=== PATIENT | female | born 1985 | race Caucasian/White ===

== ENCOUNTER 2023-05-29 13:07 | Inpatient (IN) | payer OTHER, SELFPAY ==
[2023-05-29] VITALS (7 sets, daily range): BP systolic 99–113; BP diastolic 60–75; PULSE 84–102; RESP 16–18; TEMP 36.5–36.8; O2SAT 94–100; BMI 22.1; BMI 20.9
--- NOTE | 2023-05-29 12:55 | ECG_ITS ---
APPROVED REPORT Exam: Resting ECG HR:119 bpm ECG Measurements Heart Rate 119 AXES OH 113 P 85 QRSd 79 QRS 62 QT 339 T 89 QTc 410 Conclusion SINUS TACHYCARDIA WITH SHORT OH INTERVAL POSSIBLE LEFT ATRIAL ENLARGEMENT [-0.1mV P-WAVE IN V1/V2] NONSPECIFIC ST & T-WAVE ABNORMALITY ABNORMAL RHYTHM ECG UNCONFIRMED REPORT Electronically signed by : Catarino Scott MD 05/30/2023 19:03:49
--- NOTE | 2023-05-29 13:08 | XR_ITS ---
FINAL REPORT CLINICAL HISTORY: Chest pain/ cough COMPARISON: None FINDINGS: PA and lateral views of the chest are obtained. There is no prior exam for comparison. The cardiac and mediastinal silhouettes are within normal limits. There is left upper lobe airspace disease with some central lucency. Cavitary pneumonia a consideration. The right lung is clear. There is no pleural effusion, pneumothorax, or acute osseous abnormality. IMPRESSION: Left upper lobe airspace disease. Cavitary pneumonia a consideration. Recommend follow-up to resolution. Reviewed, Interpreted and Dictated by Vera Sanabria MD Transcribed by Marcela Montaño Authenticated and [facility]
[2023-05-29 13:30] LABS: Coronavirus 19, PCR Not Detected (NotDetected); Influenza A, PCR Not Detected (NotDetected); Influenza B, PCR Not Detected (NotDetected)
[2023-05-29 13:31] LABS: Basophils % 0.1 % (0.1-2.0); Eosinophils # 0.1 K/mm3 (0.0-0.4); Eosinophils % 0.5 % (0.1-12.0); Hemoglobin 11.4 g/dL (12.2-16.2); Lymphocytes # 1.5 K/mm3 (0.7-4.5); Lymphocytes % 6.2 % (10-50); Mean Corpuscular HGB Conc 31.7 g/dL (31.8-35.4); Mean Corpuscular Hemoglobin 32.5 pg (27.0-31.2); Mean Corpuscular Volume 102.5 fl (81-99); Mean Platelet Volume 8.2 fl (7.4-10.4); Monocytes # 0.6 K/mm3 (0.1-1.0); Monocytes % 2.6 % (1.7-9.3); Neutrophils % 90.6 % (37.0-80.0); Platelet Count 731 K/mm3 (142-424); Red Blood Count 3.51 M/mm3 (4.20-5.40); Red Cell Distribution Width 13.1 % (11.5-17.5); White Blood Count 24.3 K/mm3 (4.8-10.8)
[2023-05-29 13:34] LABS: MANUAL DIFFERENTIAL MANUAL DIFFERENTIAL (MANUAL DIFF)
[2023-05-29 13:40] LABS: Lymphocytes % 6 % (10-50); Macrocytosis 1+; Monocytes % 1 % (2-9); Neutrophils % 93 % (42-76); Ovalocytes 1+; Platelet Estimate Moderate Increase; Total Cells Counted 100
--- NOTE | 2023-05-29 14:05 | PC.NURSE ---
Pt ambulatory to bathroom with no assistance. Call light within reach.
--- NOTE | 2023-05-29 14:42 | ED_ITS ---
I was consulted by the ARELIS, and we discussed the complexity of the problems being addressed. I approved the treatment and management plan for this patient's care in the emergency department, thus performing a substantive portion of the medical decision making. Alton Carr MD, SHEILA, FACEP Discharge Plan Disposition Chief Complaint: PAIN Discharge ED Provider: Oneil Cortez Adult HPI General Chief complaint: PAIN Stated complaint: pain Time Seen by Provider: 05/29/23 14:42 Mode of Arrival: Ambulatory Source of Information: Patient and Parent(s) Limitations: No Limitations Description of Symptoms (Recalled from ER Triage Doc. by RN): c/o fever, productive cough and right shoulder and left arm that started 2 days ago. History of Present Illness HPI narrative: Patient is a 47-year-old female presents with a 2-day history of worsening left- sided upper chest pain. Patient also reports cough and productive cough green sputum. Patient denies close contacts. Patient does admit to being a methamphetamine user but denies IV drug use. Related Data Allergies Allergy/AdvReac Type Severity Reaction Status Date / Time No Known Allergies Allergy Verified 05/29/23 13:08 [facility] Disclaimer: The information contained in this section may have been updated after the patient was seen, as this information can be updated by other users. Social History Smoking Status: Current every day smoker alcohol intake: current current occupational status: unemployed Travel in the last 8 weeks: None ROS Obtained: Yes Systems reviewed as appropriate & no additional complaints except as documented Physical Exam General General appearance: alert and in no apparent distress Head Head exam: atraumatic and normal inspection Eye Eye exam: Present normal appearance, PERRL and EOMI ENT ENT exam: Present normal exam, normal oropharynx and mucous membranes moist Neck Neck exam: Present normal inspection, full ROM and trachea midline; Absent lymphadenopathy Chest Chest inspection: Present normal inspection and symmetric chest wall rise Respiratory Respiratory exam: Present other (Patient has diminished breath sounds in the left upper lobe and rhonchi in the left lung leach.); Absent accessory muscle use Cardiovascular Cardiovascular exam: Present normal rhythm, tachycardia, normal heart sounds, +S1 and +S2 Abdominal Exam Abdominal exam: Present soft and normal bowel sounds; Absent tenderness, guarding or rebound Extremities Exam Extremities exam: Present normal inspection and full ROM Neurological Exam Neurological exam: Present alert and oriented X3 Psychiatric Psychiatric exam: Present normal affect and normal mood Skin Skin exam: Present warm, dry and normal color Medical Decision Making Medical Records Medical records reviewed: Yes I reviewed the patient's medical records. David Inquiry Pt receiving controlled substance: No Vital Signs: 05/29/23 13:07 05/29/23 13:37 05/29/23 16:04 Temperature 98.2 F Temperature Source Oral Pulse Rate 96 H 102 H Pulse Rate [Left Radial] 101 H Respiratory Rate 18 Blood Pressure 101/72 L Blood Pressure [Right Arm] 102/72 L Blood Pressure Mean [Right Arm] 82 Blood Pressure Source [Right Arm] Automatic Cuff Blood Pressure Position [Right Arm] Sitting 02 Sat by Pulse Oximetry 100 99 100 Oxygen Delivery Method Room Air 05/29/23 16:15 05/29/23 18:24 Temperature 98.2 F Temperature Source Pulse Rate 90 100 H Pulse Rate [Left Radial] Respiratory Rate 16 Blood Pressure 101/72 L Blood Pressure [Right Arm] Blood Pressure Mean [Right Arm] Blood Pressure Source [Right Arm] Blood Pressure Position [Right Arm] 02 Sat by Pulse Oximetry 100 Oxygen Delivery Method Lab Data Lab results reviewed: Yes I reviewed the patient's lab results. Lab Results 05/29/23 13:00: WBC 24.3 H*, RBC 3.51 L, Hgb 11.4 L, Hct 36.0 L, MCV 102.5 H, MCH 32.5 H, MCHC 31.7 L, RDW 13.1, Plt Count 731 H, MPV 8.2, Neut % (Auto) 90.6 H, Lymph % (Auto) 6.2 L, [place] % (Auto) 2.6, Eos % (Auto) 0.5, Baso % (Auto) 0.1, Neut # (Auto) 22.0 H, Lymph # (Auto) 1.5, [place] # (Auto) 0.6, Eos # (Auto) 0.1, Baso # (Auto) 0.0, Total Counted 100, Neutrophils % (Manual) 93 H, Lymphocytes % (Manual) 6 L, Monocytes % (Manual) 1 L, Platelet Estimate Moderate increase, Macrocytosis 1+, Ovalocytes 1+, Sodium 133 L, Potassium 4.0, Chloride 100, Carbon Dioxide 26, Anion Gap 11.0, BUN 11, Creatinine 0.80, Estimated Creat Clear 88, Estimated GFR 82, Est GFR ( Amer) 99, Glucose 85, Calcium 8.9, Total Bilirubin 0.3, AST 40 H, ALT 36, Alkaline Phosphatase 165 H, Lactate Dehydrogenase 194 L, Troponin I < 0.01, Total Protein 6.6, Albumin 3.2 L, Globulin 3.4 H, Albumin/Globulin Ratio 0.9 L, Procalcitonin 0.270, Serum HCG, Qual Negative, SARS-CoV-2 (PCR) Not detected, Influenza A Untype (PCR) Not detected, Influenza Type B (PCR) Not detected 05/29/23 15:49: Lactate 2.2 H 05/29/23 16:36: Troponin I < 0.01 05/29/23 17:23: Urine Color Yellow, Urine Appearance Clear, Urine pH 7.0, Ur Specific [place] <= 1.005, Urine Protein Negative, Urine Glucose (UA) Negative, Urine Ketones Negative, Urine Blood 3+, Urine Nitrate Negative, Urine Bilirubin Negative, Urine Urobilinogen 2.0, Ur Leukocyte Esterase Negative, Urine RBC 5- 10, Urine WBC Occasional, Ur Squamous Epith Cells 10-20, Urine Bacteria Trace, Urine Opiates Screen Negative, Urine Methadone Screen Negative, Ur Barbituates Screen Negative, Ur Phencyclidine Scrn Negative, Ur Amphetamines Screen Positive H, U Benzodiazepines Scrn Negative, Urine Cocaine Screen Negative, U Marijuana (THC) Screen Negative 05/29/23 13:00 05/29/23 13:00 Orders (Tests/Meds): ED MEDICATIONS Generic Name Dose Route Start Last Admin Trade Name Freq PRN Reason Stop Dose Admin Acetaminophen 650 mg 05/29/23 17:21 Acetaminophen 325mg Tab PO 06/28/23 17:20 Q4HP PRN Fever or Mild Pain (1-3) Clonazepam 1 mg 05/29/23 18:20 05/29/23 18:23 Clonazepam 0.5mg Tablet PO 05/29/23 18:21 1 mg ONCE ONE Administration Piperacillin Sod/Tazobactam 50 mls @ 100 mls/hr 05/29/23 15:15 05/29/23 17:30 Sod 3.375 gm/ Sodium Chloride IV 06/08/23 15:14 100 mls/hr Q6H PALLAVI Administration Vancomycin HCl 1,000 mg/ 250 mls @ 125 mls/hr 05/29/23 15:30 Sodium Chloride IV 06/08/23 15:29 1100,2300 PALLAVI Sodium Chloride 10 ml 05/29/23 16:44 05/29/23 16:49 Sodium Chloride 0.9% 10ml Syr (Rad Only) IV 06/28/23 16:43 10 ml NEEDED PRN Administration Maintain IV Site Discontinued Medications Generic Name Dose Route Start Last Admin Trade Name Juanq PRN Reason Stop Dose Admin Acetaminophen 1,000 mg 05/29/23 15:03 05/29/23 15:56 Acetaminophen 1,000mg/100ml Vial IV 05/29/23 15:04 1,000 mg ONCE ONE Administration Lactated Ringer's 1,000 mls @ 999 mls/hr 05/29/23 15:01 05/29/23 15:56 Lactated Ringer's 1000 Ml Bag IV 05/29/23 16:01 999 mls/hr .Q1H1M ONE Administration Iopamidol 70 ml 05/29/23 16:44 05/29/23 16:48 Iopamidol-370 (76%);100ml Bottle IV 05/29/23 16:45 70 ml ONCE ONE Administration Ketorolac Tromethamine 15 mg 05/29/23 15:03 05/29/23 15:56 Ketorolac 30mg/Ml Vial IV 05/29/23 15:04 15 mg ONCE ONE Administration Miscellaneous 1 each 05/29/23 15:15 05/29/23 17:16 Vancomycin Consult Request NOTAPPLIC 06/28/23 15:14 1 each CONSULT PHARMACY PALLAVI Administration Sodium Chloride 40 ml 05/29/23 16:44 05/29/23 16:48 0.9 % Sodium Chloride 50 Ml Vial IV 05/29/23 16:45 40 ml ONCE ONE Administration ORDERS Category Date Time Status CTA Chest [CT angio chest PE protocol] Stat Cat Scan 05/29/23 15:03 Completed Pulmonology Consult [Consult to Pulmonology] [CONS] Cons 05/29/23 17:21 Active Routine XR chest 2V Stat Exams 05/29/23 13:08 Completed Complete Blood Count Auto Diff AMLAB Lab 05/30/23 06:00 Ordered Complete Blood Count Auto Diff Stat Lab 05/29/23 13:00 Completed Comprehensive Metabolic Panel AMLAB Lab 05/30/23 06:00 Ordered Comprehensive Metabolic Panel Stat Lab 05/29/23 13:00 Completed Drug Screen,Urine Stat Lab 05/29/23 17:23 Completed HIV Panel [id number] Routine Lab 05/29/23 17:24 Ordered Histoplasma Gal'valeria Ag S Routine Lab 05/29/23 17:23 Ordered LDH [Lactate Dehydrogenase] Stat Lab 05/29/23 13:00 Completed Lactic Acid Stat Lab 05/29/23 15:49 Completed Magnesium AMLAB Lab 05/30/23 06:00 Ordered Procalcitonin Stat Lab 05/29/23 13:00 Completed QuantiFERON Client Incubated Stat Lab 05/29/23 16:36 Received Rapid PCR Covid and Flu A/B Stat Lab 05/29/23 13:00 Completed Serum [HCG Qualitative, Serum] Stat Lab 05/29/23 13:00 Completed Troponin I Q3H Lab 05/29/23 16:36 Completed Troponin I Q3H Lab 05/29/23 19:15 Ordered Troponin I Stat Lab 05/29/23 13:00 Completed Urinalysis and Microscopic Stat Lab 05/29/23 17:23 Completed Blood Culture Stat Micro 05/29/23 16:36 Received HEART Score History (anamnesis): Moderately suspicious ECG: Normal Age: <45 years Risk factors: 1-2 risk factors Troponin: </= normal limit HEART Score: 2 Medical Decision Narrative: In summary patient is a 7-year-old female who presents to the emergency dep artment for evaluation of left-sided chest pain cough and fever. Patient is tachycardic on arrival with a blood pressure of 102 systolic and afebrile with a respiratory rate of 18. Physical exam shows a thin cachectic appearing much older than stated age appearing 37-year-old female who otherwise no acute distress. Auscultation of breath sounds reveals diminished breath sounds in the left upper leach with rhonchi. The remainder of the lung leach are clear to auscultation. Patient was initially tachycardic without murmurs gallops rubs or thrills on auscultation and the monitor shows sinus tachycardia. Differential diagnosis sepsis includes ACS versus pneumonia versus PE [place]. Initial workup will be conducted with hematologic labs radiographic imaging flu and COVID swabs urinalysis and urine drug screen. Initial interventions include sepsis crystalloid bolus, Tylenol and Toradol, vancomycin and Zosyn empirically. Initial workup reviewed by me shows sepsis without septic shock. My informal interpretation of the patient's plain film imaging shows left upper lobe cavitary pneumonia and CTA PE protocol shows no thrombus but does show extensive dense consolidation with cavitary sections in the left upper lobe. Via shared decision making with the patient explaining the findings thus far and the concern for a more significant and not community-acquired pneumonia and needed further workup. Patient agreed to admission. I spoke to pulmonology and hospital medicine regarding patient management. Patient will be admitted to the hospital medicine. Critical Care Critical Care Time Critical Care Time: Yes Attestation: On 05/29/23, the high probability of a clinically significant, sudden or life threatening deterioration of the following system(s) required my full and direct attention, intervention and personal management. The time I documented below is in addition to time spent performing reported procedures but includes the following listed in this critical care notation. Total Time Total Critical Care Time: 30
[2023-05-29 14:47] LABS: Chloride 100 mmol/L (98-107); Sodium 133 mmol/L (136-145)
[2023-05-29 14:50] LABS: Alanine Aminotransferase 36 U/L (12-78); Albumin Level 3.2 g/dl (3.5-5.0); Albumin/Globulin Ratio 0.9 (1.1-1.8); Alkaline Phosphatase 165 U/L (38-126); Aspartate Amino Transferase 40 U/L (14-36); Bilirubin,Total 0.3 mg/dl (0.2-1.3); Blood Urea Nitrogen 11 mg/dl (7-17); Carbon Dioxide 26 mmol/L (22.0-30.0); Creatinine Clearance Estimated 88 mL/min (50-200); Estimated Glomerular Filt Rate 82 ml/min (>60); GFR (African American) 99 ML/MIN (>60); Globulin 3.4 g/dL (1.3-3.2); Total Protein,Serum 6.6 g/dl (6.3-8.2)
[2023-05-29 14:51] LABS: Calcium 8.9 mg/dl (8.4-10.2); Glucose 85 mg/dl (74-100)
[2023-05-29 15:03] LABS: Troponin I < 0.01 ng/ml (0.00-0.034)
--- NOTE | 2023-05-29 15:03 | CT_ITS ---
PROCEDURE INFORMATION: Exam: CTA Chest With Contrast Exam date and time: 05/29/2023 4:36 PM Age: 37 years old Clinical indication: Shortness of breath; Additional info: Sepsis, multifocal pneumonia TECHNIQUE: Imaging protocol: Computed tomographic angiography of the chest with contrast. Exam focused on the arteries. 3D rendering (Not supervised by radiologist): MIP and/or 3D reconstructed images were created by the technologist. Radiation optimization: All CT scans at this facility use at least one of these dose optimization techniques: automated exposure control; mA and/or kV adjustment per patient size (includes targeted exams where dose is matched to clinical indication); or iterative reconstruction. Contrast material: ISOVUE 370; Contrast volume: 70 ml; Contrast route: INTRAVENOUS (IV); COMPARISON: CR XR CHEST 2V 05/29/2023 1:17 PM FINDINGS: Pulmonary arteries: The main pulmonary trunk is prominent, which can be seen in the context of pulmonary hypertension. No evidence of filling defects to suggest pulmonary emboli. Aorta: Aorta is nonaneurysmal. Lungs: Large patchy and coalescent airspace opacity in left upper lobe with large areas of necrosis and cavitation. There are additional localized ground-glass opacities right upper and lower lobes. Right lower lobe pulmonary granuloma noted. Pleural spaces: No pneumothorax. No pleural effusion. Heart: No cardiomegaly or pericardial effusion. Heart RV/LV ratio: The RV/LV ratio is less than 1. Coronary arteries: No significant coronary artery calcifications. Lymph nodes: Unremarkable. No enlarged lymph nodes. Bones/joints: Unremarkable. No acute fracture. Soft tissues: Unremarkable. IMPRESSION: 1. No evidence of filling defects to suggest pulmonary emboli. 2. Left upper lobe necrotizing pneumonia with cavitation. Additional localized ground-glass opacities in both lungs also suspicious for developing pneumonia.
--- NOTE | 2023-05-29 15:14 | EXP.PHA.CONS ---
Pharmacy Consult Date: 05/29/23 Time: 15:14 Referring provider: BEVERLY SHAW Reason for Consult:: VANCOMYCIN DOSING Allergies Allergy/AdvReac Type Severity Reaction Status Date / Time No Known Allergies Allergy Verified 05/29/23 13:08 New Prescriptions to Start Prescriptions: Height: 1.6 m Weight: 56.699 kg Laboratory Results:: Laboratory Results - last 24 hr 05/29/23 13:00: WBC 24.3 H*, RBC 3.51 L, Hgb 11.4 L, Hct 36.0 L, MCV 102.5 H, MCH 32.5 H, MCHC 31.7 L, RDW 13.1, Plt Count 731 H, MPV 8.2, Neut % (Auto) 90.6 H, Lymph % (Auto) 6.2 L, [place] % (Auto) 2.6, Eos % (Auto) 0.5, Baso % (Auto) 0.1, Neut # (Auto) 22.0 H, Lymph # (Auto) 1.5, [place] # (Auto) 0.6, Eos # (Auto) 0.1, Baso # (Auto) 0.0, Total Counted 100, Neutrophils % (Manual) 93 H, Lymphocytes % (Manual) 6 L, Monocytes % (Manual) 1 L, Platelet Estimate Moderate increase, Macrocytosis 1+, Ovalocytes 1+, Sodium 133 L, Potassium 4.0, Chloride 100, Carbon Dioxide 26, Anion Gap 11.0, BUN 11, Creatinine 0.80, Estimated Creat Clear 88, Estimated GFR 82, Est GFR ( Amer) 99, Glucose 85, Calcium 8.9, Total Bilirubin 0.3, AST 40 H, ALT 36, Alkaline Phosphatase 165 H, Troponin I < 0.01, Total Protein 6.6, Albumin 3.2 L, Globulin 3.4 H, Albumin/Globulin Ratio 0.9 L, SARS-CoV-2 (PCR) Not detected, Influenza A Untype (PCR) Not detected, Influenza Type B (PCR) Not detected Assessment and Plan Assessment and plan all Dx Assessment and Plan for all problems:: Pharmacokinetic dosing service Objective: Patient: Floor: Age: 37 yo Serum creatinine: 0.8 mg/dL Height: 63.0 Inches Weight (kg): 56.7 Assessment: IBW (kg): 52.40 Dosing wt(kg): 56.7 Estimated Creatinine clearance (ml/min): 81.2 CRCL method: Cockcroft and Gault using ibw(default). Drug selected: Vancomycin Loading dose (mg): 0 Vd (liters): 48.2 (factor used: 0.85 L/kg) Sarabjit (hr-1): 0.072 Half life (hrs): 9.63 Recommended dose: 1000 mg Interval: 12 hrs Infusion time (hrs): 2.0 Predicted peak (mcg/mL): 33.4 Predicted trough (mcg/mL): 16.26 Total body weight is being used for vancomycin dosing. Recommendations: Give Vancomycin 1000 mg q 12 hrs with an expected Cpeak of 33.4 mcg/ml and an expected Ctrough of 16.26 mcg/ml ----Vanco only - ignore for aminoglycosides----- CLvanco= 3.47 L/hr AUC 0-24 /FREDA Data: FREDA 0.5 mcg/mL: AUC/FREDA: 1152.7 FREDA 1.0 mcg/mL: AUC/FREDA: 576.4 --------- FREDA 1.5 mcg/mL: AUC/FREDA: 384.2 FREDA 2.0 mcg/mL: AUC/FREDA: 288.2
[2023-05-29 15:52] LABS: HCG Qualitative, Serum Negative (Negative)
[2023-05-29] MEDS: LACTATED RINGERS 1000ML 1,000 ML 999 ML IV (15:56)
[2023-05-29] MEDS: ACETAMINOPHEN 1,000MG/100ML VIAL 1000 MG IV (15:56)
[2023-05-29] MEDS: KETOROLAC 30MG/ML VIAL 15 MG IV (15:56)
[2023-05-29 16:14] LABS: Lactic Acid 2.2 mmol/L (0.7-2.1)
[2023-05-29] MEDS: 0.9 % SODIUM CHLORIDE 50 ML VIAL 40 ML IV (16:48)
[2023-05-29] MEDS: IOPAMIDOL-370 (76%);100ML BOTTLE 70 ML IV (16:48)
[2023-05-29] MEDS: SODIUM CHLORIDE 0.9% 10ML SYR (RAD ONLY) 10 ML IV (16:49)
[2023-05-29 17:12] LABS: Troponin I < 0.01 ng/ml (0.00-0.034)
[2023-05-29] MEDS: VANCOMYCIN CONSULT REQUEST 1 EACH NOTAPPLIC (17:16)
--- NOTE | 2023-05-29 17:24 | PC.NURSE ---
called house for admission GUS Uribe RN
[2023-05-29] MEDS: PIPERACILLIN/TAZO 3.375 GM in 0.9 % SODIUM CHLORIDE 50 ML IV ×2 (17:30→20:57)
[2023-05-29 17:33] LABS: Microscopic, Urine URINE MICROSCOPIC (MICROSCOPIC)
[2023-05-29 17:37] LABS: Appearance,Urine CLEAR (Clear); Bilirubin,Urine Negative (Negative); Blood, Urine 3+ (Negative); Color,Urine YELLOW (Yellow); Glucose,Urine (UA) Negative (Negative); Ketones,Urine Negative (Negative); Leukocyte Esterase,Urine Negative (Negative); Nitrate,Urine Negative (Negative); Protein,Urine Negative (Negative); Specific Gravity, Urine <= 1.005 (1.005-1.030)
[2023-05-29 17:38] LABS: Lactate Dehydrogenase 194 U/L (313-618)
[2023-05-29 17:49] LABS: Barbiturates Screen,Urine Negative ng/ml (<200)
[2023-05-29 17:50] LABS: Bacteria,Urine Trace /lpf; Benzodiazepines Screen,Urine Negative ng/ml (<200); WBC,Urine Occasional #/hpf (0-3)
[2023-05-29 17:51] LABS: Amphetamine/Metha Screen,Urine Positive ng/ml (<1000); Cannabinoid Screen,Urine Negative ng/ml (<50)
--- NOTE | 2023-05-29 17:51 | PC.NURSE ---
SB called report to Celeste SCHMIDT at approximately [phone]
[2023-05-29 17:52] LABS: Cocaine Screen,Urine Negative ng/ml (<300)
[2023-05-29 17:53] LABS: Opiate Screen,Urine Negative ng/ml (<300)
[2023-05-29 17:54] LABS: Phencyclidine Screen,Urine Negative ng/ml (<25)
[2023-05-29 17:56] LABS: Methadone Screen,Urine Negative ng/ml (<300)
[2023-05-29] MEDS: clonazePAM 0.5MG TABLET 1 MG PO (18:23)
--- NOTE | 2023-05-29 18:29 | PC.NURSE ---
arrived to floor by w/c from ED
[2023-05-29] MEDS: VANCOMYCIN HCL 1,000 MG in 0.9 % SODIUM CHLORIDE 250 ML 125 MG IV (18:41)
--- NOTE | 2023-05-29 19:34 | EXP.HP ---
History of Present Illness *Admission Date: 05/29/23 *Reason for visit:: left shuolder pain *History of present illness: Rosalee xiomara a 37-year-old female with apparent no medical history other than amphetamine user, no IV; presented to ED with a 2-day history of worsening left-sided upper chest pain that migrate to her shoulder. Patient also reports cough and productive cough green sputum. Patient denies close sick contacts. No fever. no SOB. Patient admitted to vape and snore the drug but has never used IV. Admitted for further treatment and management. [facility] Disclaimer: The information contained in this section may have been updated after the patient was seen, as this information can be updated by other users. Medical History (Updated 05/31/23 @ 14:06 by Belen Barrientos APRN) Bipolar II disorder Social History (Updated 05/29/23 @ 18:28 by BEVERLY Avalos) Smoking Status: Current every day smoker alcohol intake: current current occupational status: unemployed Travel in the last 8 weeks: None Review of Systems Review of Systems Review of systems:: pertinent systems reviewed and negative unless documented below Meds Home Medications and Allergies Home Medications Medication Instructions Recorded Confirmed Type oxcarbazepine 300 mg tablet 300 mg PO BID 05/29/23 05/29/23 History paroxetine HCl 10 mg tablet 10 mg PO DAILY 05/29/23 05/29/23 History New Prescriptions to Start Prescriptions: Allergies Allergy/AdvReac Type Severity Reaction Status Date / Time amoxicillin [From Augmentin] Allergy Rash Verified 05/30/23 07:21 clavulanic acid Allergy Rash Verified 05/30/23 07:21 [From Augmentin] Exam Data for Last 24 hours Vital signs and Labs for Last 24 Hours: Temp Pulse Resp BP Pulse Ox O2 Del Method 98.2 F 100 H 16 101/72 L 100 Room Air 05/29/23 18:24 05/29/23 18:24 05/29/23 18:24 05/29/23 18:24 05/29/23 18:00 05/29/23 19:00 Laboratory Results - last 24 hr 05/29/23 13:00: WBC 24.3 H*, RBC 3.51 L, Hgb 11.4 L, Hct 36.0 L, MCV 102.5 H, MCH 32.5 H, MCHC 31.7 L, RDW 13.1, Plt Count 731 H, MPV 8.2, Neut % (Auto) 90.6 H, Lymph % (Auto) 6.2 L, [place] % (Auto) 2.6, Eos % (Auto) 0.5, Baso % (Auto) 0.1, Neut # (Auto) 22.0 H, Lymph # (Auto) 1.5, [place] # (Auto) 0.6, Eos # (Auto) 0.1, Baso # (Auto) 0.0, Total Counted 100, Neutrophils % (Manual) 93 H, Lymphocytes % (Manual) 6 L, Monocytes % (Manual) 1 L, Platelet Estimate Moderate increase, Macrocytosis 1+, Ovalocytes 1+, Sodium 133 L, Potassium 4.0, Chloride 100, Carbon Dioxide 26, Anion Gap 11.0, BUN 11, Creatinine 0.80, Estimated Creat Clear 88, Estimated GFR 82, Est GFR ( Amer) 99, Glucose 85, Calcium 8.9, Total Bilirubin 0.3, AST 40 H, ALT 36, Alkaline Phosphatase 165 H, Lactate Dehydrogenase 194 L, Troponin I < 0.01, Total Protein 6.6, Albumin 3.2 L, Globulin 3.4 H, Albumin/Globulin Ratio 0.9 L, Procalcitonin 0.270, Serum HCG, Qual Negative, SARS-CoV-2 (PCR) Not detected, Influenza A Untype (PCR) Not detected, Influenza Type B (PCR) Not detected 05/29/23 15:49: Lactate 2.2 H 05/29/23 16:36: Troponin I < 0.01 05/29/23 17:23: Urine Color Yellow, Urine Appearance Clear, Urine pH 7.0, Ur Specific [place] <= 1.005, Urine Protein Negative, Urine Glucose (UA) Negative, Urine Ketones Negative, Urine Blood 3+, Urine Nitrate Negative, Urine Bilirubin Negative, Urine Urobilinogen 2.0, Ur Leukocyte Esterase Negative, Urine RBC 5-10, Urine WBC Occasional, Ur Squamous Epith Cells 10-20, Urine Bacteria Trace, Urine Opiates Screen Negative, Urine Methadone Screen Negative, Ur Barbituates Screen Negative, Ur Phencyclidine Scrn Negative, Ur Amphetamines Screen Positive H, U Benzodiazepines Scrn Negative, Urine Cocaine Screen Negative, U Marijuana (THC) Screen Negative I & O for Last 24 hours: Intake & Output 05/26/23 05/27/23 05/28/23 05/29/23 23:59 23:59 23:59 23:59 Weight 53.524 kg Constitutional Constitutional: mild distress, cachectic and cooperative *Routine HEENT Exam Head: Present normocephalic and atraumatic Eye: Present EOMI, PERRL and normal accommodation ENT: Present mucous membranes moist *Routine Neck Exam Neck: Present supple, full ROM and trachea midline *Routine Respiratory Exam Respiratory: Present CTA bilaterally, crackles and normal respiratory effort; Absent respiratory distress *Routine Cardiovascular Exam Cardiovascular: Present RRR, Normal S1 and Normal S2 *Routine Abdominal Exam Abdominal: Present soft and normoactive bowel sounds; Absent tenderness or distended *Routine Rectal Exam Rectal:: deferred *Routine Genitalia Exam Genitalia:: deferred *Routine Extremities Exam Extremities: Present full ROM and pulses intact; Absent cyanosis, clubbing or edema *Routine Skin Exam Skin: Present intact and dry; Absent cyanosis, erythema or rash *Routine Neurological Exam Neurological: Present alert, oriented X3, normal reflexes, moving all extremities and normal speech Routine Psychiatric Exam Psychiatric: Present cooperative and good judgment H&P: Result Imaging and Cardiology Chest x-ray: Status: image reviewed by me, Preliminary report and final report CT scan - chest: Status: image reviewed by me, Preliminary report and final report EKG: Status: image reviewed by me and Preliminary report Assessment and Plan *Assessment and plan (1) Sepsis without acute organ dysfunction: Status: Acute Qualifiers: Sepsis type: sepsis due to unspecified organism Qualified Code(s): A41.9 - Sepsis, unspecified organism Category: Medical Code(s): A41.9 - Sepsis, unspecified organism (2) Cavitary pneumonia: Status: Acute Category: Medical Code(s): J18.9 - Pneumonia, unspecified organism; J98.4 - Other disorders of lung (3) Amphetamine abuse: Status: Acute Category: Medical Code(s): F15.10 - Other stimulant abuse, uncomplicated Plan 37-year-old female with apparent no medical history other than amphetamine user, no IV; presented to ED with a 2-day history of worsening left-sided upper chest pain that migrate to her shoulder. Patient also reports cough and productive cough green sputum. Initial interventions include sepsis work up. Tylenol and Toradol, vancomycin and Zosyn given empirically. Concern for sepsis without septic shock. The patient's plain film imaging shows left upper lobe cavitary pneumonia and CTA PE protocol shows no thrombus but does show extensive dense consolidation with cavitary sections in the left upper lobe. Imaging reviewed. DIscussed with ER for admission. plan as follow: -Sepsis without acute organ dysfunction secondary to cavitary pneumonia: Admit patient for medical service. Please rule out TB, fungal lesion Pulmonary consult Zosyn vancomycin. Pharmacy to dose and monitor QuantiFERON pending Histoplasmosis antigen pending Monitor for O2 sats. Currently on room air Monitor for hypoxia organ dysfunction including Repeat labs in the morning. Monitor for electrolyte imbalance and hemoglobin -Amphetamine abuse: Monitor for withdrawal symptoms. Education provided about detox. Lovenox for DVT prophylaxis. On Protonix Full code. Rounded on patient before nurse practitioner. Personally examined and interviewed patient. Agree with exam findings and care plan as documented.
[2023-05-29 19:52] LABS: Reflex Lactic Add Lactic Reflex
[2023-05-29 19:54] LABS: Troponin I < 0.01 ng/ml (0.00-0.034)
[2023-05-29 20:44] LABS: Lactic Acid Follow Up (RFLX 1) 3.3 mmol/L (0.7-2.1)
[2023-05-29 22:14] LABS: Reflex Lactic (2 hrs) Add Lactic Reflex
[2023-05-29 22:47] LABS: Lactic Acid Follow up (RFLX 2) 3.3 mmol/L (0.7-2.1)
[2023-05-30] VITALS (7 sets, daily range): BP systolic 95–132; BP diastolic 56–66; PULSE 81–104; RESP 16–24; TEMP 36.6–36.9; O2SAT 94–100; BMI 21.3
--- NOTE | 2023-05-30 02:29 | PC.NURSE ---
contacted pharmacy @[phone], 1st dose of vanc was given late. contacted to verify dose. Pharmacy rescheduled vanc for 0600 05/30/23, spoke with Jaylin from [facility]
[2023-05-30] MEDS: PIPERACILLIN/TAZO 3.375 GM in 0.9 % SODIUM CHLORIDE 50 ML IV ×4 (03:15→21:07)
[2023-05-30] MEDS: VANCOMYCIN HCL 1,000 MG in 0.9 % SODIUM CHLORIDE 250 ML 125 MG IV ×2 (06:55→18:11)
[2023-05-30 07:48] LABS: Basophils % 0.1 % (0.1-2.0); Eosinophils # 0.1 K/mm3 (0.0-0.4); Eosinophils % 0.7 % (0.1-12.0); Hematocrit 32.1 % (37.0-47.0); Hemoglobin 10.4 g/dL (12.2-16.2); Lymphocytes # 1.3 K/mm3 (0.7-4.5); Lymphocytes % 7.3 % (10-50); Mean Corpuscular HGB Conc 32.4 g/dL (31.8-35.4); Mean Corpuscular Hemoglobin 32.7 pg (27.0-31.2); Mean Corpuscular Volume 101.2 fl (81-99); Mean Platelet Volume 8.7 fl (7.4-10.4); Monocytes # 0.9 K/mm3 (0.1-1.0); Monocytes % 4.9 % (1.7-9.3); Neutrophils # 15.3 K/mm3 (1.8-7.8); Platelet Count 692 K/mm3 (142-424); Red Blood Count 3.17 M/mm3 (4.20-5.40); Red Cell Distribution Width 13.2 % (11.5-17.5); White Blood Count 17.6 K/mm3 (4.8-10.8)
[2023-05-30 07:51] LABS: MANUAL DIFFERENTIAL MANUAL DIFFERENTIAL (MANUAL DIFF)
[2023-05-30 07:57] LABS: Chloride 106 mmol/L (98-107); Potassium 3.8 mmoL/L (3.5-5.1); Sodium 137 mmol/L (136-145)
[2023-05-30 08:00] LABS: Alanine Aminotransferase 29 U/L (12-78); Albumin/Globulin Ratio 0.8 (1.1-1.8); Alkaline Phosphatase 171 U/L (38-126); Anion Gap 7.8 mEq/L (5-15); Aspartate Amino Transferase 38 U/L (14-36); Bilirubin,Total 0.2 mg/dl (0.2-1.3); Blood Urea Nitrogen 11 mg/dl (7-17); Calcium 8.4 mg/dl (8.4-10.2); Carbon Dioxide 27 mmol/L (22.0-30.0); Creatinine Clearance Estimated 75 mL/min (50-200); Estimated Glomerular Filt Rate 71 ml/min (>60); GFR (African American) 86 ML/MIN (>60); Globulin 3.6 g/dL (1.3-3.2); Glucose 89 mg/dl (74-100); Magnesium 2.1 mg/dl (1.6-2.3); Total Protein,Serum 6.6 g/dl (6.3-8.2)
[2023-05-30 08:28] LABS: Lymphocytes % 6 % (10-50); Monocytes % 3 % (2-9); Neutrophils % 91 % (42-76); Platelet Estimate Moderate Increase; Total Cells Counted 100
[2023-05-30 08:29] LABS: Hypochromasia 1+; Macrocytosis 1+
--- NOTE | 2023-05-30 08:40 | HMH.PHAINT1 ---
Pharmacy Intervention Comments: HOME MEDICATION LIST COMPLETED USING LIST FROM OUTPATIENT PHARMACY
[2023-05-30] MEDS: ACETAMINOPHEN 325MG TAB 650 MG PO (09:32)
--- NOTE | 2023-05-30 10:56 | EXP.PULM.CON ---
History of Present Illness History of present illness: Ms. Andersen is a 37-year-old female smoker drug abuser presented to the ER with chest pain worsening respiratory distress cough and productive phlegm and upon admission needed patient found to be having left upper lobe cavitary pneumonia and pulmonary vascular further evaluation and management. [facility] Disclaimer: The information contained in this section may have been updated after the patient was seen, as this information can be updated by other users. Social History (Updated 05/29/23 @ 18:28 by BEVERLY Avalos) Smoking Status: Current every day smoker alcohol intake: current current occupational status: unemployed Travel in the last 8 weeks: None Review of Systems Constitutional Constitutional: Reports anorexia, Reports body ache(s), Reports malaise and Reports night sweats Eyes Eyes: Denies eye discharge, Denies dry eyes, Denies irritation and Denies itchy eyes ENT Ears, Nose, Mouth, and Throat: Denies epistaxis, Denies facial pain, Denies lip swelling and Denies throat swelling *Cardiovascular Cardiovascular: Reports dyspnea and Reports dyspnea on exertion *Respiratory Respiratory: Reports chest congestion, Reports cough, Reports dyspnea, Reports dyspnea on exertion, Reports excessive phlegm production, Denies hemoptysis, Reports pain on inspiration, Reports pain with cough and Denies wheezing *Gastrointestinal Gastrointestinal: Denies abdominal pain, Denies belching and Denies cramping *Musculoskeletal Musculoskeletal: Reports back pain, Reports myalgias and Reports other (No small joint swelling or Pain) Psychiatric Psychiatric: Denies homicidal ideation and Denies suicidal ideation Endocrine Endocrine: Denies heat intolerance Hematologic/Lymphatic Hematologic/Lymphatic: Denies easy bleeding and Denies lymphadenopathy Allergic/Immunologic Allergic/Immunologic: Denies itchy eyes, Denies lip swelling, Denies throat swelling and Denies wheezing Pulmonology Exam Inpatient Vital signs and Labs for Last 24 Hours: Temp Pulse Resp BP Pulse Ox O2 Del Method 97.8 F 90 22 95/56 L 100 Room Air 05/30/23 07:56 05/30/23 07:56 05/30/23 07:56 05/30/23 07:56 05/30/23 07:56 05/30/23 09:00 Laboratory Results - last 24 hr 05/29/23 13:00: WBC 24.3 H*, RBC 3.51 L, Hgb 11.4 L, Hct 36.0 L, MCV 102.5 H, MCH 32.5 H, MCHC 31.7 L, RDW 13.1, Plt Count 731 H, MPV 8.2, Neut % (Auto) 90.6 H, Lymph % (Auto) 6.2 L, [place] % (Auto) 2.6, Eos % (Auto) 0.5, Baso % (Auto) 0.1, Neut # (Auto) 22.0 H, Lymph # (Auto) 1.5, [place] # (Auto) 0.6, Eos # (Auto) 0.1, Baso # (Auto) 0.0, Total Counted 100, Neutrophils % (Manual) 93 H, Lymphocytes % (Manual) 6 L, Monocytes % (Manual) 1 L, Platelet Estimate Moderate increase, Macrocytosis 1+, Ovalocytes 1+, Sodium 133 L, Potassium 4.0, Chloride 100, Carbon Dioxide 26, Anion Gap 11.0, BUN 11, Creatinine 0.80, Estimated Creat Clear 88, Estimated GFR 82, Est GFR ( Amer) 99, Glucose 85, Calcium 8.9, Total Bilirubin 0.3, AST 40 H, ALT 36, Alkaline Phosphatase 165 H, Lactate Dehydrogenase 194 L, Troponin I < 0.01, Total Protein 6.6, Albumin 3.2 L, Globulin 3.4 H, Albumin/Globulin Ratio 0.9 L, Procalcitonin 0.270, Serum HCG, Qual Negative, SARS-CoV-2 (PCR) Not detected, Influenza A Untype (PCR) Not detected, Influenza Type B (PCR) Not detected 05/29/23 15:49: Lactate 2.2 H 05/29/23 16:36: Troponin I < 0.01 05/29/23 17:23: Urine Color Yellow, Urine Appearance Clear, Urine pH 7.0, Ur Specific [place] <= 1.005, Urine Protein Negative, Urine Glucose (UA) Negative, Urine Ketones Negative, Urine Blood 3+, Urine Nitrate Negative, Urine Bilirubin Negative, Urine Urobilinogen 2.0, Ur Leukocyte Esterase Negative, Urine RBC 5-10, Urine WBC Occasional, Ur Squamous Epith Cells 10-20, Urine Bacteria Trace, Urine Opiates Screen Negative, Urine Methadone Screen Negative, Ur Barbituates Screen Negative, Ur Phencyclidine Scrn Negative, Ur Amphetamines Screen Positive H, U Benzodiazepines Scrn Negative, Urine Cocaine Screen Negative, U Marijuana (THC) Screen Negative 05/29/23 19:07: Troponin I < 0.01 05/29/23 20:20: Lactate 3.3 H 05/29/23 22:25: Lactate 3.3 H 05/30/23 07:11: WBC 17.6 H D, RBC 3.17 L, Hgb 10.4 L, Hct 32.1 L, MCV 101.2 H, MCH 32.7 H, MCHC 32.4, RDW 13.2, Plt Count 692 H, MPV 8.7, Neut % (Auto) 87.0 H, Lymph % (Auto) 7.3 L, [place] % (Auto) 4.9, Eos % (Auto) 0.7, Baso % (Auto) 0.1, Neut # (Auto) 15.3 H, Lymph # (Auto) 1.3, [place] # (Auto) 0.9, Eos # (Auto) 0.1, Baso # (Auto) 0.0, Total Counted 100, Neutrophils % (Manual) 91 H, Lymphocytes % (Manual) 6 L, Monocytes % (Manual) 3, Platelet Estimate Moderate increase, Hypochromasia 1+, Macrocytosis 1+, Sodium 137, Potassium 3.8, Chloride 106, Carbon Dioxide 27, Anion Gap 7.8, BUN 11, Creatinine 0.90, Estimated Creat Clear 75, Estimated GFR 71, Est GFR ( Amer) 86, Glucose 89, Calcium 8.4, Magnesium 2.1, Total Bilirubin 0.2, AST 38 H, ALT 29, Alkaline Phosphatase 171 H, Total Protein 6.6, Albumin 3.0 L, Globulin 3.6 H, Albumin/Globulin Ratio 0.8 L I & O for Labs for Last 24 Hours: Intake & Output 05/27/23 05/28/23 05/29/23 05/30/23 23:59 23:59 23:59 23:59 Intake Total 660 / 660 Output Total 0 / 0 0 / 0 Balance 0 660 / 660 Weight 118 lb 120 lb 6.4 oz Constitutional: Present moderate distress Head: Present normocephalic and atraumatic ENT: Present normal exam, normal oropharynx and mucous membranes moist Neck: Present normal inspection and full ROM Respiratory: Present rhonchi and able to speak in complete sentences; Absent respiratory distress, wheezes or crackles Cardiac: Present S1/S2, Tachycardia and radial pulses present GI: Present soft and distention; Absent tenderness or guarding Rectal (female): Present deferred (female): Present deferred Skin: Present intact; Absent cyanosis or jaundice Neuro: Present alert, awake and oriented x 3 Extremities: Present normal inspection; Absent clubbing or cyanosis Psychiatric: Present normal affect and cooperative Meds Home Medications and Allergies Home Medications Medication Instructions Recorded Confirmed Type oxcarbazepine 300 mg tablet 300 mg PO BID 05/29/23 05/29/23 History paroxetine HCl 10 mg tablet 10 mg PO DAILY 05/29/23 05/29/23 History New Prescriptions to Start Prescriptions: Allergies Allergy/AdvReac Type Severity Reaction Status Date / Time amoxicillin [From Augmentin] Allergy Rash Verified 05/30/23 07:21 clavulanic acid Allergy Rash Verified 05/30/23 07:21 [From Augmentin] Results Laboratory Findings 05/30/23 07:11 05/30/23 07:11 Abnormal lab findings: Abnormal Labs 05/29/23 05/29/23 05/29/23 13:00 15:49 17:23 WBC 24.3 H* RBC 3.51 L Hgb 11.4 L Hct 36.0 L MCV 102.5 H MCH 32.5 H MCHC 31.7 L Plt Count 731 H Neut % (Auto) 90.6 H Lymph % (Auto) 6.2 L Neut # (Auto) 22.0 H Neutrophils % (Manual) 93 H Lymphocytes % (Manual) 6 L Monocytes % (Manual) 1 L Sodium 133 L Lactate 2.2 H AST 40 H Alkaline Phosphatase 165 H Lactate Dehydrogenase 194 L Albumin 3.2 L Globulin 3.4 H Albumin/Globulin Ratio 0.9 L Ur Amphetamines Screen Positive H 05/29/23 05/29/23 05/30/23 20:20 22:25 07:11 WBC 17.6 H D RBC 3.17 L Hgb 10.4 L Hct 32.1 L MCV 101.2 H MCH 32.7 H MCHC Plt Count 692 H Neut % (Auto) 87.0 H Lymph % (Auto) 7.3 L Neut # (Auto) 15.3 H Neutrophils % (Manual) 91 H Lymphocytes % (Manual) 6 L Monocytes % (Manual) Sodium Lactate 3.3 H 3.3 H AST 38 H Alkaline Phosphatase 171 H Lactate Dehydrogenase Albumin 3.0 L Globulin 3.6 H Albumin/Globulin Ratio 0.8 L Ur Amphetamines Screen Assessment and Plan *Assessment and plan (1) Cavitary pneumonia: Status: Acute Category: Medical Code(s): J18.9 - Pneumonia, unspecified organism; J98.4 - Other disorders of lung (2) Sepsis without acute organ dysfunction: Status: Acute Qualifiers: Sepsis type: sepsis due to unspecified organism Qualified Code(s): A41.9 - Sepsis, unspecified organism Category: Medical Code(s): A41.9 - Sepsis, unspecified organism Plan Ms. Andersen is a 37-year-old female smoker drug abuser presented to the ER with chest pain worsening respiratory distress cough and productive phlegm and upon admission needed patient found to be having left upper lobe cavitary pneumonia and pulmonary vascular further evaluation and management. Denies any known sick contacts. No recent travel. Denies any known exposure to TB. Neutrophilic predominant leukocytosis upon admission. Improving. Respiratory status stable on room air. On admission was initiated on vancomycin and Zosyn. Sputum and blood cultures pending. Currently on airborne isolation pending ruling out TB. Plan: -Continue airborne isolation -Follow up sputum culture Gram stain and sensitivity -Follow-up with AFB x 3. First AFB sputum collected this morning. -Continue current antibiotics including vancomycin and Zosyn pending blood and sputum culture results -DuoNebs every 6 hours as needed # Thank you for involving pulmonary in this patient care. Will continue to follow.
[2023-05-30] MEDS: OXcarbazepine 300MG TABLET 300 MG PO ×2 (11:01→21:05)
[2023-05-30] MEDS: PARoxetine 10MG TABLET 10 MG PO (15:44)
[2023-05-30] MEDS: LORazepam 2MG/ML VIAL 0.5 MG IV (15:44)
[2023-05-30] MEDS: SODIUM CHLORIDE 0.9% 10ML VIAL 10 ML IV (15:45)
--- NOTE | 2023-05-30 16:21 | PC.NURSE ---
A&OX4. PT HAS TOLERATED RA WELL THROUGHOUT SHIFT. RESPIRATIONS REGULAR AND UNLABORED. LUNG SOUNDS DIMINISHED THROUGHOUT. NO EDEMA NOTED. HEART RATE REGULAR. VOIDS PER BATHROOM INDEPENDENTLY. SPUTUM SAMPLE SENT TO LAB. ALSO COLLECTING SPUTUM SAMPLE FOR AFB SAMPLES 1 OUT OF 3 SENT TO LAB SO FAR. ACTIVE BOWEL SOUNDS HEARD IN ALL 4 QUADRANTS. SOFT AND NONTENDER ABDOMEN. NO BM REPORTED THUS FAR. PT RECEIVED SHOWER TODAY. MOM DID VISIT PT THIS AFTERNOON. PT REPORTED BEING ANXIOUS THIS AFTERNOON. STATES SHE TAKES METH AND FEELS VERY JITTERY LIKE SHE IS WITHDRAWING. DR LOUIE NOTIFIED AND MEDS WERE ORDERED AND GIVEN PER JUN. ON REASSESSMENT, PT STATED SHE FELT MUCH BETTER. DENIES ANY SOB, CP, OR ANY OTHER PAIN THUS FAR. HAND PATIENT DAY COORDINATOR EQUAL. +2 PULSES NOTED THROUGHOUT. NO QUESTIONS OR CONCERNS VOICED THUS FAR. BED IN LOWEST POSITION. CALL LIGHT WITHIN REACH. VSS. PT RECEIVED ZOSYN TWICE THIS SHIFT AND TOLERATED WELL.
--- NOTE | 2023-05-30 18:50 | PC.NURSE ---
PT IS VERY FRUSTRATED AND HAS MENTIONED SHE IS GOING TO SIGN OUT LATER TONIGHT OR TOMORROW. THIS NURSE EDUCATED THE PT ON RISKS AND BENEFITS OF LEAVING VS STAYING AND HOW BENEFICIAL IT IS FOR HER TO STAY HERE TO TRY TO FIGURE OUT WHAT IS GOING ON WITH HER AND GET THE TREATMENT SHE NEEDS. ASKED IF THERE WAS ANYTHING I COULD DO TO HELP FIX ANY PROBLEMS SHE MAY HAVE AND SHE STATED NO. VERBALIZED UNDERSTANDING OF CONVERSATION. MD AWARE ALONG WITH OPERATING SYSTEM PROGRAMMER AND CHARGE NURSE. THIS NURSE PROVIDED PT WITH A RESOURCE GUIDE DUE TO STATING SHE HAS LIMITED FAMILY SUPPORT.
[2023-05-30] MEDS: LORazepam 2MG/ML VIAL 1 MG IV (22:40)
[2023-05-31] VITALS (7 sets, daily range): BP systolic 98–126; BP diastolic 59–92; PULSE 88–138; RESP 16–20; TEMP 36.6–36.9; O2SAT 94–99; BMI 21.3
[2023-05-31] MEDS: PIPERACILLIN/TAZO 3.375 GM in 0.9 % SODIUM CHLORIDE 50 ML IV ×4 (04:10→22:29)
[2023-05-31] MEDS: LORazepam 2MG/ML VIAL 1 MG IV ×3 (05:04→17:50)
[2023-05-31 05:26] LABS: MANUAL DIFFERENTIAL MANUAL DIFFERENTIAL (MANUAL DIFF)
[2023-05-31 05:29] LABS: Basophils % 0.2 % (0.1-2.0); Eosinophils # 0.1 K/mm3 (0.0-0.4); Eosinophils % 0.7 % (0.1-12.0); Hemoglobin 9.4 g/dL (12.2-16.2); Lymphocytes # 2.1 K/mm3 (0.7-4.5); Lymphocytes % 14.5 % (10-50); Mean Corpuscular HGB Conc 31.2 g/dL (31.8-35.4); Mean Corpuscular Hemoglobin 31.7 pg (27.0-31.2); Mean Corpuscular Volume 101.6 fl (81-99); Mean Platelet Volume 7.5 fl (7.4-10.4); Monocytes # 0.7 K/mm3 (0.1-1.0); Monocytes % 4.7 % (1.7-9.3); Neutrophils # 11.8 K/mm3 (1.8-7.8); Neutrophils % 79.9 % (37.0-80.0); Platelet Count 678 K/mm3 (142-424); Red Blood Count 2.95 M/mm3 (4.20-5.40); Red Cell Distribution Width 13.5 % (11.5-17.5); White Blood Count 14.8 K/mm3 (4.8-10.8)
[2023-05-31 05:32] LABS: Chloride 107 mmol/L (98-107); Potassium 3.7 mmoL/L (3.5-5.1); Sodium 137 mmol/L (136-145)
[2023-05-31 05:35] LABS: Anion Gap 9.7 mEq/L (5-15); Blood Urea Nitrogen 5 mg/dl (7-17); Carbon Dioxide 24 mmol/L (22.0-30.0); Creatinine Clearance Estimated 85 mL/min (50-200); Estimated Glomerular Filt Rate 82 ml/min (>60); GFR (African American) 99 ML/MIN (>60)
[2023-05-31 05:36] LABS: Calcium 8.5 mg/dl (8.4-10.2); Glucose 97 mg/dl (74-100)
[2023-05-31 05:45] LABS: Vancomycin,Trough 10.3 ug/mL (5.0-10.0)
[2023-05-31] MEDS: VANCOMYCIN HCL 1,000 MG in 0.9 % SODIUM CHLORIDE 250 ML 125 MG IV (05:49)
[2023-05-31 05:57] LABS: Hypochromasia 1+; Lymphocytes % 16 % (10-50); Macrocytosis 1+; Monocytes % 7 % (2-9); Neutrophils % 77 % (42-76); Platelet Estimate Moderate Increase; Total Cells Counted 100
--- NOTE | 2023-05-31 06:05 | PC.NURSE ---
CALLED LAB PERTAINING THE TWO SPUTUMS THAT HAD BEEN SENT OVER NIGHT. THEY STATED THEY HAD THEM AND NO MORE ACTION WAS REQUIRED FROM RESPIRATORY AT THIS TIME.
--- NOTE | 2023-05-31 07:49 | EXP.PN ---
Subjective *Date: 05/30/23 *Time: 07:49 Interval history: patient was seen and evaluated at the bedside. No reported acute events overnight, denies chest pain, shortness of breath, nausea, vomiting, abdominal pain. Exam Data for Last 24 hours Vital signs and Labs for Last 24 Hours: Temp Pulse Resp BP Pulse Ox O2 Del Method 98.2 F 97 H 18 114/89 99 Room Air 05/31/23 04:00 05/31/23 04:00 05/31/23 04:00 05/31/23 04:00 05/31/23 04:00 05/31/23 06:32 Laboratory Results - last 24 hr 05/30/23 07:11: WBC 17.6 H D, RBC 3.17 L, Hgb 10.4 L, Hct 32.1 L, MCV 101.2 H, MCH 32.7 H, MCHC 32.4, RDW 13.2, Plt Count 692 H, MPV 8.7, Neut % (Auto) 87.0 H, Lymph % (Auto) 7.3 L, [place] % (Auto) 4.9, Eos % (Auto) 0.7, Baso % (Auto) 0.1, Neut # (Auto) 15.3 H, Lymph # (Auto) 1.3, [place] # (Auto) 0.9, Eos # (Auto) 0.1, Baso # (Auto) 0.0, Total Counted 100, Neutrophils % (Manual) 91 H, Lymphocytes % (Manual) 6 L, Monocytes % (Manual) 3, Platelet Estimate Moderate increase, Hypochromasia 1+, Macrocytosis 1+, Sodium 137, Potassium 3.8, Chloride 106, Carbon Dioxide 27, Anion Gap 7.8, BUN 11, Creatinine 0.90, Estimated Creat Clear 75, Estimated GFR 71, Est GFR ( Amer) 86, Glucose 89, Calcium 8.4, Magnesium 2.1, Total Bilirubin 0.2, AST 38 H, ALT 29, Alkaline Phosphatase 171 H, Total Protein 6.6, Albumin 3.0 L, Globulin 3.6 H, Albumin/Globulin Ratio 0.8 L 05/31/23 05:17: WBC 14.8 H, RBC 2.95 L, Hgb 9.4 L, Hct 30.0 L, MCV 101.6 H, MCH 31.7 H, MCHC 31.2 L, RDW 13.5, Plt Count 678 H, MPV 7.5, Neut % (Auto) 79.9, Lymph % (Auto) 14.5, [place] % (Auto) 4.7, Eos % (Auto) 0.7, Baso % (Auto) 0.2, Neut # (Auto) 11.8 H, Lymph # (Auto) 2.1, [place] # (Auto) 0.7, Eos # (Auto) 0.1, Baso # (Auto) 0.0, Total Counted 100, Neutrophils % (Manual) 77 H, Lymphocytes % (Manual) 16, Monocytes % (Manual) 7, Platelet Estimate Moderate increase, Hypochromasia 1+, Macrocytosis 1+, Sodium 137, Potassium 3.7, Chloride 107, Carbon Dioxide 24, Anion Gap 9.7, BUN 5 L D, Creatinine 0.80, Estimated Creat Clear 85, Estimated GFR 82, Est GFR ( Amer) 99, Glucose 97, Calcium 8.5, Vancomycin Trough 10.3 H I & O for Last 24 hours: Intake & Output 05/28/23 05/29/23 05/30/23 05/31/23 23:59 23:59 23:59 23:59 Intake Total 1700 / 2230 530 / 530 Output Total 0 / 0 3 / 3 0 / 0 Balance 0 / 660 1697 / 2227 530 / 530 Weight 53.524 kg 54.613 kg 54.613 kg Constitutional Constitutional: no acute distress *Routine HEENT Exam Head: Present normocephalic Eye: Present EOMI and PERRL ENT: Present mucous membranes moist *Routine Neck Exam Neck: Present supple; Absent lymphadenopathy *Routine Respiratory Exam Respiratory: Present CTA bilaterally *Routine Cardiovascular Exam Cardiovascular: Present RRR *Routine Abdominal Exam Abdominal: Present soft and normoactive bowel sounds; Absent tenderness *Routine Extremities Exam Extremities: Absent cyanosis, clubbing or edema *Routine Skin Exam Skin: Present warm; Absent rash *Routine Neurological Exam Neurological: Present alert and oriented X3 Assessment and Plan *Assessment and plan (1) Sepsis without acute organ dysfunction: Status: Acute Qualifiers: Sepsis type: sepsis due to unspecified organism Qualified Code(s): A41.9 - Sepsis, unspecified organism Category: Medical Code(s): A41.9 - Sepsis, unspecified organism (2) Cavitary pneumonia: Status: Acute Category: Medical Code(s): J18.9 - Pneumonia, unspecified organism; J98.4 - Other disorders of lung (3) Amphetamine abuse: Status: Acute Category: Medical Code(s): F15.10 - Other stimulant abuse, uncomplicated Plan 37-year-old female with apparent no medical history other than amphetamine user, no IV; presented to ED with a 2-day history of worsening left-sided upper chest pain that migrate to her shoulder. Patient also reports cough and productive cough green sputum. Initial interventions include sepsis work up. Tylenol and Toradol, vancomycin and Zosyn given empirically. Concern for sepsis without septic shock. The patient's plain film imaging shows left upper lobe cavitary pneumonia and CTA PE protocol shows no thrombus but does show extensive dense consolidation with cavitary sections in the left upper lobe. Imaging reviewed. DIscussed with ER for admission. plan as follow: -Sepsis without acute organ dysfunction secondary to cavitary pneumonia: rule out TB, fungal lesion Pulmonary consult - sputum AFP ordered Zosyn vancomycin. Pharmacy to dose and monitor QuantiFERON pending Histoplasmosis antigen pending Monitor for O2 sats. Currently on room air Monitor for hypoxia organ dysfunction including Repeat labs in the morning. Monitor for electrolyte imbalance and hemoglobin -Amphetamine abuse: Monitor for withdrawal symptoms. Education provided about detox. Lovenox for DVT prophylaxis. On Protonix Full code. monitor inpatient
[2023-05-31 08:24] LABS: HIV Screen 4th Generation wRfx Non Reactive (Non Reactive)
[2023-05-31 09:07] LABS: Lactate Venous 1.8 mmol/L (0.4-2.0)
[2023-05-31 09:08] LABS: Lactic Acid 1.5 mmol/L (0.7-2.1)
[2023-05-31] MEDS: OXcarbazepine 300MG TABLET 300 MG PO ×2 (09:11→20:51)
[2023-05-31] MEDS: PARoxetine 10MG TABLET 10 MG PO (09:11)
--- NOTE | 2023-05-31 09:56 | EXP.PULM.PN ---
Subjective *Date: 05/31/23 *Time: 11:07 Interval history: No acute respiratory events overnight. Continued to remain on room air. Patient denies any new respiratory complaints. Pulmonology Exam Inpatient Vital signs and Labs for Last 24 Hours: Temp Pulse Resp BP Pulse Ox O2 Del Method 98.4 F 115 H 16 98/59 L 99 Room Air 05/31/23 08:00 05/31/23 08:00 05/31/23 08:00 05/31/23 08:00 05/31/23 08:00 05/31/23 09:05 Laboratory Results - last 24 hr 05/29/23 19:07: HIV 1&2 Ag/Ab, 4th Gen Non reactive 05/31/23 05:17: WBC 14.8 H, RBC 2.95 L, Hgb 9.4 L, Hct 30.0 L, MCV 101.6 H, MCH 31.7 H, MCHC 31.2 L, RDW 13.5, Plt Count 678 H, MPV 7.5, Neut % (Auto) 79.9, Lymph % (Auto) 14.5, [place] % (Auto) 4.7, Eos % (Auto) 0.7, Baso % (Auto) 0.2, Neut # (Auto) 11.8 H, Lymph # (Auto) 2.1, [place] # (Auto) 0.7, Eos # (Auto) 0.1, Baso # (Auto) 0.0, Total Counted 100, Neutrophils % (Manual) 77 H, Lymphocytes % (Manual) 16, Monocytes % (Manual) 7, Platelet Estimate Moderate increase, Hypochromasia 1+, Macrocytosis 1+, Sodium 137, Potassium 3.7, Chloride 107, Carbon Dioxide 24, Anion Gap 9.7, BUN 5 L D, Creatinine 0.80, Estimated Creat Clear 85, Estimated GFR 82, Est GFR ( Amer) 99, Glucose 97, Calcium 8.5, Vancomycin Trough 10.3 H 05/31/23 08:23: VBG Lactic Acid 1.8 05/31/23 08:41: Lactate 1.5 I & O for Labs for Last 24 Hours: Intake & Output 05/28/23 05/29/23 05/30/23 05/31/23 23:59 23:59 23:59 23:59 Intake Total 1700 / 2230 1500 / 1500 Output Total 0 / 0 3 / 3 0 / 0 Balance 0 / 660 1697 / 2227 1500 / 1500 Weight 118 lb 120 lb 6.4 oz 120 lb 6.417 oz Microbiology Reports for the Last 24 Hours: Microbiology 05/29/23 23:08 Sputum - Expectorated Sputum - Final Not Reportable 05/29/23 23:08 Sputum - Expectorated Sputum - Final Not Reportable 05/29/23 23:08 Sputum - Expectorated Sputum - Final Not Reportable 05/29/23 23:08 Sputum - Expectorated Sputum - Final Not Reportable 05/29/23 23:08 Sputum - Expectorated Sputum - Final Not Reportable 05/29/23 23:08 Sputum - Expectorated Sputum - Final Not Reportable 05/29/23 23:08 Sputum - Expectorated Sputum - Final Not Reportable 05/29/23 23:08 Sputum - Expectorated Sputum - Final Not Reportable Constitutional: Present moderate distress Head: Present normocephalic and atraumatic ENT: Present normal exam, normal oropharynx and mucous membranes moist Neck: Present normal inspection and full ROM Respiratory: Present rhonchi and able to speak in complete sentences; Absent respiratory distress, wheezes or crackles Cardiac: Present S1/S2, Tachycardia and radial pulses present GI: Present soft and distention; Absent tenderness or guarding Rectal (female): Present deferred (female): Present deferred Skin: Present intact; Absent cyanosis or jaundice Neuro: Present alert, awake and oriented x 3 Extremities: Present normal inspection; Absent clubbing or cyanosis Psychiatric: Present normal affect and cooperative Assessment and Plan *Assessment and plan (1) Cavitary pneumonia: Status: Acute Category: Medical Code(s): J18.9 - Pneumonia, unspecified organism; J98.4 - Other disorders of lung (2) Sepsis without acute organ dysfunction: Status: Acute Qualifiers: Sepsis type: sepsis due to unspecified organism Qualified Code(s): A41.9 - Sepsis, unspecified organism Category: Medical Code(s): A41.9 - Sepsis, unspecified organism Plan Ms. Andersen is a 37-year-old female smoker drug abuser presented to the ER with chest pain worsening respiratory distress cough and productive phlegm and upon admission needed patient found to be having left upper lobe cavitary pneumonia and pulmonary vascular further evaluation and management. Denies any known sick contacts. No recent travel. Denies any known exposure to TB. Neutrophilic predominant leukocytosis upon admission. Improving. Respiratory status stable on room air. On admission was initiated on vancomycin and Zosyn. Sputum and blood cultures pending. Currently on airborne isolation pending ruling out TB. Interval update: No Acute respiratory vents overnight. Continue to receive vancomycin and Zosyn. Improving leukocytosis. Pending AFB and sputum culture results. Plan: -Continue airborne isolation -Follow up sputum culture Gram stain and sensitivity -Follow-up with AFB x 3. -Continue current antibiotics including vancomycin and Zosyn pending blood and sputum culture results -DuoNebs every 6 hours as needed # Thank you for involving pulmonary in this patient care. Will continue to follow.
[2023-05-31 11:02] LABS: Vancomycin,Peak 21.9 ug/ml (11-39)
--- NOTE | 2023-05-31 11:33 | P.CONPHA_ITS ---
Pharmacy Consult Date: 05/31/23 Time: 11:33 Referring provider: DR. LOUIE Reason for Consult:: VANCOMYCIN TROUGH/PEAK LEVELS AND DOSE CHANGE Allergies Allergy/AdvReac Type Severity Reaction Status Date / Time amoxicillin [From Augmentin] Allergy Rash Verified 05/30/23 07:21 clavulanic acid Allergy Rash Verified 05/30/23 07:21 [From Augmentin] Home Medications Medication Instructions Recorded Confirmed Type oxcarbazepine 300 mg tablet 300 mg PO BID 05/29/23 05/29/23 History paroxetine HCl 10 mg tablet 10 mg PO DAILY 05/29/23 05/29/23 History New Prescriptions to Start Prescriptions: Height: 1.6 m Weight: 54.613 kg Laboratory Results:: Laboratory Results - last 24 hr 05/29/23 19:07: HIV 1&2 Ag/Ab, 4th Gen Non reactive 05/31/23 05:17: WBC 14.8 H, RBC 2.95 L, Hgb 9.4 L, Hct 30.0 L, MCV 101.6 H, MCH 31.7 H, MCHC 31.2 L, RDW 13.5, Plt Count 678 H, MPV 7.5, Neut % (Auto) 79.9, Lymph % (Auto) 14.5, [place] % (Auto) 4.7, Eos % (Auto) 0.7, Baso % (Auto) 0.2, Neut # (Auto) 11.8 H, Lymph # (Auto) 2.1, [place] # (Auto) 0.7, Eos # (Auto) 0.1, Baso # (Auto) 0.0, Total Counted 100, Neutrophils % (Manual) 77 H, Lymphocytes % (Manual) 16, Monocytes % (Manual) 7, Platelet Estimate Moderate increase, Hypochromasia 1+, Macrocytosis 1+, Sodium 137, Potassium 3.7, Chloride 107, Carbon Dioxide 24, Anion Gap 9.7, BUN 5 L D, Creatinine 0.80, Estimated Creat C lear 85, Estimated GFR 82, Est GFR ( Amer) 99, Glucose 97, Calcium 8.5, Vancomycin Trough 10.3 H 05/31/23 08:23: VBG Lactic Acid 1.8 05/31/23 08:41: Lactate 1.5 05/31/23 10:04: Vancomycin Peak 21.9 Assessment and Plan Assessment and plan all Dx Assessment and Plan for all problems:: BASED ON PATIENT FACTORS AND VANCOMYCIN PEAK LEVEL OF 21.9 AND TROUGH LEVEL OF 10.3, RECOMMEND SLIGHTLY INCREASING VANCOMYCIN DOSE TO 1,250MG IV EVERY 12 HOURS. PHARMACY WILL CONTINUE TO MONITOR AND WILL ADJUST DOSE APPROPRIATE. -ERIN BRYANT, JOAND
--- NOTE | 2023-05-31 13:55 | EXP.BH.CONS ---
History of Present Illness *Admission Date: 05/29/23 *Reason for visit:: depression/anxiety/drug use *History of present illness: I interviewed patient at her bedside. She is alone in the room. A&OX4. She is sitting up in the bed eating when I interviewed her. She states that she came to the hospital cause she had some chest congestion that turned out to be pneumonia; that they are also testing her for TB though. -so she can't leave yet -but she wants to go home -she states that her mom brought her here -she currently lives with her mom -has for about 2 months -since she was released from senior living -she was in senior living for about 9 months -was released on March 22, 2023 -she states that she was on her medicines in senior living; but then she ran out when released; cause she doesn't have a PCP. She reports her previous medicines as: -Paxil 10mg daily -Trileptal 300mg BID -Seroquel 50mg at bedtime -states that she has been out of them for about a month -but they did restart them today -states that when she was on these 3 medicines; she was happy; and everything was going good in her life She has had anxiety and depression since she was little. -no specific trigger -just that she had a decent childhood -worse as an adult -her boyfriend February [id number] -from overdose -they were together for 6 years -she didn't get to go to the or visitation cause she was in senior living -then living at home with her mom again -doesn't like crowds -finances -just every day life stuff -wants a job -but hasn't started working on this yet -she also reports she has mood swings out of the blue -just randomly -but has a history of bipolar disorder -and has not been restarted on her seroquel -she reports that she does use meth every now and then -denies that it is a daily occurrence -just when she needs it -she states that the last time was 4-5 days ago -she snorted it -she used to shoot up; hasn't done this in over 10 years -states that she has been tested for HIV/HEP C and everything was negative She states that the ativan they are giving her here; it has really helped her. -that she feels she can breath again -it is a good medicine -educated her on this; and the fact that it is addicting and not for long-term use She has 2 daughter; ages 7 and 16. -the 7 year old was adopted out -in an open adoption; she reports that she does see her -and her 16 year old lives with maternal grandmother [facility] Disclaimer: The information contained in this section may have been updated after the patient was seen, as this information can be updated by other users. Medical History (Updated 05/31/23 @ 14:06 by Belen Barrientos APRN) Bipolar II disorder Social History (Updated 05/29/23 @ 18:28 by BEVERLY Avalos) Smoking Status: Current every day smoker alcohol intake: current current occupational status: unemployed Travel in the last 8 weeks: None Review of Systems Review of Systems Review of systems:: other Meds Home Medications and Allergies Home Medications Medication Instructions Recorded Confirmed Type oxcarbazepine 300 mg tablet 300 mg PO BID 05/29/23 05/29/23 History paroxetine HCl 10 mg tablet 10 mg PO DAILY 05/29/23 05/29/23 History New Prescriptions to Start Prescriptions: Allergies Allergy/AdvReac Type Severity Reaction Status Date / Time amoxicillin [From Augmentin] Allergy Rash Verified 05/30/23 07:21 clavulanic acid Allergy Rash Verified 05/30/23 07:21 [From Augmentin] Assessment and Plan *Assessment and plan (1) Amphetamine abuse: Status: Acute Category: Medical Code(s): F15.10 - Other stimulant abuse, uncomplicated (2) Bipolar II disorder: Status: Acute Category: Medical Code(s): F31.81 - Bipolar II disorder Plan Recommendations: 1. Restart Seroquel 50mg at bedtime. -she was on this before 2. Continue Paxil and Trileptal 3. She will follow-up in our outpatient clinic with [facility]. -respiratory therapy assistant will call and give the appointment to staff.
[2023-05-31] MEDS: ACETAMINOPHEN 325MG TAB 650 MG PO (15:02)
--- NOTE | 2023-05-31 16:47 | P.PN_ITS ---
Subjective *Date: 05/31/23 *Time: 16:47 Interval history: patient was seen and evaluated at the bedside. No reported acute events overnight, denies chest pain, shortness of breath, nausea, vomiting, abdominal pain. Exam Data for Last 24 hours Vital signs and Labs for Last 24 Hours: Temp Pulse Resp BP Pulse Ox O2 Del Method 97.8 F 92 H 18 115/81 94 L Room Air 05/31/23 15:51 05/31/23 16:02 05/31/23 15:51 05/31/23 15:51 05/31/23 15:51 05/31/23 15:51 Laboratory Results - last 24 hr 05/29/23 19:07: HIV 1&2 Ag/Ab, 4th Gen Non reactive 05/31/23 05:17: WBC 14.8 H, RBC 2.95 L, Hgb 9.4 L, Hct 30.0 L, MCV 101.6 H, MCH 31.7 H, MCHC 31.2 L, RDW 13.5, Plt Count 678 H, MPV 7.5, Neut % (Auto) 79.9, Lymph % (Auto) 14.5, [place] % (Auto) 4.7, Eos % (Auto) 0.7, Baso % (Auto) 0.2, Neut # (Auto) 11.8 H, Lymph # (Auto) 2.1, [place] # (Auto) 0.7, Eos # (Auto) 0.1, Baso # (Auto) 0.0, Total Counted 100, Neutrophils % (Manual) 77 H, Lymphocytes % (Manual) 16, Monocytes % (Manual) 7, Platelet Estimate Moderate increase, Hypochromasia 1+, Macrocytosis 1+, Sodium 137, Potassium 3.7, Chloride 107, Carbon Dioxide 24, Anion Gap 9.7, BUN 5 L D, Creatinine 0.80, Estimated Creat Clear 85, Estimated GFR 82, Est GFR ( Amer) 99, Glucose 97, Calcium 8.5, Vancomycin Trough 10.3 H 05/31/23 08:23: VBG Lactic Acid 1.8 05/31/23 08:41: Lactate 1.5 05/31/23 10:04: Vancomycin Peak 21.9 I & O for Last 24 hours: Intake & Output 05/28/23 05/29/23 05/30/23 05/31/23 23:59 23:59 23:59 23:59 Intake Total 1700 / 2230 2460 / 2460 Output Total 0 / 0 3 / 3 0 / 0 Balance 0 / 660 1697 / 2227 2460 / 2460 Weight 53.524 kg 54.613 kg 54.613 kg Microbiology Reports for the Last 24 Hours: Microbiology 05/30/23 11:00 Sputum - Expectorated Sputum - Final 05/30/23 11:00 Sputum - Expectorated Sputum Acid Fast Bacilli Smear - Final 05/29/23 23:08 Sputum - Expectorated Sputum - Final Not Reportable 05/29/23 23:08 Sputum - Expectorated Sputum - Final Not Reportable 05/29/23 23:08 Sputum - Expectorated Sputum - Final Not Reportable 05/29/23 23:08 Sputum - Expectorated Sputum - Final Not Reportable 05/29/23 23:08 Sputum - Expectorated Sputum - Final Not Reportable 05/29/23 23:08 Sputum - Expectorated Sputum - Final Not Reportable 05/29/23 23:08 Sputum - Expectorated Sputum - Final Not Reportable 05/29/23 23:08 Sputum - Expectorated Sputum - Final Not Reportable Constitutional Constitutional: no acute distress *Routine HEENT Exam Head: Present normocephalic Eye: Present EOMI and PERRL ENT: Present mucous membranes moist *Routine Neck Exam Neck: Present supple; Absent lymphadenopathy *Routine Respiratory Exam Respiratory: Present CTA bilaterally *Routine Cardiovascular Exam Cardiovascular: Present RRR *Routine Abdominal Exam Abdominal: Present soft and normoactive bowel sounds; Absent tenderness *Routine Extremities Exam Extremities: Absent cyanosis, clubbing or edema *Routine Skin Exam Skin: Present warm; Absent rash *Routine Neurological Exam Neurological: Present alert and oriented X3 Assessment and Plan *Assessment and plan (1) Sepsis without acute organ dysfunction: Status: Acute Qualifiers: Sepsis type: sepsis due to unspecified organism Qualified Code(s): A41.9 - Sepsis, unspecified organism Category: Medical Code(s): A41.9 - Sepsis, unspecified organism (2) Cavitary pneumonia: Status: Acute Category: Medical Code(s): J18.9 - Pneumonia, unspecified organism; J98.4 - Other disorders of lung (3) Amphetamine abuse: Status: Acute Category: Medical Code(s): F15.10 - Other stimulant abuse, uncomplicated Plan 37-year-old female with apparent no medical history other than amphetamine user, no IV; presented to ED with a 2-day history of worsening left-sided upper chest pain that migrate to her shoulder. Patient also reports cough and productive cough green sputum. Initial interventions include sepsis work up. Tylenol and Toradol, vancomycin and Zosyn given empirically. Concern for sepsis without septic shock. The patient's plain film imaging shows left upper lobe cavitary pneumonia and CTA PE protocol shows no thrombus but does show extensive dense consolidation with cavitary sections in the left upper lobe. Imaging reviewed. DIscussed with ER for admission. plan as follow: -Sepsis without acute organ dysfunction secondary to cavitary pneumonia: rule out TB, fungal lesion m- Sputunm AFP sent out Pulmonary consult - sputum AFP ordered Zosyn vancomycin. Histoplasmosis antigen pending -Amphetamine abuse: Monitor for withdrawal symptoms. PRN Ativan for withdrawal, Education provided about detox. Lovenox for DVT prophylaxis. On Protonix Full code. monitor inpatient,await sputum AFP
[2023-05-31 17:10] LABS: QuantiFERON-TB Gold Plus Negative (Negative)
--- NOTE | 2023-05-31 17:22 | PC.NURSE ---
Patient alert and oriented but restless. Up ad sebastien in room with patient found to be fidgeting and pacing frequently. On room air. Tylenol for generalized body aches. Ativan for agitation. Antibiotics administered per orders. Awaiting microbiology results before possible discharge home
[2023-05-31] MEDS: VANCOMYCIN/WATER FOR INJ (PEG) 1.25 GM/250 ML PIGGYBACK IV (18:11)
[2023-06-01] VITALS: BP 133/88; PULSE 122; RESP 18; TEMP 36.6; O2SAT 100
[2023-06-01] MEDS: LORazepam 2MG/ML VIAL 1 MG IV ×2 (00:07→08:24)
[2023-06-01] MEDS: PIPERACILLIN/TAZO 3.375 GM in 0.9 % SODIUM CHLORIDE 50 ML IV ×2 (02:49→08:25)
--- NOTE | 2023-06-01 03:51 | PC.NURSE ---
1/2 bottle of tylenol PM found in pt room by willis, medication locked in med sueding machine operator room at this time charge nurse aware.
--- NOTE | 2023-06-01 03:54 | PC.NURSE ---
Pt is alert and oriented x4, pt presents as generally agitated and irritated and shows eccentric behavior at times. Pt has tolerated antibiotic fluids well, pt IV was replaced after 3 attempts due to veins rolling easily, 22 in the right paced. Pt remains in airborne precautions. Pt denies pain but c/o anxiety and has been treated per MAR.
[2023-06-01 04:00] VITALS: BP 106/68; PULSE 81; RESP 16; TEMP 36.8; O2SAT 95; BMI 21.3
[2023-06-01] MEDS: VANCOMYCIN/WATER FOR INJ (PEG) 1.25 GM/250 ML PIGGYBACK IV (05:02)
[2023-06-01 06:34] LABS: Acetaminophen < 10 ug/ml (10-30)
[2023-06-01 06:39] LABS: Chloride 109 mmol/L (98-107); Potassium 3.4 mmoL/L (3.5-5.1); Sodium 137 mmol/L (136-145)
[2023-06-01 06:41] LABS: Blood Urea Nitrogen 6 mg/dl (7-17); Creatinine Clearance Estimated 75 mL/min (50-200); Estimated Glomerular Filt Rate 71 ml/min (>60); GFR (African American) 86 ML/MIN (>60)
[2023-06-01 06:42] LABS: Alanine Aminotransferase 31 U/L (12-78); Albumin Level 2.7 g/dl (3.5-5.0); Albumin/Globulin Ratio 0.8 (1.1-1.8); Alkaline Phosphatase 100 U/L (38-126); Anion Gap 9.4 mEq/L (5-15); Aspartate Amino Transferase 31 U/L (14-36); Carbon Dioxide 22 mmol/L (22.0-30.0); Globulin 3.5 g/dL (1.3-3.2); Total Protein,Serum 6.2 g/dl (6.3-8.2)
[2023-06-01 06:43] LABS: Calcium 8.2 mg/dl (8.4-10.2); Glucose 131 mg/dl (74-100)
[2023-06-01 06:44] LABS: Bilirubin,Total < 0.1 mg/dl (0.2-1.3)
[2023-06-01 07:04] LABS: Basophils % 0.2 % (0.1-2.0); Eosinophils # 0.1 K/mm3 (0.0-0.4); Eosinophils % 1.3 % (0.1-12.0); Hematocrit 29.3 % (37.0-47.0); Hemoglobin 9.3 g/dL (12.2-16.2); Lymphocytes # 2.3 K/mm3 (0.7-4.5); Lymphocytes % 20.6 % (10-50); Mean Corpuscular HGB Conc 31.8 g/dL (31.8-35.4); Mean Corpuscular Hemoglobin 33.2 pg (27.0-31.2); Mean Corpuscular Volume 104.3 fl (81-99); Mean Platelet Volume 7.3 fl (7.4-10.4); Monocytes # 0.6 K/mm3 (0.1-1.0); Monocytes % 5.6 % (1.7-9.3); Neutrophils # 8.1 K/mm3 (1.8-7.8); Neutrophils % 72.3 % (37.0-80.0); Platelet Count 637 K/mm3 (142-424); Red Blood Count 2.81 M/mm3 (4.20-5.40); Red Cell Distribution Width 13.4 % (11.5-17.5); White Blood Count 11.2 K/mm3 (4.8-10.8)
[2023-06-01 08:00] VITALS: BP 138/92; PULSE 94; RESP 18; TEMP 36.7; O2SAT 97
[2023-06-01] MEDS: OXcarbazepine 300MG TABLET 300 MG PO (08:25)
[2023-06-01] MEDS: PARoxetine 10MG TABLET 10 MG PO (08:25)
--- NOTE | 2023-06-01 09:45 | EXP.PULM.PN ---
Subjective *Date: 06/01/23 *Time: 11:28 Interval history: No acute respiratory events overnight. Patient denies any new respiratory complaints. Pulmonology Exam Inpatient Vital signs and Labs for Last 24 Hours: Temp Pulse Resp BP Pulse Ox O2 Del Method 98.0 F 94 H 18 138/92 H 97 Room Air 06/01/23 08:00 06/01/23 08:00 06/01/23 08:00 06/01/23 08:00 06/01/23 08:00 06/01/23 09:00 Laboratory Results - last 24 hr 05/29/23 16:36: TB Test (QFT) Nil 0.06, TB Test (QFT) Mitogen 3.05, TB Test (QFT) Ag 1 0.03, TB Test (QFT) Ag 2 0.02, TB Positive Criteria Comment, TB Test (QFT) Interp Negative 05/31/23 10:04: Vancomycin Peak 21.9 06/01/23 05:13: Acetaminophen < 10 L 06/01/23 05:53: WBC 11.2 H, RBC 2.81 L, Hgb 9.3 L, Hct 29.3 L, MCV 104.3 H, MCH 33.2 H, MCHC 31.8, RDW 13.4, Plt Count 637 H, MPV 7.3 L, Neut % (Auto) 72.3, Lymph % (Auto) 20.6, [place] % (Auto) 5.6, Eos % (Auto) 1.3, Baso % (Auto) 0.2, Neut # (Auto) 8.1 H, Lymph # (Auto) 2.3, [place] # (Auto) 0.6, Eos # (Auto) 0.1, Baso # (Auto) 0.0, Sodium 137, Potassium 3.4 L, Chloride 109 H, Carbon Dioxide 22, Anion Gap 9.4, BUN 6 L, Creatinine 0.90, Estimated Creat Clear 75, Estimated GFR 71, Est GFR ( Amer) 86, Glucose 131 H, Calcium 8.2 L, Total Bilirubin < 0.1 L, AST 31, ALT 31, Alkaline Phosphatase 100, Total Protein 6.2 L, Albumin 2.7 L, Globulin 3.5 H, Albumin/Globulin Ratio 0.8 L I & O for Labs for Last 24 Hours: Intake & Output 05/29/23 05/30/23 05/31/23 06/01/23 23:59 23:59 23:59 23:59 Intake Total 1700 / 2230 2460 / 2870 710 / 710 Output Total 0 / 0 3 / 3 0 / 0 0 / 0 Balance 0 / 660 1697 / 2227 2460 / 2870 710 / 710 Weight 118 lb 120 lb 6.4 oz 120 lb 6.417 oz 120 lb 6.805 oz Microbiology Reports for the Last 24 Hours: Microbiology 05/30/23 12:10 Nose - Nasal MRSA Culture - Final 05/30/23 11:00 Sputum - Expectorated Sputum - Final 05/30/23 11:00 Sputum - Expectorated Sputum Acid Fast Bacilli Smear - Final 05/29/23 23:08 Sputum - Expectorated Sputum - Final Not Reportable 05/29/23 23:08 Sputum - Expectorated Sputum - Final Not Reportable 05/29/23 23:08 Sputum - Expectorated Sputum - Final Not Reportable 05/29/23 23:08 Sputum - Expectorated Sputum - Final Not Reportable 05/29/23 23:08 Sputum - Expectorated Sputum - Final Not Reportable 05/29/23 23:08 Sputum - Expectorated Sputum - Final Not Reportable 05/29/23 23:08 Sputum - Expectorated Sputum - Final Not Reportable 05/29/23 23:08 Sputum - Expectorated Sputum - Final Not Reportable Constitutional: Present moderate distress Head: Present normocephalic and atraumatic ENT: Present normal exam, normal oropharynx and mucous membranes moist Neck: Present normal inspection and full ROM Respiratory: Present rhonchi and able to speak in complete sentences; Absent respiratory distress, wheezes or crackles Cardiac: Present S1/S2, Tachycardia and radial pulses present GI: Present soft and distention; Absent tenderness or guarding Rectal (female): Present deferred (female): Present deferred Skin: Present intact; Absent cyanosis or jaundice Neuro: Present alert, awake and oriented x 3 Extremities: Present normal inspection; Absent clubbing or cyanosis Psychiatric: Present normal affect and cooperative Assessment and Plan *Assessment and plan (1) Cavitary pneumonia: Status: Acute Category: Medical Code(s): J18.9 - Pneumonia, unspecified organism; J98.4 - Other disorders of lung (2) Sepsis without acute organ dysfunction: Status: Acute Qualifiers: Sepsis type: sepsis due to unspecified organism Qualified Code(s): A41.9 - Sepsis, unspecified organism Category: Medical Code(s): A41.9 - Sepsis, unspecified organism Plan Ms. Andersen is a 37-year-old female smoker drug abuser presented to the ER with chest pain worsening respiratory distress cough and productive phlegm and upon admission needed patient found to be having left upper lobe cavitary pneumonia and pulmonary vascular further evaluation and management. Denies any known sick contacts. No recent travel. Denies any known exposure to TB. Neutrophilic predominant leukocytosis upon admission. Improving. Respiratory status stable on room air. On admission was initiated on vancomycin and Zosyn. Sputum and blood cultures pending. Currently on airborne isolation pending ruling out TB. Interval update: No Acute respiratory vents overnight. Continue to receive vancomycin and Zosyn. Improving leukocytosis. Pending AFB and sputum culture results. Nasal MRSA PCR negative. Sputum showing gram-negative rods. AFB x 2 negative. Lab has some issues processing the AFB sample that was sent on day 1. Will follow. Given patient stable clinical diagnosis. The patient levofloxacin 750 mg daily with a plan to follow-up in the clinic 5 to 7 days post discharge to further determine the antibiotic regimen based on final sputum culture results. AFBx1 negative Plan: -Change antibiotics to levofloxacin 750 mg daily x 14 days pending final sputum culture results -Albuterol every 6 hours on as-needed basis # Thank you for involving pulmonary in this patient care. Will follow in pulmonary clinic in 5 to 7 days with a chest x-ray PA lateral prior to clinic visit.
[2023-06-01 11:38] VITALS: BP 110/64; PULSE 101; RESP 17; TEMP 36.4; O2SAT 97
[2023-06-01] MEDS: levoFLOXacin 750 MG TABLET PO (11:59)
--- NOTE | 2023-06-01 12:43 | P.DS_ITS ---
General Admission date:: 05/29/23 Discharge date: 06/01/23 HPI HPI HPI: 37-year-old female with apparent no medical history other than amphetamine user, no IV; presented to ED with a 2-day history of worsening left-sided upper chest pain that migrate to her shoulder. Patient also reports cough and productive cough green sputum. Initial interventions include sepsis work up. Tylenol and Toradol, vancomycin and Zosyn given empirically. Concern for sepsis without septic shock. The patient's plain film imaging shows left upper lobe cavitary pneumonia and CTA PE protocol shows no thrombus but does show extensive dense consolidation with cavitary sections in the left upper lobe. Imaging reviewed. Hospital Course Hospital Course Hospital Course: 37-year-old female with apparent no medical history other than amphetamine user, no IV; presented to ED with a 2-day history of worsening left-sided upper chest pain that migrate to her shoulder. Patient also reports cough and productive cough green sputum. Initial interventions include sepsis work up. Tylenol and Toradol, vancomycin and Zosyn given empirically. Concern for sepsis without septic shock. The patient's plain film imaging shows left upper lobe cavitary pneumonia and CTA PE protocol shows no thrombus but does show extensive dense consolidation with cavitary sections in the left upper lobe. Imaging reviewed. DIscussed with ER for admission. plan as follow: -Sepsis without acute organ dysfunction secondary to cavitary pneumonia: resolved PNA is improving as well Patient was found using benadryl PM in house , she was found pretty somnolent yesterday evening rule out TB, fungal lesion- Sputunm AFP sent out - pulmonary to follow up on cultures, patient to be discharged on Oral Loevfloxacin, patient given follow up appointment referral, prescriptions sent, Behavioural therapy appointment was also made for the patient, patient counselled on drugs cessation. Exam Data for Last 24 hours Vital signs and Labs for Last 24 Hours: Temp Pulse Resp BP Pulse Ox O2 Del Method 97.6 F 101 H 17 110/64 97 Room Air 06/01/23 11:38 06/01/23 11:38 06/01/23 11:38 06/01/23 11:38 06/01/23 11:38 06/01/23 11:38 Laboratory Results - last 24 hr 05/29/23 16:36: TB Test (QFT) Nil 0.06, TB Test (QFT) Mitogen 3.05, TB Test (QFT) Ag 1 0.03, TB Test (QFT) Ag 2 0.02, TB Positive Criteria Comment, TB Test (QFT) Interp Negative 06/01/23 05:13: Acetaminophen < 10 L 06/01/23 05:53: WBC 11.2 H, RBC 2.81 L, Hgb 9.3 L, Hct 29.3 L, MCV 104.3 H, MCH 33.2 H, MCHC 31.8, RDW 13.4, Plt Count 637 H, MPV 7.3 L, Neut % (Auto) 72.3, Lymph % (Auto) 20.6, [place] % (Auto) 5.6, Eos % (Auto) 1.3, Baso % (Auto) 0.2, Neut # (Auto) 8.1 H, Lymph # (Auto) 2.3, [place] # (Auto) 0.6, Eos # (Auto) 0.1, Baso # (Auto) 0.0, Sodium 137, Potassium 3.4 L, Chloride 109 H, Carbon Dioxide 22, Anion Gap 9.4, BUN 6 L, Creatinine 0.90, Estimated Creat Clear 75, Estimated GFR 71, Est GFR ( Amer) 86, Glucose 131 H, Calcium 8.2 L, Total Bilirubin < 0.1 L, AST 31, ALT 31, Alkaline Phosphatase 100, Total Protein 6.2 L, Albumin 2.7 L, Globulin 3.5 H, Albumin/Globulin Ratio 0.8 L I & O for Last 24 hours: Intake & Output 05/29/23 05/30/23 05/31/23 06/01/23 23:59 23:59 23:59 23:59 Intake Total 1700 / 2230 2460 / 2870 710 / 710 Output Total 0 / 0 3 / 3 0 / 0 0 / 0 Balance 0 / 660 1697 / 2227 2460 / 2870 710 / 710 Weight 53.524 kg 54.613 kg 54.613 kg 54.624 kg Microbiology Reports for the Last 24 Hours: Microbiology 05/29/23 23:08 Sputum - Expectorated Sputum - Final 05/29/23 23:08 Sputum - Expectorated Sputum Acid Fast Bacilli Smear - Final 05/30/23 Unknown Sputum - Expectorated Sputum - Final 05/30/23 Unknown Sputum - Expectorated Sputum Acid Fast Bacilli Smear - Final 05/30/23 10:15 Sputum - Expectorated Sputum Gram Stain - Final 05/30/23 12:10 Nose - Nasal MRSA Culture - Final 05/30/23 11:00 Sputum - Expectorated Sputum - Final 05/30/23 11:00 Sputum - Expectorated Sputum Acid Fast Bacilli Smear - Final Constitutional Constitutional: no acute distress *Routine HEENT Exam Head: Present normocephalic Eye: Present EOMI and PERRL ENT: Present mucous membranes moist *Routine Neck Exam Neck: Present supple; Absent lymphadenopathy *Routine Respiratory Exam Respiratory: Present CTA bilaterally *Routine Cardiovascular Exam Cardiovascular: Present RRR *Routine Abdominal Exam Abdominal: Present soft and normoactive bowel sounds; Absent tenderness *Routine Extremities Exam Extremities: Absent cyanosis, clubbing or edema *Routine Skin Exam Skin: Present warm; Absent rash *Routine Neurological Exam Neurological: Present alert and oriented X3 Results Data Completed and Pending Labs on day of discharge: Labs from last 24 hours 06/01/23 06/01/23 05/29/23 05:53 05:13 16:36 WBC 11.2 H RBC 2.81 L Hgb 9.3 L Hct 29.3 L MCV 104.3 H MCH 33.2 H MCHC 31.8 RDW 13.4 Plt Count 637 H MPV 7.3 L Neut % (Auto) 72.3 Lymph % (Auto) 20.6 [place] % (Auto) 5.6 Eos % (Auto) 1.3 Baso % (Auto) 0.2 Neut # (Auto) 8.1 H Lymph # (Auto) 2.3 [place] # (Auto) 0.6 Eos # (Auto) 0.1 Baso # (Auto) 0.0 Sodium 137 Potassium 3.4 L Chloride 109 H Carbon Dioxide 22 Anion Gap 9.4 BUN 6 L Creatinine 0.90 Estimated Creat Clear 75 Estimated GFR 71 Est GFR ( Amer) 86 Glucose 131 H Calcium 8.2 L Total Bilirubin < 0.1 L AST 31 ALT 31 Alkaline Phosphatase 100 Total Protein 6.2 L Albumin 2.7 L Globulin 3.5 H Albumin/Globulin Ratio 0.8 L Acetaminophen < 10 L TB Test (QFT) Nil 0.06 TB Test (QFT) Mitogen 3.05 TB Test (QFT) Ag 1 0.03 TB Test (QFT) Ag 2 0.02 TB Positive Criteria Comment TB Test (QFT) Interp Negative DS: Diagnosis Discharge Diagnosis (1) Cavitary pneumonia: Status: Acute Code(s): J18.9 - Pneumonia, unspecified organism; J98.4 - Other disorders of lung (2) Sepsis without acute organ dysfunction: Status: Acute Code(s): A41.9 - Sepsis, unspecified organism Qualifiers: Sepsis type: sepsis due to unspecified organism Qualified Code(s): A41.9 - Sepsis, unspecified organism Meds Home Medications and Allergies Home Medications Medication Instructions Recorded Confirmed Type oxcarbazepine 300 mg tablet 300 mg PO BID 05/29/23 05/29/23 History paroxetine HCl 10 mg tablet 10 mg PO DAILY 05/29/23 05/29/23 History albuterol sulfate 90 mcg/actuation 1 inh inhalation QID PRN shortness 06/01/23 Rx breath activated powder inhaler of breath or wheezing 30 days #1 ea levofloxacin 750 mg tablet 750 mg PO 1100 14 days #14 tabs 06/01/23 Rx New Prescriptions to Start Prescriptions: albuterol sulfate Natanael Rivero levofloxacin Natanael Rivero Allergies Allergy/AdvReac Type Severity Reaction Status Date / Time amoxicillin [From Augmentin] Allergy Rash Verified 05/30/23 07:21 clavulanic acid Allergy Rash Verified 05/30/23 07:21 [From Augmentin] Discharge Plan Disposition Patient Disposition: Home, Self-Care Condition: Good Discharge Order Discharge Orders: Discharge Order (Routine); Ordered 06/01/23 Ordered By: Natanael Rivero Follow up Plan Follow up with: Belen Barrientos APRN [Nurse Practitioner] - 06/23/23 11:45 am Salo Coronel MD [Physician] - 1 week (follow up for suspicious for TB and culture results) Anni Sandoval APRN [Nurse Practitioner] - 06/06/23 11:00 am Prescriptions/Medication Reconciliation: New levofloxacin 750 mg Tablet 750 mg PO 1100 14 Days Qty: 14 0RF albuterol sulfate 90 mcg/actuation aerosol powdr breath activated 1 inh inhalation QID PRN (Reason: shortness of breath or wheezing) 30 Days Qty: 1 0RF Continued paroxetine HCl 10 mg tablet 10 mg PO DAILY oxcarbazepine 300 mg tablet 300 mg PO BID Problem Reconciliation Problems Reviewed?: Yes Patient Discharge Instructions ACTIVITY: Continue current activity DIET: continue same diet Patient Instructions: Pneumonia-Adult, DI for Sepsis -- Adult Providers Primary Care Provider: Provider,Referral Admit Provider: Caio Fu Attending Provider: Caio Fu
--- NOTE | 2023-06-05 13:41 | CARE MANAGER ---
Attempted to contact patient x2 related to hospital discharge. No VM option. ROXANA Juan
== END 2023-06-01 14:35 | disposition home or self-care (01) | DRG 871 ==
LOC: ER 14:17 → 2ND 17:31
PROVIDERS: Internal Medicine; Internal Medicine Pulmonary Disease; Nurse Practitioner Family; Physician Assistant; Admitting Provider Internal Medicine Adolescent Medicine; Emergency Provider Emergency Medicine; Visit Provider Internal Medicine Adolescent Medicine
DX: A41.9 Sepsis, unspecified organism (principal); J18.9 Pneumonia, unspecified organism; F31.81 Bipolar II disorder; F17.210 Nicotine dependence, cigarettes, uncomplicated; F15.10 Other stimulant abuse, uncomplicated; F41.9 Anxiety disorder, unspecified
CPT/HCPCS: 36415; 71046; 71275; 80048; 80053; 80202; 80307; 80329; 81001; 83605; 83615; 83735; 84145; 84484; 84703; 85007; 85014; 85018; 85025; 85048; 85049; 86480; 86703; 87040; 87070; 87081; 87116; 87186; 87205; 87206; 87385; 87636; 93005; 99291; G0432; J0131; J2543; J3370; Q9967

== ENCOUNTER 2024-09-04 12:10 | Outpatient (CLI) | payer MEDICAID, SELFPAY ==
--- NOTE | 2024-09-04 12:14 | XR_ITS ---
FINAL REPORT CLINICAL HISTORY: sob, hx PNA COMPARISON: 05/29/2023 FINDINGS: PA and lateral views of the chest were obtained. The cardiac and mediastinal silhouettes are within normal limits. The left upper lobe infiltrate seen on the prior chest x-ray of 05/29/2023 has resolved. There is no pleural effusion or pneumothorax. No acute osseous abnormality is identified. IMPRESSION: No radiographic evidence of acute cardiac or pulmonary disease. Reviewed, Interpreted and Dictated by Vera Sanabria MD Transcribed by Brie Mukherjee Authenticated and [facility]
== END 2024-09-04 23:59 | disposition home or self-care (01) ==
LOC: RAD 12:12
PROVIDERS: Visit Provider Internal Medicine Pulmonary Disease
DX: R06.02 Shortness of breath (principal)
CPT/HCPCS: 71046

== ENCOUNTER 2024-12-20 10:00 | Outpatient (CLI) | payer OTHER, SELFPAY ==
[2024-12-20 15:06] LABS: Hematocrit 46.2 % (37.0-47.0); Hemoglobin 14.9 g/dL (12.2-16.2); Immature Granulocytes % 0.3 %; Mean Corpuscular HGB Conc 32.3 g/dL (31.8-35.4); Mean Corpuscular Hemoglobin 30.8 pg (27.0-31.2); Mean Corpuscular Volume 95.5 fl (81-99); Nucleated Red Blood Cells % 0 %; Platelet Count 247 K/mm3 (142-424); Red Blood Count 4.84 M/mm3 (4.20-5.40); Red Cell Distribution Width-SD 46.9 fL; White Blood Count 8.8 K/mm3 (4.8-10.8)
[2024-12-20 15:31] LABS: Albumin Level 4.8 g/dl (3.5-5.0); Chloride 101 mmol/L (98-107); Potassium 4.1 mmoL/L (3.5-5.1); Sodium 139 mmol/L (136-145)
[2024-12-20 15:34] LABS: Alanine Aminotransferase 25 U/L (12-78); Albumin/Globulin Ratio 1.5 (1.1-1.8); Alkaline Phosphatase 73 U/L (38-126); Anion Gap 17.1 mEq/L (5-15); Aspartate Amino Transferase 29 U/L (14-36); Bilirubin,Total 0.8 mg/dl (0.2-1.3); Blood Urea Nitrogen 7 mg/dl (7-17); Carbon Dioxide 25 mmol/L (22.0-30.0); Cholesterol 183 mg/dl (140-200); Creatinine,Serum 1.00 mg/dl (0.52-1.04); Estimated Glomerular Filt Rate 62 ml/min (>60); GFR (African American) 75 ML/MIN (>60); Globulin 3.1 g/dL (1.3-3.2); Total Protein,Serum 7.9 g/dl (6.3-8.2); Triglycerides 112 mg/dl (30-150)
[2024-12-20 15:35] LABS: Calcium 10.1 mg/dl (8.4-10.2); Glucose 95 mg/dl (74-100); HDL Cholesterol 58 mg/dl (40-60)
[2024-12-20 16:03] LABS: Thyroid Stimulating Hormone 2.31 uIU/mL (0.465-4.68)
--- OUTSIDE RECORDS SUMMARY | 2024-12-23 09:54 | XMS_ITS | Clinical Summary ---
Author Organization [facility] Address [address] [place] [address] Phone Care Team Providers Care Yarn Examiner Skeins Name Role Phone Unavailable Unavailable Conditions or Problems No information available. Medications No information available. Medications Administered No information available. Allergies, Adverse Reactions, Alerts No information available. Results No information available. Plan of Care No information available. Procedures No information available. Vital Signs No information available. Immunizations No information available. Advance Directives No information available.
--- OUTSIDE RECORDS SUMMARY | 2024-12-23 09:54 | XMS_ITS | Encounter Summary ---
Author Organization [employer] ([place], [place], [place], [place]) Address [address] [place] [address] Care Team Providers Care Health And Wellness Director Name Role Phone Unavailable Primary Care Provider Unavailabl e Encounter Details Date Type Department Care Team (Late st Contact Info) Description 04/09/2018 Transcribed Document [facility] [place] [facility] [place] [id number] ProviderDiego MD [address] [place] [id number] Social History Tobacco Use Types Packs/Day Years Used Date Smoking Tobacco: Never Assessed Comments Unknown Sex and Gender Information Value Date Recorded Sex Assigned at Not on file Legal Sex Female 6:24 PM CDT Gender Identity Not on file Sexual Orientation Not on file documented as of this encounter Miscellaneous Notes * Cerner Conversion Note - Diego ProviderMD - 04/09/2018 10:50 AM ORDER MAKE UP CLERK Care Management Assessment/Plan Entered On: 04/09/2018 10:51 EST Performed On: 04/09/2018 10:50 EST by Jason Gonzalez, Medical Coding Technician Care Management Note Anticipated Discharge Date : 04/06/2018 15:00 EST Care Management Note Report : Blanca Crawford Rn-[employer] - 04/06/18 09:09:55 Patient with discharge orders. Appointment with [facility] made on 04/11/18 1:45; information in depart screen. Blanca Crawford Rn-[employer] - 04/06/18 09:16:24 Patient with discharge orders. Appointment with [facility] made on 04/11/18 1:45; information in depart screen. LM with Jason PCP Finder requesting he contact the patient with appointment for Dr. Titus Giron when it has been scheduled. MICHAELA OAKES RN - 04/05/18 09:01:15 on transfer to floor. wbc 24. doxycycline/diflucan po. zosyn iv. hydrocortisone iv. clonidine iv x 1. zofran iv x 1. PT/OT consults. referral has been made to MD edrick Gomez for primary care assignement. pt attends [facility] will need follow up appt at dc. home health vs not when ready for dc. spoke with zachary Sims RN. MICHAELA OAKES, ROXANA - 04/02/18 10:31:16 readmit risk: moderate 45. transfer [facility]. resp failure. sepsis. renal failure. pelvic ascites: ? PID vs abscess. 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 doxycycline/zyvox/zosyn iv. hydrocortisone iv. awake, talking. spoke with Ms. Andersen & her parents. explained role of case management. pt resides in [facility] with parents. she is adl independent. no dme or home health. no previous rehab stays. current with suboxone clinic in [place], [facility], . reported to be clean for a year. 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 Would like to see Dr Titus Giron in [place]. discussed dc planning based on progess. referral to MD Derick Gomez, alerted to preference of Dr Titus Giron. schedule appt with [facility] when ready for dc. spoke with zachary Espinosa RN. re-evaluate in am to see if she will need PT consult. Documentation Status Complete : Yes Jason Gonzalez, Medical Coding Technician - 04/09/2018 10:50 EST Discharge Planning Details Follow-up Appointments Made #1 : [address] [place] [id number] Galarza Appointment is scheduled for: Terrie Andersen 05/02/2018 at 05:00:PM Follow-up Appointment Date #1 : 05/02/2018 17:00 EST Discharge Planning Details Note : [address] [place] [id number] Galarza Appointment is scheduled for: Terrie Andersen 05/02/2018 at 05:00:PM Called mother, scheduled appointment for patient. Jason Gonzalez, Medical Coding Technician - 04/09/2018 10:50 EST documented in this encounter Plan of Treatment Not on file documented as of this encounter Visit Diagnoses Not on filedocumented in this encounter
--- OUTSIDE RECORDS SUMMARY | 2024-12-23 09:55 | XMS_ITS | Encounter Summary ---
Author Organization [employer] ([place], [place], [place], [place]) Address [address] [place] [address] Care Team Providers Care Meal Temperer Name Role Phone Unavailable Primary Care Provider Unavailabl e Encounter Details Date Type Department Care Team (Late st Contact Info) Description 04/03/2018 Transcribed Document [facility] [place] Family [facility] [place] [address] ProviderDiego MD [address] [place] [address] Social History Tobacco Use Types Packs/Day Years Used Date Smoking Tobacco: Never Assessed Comments Unknown Sex and Gender Information Value Date Recorded Sex Assigned at Not on file Legal Sex Female 6:24 PM CDT Gender Identity Not on file Sexual Orientation Not on file documented as of this encounter Miscellaneous Notes * Cerner Conversion Note - Diego Mckeon MD - 04/03/2018 10:22 AM SPACE BUYER Patient: TERRIE ANDERSEN Age: 32 years Sex: Female : 1985 Associated Diagnoses: None Author: HIRA PUGH MD Basic Information Pulmonary/Critical Care Consultation Date of consult: 03/30/18 Date of admission: 03/30/18 Requesting physician: Dr Ji Reason for consult: Critical care management Chief complaint: Shortness of breath, anxiety History of present illness: History obtained from [facility] discharge summary. Patient 32-year-old female with a history of illicit drug use previously on Suboxone. She had a history of intravenous drug use approximately 3 weeks ago. Patient was admitted on 03/28 for acute nonoliguric renal failure, nausea, and vomiting. She was apparently showing signs of sepsis with hypotension and tachycardia. Urine analysis showed acute cystitis. She was started on Zosyn and vancomycin. Yesterday evening patient started to have shortness of breath required increased oxygen demands she had an elevated d-dimer. She then went for a VQ scan today which demonstrated low probability for pulmonary embolus. She had a lower extremity Doppler was negative for DVTs. She had an echocardiogram that revealed normal ventricular systolic function with an EF 60%. She developed diffuse myalgias as well as abdominal pain. She had an ABG that showed pH 7.27, PCO2 25.8, PO2 of 76 and a bicarbonate of 12. She was given 3 A of bicarbonate and started on a bicarbonate infusion. Portable chest radiograph at [facility] report is extensive bilateral pneumonia greatest on the right with small effusions. In-house chest x-ray is pending. Patient was transferred to [facility] for further evaluation. Pulmonary/critical care was consulted for critical care management. At time of consult person is currently on BiPAP 16/8, FiO2 40% and saturation in the mid 90s. She is awake and alert and follows commands. She is occasionally drowsy. She is very anxious and complains of the BiPAP mask. States that her mouth is very dry and cannot talk. States that she does have some chest discomfort. Denies fevers or chills. She does have a nonproductive cough. She does smoke cigarettes. Patient's mother is present at bedside. Past medical history: History of drug use History of IV drug use Previously on Suboxone Surgical history: Tubal ligation Family history: Not documented in chart Social history: Patient lives at home. History of IV drug use. She does smoke cigarettes. Mar 31 Patient intubated and mechanically ventilated, she is in Que-Synephrine tachycardic 25 ??g per minute, she wakes to painful stimuli. He makes urine about 30 mL/h. Apr 01: Patient remains intubated and mechanically ventilated, her abdomen is distended and very tender to touch, patient grimaces in pain with abdominal exam. She is off que-synephrine since yesterday. No further fever. Bowel sounds very diminished. On fentanyl drip 75 mcg/hrs and propfol 35 mcg/kg/ min. April 02 Patient is awake and following commands, she is off sedation. Her abdominal exam is much better and more benign today. She does have mild distention but no tenderness anymore. Apr 1: Patient awake and alert when I saw her, no new symptoms but she has been having diarrhea ; 3 over night and one this am. She has no appetite and her Na is increasing She has no fever. K and Mg are low and being replaced. Review of Systems Unable to be obtained. Intubated and sedated Constitutional: Fatigue, No fever. Ear/Nose/Mouth/Throat: No decreased hearing, No sore throat. Respiratory: No shortness of breath, No cough, No sputum production, No hemoptysis. Gastrointestinal: Nausea, Diarrhea, No vomiting. Endocrine: No excessive thirst, No heat intolerance. Neurologic: Alert and oriented X4. Health Status Allergies: Allergic Reactions (Selected) Severity Not Documented Augmentin- No reactions were documented., Allergies (1) Active Reaction Augmentin None Documented Current medications: (Selected) Inpatient Medications Ordered Ativan: 0.5 mg, IV Push, Q4H, PRN: Agitation Diflucan: 200 mg, Oral, Daily DuoNeb 0.5 mg-2.5 mg/3 mL inhalation solution: 3 mL, Nebulized Inhalation, Q2H, PRN: Shortness of Breath Phenergan: 6.25 mg, IntraVENous, Q6H, PRN: Nausea Tylenol: 650 mg, Oral, Q4H, PRN: Other (See Comment) Zofran: 4 mg, IV Push, Q4H, PRN: Nausea Zosyn + Sodium Chloride 0.9% intravenous solution 50 mL: 2.25 Gram, 16.67 mL/Hr, IV Piggyback, Q6HInt bisacodyl: 10 mg, Rectal, BID, PRN: Constipation bisacodyl: 5 mg, Oral, BID, PRN: Constipation buprenorphine-naloxone 8 mg-2 mg sublingual tablet: 2 Tab, SubLINgual, Daily cloNIDine: 0.1 mg, Oral, Q4H, PRN: Hypertension docusate sodium: 240 mg, Nasogastric Tube, Daily doxycycline: 100 mg, Oral, BID fludrocortisone: 0.1 mg, Oral, Daily heparin: 5,000 Units, SubCutaneous, Q8H hydrALAZINE: 10 mg, IV Push, Q6H, PRN: Hypertension hydrocortisone: 50 mg, IV Push, Q8H morphine: 2 mg, IV Push, Q2H, PRN: Pain (Severe 7-10) oxyCODONE: 5 mg, Oral, Q4H, PRN: Pain (Moderate 4-6) potassium chloride 40 mEq + Dextrose 5% in Water intravenous solution 1,000 mL: 75 mL/Hr, IntraVENous Pending Complete influenza virus vaccine, inactivated: 0.5 mL, IntraMuscular, [id number] pneumococcal 23-polyvalent vaccine: 0.5 mL, IntraMuscular, [id number] Documented Medications Documented buprenorphine-naloxone 8 mg-2 mg sublingual tablet: 2 Tab, SubLINgual, Daily, 0 Refill(s), Medications (20) Active Scheduled: (8) buprenorphine-naloxone 8 mg-2 mg SL tab 2 Tab, SubLINgual, Daily docusate sod 100 mg/10 mL liq 240 mg 24 mL, Nasogastric Tube, Daily doxycycline hyclate 100 mg cap 100 mg 1 Cap, Oral, BID fluconazole 100 mg tab 200 mg 2 Tab, Oral, Daily fludrocortisone 0.1 mg tab 0.1 mg 1 Tab, Oral, Daily heparin 5,000 units/1 mL inj 5,000 Units 1 mL, SubCutaneous, Q8H hydrocortisone 100 mg/2 mL inj 50 mg 1 mL, IV Push, Q8H piperacillin-tazobactam + NaCl 0.9% 50 mL 2.25 Gram, IV Piggyback, Q6HInt Continuous: (1) potassium chloride 40 mEq + Dextrose 5% in Water 1,000 mL 1,000 mL, IntraVENous, 75 mL/Hr PRN: (11) acetaminophen 325 mg tab 650 mg 2 Tab, Oral, Q4H albuterol-ipratropium inh 3 mL 3 mL, Nebulized Inhalation, Q2H bisacodyl 10 mg supp 10 mg 1 Supp, Rectal, BID bisacodyl EC 5 mg tab 5 mg 1 Tab, Oral, BID cloNIDine 0.1 mg tab 0.1 mg 1 Tab, Oral, Q4H hydrALAZINE 20 mg/1 mL inj 10 mg 0.5 mL, IV Push, Q6H LORazepam 2 mg/mL inj 0.5 mg 0.25 mL, IV Push, Q4H morphine 2 mg/1 ml inj 2 mg 1 mL, IV Push, Q2H ondansetron 4 mg/2 mL inj 4 mg 2 mL, IV Push, Q4H oxyCODONE 5 mg tab 5 mg 1 Tab, Oral, Q4H promethazine 25 mg/1 mL inj 6.25 mg 0.25 mL, IntraVENous, Q6H Problem list: No qualifying data available Physical Examination VS/Measurements Vitals Signs (last 24 hrs) Last Charted Minimum Maximum Temp 98 (APR 03 08:36) 97.9 (APR 03 04:00) 98.5 (APR 02 16:00) Mon HR 43 (APR 03 08:36) 41 (APR 03 02:00) 100 (APR 02 13:30) Resp Rate H 22 (APR 03:36) 18 (APR 02 16:30) H 30 (APR 02 21:00) SBP H 143 (APR 03:36) 97 (APR 02 15:30) H 146 (APR 03:) DBP 67 (APR 03:36) L 49 (APR 02 15:30) H 107 (APR 02 16:00) MAP 92 (APR 03:36) 65 (APR 02 15:30) 118 (APR 02 16:00) SpO2 98 (APR 03 08:36) L 90 (APR 03:) 100 (APR 02 17:30) General: alertb and oriented . Eye: Pupils are equal, round and reactive to light, pale conjunctiva. HENT: Normocephalic. Neck: Supple, No jugular venous distention, No thyromegaly. Respiratory: mildly diminished breath sounds bilaterally. Cardiovascular: Regular rhythm, S1, S2, Good pulses equal in all extremities, No edema, No Tachycardia. Gastrointestinal: soft, improved bowel sounds , No further tenderness No rigidity or gaurding . Genitourinary: No further vaginal discharge. Musculoskeletal: No swelling, No deformity. Integumentary: Warm, Intact. Neurologic: Alert, Oriented. Psychiatric: patient alert and oriented she has no symptoms other than loose bowel movement. Review / Management Results review: Labs (Last four charted values) WBC H 15.8 (APR 03) H 13.6 (APR 02) H 17.0 (APR 01) H 10.4 (MAR 31) HB L 7.3 (APR 03) L 7.6 (APR 02) L 7.3 (APR 01) L 7.0 (MAR 31) HCT L 22.7 (APR 03) L 22.2 (APR 02) L 21.6 (APR 01) L 21.1 (MAR 31) Plt 182 (APR 03) 179 (APR 02) 175 (APR 01) 168 (MAR 31) Na H 148 (APR 03) 145 (APR 02) 145 (APR 01) 143 (APR 01) K L 2.9 (APR 03) L 3.1 (APR 02) 3.7 (APR 01) 3.6 (APR 01) Cl H 114 (APR 03) 111 (APR 02) 111 (APR 01) 110 (APR 01) CO2 25 (APR 03) 23 (APR 02) 23 (APR 01) 23 (APR 01) BUN H 47 (APR 03) H 63 (APR 02) H 62 (APR 01) H 63 (APR 01) Cr H 2.10 (APR 03) H 3.00 (APR 02) H 3.70 (APR 01) H 4.00 (APR 01) Glu R H 111 (APR 03) 96 (APR 02) H 110 (APR 01) H 110 (APR 01) Ca L 7.4 (APR 03) L 7.4 (APR 02) L 7.3 (APR 01) L 7.0 (APR 01) Lactic 0.8 (MAR 31) 0.8 (MAR 30) PT H 13.4 (MAR 31) H 14.5 (MAR 30) INR H 1.2 (MAR 31) H 1.4 (MAR 30) PTT H 33.0 (MAR 31) H 32.9 (MAR 30) AST H 58 (APR 03) H 81 (APR 01) H 46 (APR 01) 32 (MAR 31) ALT 34 (APR 03) 28 (APR 01) 21 (APR 01) 18 (MAR 31) ALK P H 150 (APR 03) H 208 (APR 01) H 238 (APR 01) H 271 (MAR 31) T Bili 0.7 (APR 03) 0.3 (APR 01) 0.5 (APR 01) 0.9 (MAR 31) PTN L 4.7 (APR 03) L 4.8 (APR 01) L 4.7 (APR 01) L 5.5 (MAR 31) ALB L 1.7 (APR 03) L 1.6 (APR 01) L 1.5 (APR 01) L 1.9 (MAR 31) Lipase L 49 (MAR 30) Troponin 0.019 (MAR 30) . Impression and Plan PCCM Attending Note: I have personally evaluated the patient; history and review of systems, physical examination, laboratory studies and radiology data. I have actively directed the medical care, formulated diagnosis and plan and discussed it with our team. I agree with the above except as noted below 1. Diarrhea 2. Acute respiratory distress syndrome 3. Severe sepsis; Improved 4. Septic shock; resolved. Lactic acidosis; 10 on addmision; resolved 5. Pelvic free fluid collection and bloody discahrge; infection ?PID vs blood colection 6. Acute UTI; E. Coli in urine 7. PID: Mild vaginal bleeding 8. Ileus ; resolved 9. Acute renal failure likely ATN ; improved 9. Suspect septic emboli of the lung 10. Blood loss anemia s/p 1 unit of PRBCs. 6 on admission 11. Hypocalcemia 12. Hypokalemia and hypomagnesemia 12. IVDU ; urine drug screen from outside facility was positive for methamphetamine during admission She presented with severe sepsis and septic shock due to geniturinary infection. Urine culture grew UTI. She required Que-Synephrine for less than 24 hours. Her admission serum lactic acid was 10. CT abdomen showed pelvic fluid collection of about 7 with applied by 4 cm, she also had vaginal bloody discharge. The fluid could be related to pelvic inflammatory disease (PID) vs. hematoma Hb [address] chest on admission shows bilateral ground glass opacification as well as patchy nodular infiltartes. Patient was extubated yesterday, she is doing well up to chair already. She reports diarrhea and her potassium and magnesium are low today. TTE noted and WNL PLAN Extubated 04/02. Get a follow up chest X ray. IS use Tolerating oral feeding but with poor appetitie Gynecology;04/01 aspirated 3-4 cc from the uterus sent for cultures but not from the pelvic fluid; pending Vaginal swap/ sample for culture were also intial sent for chlamydia DNA test and gonorrhea culture Follow up blood cx; neg so far IV zosyn, doxy ID following. Linezolid was DC Monitor kidney function and UOP; adequate Continue hydrocortisone and fludrocortisone for total 7 days ; D4 Replace Calcium, magnesium and potassium Patient was counseled agonist the illicit drug use Ambulate SCD; acute anemia FULL CODE Prognosis: good Discussed with her mother and father. Okay to transfer out of the ICU. documented in this encounter Plan of Treatment Not on file documented as of this encounter Visit Diagnoses Not on filedocumented in this encounter
--- OUTSIDE RECORDS SUMMARY | 2024-12-23 09:55 | XMS_ITS | Encounter Summary ---
Author Organization [employer] ([place], [place], [place], [place]) Address [address] [place] [address] Care Team Providers Care Neurosurgery Research Director Name Role Phone Unavailable Primary Care Provider Unavailabl e Encounter Details Date Type Department Care Team (Late st Contact Info) Description 04/05/[address] [facility] [place] Family Medicine [facility] [place], [place] [id number] ProviderDiego MD [address] [place] [id number] Social History Tobacco Use Types Packs/Day Years Used Date Smoking Tobacco: Never Assessed Comments Unknown Sex and Gender Information Value Date Recorded Sex Assigned at Not on file Legal Sex Female 6:24 PM CDT Gender Identity Not on file Sexual Orientation Not on file documented as of this encounter Miscellaneous Notes * Cerner Conversion Note - Historical ProviderMD - 04/05/2018 11:27 AM CURRICULUM AND INSTRUCTION SPECIALIST Patient: TERRIE ANDERSEN Age: 32 years Sex: Female : 1985 Associated Diagnoses: None Author: JESSE PEREZ APR [facility] PULM / CCM PROGRESS NOTE No change in pt from pulmonary standpoint at this time, no change in plan Pulmonary will sign off please call if questions/ needed thanks documented in this encounter Plan of Treatment Not on file documented as of this encounter Visit Diagnoses Not on filedocumented in this encounter
--- OUTSIDE RECORDS SUMMARY | 2024-12-23 09:55 | XMS_ITS | Encounter Summary ---
Author Organization [employer] ([place], [place], [place], [place]) Address [address] [place] [address] Care Team Providers Care Yard Clerk Name Role Phone Unavailable Primary Care Provider Unavailabl e Encounter Details Date Type Department Care Team (Late st Contact Info) Description 04/06/2018 Transcribed Document [facility] [place] Family [place] [address] ProviderDiego MD [address] [place] [address] Social History Tobacco Use Types Packs/Day Years Used Date Smoking Tobacco: Never Assessed Comments Unknown Sex and Gender Information Value Date Recorded Sex Assigned at Not on file Legal Sex Female 6:24 PM CDT Gender Identity Not on file Sexual Orientation Not on file documented as of this encounter Miscellaneous Notes * Cerner Conversion Note - Historical ProviderMD - 04/06/2018 11:50 AM TESTING AND REGULATING CHIEF Nursing Discharge Summary Entered On: 04/06/2018 11:51 EST Performed On: 04/06/2018 11:50 EST by Elke Snyder RN Discharge Documentation Discharge Date/Time : 04/06/2018 12:16 EST Elke Snyder RN - 04/06/2018 12:16 EST Number of Prescriptions Given : 3 Elke Snyder RN - 04/06/2018 11:53 EST Patient Disposition, General : Discharge Discharge To : Home with ambulatory/outpatient follow-up Mode Of Departure, General Discharge : Private vehicle Accompanied By, Discharge : Mother IV Discontinued : Yes Personal Belongings With Patient : Yes Prescriptions Given to Patient : Yes Discharge Instructions Reviewed With, Opportunity For Questions Given : Patient Patient Education Completed : Yes Teaching Method : Explanation Teaching Evaluation : Verbalizes understanding Elke Snyder RN - 04/06/2018 11:50 EST Electronically signed by Krystle, [facility] Conversion Associate Manager Cerner at 07/17/2022 7:16 PM CDT documented in this encounter Plan of Treatment Not on file documented as of this encounter Visit Diagnoses Not on filedocumented in this encounter
--- OUTSIDE RECORDS SUMMARY | 2024-12-23 09:55 | XMS_ITS | Encounter Summary ---
Author Organization [email or web address] ([place], [place], [place], [place]) Address [address] [place] [address] Care Team Providers Care Reservoir Engineering Advisor Name Role Phone Unavailable Primary Care Provider Unavailabl e Encounter Details Date Type Department Care Team (Late st Contact Info) Description 04/06/2018 Transcribed Document [facility] [place] [facility] [place], [place] [id number] ProviderDiego MD [address] [place] [id number] Social History Tobacco Use Types Packs/Day Years Used Date Smoking Tobacco: Never Assessed Comments Unknown Sex and Gender Information Value Date Recorded Sex Assigned at Not on file Legal Sex Female 6:24 PM CDT Gender Identity Not on file Sexual Orientation Not on file documented as of this encounter Miscellaneous Notes * Cerner Conversion Note - Diego Mckeon MD - 04/06/2018 8:40 AM SUPERVISOR PLATE PASTING Patient: TERRIE ANEDRSEN Age: 32 Years Sex: Female : 1985 Admission Information Date of Admission: 03/31/18 Date of Discharge: 04/06/18 PCP: none Admission Diagnosis: ASSESSMENT AND PLAN: 1. Acute respiratory failure. Patient with shortness of breath, seen by Pulmonary. Patient intubated on vent and further recommendation as per Pulmonary. 2. Rule out pulmonary embolism. Patient with shortness of breath, lower extremity edema. We will check venous Doppler, V/Q scan of lung. We will start heparin drip. 3. History of tobacco use. Recommend patient to quit smoking. 4. Pneumonia. Patient had culture done. Start empiric on intravenous Zosyn and doxycycline. 5. Acute renal failure. Nephrology consulted. We will avoid nephrotoxic medication. Patient may need dialysis. 6. Anemia. We will check iron studies. Start blood transfusion. We will start Protonix drip. Check Hemoccult studies. 7. Sepsis. The patient with leukocytosis, tachycardic, culture done, start empiric antibiotic coverage and we will consult Infectious Disease. 8. History of intravenous drug abuse. The patient is high risk of complication. Blood culture was ordered. Consider echocardiogram of the heart. Discharge Diagnosis: Septic shock, weaned off of pressors at this time, 2/2 pneumonia +/- PID - resolved - PCT peak of 32, trending down to normal limit Iron deficiency anemia, s/p 1u pRBC - Hgb 8.5 today Hyperchloremic hypernatremia, likely iatrogenic from IVF - resolved Hypokalemia, 3.4 - will replete before discharge today Bradycardia, slow HR at baseline. No conduction disorder on ECG Acute renal failure, off bicarb gtt - improving - Good UOP, Cr 1.2, peak of 6.8 - nephro following Abdominal distension with moderate amount of free fluid in pelvis, likely PID - pain significantly improved - no signs of SBO or perforation on CT - transvaginal ultrasound with moderate complex fluid in pelvis - pelvic exam done and cervical cultures sent - culdocentesis performed by PACK WORKER Valvular heart disease, mod pulmonic regurgitation Metabolic acidosis, 2/2 acute renal failure - resolved Hx of IVDA, weaned off of suboxone 5 days prior to admission to [facility] - Blood Cx neg Hospital Course: HISTORY OF PRESENT ILLNESS: This is a 32-year-old female, was admitted to [facility] because of shortness of breath, acute renal failure. Patient with history of IV drug abuse, on Suboxone, has been having shortness of breath, tachycardia, hypotension. Patient was evaluated there and found with acute renal failure. Patient was started on vancomycin and Zosyn. She started requiring more oxygen and not doing well. Kidney function worsened. Patient was started on BiPAP and transferred to [facility]. Patient had been seen and evaluated and Pulmonary at bedside. Patient intubated, sedated and on vent. No family at bedside. Course: Patient admitted to ICU and started on broad spectrum antibiotics. Lungs showed diffuse infiltrated, CTA neg for PE. Patient was weaned off vent and by time of DC was comfortable on RA. Abdomen noted to be distended, imaging demonstrated moderate amount of free fluid in pelvis. She was started on abx for presumed PID. Air Cargo Specialist was consulted, who agreed with treatment and patient underwent culdocentesis with fluid aspiration. The patients abdominal pain and distension resolved with several days of IV zosyn and doxy. She will complete a 14 day course of antibiotics. ARF improved slowly, initially with a bicarb drip and eventually with NS. She did require transfusion of 1u pRBC during her admission. She was evaluated by PT/OT and found to be safe for DC home. Procedures: Pelvic exam, culdocentesis Test Results: Discharge to: home Diet: regular Discharge Meds: see med rec. To complete 14 day course for PID and steroid taper. Discharge Instructions: No strenuous activity. No IV drug use. Follow up appointments: Dr Gonzales (gynecology) in 4 weeks. PCP in 3-5 days. Suboxone clinic as previously scheduled. Time spent: >35 minutes Hospital Course Procedures and Treatment Provided No qualifying data available. Physical Exam Vitals & Measurements T: 36.8 ??C HR: 81 HR: 77 (Monitored) RR: 18 BP: 126/84 MAP: 97 SpO2: 95% General: [Alert and oriented, well nourished, no acute distress]. Neurologic: [Awake, alert, and oriented X3, CN II-XII intact]. Eye: [PERRL, EOMI, normal conjuctiva]. HENT: [Normocephalic, clear tympanic membranes, normal hearing, moist oral mucosa, no scleral icterus, no sinus tenderness]. Neck: [Supple, non-tender, no carotid bruits, no JVD, no lymphadenopathy]. Lungs: [Clear to auscultation and percussion, non-labored respiration]. Heart: [Normal rate, regular rhythm, no murmur, gallop or edema]. Abdomen: [Soft, non-tender, non-distended, normal bowel sounds, no masses]. Musculoskeletal: [Normal range of motion and strength, no tenderness or swelling]. Skin: [Skin is warm, dry and pink, no rashes or lesions]. Psychiatric: [Cooperative, appropriate mood and affect]. Patient was seen and examined on day of discharge. Discharge Plan 1. Septic shock R65.21 2. Acute pelvic inflammatory disease (PID) N73.0 3. History of PID Z87.42 4. Pelvic ascites R18.8 5. PNA (pneumonia) J18.9 Unspecified kidney failure N19, Unspecified kidney failure N19 Orders: buprenorphine-naloxone, 1.75 Tab, SubLINgual, Tab, Daily, Routine, Start 04/05/18 16:00:00 EST buprenorphine-naloxone, 1.75 Tab, SubLINgual, Tab, Daily, 0 Refill(s) doxycycline, 1 Cap, Oral, Cap, BID, # 19 Cap, 0 Refill(s) metroNIDAZOLE, 1 Tab, Oral, Tab, Q12H, # 19 Tab, 0 Refill(s) potassium chloride 1,000 mL, 1,000 mL, Bag Volume (mL) = 1,000, Rate = 150 mL/Hr, IntraVENous, start date 04/05/18 23:22:00 EST, Routine Discharge Orders No qualifying data available. Patient Discharge Condition Stable, improved Discharge Disposition Home Discharge Medications Home Medications (3) Active buprenorphine-naloxone 8 mg-2 mg sublingual tablet 1.75 Tab, SubLINgual, Daily doxycycline hyclate 100 mg oral capsule 100 mg = 1 Cap, Oral, BID Flagyl 500 mg oral tablet 500 mg = 1 Tab, Oral, Q12H Blood Products No qualifying data available. documented in this encounter Plan of Treatment Not on file documented as of this encounter Visit Diagnoses Not on filedocumented in this encounter
--- OUTSIDE RECORDS SUMMARY | 2024-12-23 09:55 | XMS_ITS | Encounter Summary ---
Author Organization [employer] ([place], [place], [place], [place]) Address [address] [place] [address] Care Team Providers Care Party Plan Dealer Name Role Phone Unavailable Primary Care Provider Unavailabl e Encounter Details Date Type Department Care Team (Late st Contact Info) Description 04/05/2018 Transcribed Document [facility] [place] Family Medicine [facility] [place] [address] ProviderDiego MD [address] [place] [id number] Social History Tobacco Use Types Packs/Day Years Used Date Smoking Tobacco: Never Assessed Comments Unknown Sex and Gender Information Value Date Recorded Sex Assigned at Not on file Legal Sex Female 6:24 PM CDT Gender Identity Not on file Sexual Orientation Not on file documented as of this encounter Miscellaneous Notes * Cerner Conversion Note - Historical ProviderMD - 04/05/2018 4:00 PM BUSINESS PLANNING DIRECTOR Pain Assessment Entered On: 04/05/2018 17:17 EST Performed On: 04/05/2018 16:54 EST by RYAN CLAYTON RN Intervention Information: buprenorphine-naloxone Performed by RYAN CLAYTON RN on 04/05/2018 16:24:00 EST buprenorphine-naloxone,1.75Tab SubLINgual Pain Assessment Pain Assessment : Follow-up assessment Pain Scale Goal : 3 Pain Scale Used : 0-10 Scale RYAN CLAYTON RN - 04/05/2018 17:17 EST Pain Scale Intensity : 2 RYAN CLAYTON RN - 04/05/2018 17:17 EST Image 4 - Images currently included in the form version of this document have not been included in the text rendition version of the form. documented in this encounter Plan of Treatment Not on file documented as of this encounter Visit Diagnoses Not on filedocumented in this encounter
--- OUTSIDE RECORDS SUMMARY | 2024-12-23 09:55 | XMS_ITS | Encounter Summary ---
Author Organization [employer] ([place], [place], [place], [place]) Address [address] [place] [address] Care Team Providers Care Stitch Bonding Machine Tender Helper Name Role Phone Unavailable Primary Care Provider Unavailabl e Encounter Details Date Type Department Care Team (Late st Contact Info) Description 03/31/2018 Transcribed Document [facility] [place] Medicine [facility] [place] [address] ProviderDiego MD [address] [place] [id number] Social History Tobacco Use Types Packs/Day Years Used Date Smoking Tobacco: Never Assessed Comments Unknown Sex and Gender Information Value Date Recorded Sex Assigned at Not on file Legal Sex Female 6:24 PM CDT Gender Identity Not on file Sexual Orientation Not on file documented as of this encounter Miscellaneous Notes * Cerner Conversion Note - Diego Mckeon MD - 03/31/2018 12:16 AM MANAGER PROCESS DATE OF ADMISSION: 03/30/2018 PRIMARY CARE PHYSICIAN: Not listed. CHIEF COMPLAINT: Shortness of breath and anxiety. HISTORY OF PRESENT ILLNESS: This is a 32-year-old female, was admitted to [facility] because of shortness of breath, [...] was started on BiPAP and transferred to [facility]. Patient had been seen and evaluated and Pulmonary at bedside. Patient intubated, sedated and on vent. No family at bedside. SYSTEMIC REVIEW: Unobtainable. Patient is sedated on vent. As per record, GENERAL: No fever or chills. HEAD: No headache. EYES: No change of vision. EARS: No earache. RESPIRATORY: Positive for shortness of breath and cough. CARDIAC: Positive for chest pain. GI: Positive for abdominal distention with nausea. URINARY: No changes. MUSCULOSKELETAL: Generalized weakness. NEUROLOGICAL: Positive for lethargy. SKIN: No changes. PSYCHIATRIC: Positive for anxiety. PAST MEDICAL HISTORY: History of drug use. Patient on Suboxone. PAST SURGICAL HISTORY: Tubal ligation. SOCIAL HISTORY: The patient lives at home with history of IV drug abuse and tobacco abuse. FAMILY HISTORY: Unable to obtain because of patient's condition. ALLERGIES: AUGMENTIN. HOME MEDICATIONS: Will be obtained. PHYSICAL EXAMINATION: VITALS: Blood pressure 112/70, temperature 99, heart rate 117, respiratory rate 34. HEAD: Atraumatic, normocephalic. EYES: Pupils round. No conjunctival injection or discharge. EARS: No discharge. NOSE: No bleeding or discharge. MOUTH: Dry. NECK: Supple. CHEST: Patient on vent. Mild expiratory wheezes. No respiratory muscle retraction. HEART: S1 and S2 heard. Tachycardic. ABDOMEN: Distended, thin, generalized tenderness. EXTREMITIES: Positive for edema. No erythema or tenderness. NEUROLOGICAL: Patient is sedated, on vent. PSYCHIATRIC: Patient on vent. SKIN: Chronic changes. ENDOCRINE: No thyromegaly or tenderness. GI: Patient is lying in bed, on vent, sedated. No family at bedside. LABORATORIES AND STUDIES: ABG: pH 7.42, CO2 of 32.8, O2 of 104, bicarb 20.9, sodium 145, potassium 3.3, chloride 111, CO2 of 21, glucose 103, BUN 59, creatinine 5.6, calcium 6.6, protein 5.2, albumin 1.8, globulin 3.4, bilirubin 0.8, alkaline phosphatase 268, AST 32, ALT 17, lactic acid 0.8, CK 25, troponin 0.019, BNP 12794. White blood cells 17.2, hemoglobin 6.8, hematocrit 20.1, platelets 215. INR 1.4. ASSESSMENT AND PLAN: 1. Acute respiratory failure. [...] was ordered. Consider echocardiogram of the heart. 9. Gastrointestinal prophylaxis. Protonix drip. 10. Deep venous thrombosis prophylaxis. Patient on heparin drip. Patient is critically sick, high risk of complication. Patient intubated, on vent. Plan discussed with Pulmonary and chart was reviewed. CRITICAL TIME SPENT: 60 minutes. Juan J Ji M.D. Dict: 03/31/2018 00:16:21 Trans: 03/31/2018 02:53:05 CC1: Juan J Ji M.D. documented in this encounter Plan of Treatment Not on file documented as of this encounter Visit Diagnoses Not on filedocumented in this encounter
--- OUTSIDE RECORDS SUMMARY | 2024-12-23 09:55 | XMS_ITS | Encounter Summary ---
Author Organization [employer] ([place], [place], [place], [place]) Address [address] [place] [address] Care Team Providers Care Temperer Name Role Phone Unavailable Primary Care Provider Unavailabl e Encounter Details Date Type Department Care Team (Late st Contact Info) Description 04/06/2018 Transcribed Document [facility] [place] [facility] [place] [id number] ProviderDiego MD [address] [place] [phone] Social History Tobacco Use Types Packs/Day Years Used Date Smoking Tobacco: Never Assessed Comments Unknown Sex and Gender Information Value Date Recorded Sex Assigned at Not on file Legal Sex Female 6:24 PM CDT Gender Identity Not on file Sexual Orientation Not on file documented as of this encounter Miscellaneous Notes * Cerner Conversion Note - Diego ProviderMD - 04/06/2018 11:51 AM HAM PUMPER Discharge Instructions Entered On: 04/06/2018 11:52 EST Performed On: 04/06/2018 11:51 EST by Elke Snyder RN DC Instructions HWD Stroke/TIA Discharge Ins : Open Heart Failure Discharge Ins : N/A Warfarin Discharge Ins : N/A Diet After Discharge : Resume usual diet as tolerated Activity After Discharge : As tolerated Elke Snyder RN - 04/06/2018 11:51 EST Stroke/TIA Discharge Instructions Individualized Stroke Risk Factors *Q : Hypertension/High blood pressure Stroke Education Handouts Given *Q : Yes Elke Snyder RN - 04/06/2018 11:51 EST Stroke Education Materials Given-Grid Activation of EMS *Q : Verbalizes understanding Follow-up Care After Discharge *Q : Verbalizes understanding Medications prescribed at DC *Q : Verbalizes understanding Risk Factors for Stroke *Q : Verbalizes understanding Warning S&S of Stroke *Q : Verbalizes understanding Elke Snyder RN - 04/06/2018 11:51 EST Stroke/TIA Signs/Symptoms to Report Immediately : Sudden onset difficulty speaking, Sudden onset difficulty understanding speech, Sudden onset change in vision, Sudden onset weakness particulary on one side of the body, Sudden onset numbness/tingling, Sudden severe headache, Sudden dizziness or trouble with gait, Call : EMS activation is crucial My LDL Level: : LDL Level No qualifying data available. Elke Snyder RN - 04/06/2018 11:51 EST documented in this encounter Plan of Treatment Not on file documented as of this encounter Visit Diagnoses Not on filedocumented in this encounter
--- OUTSIDE RECORDS SUMMARY | 2024-12-23 09:55 | XMS_ITS | Encounter Summary ---
Author Organization [employer] ([place], [place], [place], [place]) Address [address] [place] [address] Care Team Providers Care Work Adjustment Instructor Name Role Phone Unavailable Primary Care Provider Unavailabl e Encounter Details Date Type Department Care Team (Late st Contact Info) Description 03/30/2018 Transcribed Document [facility] [place] [address] ProviderDiego MD [address] [place] [address] Social History Tobacco Use Types Packs/Day Years Used Date Smoking Tobacco: Never Assessed Comments Unknown Sex and Gender Information Value Date Recorded Sex Assigned at Not on file Legal Sex Female 6:24 PM CDT Gender Identity Not on file Sexual Orientation Not on file documented as of this encounter Miscellaneous Notes * Cerner Conversion Note - Diego Mckeon MD - 03/30/2018 11:42 PM WOOL SPOTTER Patient: TERRIE ANDERSEN Age: 32 years Sex: Female : 1985 Associated Diagnoses: None Author: Teddy Hoffman PA-C Procedure Central line insertion procedure Date/ Time: 03/30/2018 23:42:00. Confirmed: patient, procedure, side, site. Performed by: self. Indication: medication delivery, need for venous access. Preparation: sterile preparation of site (in usual fashion, with 2% chlorhexidine gluconate, with full drapes, gown, gloves and mask), vessel was identified ultrasound guided, position head turned to left. Anesthesia: 2% xylocaine. Sedation: propofol. Technique: non-tunneled, location (right, internal jugular vein), central approach used, location confirmed via flashback, catheter flushed with saline, total catheter length 16 cm, dressing applied (catheter secured, semi-permeable transparent dressing applied), monitoring during procedure (blood pressure, cardiac, continuous pulse oximetry). Procedure tolerated: well. Findings: location confirmed on chest x-ray, catheter tip located in the superior vena cava. Complications at the time of procedure: none. documented in this encounter Plan of Treatment Not on file documented as of this encounter Visit Diagnoses Not on filedocumented in this encounter
--- OUTSIDE RECORDS SUMMARY | 2024-12-23 09:55 | XMS_ITS | Encounter Summary ---
Author Organization [employer] ([place], [place], [place], [place]) Address [address] [place] [address] Care Team Providers Care Landscape Engineer Name Role Phone Unavailable Primary Care Provider Unavailabl e Encounter Details Date Type Department Care Team (Late st Contact Info) Description 03/30/2018 Transcribed Document [facility] [place] [address] ProviderDiego MD [address] [place] [address] Social History Tobacco Use Types Packs/Day Years Used Date Smoking Tobacco: Never Assessed Comments Unknown Sex and Gender Information Value Date Recorded Sex Assigned at Not on file Legal Sex Female 6:24 PM CDT Gender Identity Not on file Sexual Orientation Not on file documented as of this encounter Miscellaneous Notes * [employer]ner Conversion Note - Historical ProviderMD - 03/30/2018 8:40 PM LEAD CLINICAL RESEARCH COORDINATOR Pain Assessment Entered On: 04/04/2018 21:42 EST Performed On: 04/04/2018 22:38 EST by Héctor Jiang RN Intervention Information: oxyCODONE Performed by Héctor Jiang RN on 04/04/2018 21:38:00 EST oxyCODONE,5mg Oral,Pain (Moderate 4-6) Pain Assessment Pain Assessment : Follow-up assessment Pain Scale Goal : 3 Pain Scale Used : 0-10 Scale Location : Back, lower Onset : Acute Pain Intervention, Drug : Medicated Pain Improved by Intervention : Yes Héctor Jiang RN - 04/04/2018 21:42 EST Pain Scale Intensity : 5 Héctor Jiang RN - 04/04/2018 21:42 EST Image 4 - Images currently included in the form version of this document have not been included in the text rendition version of the form. documented in this encounter Plan of Treatment Not on file documented as of this encounter Visit Diagnoses Not on filedocumented in this encounter
--- OUTSIDE RECORDS SUMMARY | 2024-12-23 09:55 | XMS_ITS | Encounter Summary ---
Author Organization [employer] ([place], [place], [place], [place]) Address [address] [place] [address] Care Team Providers Care Bartenders Name Role Phone Unavailable Primary Care Provider Unavailabl e Encounter Details Date Type Department Care Team (Late st Contact Info) Description 04/03/2018 Transcribed Document [facility] [place] Family Medicine [address] [place], [place] [id number] ProviderDiego MD [address] [place] [phone] Social History Tobacco Use Types Packs/Day Years Used Date Smoking Tobacco: Never Assessed Comments Unknown Sex and Gender Information Value Date Recorded Sex Assigned at Not on file Legal Sex Female 6:24 PM CDT Gender Identity Not on file Sexual Orientation Not on file documented as of this encounter Miscellaneous Notes * [employer]ner Conversion Note - Historical ProviderMD - 04/03/2018 5:00 AM SCREW DRIVER OPERATOR Chart Check - Review Order Profile Entered On: 04/03/2018 4:28 EST Performed On: 04/03/2018 5:00 EST by TRISTA WIGGINS, RN Chart Check All Active Orders Reviewed : Yes TRISTA WIGGINS RN - 04/03/2018 4:28 EST documented in this encounter Plan of Treatment Not on file documented as of this encounter Visit Diagnoses Not on filedocumented in this encounter
--- OUTSIDE RECORDS SUMMARY | 2024-12-23 09:55 | XMS_ITS | Encounter Summary ---
Author Organization [employer] ([place], [place], [place], [place]) Address [address] [place] [address] Care Team Providers Care Assistant Professor Of Education Name Role Phone Unavailable Primary Care Provider Unavailabl e Encounter Details Date Type Department Care Team (Late st Contact Info) Description 04/01/2018 Transcribed Document [facility] [place] [id number] ProviderDiego MD [address] [place] [id number] Social History Tobacco Use Types Packs/Day Years Used Date Smoking Tobacco: Never Assessed Comments Unknown Sex and Gender Information Value Date Recorded Sex Assigned at Not on file Legal Sex Female 6:24 PM CDT Gender Identity Not on file Sexual Orientation Not on file documented as of this encounter Miscellaneous Notes * Cerner Conversion Note - Diego Mckeon MD - 04/01/2018 6:11 AM RETRIEVAL SPECIALIST Patient: TERRIE ANDERSEN Age: 32 years Sex: Female : 1985 Associated Diagnoses: None Author: ELBA PERKINS PA Basic Information Pulmonary/Critical Care Date of consult: 03/30/18 Date of admission: 03/30/18 Requesting physician: Dr Ji Reason for consult: Critical care management Chief complaint: Shortness of breath, anxiety History of present illness: History obtained from [facility] discharge summary. Patient 32-year-old female [...] a bicarbonate infusion. Portable chest radiograph at [facility] report is extensive bilateral pneumonia greatest on the right with small effusions. In-house chest x-ray is pending. Patient was transferred to [facility] for further evaluation. Pulmonary/critical care was consulted [...] IV drug use. She does smoke cigarettes. [facility] Patient intubated and mechanically ventilated, she is in Que-Synephrine tachycardic 25 ??g per minute, she wakes to painful stimuli. He makes urine about 30 mL/h. 04/01: Intubated with settings 400/16, PEEP 5, FiO2 40%, saturation 100%. Sedated with propofol/fentanyl, not arousing or following commands currently. Remains on LR at 75 mL an hour, bicarbonate infusion. Urine output 1100 mL overnight, serum creatinine improved to 4.00. For loose bowel movements overnight. Hemoglobin stable. Hemodynamically stable, off pressors-- 107/58, HR 60. Afebrile Review of Systems Unable to be obtained. Intubated and sedated Health Status Allergies: Allergic Reactions (Selected) Severity Not Documented Augmentin- No reactions were documented., Allergies (1) Active Reaction Augmentin None Documented Current medications: (Selected) Inpatient Medications Ordered Ativan: 0.5 mg, IV Push, Q4H, PRN: Agitation DuoNeb 0.5 mg-2.5 mg/3 mL inhalation solution: 3 mL, Nebulized Inhalation, Q2H, PRN: Shortness of Breath Lactated Ringers Injection intravenous solution 1,000 mL: 75 mL/Hr, IntraVENous Phenergan: 6.25 mg, IntraVENous, Q6H, PRN: Nausea Protonix: 40 mg, IV Push, BID Tylenol: 650 mg, Oral, Q4H, PRN: Other (See Comment) Zofran: 4 mg, IV Push, Q4H, PRN: Nausea Zosyn + Sodium Chloride 0.9% intravenous solution 50 mL: 2.25 Gram, 16.67 mL/Hr, IV Piggyback, Q8HInt Zyvox: 600 mg, 300 mL, 300 mL/Hr, IV Piggyback, [id number] bisacodyl: 10 mg, Rectal, BID, PRN: Constipation bisacodyl: 5 mg, Oral, BID, PRN: Constipation calcium gluconate: 2 Gram, 20 mL, 120 mL/Hr, IV Piggyback, 1-Time cloNIDine: 0.1 mg, Oral, Q4H, PRN: Hypertension docusate sodium: 240 mg, Nasogastric Tube, Daily doxycycline + Sodium Chloride 0.9% intravenous solution 100 mL: 100 mg, 50 mL/Hr, IV Piggyback, [id number] fentaNYL injection 1,000 mcg + Premix Diluent NaCl 0.9% for Drip 100 mL: Titrate, IntraVENous fludrocortisone: 0.1 mg, Oral, Daily heparin: 5,000 Units, SubCutaneous, Q8H hydrALAZINE: 10 mg, IV Push, Q6H, PRN: Hypertension hydrocortisone: 50 mg, IV Push, Q8H influenza virus vaccine, inactivated: 0.5 mL, IntraMuscular, [id number] morphine: 2 mg, IV Push, Q2H, PRN: Pain (Severe 7-10) ocular lubricant ophthalmic ointment: 1 Application, Eyes Both, BID, PRN: Dry Eyes oxyCODONE: 5 mg, Oral, Q4H, PRN: Pain (Moderate 4-6) phenylephrine injection 80 mg + NaCl 0.9% for drip 250 mL: Titrate, IntraVENous pneumococcal 23-polyvalent vaccine: 0.5 mL, IntraMuscular, [id number] propofol injection 1,000 mg + Premix Diluent for Drip 100 mL: TITRATE, IntraVENous sodium bicarbonate injection 140 mEq + sterile water diluent 1,000 mL: 50 mL/Hr, IntraVENous Physical Examination VS/Measurements Vitals Signs (last 24 hrs) Last Charted Minimum Maximum Temp 98.9 (APR 01 04:00) 98.9 (APR 01 04:00) 99 (MAR 31 20:00) Mon HR 63 (APR 01 04:45) 63 (APR 01 04:45) 91 (MAR 31 06:15) Resp Rate 18 (APR 01 04:45) 17 (MAR 31 06:15) H 41 (APR 01 01:15) SpO2 95 (APR 01 04:45) L 92 (APR 01 01:15) 100 (MAR 31 10:00) General: intubated and sedated. Eye: Pupils are equal, round and reactive to light, pale conjunctiva. HENT: Normocephalic. Neck: Supple, No jugular venous distention, No thyromegaly. Respiratory: diminished breath sounds bilaterally and bilateral rhonchi. Cardiovascular: Normal rate, Regular rhythm, S1, S2, Good pulses equal in all extremities, No edema. Gastrointestinal: Soft and distended,, no bowel sounds here by stethoscope. Musculoskeletal: No swelling, No deformity. Integumentary: Warm, Intact. Neurologic: Alert, Oriented. Psychiatric: unable to assess, patient is intubated and sedated. Review / Management Results review: Labs (Last four charted values) WBC H 17.0 (APR 01) H 10.4 (MAR 31) H 16.6 (MAR 31) H 17.7 (MAR 30) HB L 7.3 (APR 01) L 7.0 (MAR 31) L 7.1 (MAR 31) L 7.3 (MAR 31) HCT L 21.6 (APR 01) L 21.1 (MAR 31) L 21.0 (MAR 31) L 21.5 (MAR 31) Plt 175 (APR 01) 168 (MAR 31) 196 (MAR 31) 215 (MAR 30) Na 143 (APR 01) 145 (MAR 31) 145 (MAR 31) 145 (MAR 30) K 3.6 (APR 01) 4.3 (MAR 31) 4.1 (MAR 31) C 2.8 (MAR 31) Cl 110 (APR 01) 112 (MAR 31) 111 (MAR 31) 111 (MAR 30) CO2 23 (APR 01) L 20 (MAR 31) L 18 (MAR 31) 21 (MAR 30) BUN H 63 (APR 01) H 60 (MAR 31) H 55 (MAR 31) H 59 (MAR 30) Cr H 4.00 (APR 01) H 4.80 (MAR 31) H 5.50 (MAR 31) H 5.60 (MAR 30) Glu R H 110 (APR 01) H 130 (MAR 31) H 124 (MAR 31) 103 (MAR 30) Ca L 7.0 (APR 01) L 6.7 (MAR 31) L 6.4 (MAR 31) L 6.6 (MAR 30) Lactic 0.8 (MAR 31) 0.8 (MAR 30) PT H 13.4 (MAR 31) H 14.5 (MAR 30) INR H 1.2 (MAR 31) H 1.4 (MAR 30) PTT H 33.0 (MAR 31) H 32.9 (MAR 30) AST H 46 (APR 01) 32 (MAR 31) 32 (MAR 30) ALT 21 (APR 01) 18 (MAR 31) 17 (MAR 30) ALK P H 238 (APR 01) H 271 (MAR 31) H 268 (MAR 30) T Bili 0.5 (APR 01) 0.9 (MAR 31) 0.8 (MAR 30) PTN L 4.7 (APR 01) L 5.5 (MAR 31) L 5.2 (MAR 30) ALB L 1.5 (APR 01) L 1.9 (MAR 31) L 1.8 (MAR 30) Lipase L 49 (MAR 30) Troponin 0.019 (MAR 30) . Impression and Plan [facility] Att[facility] Note: I have personally evaluated the patient; history and review of systems, physical examination, laboratory studies and radiology data. I have actively directed the medical care, formulated diagnosis and plan and discussed it with our team. I agree with the above except as noted below 1. Acute hypoxemic respiratory failure 2. Acute respiratory distress syndrome 3. Severe sepsis and septic shock-improving 4. Pelvic free fluid collection; infection ?PID vs blood 5. Acute UTI; E. Coli in urine 6. Mild vaginal bleeding ? Infecion vs menstrual cycle 7. Lactic acidosis; 10 on addmision 8. Acute renal failure - improving 9. Suspect septic emboli of the lung 10. Blood loss anemia 11. Hypocalcemia 12. IVDU last use 3 weeks PLAN Mechanical ventilation;Vt per ARDS net: Vt 400, FiO2 40%, PEEP 5 Differential diagnosis would be severe geniturinary infection vs endocarditis, may complicated with toxic shock syndrome toxin Check DIC panel ; Fibrinogen. . D Dimer is elevated Sedation with propofol/fentanyl, goal RASS -2 IV Zosyn, linezolid and doxycycline Follow up blood cx IV bicarb 50 cc/hr- stop for now Cont LR at 75cc/hr Renal following Monitor kidney function and UOP NPO Replace calcium Pt had VQ scan at [facility] on 03/30, low probability for PE PPI for GI prophylaxis SCD; acute anemia FULL CODE Prognosis: guarded Critical Care time excluding procedures 34 minutes documented in this encounter Plan of Treatment Not on file documented as of this encounter Visit Diagnoses Not on filedocumented in this encounter
--- OUTSIDE RECORDS SUMMARY | 2024-12-23 09:55 | XMS_ITS | Encounter Summary ---
Author Organization [employer] ([place], [place], [place], [place]) Address [address] [place] [address] Care Team Providers Care Homemaker Companion Name Role Phone Unavailable Primary Care Provider Unavailabl e Encounter Details Date Type Department Care Team (Late st Contact Info) Description 04/07/2018 Transcribed Document [facility] Family Medicine [place] [address] ProviderDiego MD [address] [place] [id number] Social History Tobacco Use Types Packs/Day Years Used Date Smoking Tobacco: Never Assessed Comments Unknown Sex and Gender Information Value Date Recorded Sex Assigned at Not on file Legal Sex Female 6:24 PM CDT Gender Identity Not on file Sexual Orientation Not on file documented as of this encounter Miscellaneous Notes * Cerner Conversion Note - Diego ProviderMD - 04/07/2018 11:09 AM PRINCIPAL SCIENTIST Post Visit Phone Call Entered On: 04/07/2018 11:11 EST Performed On: 04/07/2018 11:09 EST by TRINH JERRY RN Post Visit Phone Call Post Visit Phone Call History : First call Contact Relationship to Patient : Self Emergency Room Visit Since DC : No Discharge Instructions Understood : Yes Follow-Up Actions : None TRINH JERRY RN - 04/07/2018 11:09 EST Electronically signed by Krystle [facility] Conversion Supervisor Dried Yeast Cerner at 07/17/2022 7:22 PM CDT documented in this encounter Plan of Treatment Not on file documented as of this encounter Visit Diagnoses Not on filedocumented in this encounter
--- OUTSIDE RECORDS SUMMARY | 2024-12-23 09:55 | XMS_ITS | Encounter Summary ---
Author Organization [employer] ([place], [place], [place], [place]) Address [address] [place] [address] Care Team Providers Care Manager Proposal Name Role Phone Unavailable Primary Care Provider Unavailabl e Encounter Details Date Type Department Care Team (Late st Contact Info) Description 04/02/2018 Transcribed Document [facility] Family Medicine [facility] [place], [place] [id number] ProviderDiego MD [address] [place] [id number] Social History Tobacco Use Types Packs/Day Years Used Date Smoking Tobacco: Never Assessed Comments Unknown Sex and Gender Information Value Date Recorded Sex Assigned at Not on file Legal Sex Female 6:24 PM CDT Gender Identity Not on file Sexual Orientation Not on file documented as of this encounter Miscellaneous Notes * Cerner Conversion Note - Diego ProviderMD - 04/02/2018 9:00 AM SEALER SANDER Consult Phone Call Documentation Entered On: 04/03/2018 8:49 EST Performed On: 04/02/2018 9:00 EST by Lucy Marcial Patient Manager Route Phone Call for Consults Consult Phone Call/Page Attempt : First call Consult Reason : [email or web address] Physician Requested for Consult : MAGGI MCCLELLAN MD-Lucy Szymanski Patient Manager Route - 04/03/2018 8:48 EST Electronically signed by Krystle [facility] Conversion Roof [employer] Tile Setter Cerner at 07/17/2022 7:03 PM CDT documented in this encounter Plan of Treatment Not on file documented as of this encounter Visit Diagnoses Not on filedocumented in this encounter
--- OUTSIDE RECORDS SUMMARY | 2024-12-23 09:55 | XMS_ITS | Encounter Summary ---
Author Organization [employer] ([place], [place], [place], [place]) Address [address] [place] [address] Care Team Providers Care Construction Specialist Name Role Phone Unavailable Primary Care Provider Unavailabl e Encounter Details Date Type Department Care Team (Late st Contact Info) Description 04/03/2018 Transcribed Document [facility] [place] [facility] [place], [place] [id number] ProviderDiego MD [address] [place] [address] Social History Tobacco Use Types Packs/Day Years Used Date Smoking Tobacco: Never Assessed Comments Unknown Sex and Gender Information Value Date Recorded Sex Assigned at Not on file Legal Sex Female 6:24 PM CDT Gender Identity Not on file Sexual Orientation Not on file documented as of this encounter Miscellaneous Notes * Cerner Conversion Note - Diego Mckeon MD - 04/03/2018 11:00 AM SHIPWRIGHT APPRENTICE Patient: TERRIE ANDERSEN Age: 32 years Sex: Female : 1985 Associated Diagnoses: None Author: JYOTI WATSON MD-NEP Basic Information Admit information: Shortness of breath, anxiety, acute renal failure, hypotension, possible sepsis, and anemia. , Today's Information: Patient extubated, stable UOP improving, creatinine better, BP better . Review of Systems Constitutional: Negative. Respiratory: No shortness of breath, No cough. Cardiovascular: No palpitations. Gastrointestinal: Diarrhea, No nausea, No vomiting, No constipation. Genitourinary: Negative. Integumentary: Rash, Pruritus. Neurologic: Alert and oriented X4. All other systems are negative Health Status Allergies.Current medications: Medications by Classification Antimicrobials piperacillin-tazobactam + Sodium Chloride 0.9% intravenous s - 2.25 Gram, IV Piggyback, Q6HInt, infuse over 3 Hour(s), Routine doxycycline - 100 mg, Oral, Cap, BID, Routine Immunology hydrocortisone - 50 mg, IV Push, Inj, Q8H, Routine Anticoagulant heparin - 5,000 Units, SubCutaneous, Inj, Q8H, Routine Cardiovascular cloNIDine - 0.1 mg, Oral, Tab, Q4H, PRN for Hypertension, Routine Respiratory albuterol-ipratropium (DuoNeb 0.5 mg-2.5 mg/3 mL inhalation - 3 mL, Nebulized Inhalation, Inh, Q2H, PRN for Shortness of Breath, Routine promethazine (Phenergan) - 6.25 mg, IntraVENous, Inj, Q6H, PRN for Nausea, Routine GI ondansetron (Zofran) - 4 mg, IV Push, Inj, Q4H, PRN for Nausea, Routine bisacodyl - 10 mg, Rectal, Supp, BID, PRN for Constipation, Routine bisacodyl - 5 mg, Oral, EC Tab, BID, PRN for Constipation, Routine docusate (docusate sodium) - 240 mg, Nasogastric Tube, Liquid, Daily, Routine Pain Meds morphine - 2 mg, IV Push, Inj, Q2H, PRN for Pain (Severe 7-10), Routine oxyCODONE - 5 mg, Oral, Tab, Q4H, PRN for Pain (Moderate 4-6), Routine buprenorphine-naloxone (buprenorphine-naloxone 8 mg-2 mg sub - 2 Tab, SubLINgual, Tab, Daily, Routine acetaminophen (Tylenol) - 650 mg, Oral, Tab, Q4H, PRN for Other (See Comment), Routine Sedatives LORazepam (Ativan) - 0.5 mg, IV Push, Inj, Q4H, PRN for Agitation, Routine Vitamins calcium gluconate - 2 Gram 20 mL, IV Piggyback, 1-Time, Administer over 60 Minute(s), STAT potassium chloride 40 mEq + Dextrose 5% in Water intravenous - 1,000 mL, Bag Volume (mL) = 1,000, Rate = 75 mL/Hr, IntraVENous Undefined Medications fludrocortisone - 0.1 mg, Oral, Tab, Daily, Routine hydrALAZINE - 10 mg, IV Push, Inj, Q6H, PRN for Hypertension, Routine Problem list: No qualifying data available Physical Examination Intake and Output Intake & Output Totals Last 24 Hours (7a-7a) Intake (37 Events) Continuous Infusions (252.06 mL) Medications (1033.04 mL) Oral Intake (120 mL) Output (2 Events) Gay Catheter (2450 mL) Input Total: 1405.1 mL Output Total: 2450 mL Balance: -1044.9 mL , Weight (Daily) 04/02/2018 06:06 Routine Weight, Kilograms: 74.1 VS/Measurements Vitals Signs (last 24 hrs) Last Charted Minimum Maximum Temp 98 (APR 03 08:36) 97.9 (APR 03 04:00) 98.6 (APR 02 12:00) Mon HR 43 (APR 03 08:36) 41 (APR 03:00) 100 (APR 02 13:30) Resp Rate H 22 (APR 03:36) 18 (APR 02 16:30) H 30 (APR 02 21:00) SBP H 143 (APR 03:36) 97 (APR 02 15:30) H 146 (APR 03:00) DBP 67 (APR 03 08:36) L 49 (APR 02 15:30) H 107 (APR 02 16:00) MAP 92 (APR 03:36) 65 (APR 02 15:30) 118 (APR 02 16:00) SpO2 98 (APR 03:) L 90 (APR 03:00) 100 (APR 02 17:30) General: Alert and oriented, No acute distress, sitting in chair. Eye: Extraocular movements are intact. Conjunctiva: Pale. HENT: Normocephalic, Normal hearing, Oral mucosa is moist. Neck: Supple, No carotid bruit, No jugular venous distention. Respiratory: Symmetrical chest wall expansion. Breath sounds: Bilateral, Rhonchi present, Wheezes present. Cardiovascular: Normal rate, No murmur, No gallop, No edema. Gastrointestinal: Soft, Non-tender, Non-distended. Genitourinary: No costovertebral angle tenderness. Lymphatics: No lymphadenopathy neck, axilla, groin. Musculoskeletal: Normal range of motion, No swelling, No deformity. Integumentary: Warm, Dry. Integumentary exam: Mottled. Neurologic: Alert, Oriented. Psychiatric: Cooperative, Appropriate mood & affect, Normal judgment. Review / Management Results review: Labs (Last [...] (MAR 30) Troponin 0.019 (MAR 30) . APR 03 03:41 H 148 H 114 H 47 / H 111 L 2.9 25 H 2.10 \ APR 03 03:41 \ L 7.3 / H 15.8 182 / L 22.7 \ Impression and Plan Dx and Plan 1. Acute kidney injury, nonoliguric. The patient is making urine at this time. Gay catheter is in place. Last creatinine 3.0. Patient is getting IV fluid. Blood pressure is somewhat better at this time. Blood smear neg for schistocytes, complement normal, Negatinve ZAHRA, SD-3, MPO, Anti GBM 2. Sepsis, under treatment. 3. Metabolic acidosis, better on bicarb 4. Bilateral pneumonia. 5. Anemia. stqable Her last platelets were 196 better 6. Iron deficiency.monitor no IV iron for now 7. Drug abuse with illicit drugs. 8. Echocardiogram showing mild regurgitation in mitral, tricuspid and pulmonic valves. 9. Respiratory failure on vent PLAN: 1. Keep the systolic blood pressure greater than 100. Replace potasssium 2. Labs have been ordered. 4. This is a critical patient with multiple medical problems. Patient state she will go back on drug within 3 month, she will need psych evaluation or detox program Discussed with RN and Dr. Black Electronically signed by Krystle [facility] Conversion Church Secretary Cerner at 07/17/2022 7:07 PM CDT documented in this encounter Plan of Treatment Not on file documented as of this encounter Visit Diagnoses Not on filedocumented in this encounter
--- OUTSIDE RECORDS SUMMARY | 2024-12-23 09:55 | XMS_ITS | Encounter Summary ---
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 Name Role Phone Unavailable Primary Care Provider Unavailabl e Encounter Details Date Type Department Care Team (Late st Contact Info) Description 04/02/2018 Transcribed Document [facility] Family Medicine [facility] [place], [place] [id number] ProviderDiego MD [address] [place] [id number] Social History Tobacco Use Types Packs/Day Years Used Date Smoking Tobacco: Never Assessed Comments Unknown Sex and Gender Information Value Date Recorded Sex Assigned at Not on file Legal Sex Female 6:24 PM CDT Gender Identity Not on file Sexual Orientation Not on file documented as of this encounter Miscellaneous Notes * Cerner Conversion Note - Diego Mckeon MD - 04/02/2018 9:35 AM ANALYTICAL TECH Patient: TERRIE ANDERSEN Age: 32 years Sex: [...] a bicarbonate infusion. Portable chest radiograph at [facility] report is extensive bilateral pneumonia greatest on the right with small effusions. In-house chest x-ray is pending. Patient was transferred to [facility] for further evaluation. Pulmonary/critical care was [...] have mild distention but no tenderness anymore. Review of Systems Unable to be obtained. [...] 2.25 Gram, 16.67 mL/Hr, IV Piggyback, Q6HInt Zyvox: 600 mg, 300 mL, 300 mL/Hr, IV Piggyback, [id number] bisacodyl: 10 mg, Rectal, BID, PRN: Constipation bisacodyl: 5 mg, Oral, BID, PRN: Constipation cloNIDine: 0.1 mg, Oral, Q4H, PRN: Hypertension docusate sodium: 240 mg, Nasogastric Tube, Daily doxycycline + Sodium Chloride 0.9% intravenous solution 100 mL: 100 mg, 50 mL/Hr, IV Piggyback, [id number] fludrocortisone: 0.1 mg, Oral, Daily heparin: 5,000 Units, SubCutaneous, Q8H hydrALAZINE: 10 mg, IV Push, Q6H, PRN: Hypertension hydrocortisone: 50 mg, IV Push, Q8H morphine: 2 mg, IV Push, Q2H, PRN: Pain (Severe 7-10) ocular lubricant ophthalmic ointment: 1 Application, Eyes Both, BID, PRN: Dry Eyes oxyCODONE: 5 mg, Oral, Q4H, PRN: Pain (Moderate 4-6) Pending Complete influenza virus vaccine, inactivated: 0.5 mL, IntraMuscular, [id number] pneumococcal 23-polyvalent vaccine: 0.5 mL, IntraMuscular, [id number], Medications (20) Active Scheduled: (8) docusate sod 100 mg/10 mL liq 240 mg 24 mL, Nasogastric Tube, Daily doxycycline hyclate + NaCl 0.9% 100 mL 100 mg, IV Piggyback, [id number] fludrocortisone 0.1 mg tab 0.1 mg 1 Tab, Oral, Daily heparin 5,000 units/1 mL inj 5,000 Units 1 mL, SubCutaneous, Q8H hydrocortisone 100 mg/2 mL inj 50 mg 1 mL, IV Push, Q8H linezolid *PREMIX* 600 mg 300 mL, IV Piggyback, [id number] pantoprazole 40 mg inj 40 mg, IV Push, BID piperacillin-tazobactam + NaCl 0.9% 50 mL 2.25 Gram, IV Piggyback, Q6HInt Continuous: (0) PRN: (12) acetaminophen 325 mg tab 650 mg 2 [...] 2 mg 1 mL, IV Push, Q2H ocular lubricant oint 3.5 g 1 Application, Eyes Both, BID ondansetron 4 mg/2 mL inj 4 mg 2 mL, IV Push, Q4H oxyCODONE 5 mg tab 5 mg 1 Tab, Oral, Q4H promethazine 25 mg/1 mL inj 6.25 mg 0.25 mL, IntraVENous, Q6H Problem list: No qualifying data available Physical Examination VS/Measurements Vitals Signs (last 24 hrs) Last Charted Minimum Maximum Temp 98.5 (APR 02 07:30) 97.9 (APR 01 20:00) 98.2 (APR 02 00:00) Mon HR 91 (APR 02 09:30) 39 (APR 01 23:15) 91 (APR 02 09:30) Resp Rate 20 (APR 02:30) L 12 (APR 02 08:30) H 26 (APR 01 21:00) SBP H 163 (APR 02 09:30) 112 (APR 02 01:30) H 163 (APR 02 09:30) DBP 89 (APR 02 09:30) L 56 (APR 02 05:00) H 94 (APR 02 00:45) MAP 114 (APR 02 09:30) 76 (APR 02 05:00) 117 (APR 02 09:30) SpO2 99 (APR 02 09:00) L 83 (APR 02 04:00) 100 (APR 01 21:00) General: intubated and sedated. Eye: Pupils are equal, round and reactive to light, pale conjunctiva. HENT: Normocephalic. Neck: Supple, No jugular venous distention, No thyromegaly. Respiratory: diminished breath sounds bilaterally and bilateral rhonchi. Cardiovascular: Regular rhythm, S1, S2, Good pulses equal in all extremities, No edema, No Tachycardia. Gastrointestinal: Soft and distended,, improved bowel sounds , No further tenderness No rigidity or gaurding . Genitourinary: minimal vaginal bloody discharge. Musculoskeletal: No swelling, No deformity. Integumentary: Warm, Intact. Neurologic: Alert, Oriented. Psychiatric: unable to assess, patient is intubated and sedated. Review / Management Results review: Labs (Last four charted values) WBC H 13.6 (APR 02) H 17.0 (APR 01) H 10.4 (MAR 31) H 16.6 (MAR 31) HB L 7.6 (APR 02) L 7.3 (APR 01) L 7.0 (MAR 31) L 7.1 (MAR 31) HCT L 22.2 (APR 02) L 21.6 (APR 01) L 21.1 (MAR 31) L 21.0 (MAR 31) Plt 179 (APR 02) 175 (APR 01) 168 (MAR 31) 196 (MAR 31) Na 145 (APR 02) 145 (APR 01) 143 (APR 01) 145 (MAR 31) K L 3.1 (APR 02) 3.7 (APR 01) 3.6 (APR 01) 4.3 (MAR 31) Cl 111 (APR 02) 111 (APR 01) 110 (APR 01) 112 (MAR 31) CO2 23 (APR 02) 23 (APR 01) 23 (APR 01) L 20 (MAR 31) BUN H 63 (APR 02) H 62 (APR 01) H 63 (APR 01) H 60 (MAR 31) Cr H 3.00 (APR 02) H 3.70 (APR 01) H 4.00 (APR 01) H 4.80 (MAR 31) Glu R 96 (APR 02) H 110 (APR 01) H 110 (APR 01) H 130 (MAR 31) Ca L 7.4 (APR 02) L 7.3 (APR 01) L 7.0 (APR 01) L 6.7 (MAR 31) Lactic 0.8 (MAR 31) 0.8 (MAR 30) PT H 13.4 (MAR 31) H 14.5 (MAR 30) INR H 1.2 (MAR 31) H 1.4 (MAR 30) PTT H 33.0 (MAR 31) H 32.9 (MAR 30) AST H 81 (APR 01) H 46 (APR 01) 32 (MAR 31) 32 (MAR 30) ALT 28 (APR 01) 21 (APR 01) 18 (MAR 31) 17 (MAR 30) ALK P H 208 (APR 01) H 238 (APR 01) H 271 (MAR 31) H 268 (MAR 30) T Bili 0.3 (APR 01) 0.5 (APR 01) 0.9 (MAR 31) 0.8 (MAR 30) PTN L 4.8 (APR 01) L 4.7 (APR 01) L 5.5 (MAR 31) L 5.2 (MAR 30) ALB L 1.6 (APR 01) L 1.5 (APR [...] as noted below 1. Acute hypoxemic respiratory failure; improved 2. Acute respiratory distress syndrome 3. Severe sepsis; Improved 4. Septic shock; resolved. Lactic acidosis; 10 on addmision; resolved 5. Pelvic free fluid collection and bloody discahrge; infection ?PID vs blood colection 6. Acute UTI; E. Coli in urine 7. Mild vaginal bleeding ? PID vs menstrual period less likely 8. Ileus 9. Acute renal failure likely ATN ; improved 9. Suspect septic emboli of the lung 10. Blood loss anemia s/p 1 unit of PRBCs 11. Hypocalcemia; improved 12. IVDU last use 3 weeks Patient remains ,intubated and mechanical ly ventilated. Gas exchange is good. Images are reveiwed. She presented with severe sepsis and septic shock due to geniturinary infection. Urine culture grew UTI. She required Que-Synephrine for less than 24 hours. Her admission serum lactic acid was 10. CT abdomen showed pelvic fluid collection of about 7 with applied by 4 cm, she also had vaginal bloody discharge. The fluid could be reaated to pelvic inflammatory disease (PID) vs. hematoma with secondary infection. CT chest on admission shows bilateral ground glass opacification as well as patchy nodular infiltartes. Chest X ray today showed mildly improved bilateral infiltrates PLAN Will extubate today, she has very good VC, NIF and RSBI Bedside nurse swallow eval Gynecology; saw her yesterday and aspirated 3-4 cc from the uterus sent for cultures but not from the pelvic fluid Vaginal swap/ sample for culture were also intial sent for chlamydia DNA test and gonorrhea culture Follow up blood cx; so far s/p PRBCs transfusion 1 unit IV zosyn, linezolid and doxycycline. ID following. I think Doxy can be DC DC LR 75 mL/h Monitor kidney function and UOP; adequate now Get TTE suspect septic lung emboli. Prior history of cocaine use IV and snorting but she denied recent use, last she was 1 year despite on admission reported 3 weeks ago Continue hydrocortisone and fludrocortisone for total 7 days Calcium replaced PPI for GI prophylaxis; DC PPI SCD; acute anemia FULL CODE Prognosis: fair to good Discussed with her mother and father. Critical Care time excluding procedures 31 minutes Electronically signed by Everton Dalton Conversion Cardiac Exercise Physiologist Cerner at 07/17/2022 7:18 PM CDT documented in this encounter Plan of Treatment Not on file documented as of this encounter Visit Diagnoses Not on filedocumented in this encounter
--- OUTSIDE RECORDS SUMMARY | 2024-12-23 09:55 | XMS_ITS | Referral Summary ---
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 Name Role Phone Unavailable Primary Care Provider Unavailabl e Allergies Active Allergy Reactions Criticality Noted Date Comments Amoxicillin-Pot Clavulanate 11/01/19 Medications No known medications Social History Tobacco Use Types Packs/Day Years Used Date Smoking Tobacco: Every Day Cigarettes Smokeless Tobacco: Never Tobacco Cessation:Ready to Q uit: Not Asked; Counseling Given: Not Answered Passive Exposure Comments:vapes Alcohol Use Standard Drinks/Week Comments Never 0 (1 standard drink = 0.6 oz pur e alcohol) Food Insecurity Answer Date Recorded Food run out past 12 months Not on file 10/03 Food did not last past 12 months Not on file 11/01/2023 Employment Answer Date Recorded Help finding and keeping a job Not on file 0 11/01/2023 Family and Community Support Answer Kevin e Recorded Help with Day to Day Activities Not on file 11/01/2023 Feeling Lonely or Isolated Not on file 10/31 Educational Attainment Answer Date Chirag rded Speak language other than Swedish at home Not on file 11/01/2023 Want help with school or training Not on file 11/01/2023 Substance Use Answer Date Recorded Used prescription meds for non-medical reasons N ot on file 11/01/2023 Used illegal drugs past 12 months Not on file 11/01/2023 Comments No Sex and Gender Information Value Date Recorded Sex Assigned at Not on file Legal Sex Female 6:24 PM CDT Gender Identity Not on file Sexual Orientation Not on file Last Filed Vital Signs Vital Sign Reading Time Taken Comments Blood Pressure 132/86 11/02/2023 6:30 AM EDT Pulse 62 11/02/2023 6:30 AM EDT Temperature 36.7 C (98 F) 11/01/2023 9:59 PM EDT Respiratory Rate 14 11/02/2023 6:30 AM EDT Oxygen Saturation 98% 11/01/2023 9:59 PM EDT Inhaled Oxygen Concentration - - Weight 56.7 kg (125 lb) 11/01/2023 9:59 PM EDT Height 160 cm (5' 3 ) 11/01/2023 9:59 PM EDT Body Mass Index 22.14 11/01/2023 9:59 PM EDT Plan of Treatment Not on file Insurance [facility]
--- OUTSIDE RECORDS SUMMARY | 2024-12-23 09:55 | XMS_ITS | Encounter Summary ---
Author Organization [employer] ([place], [place], [place], [place]) Address [address] [place] [address] Care Team Providers Care Stitcher Hand Name Role Phone Unavailable Primary Care Provider Unavailabl e Encounter Details Date Type Department Care Team (Late st Contact Info) Description 04/06/2018 Transcribed Document [facility] [place] Family Medicine [address] [place] [id number] ProviderDiego MD [address] [place] [address] [id number] Social History Tobacco Use Types Packs/Day Years Used Date Smoking Tobacco: Never Assessed Comments Unknown Sex and Gender Information Value Date Recorded Sex Assigned at Not on file Legal Sex Female 6:24 PM CDT Gender Identity Not on file Sexual Orientation Not on file documented as of this encounter Miscellaneous Notes * Cerner Conversion Note - Diego Mckeon MD - 04/06/2018 12:16 PM [employer] [address] [place] [address] Patient Copy Patient Information: Name: TERRIE ANDERSEN Current Date: 04/06/2018 12:16:37 : 1985 Patient Address: [address] [facility] [id number] Patient Attending Physician: LORENZA FANG MD Primary Care Provider: YOAN, NOT LISTED Primary Care Provider Phone: Discharge Diagnosis: 1:Septic shock; 2:Acute pelvic inflammatory disease (PID); 3:History of PID; 4:Pelvic ascites; 5:PNA (pneumonia) Weight on Admission: 154 lb, 4 oz Weight at Discharge: 153 lb, 0 oz Comment: Follow-up Instructions: With: Address: When: Prescribers [facility] [phone] 1:45 AM Comments: Appointment has been made Discharge Instructions: Diet after Discharge: Resume usual diet as tolerated Activity after Discharge: As tolerated Immunizations Documented During Stay: influenza virus vaccine, inactivated 04/05/2018 pneumococcal 23-polyvalent vaccine 04/05/2018 Heart Failure Discharge Instructions (if any): Stroke Related Discharge Instructions (if any): Individualized Stroke Risk Factors: Hypertension/High blood pressure Stroke/TIA Signs/Symptoms to Report Immediately: Sudden onset difficulty speaking, Sudden onset difficulty understanding speech, Sudden onset change in vision, Sudden onset weakness particulary on one side of the body, Sudden onset numbness/tingling, Sudden severe headache, Sudden dizziness or trouble with gait, Call : EMS activation is crucial My LDL Level: LDL Level No qualifying data available. Warfarin Related Discharge Instructions (if any): Final Medication List: Printed Prescriptions doxycycline (doxycycline hyclate 100 mg oral capsule) 1 Capsule(s) Oral Two Times A Day. Refills: 0. methylPREDNISolone (Medrol Dosepak 4 mg oral tablet) 1 Packet(s) Oral Every Day for 6 Day(s). Take as directed on package labeling. Refills: 0. metroNIDAZOLE (Flagyl 500 mg oral tablet) 1 Tablet(s) Oral every 12 hours. Refills: 0. Other Medications buprenorphine-naloxone (buprenorphine-naloxone 8 mg-2 mg sublingual tablet) 1.75 Tablet(s) SubLINgual Every Day. Patient Allergies: Augmentin Medication Instructions: Take your medications faithfully. Do NOT skip medication. Do NOT stop taking medications without the direction of a physician. Carry a list of your medications with you at all times, and take this medication list with you to your first follow up visit. Report any side effects. Avoid herbal remedies unless discussed with your physician. As part of your treatment plan, your physician may have prescribed a limited course of a controlled substance. This medication may be given to help people with moderate or severe pain or for other medical conditions, but there are risks involved with treatment. Common side effects may include nausea, constipation, drowsiness, sweating, itching, dry mouth, and rash. More serious side effects may include cognitive and motor impairment, like problems with thinking, concentrating, alertness, and movement (e.g. slowed reflexes), and driving and operating heavy machinery can be dangerous. It is important for you to talk to your physician if you have these side effects or questions. These controlled substances can produce physical dependence and be habit-forming if taken for an extended period of time, which means that the body has gotten used to them and may experience withdrawal symptoms if they are abruptly stopped. Withdrawal symptoms can include runny nose, sweating, goose bumps, diarrhea, abdominal cramping, rapid heartbeat, difficulty sleeping, and nervousness. Patient education materials: Community-Acquired Pneumonia, Adult Introduction Pneumonia is an infection of the lungs. One type of pneumonia can happen while a person is in a hospital. A different type can happen when a person is not in a hospital (community-acquired pneumonia). It is easy for this kind to spread from person to person. It can spread to you if you breathe near an infected person who coughs or sneezes. Some symptoms include: ??? A dry cough. ??? A wet (productive) cough. ??? Fever. ??? Sweating. ??? Chest pain. Follow these instructions at home: ??? Take mwgl-aus-hjjemka and prescription medicines only as told by your doctor.? Only take cough medicine if you are losing sleep. ? If you were prescribed an antibiotic medicine, take it as told by your doctor. Do not stop taking the antibiotic even if you start to feel better. ??? Sleep with your head and neck raised (elevated). You can do this by putting a few pillows under your head, or you can sleep in a recliner. ??? Do notuse tobacco products. These include cigarettes, chewing tobacco, and e-cigarettes. If you need help quitting, ask your doctor. ??? Drink enough water to keep your pee (urine) clear or pale yellow. A shot (vaccine) can help prevent pneumonia. Shots are often suggested for: ??? People older than 65 years of age. ??? People older than 19 years of age:? Who are having cancer treatment. ? Who have long-term (chronic) lung disease. ? Who have problems with their body's defense system (immune system). You may also prevent pneumonia if you take these actions: ??? Get the flu (influenza) shot every year. ??? Go to the dentist as often as told. ??? Wash your hands often. If soap and water are not available, use hand hot strip mill inspector. Contact a doctor if: ??? You have a fever. ??? You lose sleep because your cough medicine does not help. Get help right away if: ??? You are short of breath and it gets worse. ??? You have more chest pain. ??? Your sickness gets worse. This is very serious if:? You are an older adult. ? Your body's defense system is weak. ??? You cough up blood. This information is not intended to replace advice given to you by your health care provider. Make sure you discuss any questions you have with your health care provider. Document Released: 09/05/2008 Document Revised: 08/25/2016 Document Reviewed: 07/15/2015 ? 2017 [employer] Septic Shock Septic shock is the final, most serious stage of the body's inflammatory response to an infection (sepsis). Sepsis happens when the chemicals that are produced by your body to fight infection cause inflammation through your entire body (systemic). This can lead to problems with your blood pressure that prevent your organs from getting the oxygen they need. Septic shock results when your organs begin to fail from the drop in blood pressure. Infections that lead to sepsis often begin in the lungs, abdomen, urinary tract, reproductive system, or digestive system. What are the causes? Septic shock can result from any bacterial, fungal, or viral infection in the body. Septic shock from a viral infection is rare. What increases the risk? You may be more likely to develop septic shock from an infection if you: ??? Are very young or very old. ??? Have AIDS or another disease that weakens your body's defense system (immune system). ??? Have diabetes. ??? Have lymphoma or leukemia. ??? Have a disease of the lungs, intestines, reproductive system, or urinary tract. ??? Have been hospitalized for a long time, especially if you are using a catheter. ??? Had a recent surgery or medical procedure. ??? Have been taking antibiotic medicines or steroid medicines for a long time. What are the signs or symptoms? Signs and symptoms of septic shock may include: ??? Low blood pressure. ??? A rapid heart rate or heart palpitations. ??? Shortness of breath. ??? Rash or discolored skin. ??? A very high or very low body temperature with chills. ??? Reduced urine output. ??? Feeling lightheaded, weak, or confused. ??? Agitation or restlessness. How is this diagnosed? Your health care provider can diagnose septic shock based on your symptoms and your medical history. Your health care provider will also perform a physical exam. Tests that will be done to confirm the diagnosis may include: ??? Tests to check for infection by trying to grow (culture) bacteria from samples of: ? Blood. ? Urine. ? Brain and spinal fluid (cerebrospinal fluid or CSF). ? Mucus. ? Wound secretions. ??? Imaging tests, such as: ? X-rays. ? Ultrasound. ? CT scans. ? MRI. How is this treated? Septic shock is a medical emergency. Treatment takes place in a hospital, usually in the intensive care unit (ICU). You may be given antibiotics through an IV tube immediately. Other possible treatments include: ??? Medicine to increase blood pressure (vasopressor medicines). ??? Steroids to reduce inflammation. ??? IV fluids to help with symptoms of dehydration. ??? Respirators or breathing machines to support breathing. ??? Insulin to control blood sugar. ??? Surgery to clean wounds or remove infected or tissue. This is needed in some cases. ??? Dialysis. Get help right away if: Septic shock is a serious problem that is a medical emergency. Do not wait to see if the symptoms will go away. Get medical help right away. Call your local emergency services (911 in the [place] Do not drive yourself to the hospital. This information is not intended to replace advice given to you by your health care provider. Make sure you discuss any questions you have with your health care provider. Document Released: 11/21/2014 Document Revised: 08/25/2016 Document Reviewed: 10/21/2014 [employer] Interactive Patient Education ? 2017 [employer] Pelvic Inflammatory Disease Introduction Pelvic inflammatory disease (PID) is an infection in some or all of the female organs. PID can be in the uterus, ovaries, fallopian tubes, or the surrounding tissues that are inside the lower belly area (pelvis). PID can lead to lasting problems if it is not treated. To check for this disease, your doctor may: ??? Do a physical exam. ??? Do blood tests, urine tests, or a test. ??? Look at your vaginal discharge. ??? Do tests to look inside the pelvis. ??? Test you for other infections. Follow these instructions at home: ??? Take vfiy-jqp-sntpsfq and prescription medicines only as told by your doctor. ??? If you were prescribed an antibiotic medicine, take it as told by your doctor. Do not stop taking it even if you start to feel better. ??? Do nothave sex until treatment is done or as told by your doctor. ??? Tell your sex partner if you have PID. Your partner may need to be treated. ??? Keep all follow-up visits as told by your doctor. This is important. ??? Your doctor may test you for infection again 3 months after you are treated. Contact a doctor if: ??? You have more fluid (discharge) coming from your vagina or fluid that is not normal. ??? Your pain does not improve. ??? You throw up (vomit). ??? You have a fever. ??? You cannot take your medicines. ??? Your partner has a sexually transmitted disease (STD). ??? You have pain when you pee (urinate). Get help right away if: ??? You have more belly (abdominal) or lower belly pain. ??? You have chills. ??? You are not better after 72 hours. This information is not intended to replace advice given to you by your health care provider. Make sure you discuss any questions you have with your health care provider. Document Released: 06/16/2009 Document Revised: 08/25/2016 Document Reviewed: 04/27/2015 ? 2017 [employer] Medication Leaflets: doxycycline (DOX emanuel dean) Acticlate, Adoxa, Alodox, Avidoxy, Doryx, Mondoxyne NL, Monodox, Morgidox, Oracea, Oraxyl, Targadox, Vibramycin What is the most important information I should know about doxycycline? You should not take this medicine if you are allergic to any tetracycline antibiotic. Children younger than 8 years old should use doxycycline only in cases of severe or life-threatening conditions. This medicine can cause permanent yellowing or graying of the teeth in children Using doxycycline during could harm the unborn baby or cause permanent tooth discoloration later in the baby's life. What is doxycycline? Doxycycline is a tetracycline antibiotic that fights bacteria in the body. Doxycycline is used to treat many different bacterial infections, such as acne, urinary tract infections, intestinal infections, eye infections, gonorrhea, chlamydia, periodontitis (gum disease), and others. Doxycycline is also used to treat blemishes, bumps, and acne-like lesions caused by rosacea. Doxycycline will not treat facial redness caused by rosacea. Some forms of doxycycline are used to prevent malaria, to treat anthrax, or to treat infections caused by mites, ticks, or lice. Doxycycline may also be used for purposes not listed in this medication guide. What should I discuss with my healthcare provider before taking doxycycline? You should not take this medicine if you are allergic to doxycycline or other tetracycline antibiotics such as demeclocycline, minocycline, tetracycline, or tigecycline. Tell your doctor if you have ever had: ? liver disease; ?? kidney disease; ?? asthma or sulfite allergy; ?? increased pressure inside your skull; or ?? if you also take isotretinoin, seizure medicine, or a blood thinner such as warfarin (Coumadin). If you are using doxycycline to treat gonorrhea, your doctor may test you to make sure you do not also have syphilis, another sexually transmitted disease. Taking this medicine during may affect tooth and bone development in the unborn baby. Taking doxycycline during the last half of can cause permanent tooth discoloration later in the baby's life. Tell your doctor if you are or if you become . Doxycycline can make control pills less effective. Ask your doctor about using a non-hormonal control (condom, diaphragm with spermicide) to prevent . Doxycycline can pass into breast milk and may affect bone and tooth development in a nursing infant. Do not breast-feed while you are taking doxycycline. Doxycycline can cause permanent yellowing or graying of the teeth in children younger than 8 years old. Children should use doxycycline only in cases of severe or life-threatening conditions such as anthrax or Mentor spotted fever. The benefit of treating a serious condition may outweigh any risks to the child's tooth development. How should I take doxycycline? Follow all directions on your prescription label and read all medication guides or instruction sheets. Use the medicine exactly as directed. Take doxycycline with a full glass of water. Drink plenty of liquids while you are taking doxycycline. Read and carefully follow any Instructions for Use provided with your medicine. Ask your doctor or pharmacist if you do not understand these instructions. Most brands of doxycyline may be taken with food or milk if the medicine upsets your stomach. Different brands of doxycycline may have different instructions about taking them with or without food. Take Oracea on an empty stomach, at least 1 hour before or 2 hours after a meal. You may need to split a doxycycline tablet to get the correct dose. Follow your doctor's instructions. Swallow a delayed-release capsule or tablet whole. Do not crush, chew, break, or open it. Measure liquid medicine with the dosing syringe provided, or with a special dose-measuring spoon or medicine cup. If you do not have a dose-measuring device, ask your pharmacist for one. If you take doxycycline to prevent malaria: Start taking the medicine 1 or 2 days before entering an area where malaria is common. Continue taking the medicine every day during your stay and for at least 4 weeks after you leave the area. Use this medicine for the full prescribed length of time, even if your symptoms quickly improve. Skipping doses can increase your risk of infection that is resistant to medication. Doxycycline will not treat a viral infection such as the flu or a common cold. Store at room temperature away from moisture, heat, and light. Throw away any unused medicine after the expiration date on the label has passed. Using doxycycline can cause damage to your kidneys. What happens if I miss a dose? Take the medicine as soon as you can, but skip the missed dose if it is almost time for your next dose. Do not take two doses at one time. What happens if I overdose? Seek emergency medical attention or call the Poison Help line at . What should I avoid while taking doxycycline? Do not take iron supplements, multivitamins, calcium supplements, antacids, or laxatives within 2 hours before or after taking doxycycline. Avoid taking any other antibiotics with doxycycline unless your doctor has told you to. Doxycycline could make you sunburn more easily. Avoid sunlight or tanning beds. Wear protective clothing and use sunscreen (SPF 30 or higher) when you are outdoors. Antibiotic medicines can cause diarrhea, which may be a sign of a new infection. If you have diarrhea that is watery or bloody, call your doctor. Do not use anti-diarrhea medicine unless your doctor tells you to. What are the possible side effects of doxycycline? Get emergency medical help if you have signs of an allergic reaction (hives, difficult breathing, swelling in your face or throat) or a severe skin reaction (fever, sore throat, burning in your eyes, skin pain, red or purple skin rash that spreads and causes blistering and peeling). Seek medical treatment if you have a serious drug reaction that can affect many parts of your body. Symptoms may include: skin rash, fever, swollen glands, flu-like symptoms, muscle aches, severe weakness, unusual bruising, or yellowing of your skin or eyes. This reaction may occur several weeks after you began using doxycycline. Call your doctor at once if you have: ? severe stomach pain, diarrhea that is watery or bloody; ?? throat irritation, trouble swallowing; ?? chest pain, irregular heart rhythm, feeling short of breath; ?? little or no urination; ?? low white blood cell counts--fever, swollen glands, body aches, weakness, pale skin, easy bruising or bleeding; ?? increased pressure inside the skull--severe headaches, ringing in your ears, dizziness, nausea, vision problems, pain behind your eyes; or ?? signs of liver or pancreas problems--loss of appetite, upper stomach pain (that may spread to your back), tiredness, nausea or vomiting, fast heart rate, dark urine, jaundice (yellowing of the skin or eyes). Common side effects may include: ? nausea, vomiting, upset stomach, loss of appetite; ?? mild diarrhea; ?? skin rash or itching; or ?? vaginal itching or discharge. This is not a complete list of side effects and others may occur. Call your doctor for medical advice about side effects. You may report side effects to FDA at 0-352-ABJ-9811. What other drugs will affect doxycycline? Sometimes it is not safe to use certain medications at the same time. Some drugs can affect your blood levels of other drugs you take, which may increase side effects or make the medications less effective. Other drugs may affect doxycycline, including prescription and qcdh-frd-hfeoocj medicines, vitamins, and herbal products. Tell your doctor about all your current medicines and any medicine you start or stop using. Where can I get more information? Your pharmacist can provide more information about doxycycline. Remember, keep this and all other medicines out of the reach of children, never share your medicines with others, and use this medication only for the indication prescribed. Every effort has been made to ensure that the information provided by [employer]') is accurate, up-to-date, and complete, but no guarantee is made to that effect. Drug information contained herein may be time sensitive. [employer] information has been compiled for use by healthcare practitioners and consumers in the [place] and therefore [employer] does not warrant that uses outside of the [place] are appropriate, unless specifically indicated otherwise. [employer] drug information does not endorse drugs, diagnose patients or recommend therapy. [employer] drug information is an informational resource designed to assist licensed healthcare practitioners in caring for their patients and/or to serve consumers viewing this service as a supplement to, and not a substitute for, the expertise, skill, knowledge and judgment of healthcare practitioners. The absence of a warning for a given drug or drug combination in no way should be construed to indicate that the drug or drug combination is safe, effective or appropriate for any given patient. [employer] does not assume any responsibility for any aspect of healthcare administered with the aid of information [employer] provides. The information contained herein is not intended to cover all possible uses, directions, precautions, warnings, drug interactions, allergic reactions, or adverse effects. If you have questions about the drugs you are taking, check with your doctor, nurse or pharmacist. Copyright 8760-8965 [employer]. Version: 20.02. Revision Date: 07/12/2017. metronidazole ( troe NI da tobi) FIRST Metronidazole, Flagyl, Flagyl 375 What is the most important information I should know about metronidazole? You should not use metronidazole if you have taken disulfiram (Antabuse) within the past 2 weeks. Do not drink alcohol or consume foods or medicines that contain propylene glycol while you are taking metronidazole and for at least 3 days after you stop taking it. What is metronidazole? Metronidazole is an antibiotic that is used to treat bacterial infections of the vagina, stomach, liver, skin, joints, brain, and respiratory tract. Metronidazole will not treat a vaginal yeast infection. Metronidazole may also be used for purposes not listed in this medication guide. What should I discuss with my healthcare provider before taking metronidazole? You should not take metronidazole if you are allergic to it, or if you have taken disulfiram (Antabuse) within the past 2 weeks. Do not take metronidazole during the first trimester of . This medicine can harm an unborn baby. Tell your doctor if you are . Tell your doctor if you have ever had: ? liver or kidney disease; ?? Cockayne syndrome (a rare genetic disorder); ?? a stomach or intestinal disease such as Crohn's disease; ?? a blood cell disorder such as anemia (lack of red blood cells) or low white blood cell (WBC) counts; ?? a fungal infection anywhere in your body; or ?? a nerve disorder. In animal studies, metronidazole caused certain types of tumors, some of which were cancerous. However, very high doses are used in animal studies. It is not known whether these effects would occur in people using regular doses. Ask your doctor about your risk. Metronidazole can pass into breast milk and may harm a nursing baby. You should not breast-feed within 24 hours after using metronidazole. If you use a breast pump during this time, throw out any milk you collect. Do not feed it to your baby. Do not give this medicine to a child without medical advice. How should I take metronidazole? Follow all directions on your prescription label and read all medication guides or instruction sheets. Use the medicine exactly as directed. Shake the oral suspension (liquid) before you measure a dose. Use the dosing syringe provided, or use a medicine dose-measuring device (not a kitchen spoon). Do not crush, chew, or break an extended-release tablet. Swallow it whole. If you are treating a vaginal infection, your sexual partner may also need to take metronidazole (even if no symptoms are present) or you could become reinfected. Metronidazole is usually given for up to 10 days in a row. You may need to repeat this dosage several weeks later. Use this medicine for the full prescribed length of time, even if your symptoms quickly improve. Skipping doses can increase your risk of infection that is resistant to medication. Metronidazole will not treat a viral infection such as the flu or a common cold. This medicine can affect the results of certain medical tests. Tell any doctor who treats you that you are using metronidazole. Store at room temperature away from moisture and heat. What happens if I miss a dose? Take the medicine as soon as you can, but skip the missed dose if it is almost time for your next dose. Do not take two doses at one time. What happens if I overdose? Seek emergency medical attention or call the Poison Help line at . Overdose symptoms may include nausea, vomiting, and loss of balance or coordination. What should I avoid while taking metronidazole? Do not drink alcohol or consume food or medicines that contain propylene glycol while you are taking metronidazole. You may have unpleasant side effects such as headaches, stomach cramps, nausea, vomiting, and flushing (warmth, redness, or tingly feeling). Avoid alcohol or propylene glycol for at least 3 days after you stop taking metronidazole. Check the labels of any medicines or food products you use to make sure they do not contain alcohol or propylene glycol. What are the possible side effects of metronidazole? Get emergency medical help if you have signs of an allergic reaction: hives; difficult breathing; swelling of your face, lips, tongue, or throat. Call your doctor at once if you have: ? diarrhea; ?? painful or difficult urination; ?? trouble sleeping, depression, irritability; ?? headache, dizziness, weakness; ?? a light-headed feeling (like you might pass out); or ?? blisters or ulcers in your mouth, red or swollen gums, trouble swallowing. Stop taking the medicine and call your doctor right away if you have neurologic side effects (more likely to occur while taking metronidazole intermediate school teacher): ? numbness, tingling, or burning pain in your hands or feet; ?? vision problems, pain behind your eyes, seeing flashes of light; ?? muscle weakness, problems with coordination; ?? trouble speaking or understanding what is said to you; ?? a seizure; or ?? fever, neck stiffness, and increased sensitivity to light. Metronidazole can cause life-threatening liver problems in people with Cockayne syndrome. If you have this condition, stop taking metronidazole and contact your doctor if you have signs of liver failure--nausea, stomach pain (upper right side), dark urine, jackie-colored stools, or jaundice (yellowing of the skin or eyes). Side effects may be more likely in older adults. Common side effects may include: ? nausea, vomiting, loss of appetite, stomach pain; ?? diarrhea, constipation; ?? unpleasant metallic taste; ?? rash, itching; ?? vaginal itching or discharge; ?? mouth sores; or ?? swollen, red, or 'hairy' tongue. This is not a complete list of side effects and others may occur. Call your doctor for medical advice about side effects. You may report side effects to FDA at 1-814-WAT-8086. What other drugs will affect metronidazole? Sometimes it is not safe to use certain medications at the same time. Some drugs can affect your blood levels of other drugs you take, which may increase side effects or make the medications less effective. Tell your doctor about all your other medicines, especially: ? busulfan; ?? lithium; or ?? a blood thinner--warfarin, Coumadin, Jantoven. This list is not complete. Other drugs may affect metronidazole, including prescription and [id number]-[id number] medicines, vitamins, and herbal products. Not all possible drug interactions are listed here. Where can I get more information? Your pharmacist can provide more information about metronidazole. Remember, keep this and all other medicines out of the reach of children, never share your medicines with others, and use this medication only for the indication prescribed. Every effort has been made to ensure that the information provided by [employer]. ('[employer]') is accurate, up-to-date, and complete, but no guarantee is made to that effect. Drug information contained herein may be time sensitive. [employer] information has been compiled for use by healthcare practitioners and consumers in the [place] and therefore [employer] does not warrant that uses outside of the [place] are appropriate, unless specifically indicated otherwise. [employer] drug information does not endorse drugs, diagnose patients or recommend therapy. [employer] drug information is an informational resource designed to assist licensed healthcare practitioners in caring for their patients and/or to serve consumers viewing this service as a supplement to, and not a substitute for, the expertise, skill, knowledge and judgment of healthcare practitioners. The absence of a warning for a given drug or drug combination in no way should be construed to indicate that the drug or drug combination is safe, effective or appropriate for any given patient. [facility] does not assume any responsibility for any aspect of healthcare administered with the aid of information [facility] provides. The information contained herein is not intended to cover all possible uses, directions, precautions, warnings, drug interactions, allergic reactions, or adverse effects. If you have questions about the drugs you are taking, check with your doctor, nurse or pharmacist. Copyright 6401-7111 [facility] [employer]. Version: 12.02. Revision Date: 01/22/2018. methylprednisolone (oral) (METH il pred NIS oh lone) Medrol, Medrol Dosepak, MethylPREDNISolone Dose Pack What is the most important information I should know about methylprednisolone? You should not use this medicine if you have a fungal infection anywhere in your body. What is methylprednisolone? Methylprednisolone is a steroid that prevents the release of substances in the body that cause inflammation. Methylprednisolone is used to treat many different inflammatory conditions such as arthritis, lupus, psoriasis, ulcerative colitis, allergic disorders, gland (endocrine) disorders, and conditions that affect the skin, eyes, lungs, stomach, nervous system, or blood cells. Methylprednisolone may also be used for purposes not listed in this medication guide. What should I discuss with my healthcare provider before taking methylprednisolone? You should not use methylprednisolone if you are allergic to it, or if you have: ? a fungal infection anywhere in your body. Methylprednisolone can weaken your immune system, making it easier for you to get an infection. Steroids can also worsen an infection you already have, or reactivate an infection you recently had. Tell your doctor about any illness or infection you have had within the past several weeks. To make sure methylprednisolone is safe for you, tell your doctor if you have ever had: ? a thyroid disorder; ?? herpes infection of the eyes; ?? stomach ulcers, ulcerative colitis, or diverticulitis; ?? depression, mental illness, or psychosis; ?? liver disease (especially cirrhosis); ?? high blood pressure; ?? osteoporosis; ?? a muscle disorder such as myasthenia gravis; or ?? multiple sclerosis. Also tell your doctor if you have diabetes. Steroid medicines may increase the glucose (sugar) levels in your blood or urine. You may also need to adjust the dose of your diabetes medications. It is not known whether this medicine will harm an unborn baby. Tell your doctor if you are or plan to become . It is not known whether methylprednisolone passes into breast milk or if it could affect the nursing baby. Tell your doctor if you are breast-feeding. How should I take methylprednisolone? Follow all directions on your prescription label. Your doctor may occasionally change your dose. Do not use this medicine in larger or smaller amounts or for longer than recommended. Methylprednisolone is sometimes taken every other day. Follow your doctor's dosing instructions very carefully. Your dose needs may change if you have unusual stress such as a serious illness, fever or infection, or if you have surgery or a medical emergency. Tell your doctor about any such situation that affects you. This medicine can cause unusual results with certain medical tests. Tell any doctor who treats you that you are using methylprednisolone. You should not stop using methylprednisolone suddenly. Follow your doctor's instructions about tapering your dose. Wear a medical alert tag or carry an ID card stating that you take methylprednisolone. Any medical care provider who treats you should know that you take steroid medication. If you need surgery, tell the surgeon ahead of time that you are using methylprednisolone. You may need to stop using the medicine for a short time. Store at room temperature away from moisture and heat. What happens if I miss a dose? Call your doctor for instructions if you miss a dose of methylprednisolone. What happens if I overdose? Seek emergency medical attention or call the Poison Help line at . An overdose of methylprednisolone is not expected to produce life threatening symptoms. However, custodial use of high steroid doses can lead to symptoms such as thinning skin, easy bruising, changes in the shape or location of body fat (especially in your face, neck, back, and waist), increased acne or facial hair, menstrual problems, impotence, or loss of interest in sex. What should I avoid while taking methylprednisolone? Avoid being near people who are sick or have infections. Call your doctor for preventive treatment if you are exposed to chicken pox or measles. These conditions can be serious or even fatal in people who are using steroid medication. Do not receive a 'live' vaccine while using methylprednisolone. The vaccine may not work as well during this time, and may not fully protect you from disease. Live vaccines include measles, mumps, rubella (MMR), polio, rotavirus, typhoid, yellow fever, varicella (chickenpox), zoster (shingles), and nasal flu (influenza) vaccine. What are the possible side effects of methylprednisolone? Get emergency medical help if you have signs of an allergic reaction: hives; difficult breathing; swelling of your face, lips, tongue, or throat. Call your doctor at once if you have: ? shortness of breath (even with mild exertion), swelling, rapid weight gain; ?? bruising, thinning skin, or any wound that will not heal; ?? blurred vision, tunnel vision, eye pain, or seeing halos around lights; ?? severe depression, changes in personality, unusual thoughts or behavior; ?? new or unusual pain in an arm or leg or in your back; ?? bloody or tarry stools, coughing up blood or vomit that looks like coffee grounds; ?? seizure (convulsions); or ?? low potassium--leg cramps, constipation, irregular heartbeats, fluttering in your chest, increased thirst or urination, numbness or tingling. Steroids can affect growth in children. Tell your doctor if your child is not growing at a normal rate while using this medicine. Common side effects may include: ? fluid retention (swelling in your hands or ankles); ?? dizziness, spinning sensation; ?? changes in your menstrual periods; ?? headache; ?? mild muscle pain or weakness; or ?? stomach discomfort, bloating. This is not a complete list of side effects and others may occur. Call your doctor for medical advice about side effects. You may report side effects to FDA at 0-550-UJW-8568. What other drugs will affect methylprednisolone? Other drugs may interact with methylprednisolone, including prescription and kkxg-kir-krxjvik medicines, vitamins, and herbal products. Tell each of your health care providers about all medicines you use now and any medicine you start or stop using. Where can I get more information? Your pharmacist can provide more information about methylprednisolone. Remember, keep this and all other medicines out of the reach of children, never share your medicines with others, and use this medication only for the indication prescribed. Every effort has been made to ensure that the information provided by [employer] ('[employer]') is accurate, up-to-date, and complete, but no guarantee is made to that effect. Drug information contained herein may be time sensitive. [employer] information has been compiled for use by healthcare practitioners and consumers in the [place] and therefore [employer] does not warrant that uses outside of the [place] are appropriate, unless specifically indicated otherwise. [employer] drug information does not endorse drugs, diagnose patients or recommend therapy. [employer] drug information is an informational resource designed to assist licensed healthcare practitioners in caring for their patients and/or to serve consumers viewing this service as a supplement to, and not a substitute for, the expertise, skill, knowledge and judgment of healthcare practitioners. The absence of a warning for a given drug or drug combination in no way should be construed to indicate that the drug or drug combination is safe, effective or appropriate for any given patient. [employer] [facility] [facility] does not assume any responsibility for any aspect of healthcare administered with the aid of information [employer] provides. The information contained herein is not intended to cover all possible uses, directions, precautions, warnings, drug interactions, allergic reactions, or adverse effects. If you have questions about the drugs you are taking, check with your doctor, nurse or pharmacist. Copyright 8314-4788 [employer]. Version: 9.01. Revision Date: 11/30/2016. CIGARETTE SMOKING: The facts are clear, cigarette smoking will shorten your life. Smoking can cause many illnesses along the way. As a healthcare provider, we recommend that you stop smoking. Assistance with quitting is available by contacting 7-282-RRAB-NOW. This is a free resource providing counseling, support, and referral. Or you may contact your personal physician. STROKE is an EMERGENCY [employer] ACT F.A.S.T! FACE ?? Facial droop ?? Uneven smile ARM ?? Arm numbness ?? Arm weakness SPEECH ?? Slurred speech ?? Difficulty speaking or understanding TIME ?? Call 911 and get to the hospital immediately Have the ambulance go to the nearest stroke center. STROKE Risk Factors High blood pressure High cholesterol Heart Disease Diabetes Smoking Heavy alcohol use Physical inactivity and obesity Atrial Fibrillation (irregular heartbeat) Family history of stroke Reminder: Be sure to sign up for the [facility] patient portal, which gives you 24/ access to your medical information ??? including these discharge instructions ??? using your computer, smartphone, or tablet. Just go to [employer] to get started. Questions? Call . [facility] would like to thank you for allowing us to assist you with your healthcare needs. VEENA Marino KAYLA, (or mortician supplies sales representative) have received the above patient education materials/instructions and have verbalized understanding: Patient Signature _ Date/Time Patient Clinical Staff Pharmacist Signature (if needed) Date/Time Clinician/Hospital Clinical Staff Pharmacist Signature (if needed) Date/Time Electronically signed by Krystle, [facility] Conversion Projector Booth Operator Cerner at 07/17/2022 7:18 PM CDT documented in this encounter Plan of Treatment Not on file documented as of this encounter Visit Diagnoses Not on filedocumented in this encounter
--- OUTSIDE RECORDS SUMMARY | 2024-12-23 09:55 | XMS_ITS | Encounter Summary ---
Author Organization [employer] ([place], [place], [place], [place]) Address [address] [place] [address] Care Team Providers Care Dog Show Judge Name Role Phone Unavailable Primary Care Provider Unavailabl e Encounter Details Date Type Department Care Team (Late st Contact Info) Description 04/05/2018 Transcribed Document [facility] Family Medicine [address] [place] [address] ProviderDiego MD [address] [place] [phone] Social History Tobacco Use Types Packs/Day Years Used Date Smoking Tobacco: Never Assessed Comments Unknown Sex and Gender Information Value Date Recorded Sex Assigned at Not on file Legal Sex Female 6:24 PM CDT Gender Identity Not on file Sexual Orientation Not on file documented as of this encounter Miscellaneous Notes * [employer]ner Conversion Note - Historical ProviderMD - 04/05/2018 2:00 AM SPECIMEN COLLECTOR Area Director Details Entered On: 04/05/2018 1:59 EST Performed On: 04/05/2018 2:00 EST by Héctor Jiang RN Order Details Transport Mode Order Detail : Bed (including specialty) Isolation Precautions Order Detail : Contact precautions, Standard Precautions Order Detail : 1 IV Order Detail : 1 Oxygen Order Detail : 0 Nurse Collect Order Detail : 1 Lift/Transfer : Moderate assist Central Line Order Detail : Yes Room Service : Appropriate Arterial Line : No Héctor Jiang, RN - 04/05/2018 1:59 EST Electronically signed by Krystle [facility] Conversion Dental Specialist Cerner at 07/17/2022 7:13 PM CDT documented in this encounter Plan of Treatment Not on file documented as of this encounter Visit Diagnoses Not on filedocumented in this encounter
--- OUTSIDE RECORDS SUMMARY | 2024-12-23 09:55 | XMS_ITS | Encounter Summary ---
Author Organization [employer] ([place], [place], [place], [place]) Address [address] [place] [address] Care Team Providers Care Clinical Cytopathologist Name Role Phone Unavailable Primary Care Provider Unavailabl e Encounter Details Date Type Department Care Team (Late st Contact Info) Description 04/05/2018 Transcribed Document [facility] [place] Family Medicine [address] [place] [address] ProviderDiego MD [address] [place] [phone] Social History Tobacco Use Types Packs/Day Years Used Date Smoking Tobacco: Never Assessed Comments Unknown Sex and Gender Information Value Date Recorded Sex Assigned at Not on file Legal Sex Female 6:24 PM CDT Gender Identity Not on file Sexual Orientation Not on file documented as of this encounter Miscellaneous Notes * Cerner Conversion Note - Historical ProviderMD - 04/05/2018 2:27 [address] ANALYST [facility] OT Charges Entered On: 04/05/2018 14:27 EST Performed On: 04/05/2018 14:27 EST by TRELL CRAWFORD OTR/Monster [facility] OT Charges Screen For Technical Education Teacher : 1 TRELL CRAWFORD OTR/Monster - 04/05/2018 14:27 EST Electronically signed by Everton Dalton Conversion Home Sales Service Professional Cerner at 07/17/2022 7:11 PM CDT documented in this encounter Plan of Treatment Not on file documented as of this encounter Visit Diagnoses Not on filedocumented in this encounter
--- OUTSIDE RECORDS SUMMARY | 2024-12-23 09:55 | XMS_ITS | Encounter Summary ---
Author Organization [employer] ([place], [place], [place], [place]) Address [address] [place] [address] Care Team Providers Care Sports Medicine Physician Name Role Phone Unavailable Primary Care Provider Unavailabl e Encounter Details Date Type Department Care Team (Late st Contact Info) Description 04/06/2018 Transcribed Document [facility] [place] Family Medicine [address], [place] [id number] ProviderDiego MD [address] [place] [id number] Social History Tobacco Use Types Packs/Day Years Used Date Smoking Tobacco: Never Assessed Comments Unknown Sex and Gender Information Value Date Recorded Sex Assigned at Not on file Legal Sex Female 6:24 PM CDT Gender Identity Not on file Sexual Orientation Not on file documented as of this encounter Miscellaneous Notes * [employer]ner Conversion Note - Historical ProviderMD - 04/06/2018 7:55 AM ANIMAL PHYSIOLOGIST Event Note Entered On: 04/06/2018 7:55 EST Performed On: 04/06/2018 7:55 EST by Tonya Samson Rn-Resource Event Note Event Date/Time : 04/06/2018 7:55 EST Event Location : Assigned room Event Details : Other: orientee Description of Event : This nurse has reviewed assessment and charting of orientee and is in agreement. Tonya Samson Rn-Resource - 04/06/2018 7:55 EST Electronically signed by Krystle [facility] Conversion Feed Research Aide Cerner at 07/17/2022 7:16 PM CDT documented in this encounter Plan of Treatment Not on file documented as of this encounter Visit Diagnoses Not on filedocumented in this encounter
--- OUTSIDE RECORDS SUMMARY | 2024-12-23 09:55 | XMS_ITS | Encounter Summary ---
Author Organization [employer] ([place], [place], [place], [place]) Address [address] [place] [address] Care Team Providers Care Cnc Set Up Operator Name Role Phone Unavailable Primary Care Provider Unavailabl e Encounter Details Date Type Department Care Team (Late st Contact Info) Description 04/06/2018 Transcribed Document [facility] [place] [facility] [place] [id number] ProviderDiego MD [address] [place] [id number] Social History Tobacco Use Types Packs/Day Years Used Date Smoking Tobacco: Never Assessed Comments Unknown Sex and Gender Information Value Date Recorded Sex Assigned at Not on file Legal Sex Female 6:24 PM CDT Gender Identity Not on file Sexual Orientation Not on file documented as of this encounter Miscellaneous Notes * Cerner Conversion Note - Historical ProviderMD - 04/06/2018 9:08 AM BACK HOE MACHINE OPERATOR Care Management Assessment/Plan Entered On: 04/06/2018 9:09 EST Performed On: 04/06/2018 9:08 EST by Blanca Crawford Rn-Director Of Financial ReportingCommercial Reporter Note Anticipated Discharge Date : 04/06/2018 15:00 EST Blanca Crawford Rn-Director Of Financial Reporting - 04/06/2018 9:08 EST Care Management Note : Patient with discharge orders. Appointment with [facility] made on 04/11/18 1:45; information in depart screen. LM with Jason PCP Finder requesting he contact the patient with appointment for Dr. Titus Giron when it has been scheduled. Blanac Crawford Rn-Director Of Financial Reporting - 04/06/2018 9:15 EST Care Management Note Report : MICHAELA OAEKS RN - 04/05/18 09:01:15 on transfer to floor. wbc 24. doxycycline/diflucan po. zosyn iv. hydrocortisone iv. clonidine iv x 1. zofran iv x 1. PT/OT consults. referral has been made to MD derick Gomez for primary care assignement. pt attends [facility]-suboxone clinic will need follow up appt at dc. home health vs not when ready for dc. spoke with zachary Sims RN. MICHAELA OAKES RN - 04/02/18 10:31:16 readmit risk: moderate 47. transfer [facility]. resp failure. sepsis. renal failure. pelvic ascites: ? PID vs abscess. 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 doxycycline/zyvox/zosyn iv. hydrocortisone iv. awake, talking. spoke with Ms. Andersen & her parents. explained role of case management. pt resides in [facility] with parents. she is adl independent. no dme or home health. no previous rehab stays. current with suboxone clinic in [place], [facility], . reported to be clean for a year. 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 Would like to see Dr Titus Giron in [place]. discussed dc planning based on progess. referral to MD Derick Gomez, alerted to preference of Dr Titus Giron. schedule appt with [facility] when ready for dc. spoke with zachary Espinosa RN. re-evaluate in am to see if she will need PT consult. Documentation Status Complete : Yes Blanca Crawford Rn-Director Of Financial Reporting - 04/06/2018 9:08 EST Final Discharge Disposition Note-CM Final Discharge Disposition Note-CM : Patient discharging home with family; appointment made at [facility] for 04/11/18 1:45. Discharge To Care Management : Home/Residential/Longterm or Self Care - Blanca Crawford Rn-Director Of Financial Reporting - 04/06/2018 9:08 EST documented in this encounter Plan of Treatment Not on file documented as of this encounter Visit Diagnoses Not on filedocumented in this encounter
--- OUTSIDE RECORDS SUMMARY | 2024-12-23 09:55 | XMS_ITS | Encounter Summary ---
Author Organization [employer] ([place], [place], [place], [place]) Address [address] [place] [address] Care Team Providers Care Trommel Tender Name Role Phone Unavailable Primary Care Provider Unavailabl e Encounter Details Date Type Department Care Team (Late st Contact Info) Description 04/06/2018 Transcribed Document [facility] [place] [facility] [place], [place] [id number] ProviderDiego MD [address] [place] [id number] Social History Tobacco Use Types Packs/Day Years Used Date Smoking Tobacco: Never Assessed Comments Unknown Sex and Gender Information Value Date Recorded Sex Assigned at Not on file Legal Sex Female 6:24 PM CDT Gender Identity Not on file Sexual Orientation Not on file documented as of this encounter Miscellaneous Notes * Cerner Conversion Note - Diego Mckeon MD - 04/06/2018 11:54 AM AGRONOMY RESEARCH MANAGER Patient Education Materials Follows:Disease Community-Acquired Pneumonia, Adult Introduction Pneumonia is an [...] Follow these instructions at home: ??? Take akbv-aei-xkwepcd and prescription medicines only as told by [...] and water are not available, use hand special weapons unit officer. Contact a doctor if: ??? You have [...] Revised: 08/25/2016 Document Reviewed: 07/15/2015 ? 2017 Elsevier Septic Shock Septic shock is the final, [...] 11/21/2014 Document Revised: 08/25/2016 Document Reviewed: 10/21/2014 ipsy Interactive Patient Education ? 2017 [employer]. Obstetrics and Gynecology Pelvic Inflammatory Disease Introduction Pelvic inflammatory disease [...] Follow these instructions at home: ??? Take kxyx-owq-qrswvlz and prescription medicines only as told by [...] 08/25/2016 Document Reviewed: 04/27/2015 ? 2017 Elsevier documented in this encounter Plan of Treatment Not on file documented as of this encounter Visit Diagnoses Not on filedocumented in this encounter
--- OUTSIDE RECORDS SUMMARY | 2024-12-23 09:55 | XMS_ITS | Encounter Summary ---
Author Organization [employer] ([place], [place], [place], [place]) Address [address] [place] [address] Care Team Providers Care Timber Robber Name Role Phone Unavailable Primary Care Provider Unavailabl e Encounter Details Date Type Department Care Team (Late st Contact Info) Description 04/03/2018 Transcribed Document [facility] [place] [address] [place], [place] [id number] ProviderDiego MD [address] [place] [id number] Social History Tobacco Use Types Packs/Day Years Used Date Smoking Tobacco: Never Assessed Comments Unknown Sex and Gender Information Value Date Recorded Sex Assigned at Not on file Legal Sex Female 6:24 PM CDT Gender Identity Not on file Sexual Orientation Not on file documented as of this encounter Miscellaneous Notes * Cerner Conversion Note - Historical ProviderMD - 04/03/2018 5:00 PM MERCHANDISING ASSISTANT Chart Check - Review Order Profile Entered On: 04/04/2018 19:44 EST Performed On: 04/03/2018 17:00 EST by Bethany Lake RN Chart Check Chart Reviewed Date and Time : 04/04/2018 17:00 EST Power[employer] Initiated/Discontinued as Appropriate : Yes All Active Orders Reviewed : Yes Bethany Lake RN - 04/04/2018 19:44 EST documented in this encounter Plan of Treatment Not on file documented as of this encounter Visit Diagnoses Not on filedocumented in this encounter
--- OUTSIDE RECORDS SUMMARY | 2024-12-23 09:55 | XMS_ITS | Encounter Summary ---
Author Organization [employer] ([place], [place], [place], [place]) Address [address] [place] [address] Care Team Providers Care Skiver Machine Operator Name Role Phone Unavailable Primary Care Provider Unavailabl e Encounter Details Date Type Department Care Team (Late st Contact Info) Description 03/31/2018 Transcribed Document [facility] [place] [address] [place] [id number] ProviderDiego MD [address] [place] [phone] Social History Tobacco Use Types Packs/Day Years Used Date Smoking Tobacco: Never Assessed Comments Unknown Sex and Gender Information Value Date Recorded Sex Assigned at Not on file Legal Sex Female 6:24 PM CDT Gender Identity Not on file Sexual Orientation Not on file documented as of this encounter Miscellaneous Notes * Cerner Conversion Note - Diego Mckeon MD - 03/31/2018 9:34 AM ADOPTION SPECIALIST DATE OF CONSULTATION: 03/31/2018 INFECTIOUS DISEASE CONSULTATION/INITIAL HOSPITAL VISIT REFERRING PHYSICIAN: Dr. Juan J Ji. REASON FOR CONSULTATION: Sepsis. HISTORY OF PRESENT ILLNESS: This is an unfortunate 32-year-old white female with a history of IV drug use and opiate addiction along with tobacco abuse, who presented to [facility] Emergency Department with abdominal pain, vomiting, and weakness. The patient is currently intubated at [facility] and unable to obtain history, so all the history was obtained from either [facility] chart or [facility] chart. Apparently she has had no sick contacts. She had nausea with sharp cramping abdominal pain that was worse with eating. She did complain of some right flank pain. Supposedly, she has not done IV drug use for two months; however it was noted in the chart that she did IV drugs about three weeks ago. It also is noted in her chart that she is on Suboxone wean. She was noted to have a nonoliguric acute renal failure and it was thought that she had pyelonephritis. Her serum creatinine was over 6. A renal ultrasound showed normal kidneys. Her white blood cell count was 20,000 at the outside facility with 83% segmented neutrophils and 12% banded neutrophils. She was started on cefepime and vancomycin. On 03/29, she apparently developed increasing shortness of breath requiring oxygen. Her D-dimer increased over 3000. Her LDH was 314 and she had metabolic acidosis. A V/Q scan showed low probability of a pulmonary embolus. She had a transthoracic echocardiogram that was negative for vegetation. She was found to be hypoxemic and tachycardic with hypertension. She was transferred to [facility] ICU for medical management. Her shortness of breath worsened and she even on BiPAP and she was eventually intubated last night. She is currently on doxycycline, Zyvox, and meropenem. She has not been running any fevers since she has been here. Her white blood cell count is 17,000; hemoglobin 6.4; hematocrit 19; platelets 196,000. She does have elevated alkaline phosphatase, LDH, procalcitonin, and proBNP. Her potassium is 2.8. Her hepatitis A IgM screen was negative and HIV screen was negative. Her urine culture did show Gram-negative rods on 03/29 specimen with 10,000 to 100,000 CFU. Her urine culture on 03/30 has no growth so far. CT scan of the chest and abdomen and pelvis showed moderate pleural effusion with bibasilar consolidation and patchy upper lobe airspace infiltrates, ventral hernia, and small to moderate amount of complex fluid in the pelvis suggestive of either hemorrhage or pus. Infectious Disease was asked to evaluate and manage her antibiotic therapy. Allegies: Augmentin: Nausea and vomiting MEDS: MERREM, ZYVOX, and Doxycycline. MAR reviewed. PAST MEDICAL HISTORY: [place] as child; opiate addiction; IV drug use with opiates, last use three weeks ago, on Suboxone; history of MRSA. PAST SURGICAL HISTORY: Bilateral tubal ligation. FAMILY HISTORY: Unable to obtain as patient is sedated and intubated. She has had two pregnancies and two live births. SOCIAL HISTORY: The patient is single and lives in [place], [place]. She does smoke and has had a history of IV drug use with opiate addiction. I do not see any history of alcohol abuse. REVIEW OF SYSTEMS: Unable to obtain secondary to patient sedated and intubated. PHYSICAL EXAMINATION: VITAL SIGNS: Include temperature 98.5, with a T-max of 99. Blood pressure 94/51, heart rate 91, respiratory rate 17, O2 sats 95% on 0.40 FiO2. GENERAL: This is an unfortunate 32-year-old white female, who is in moderate distress, acutely ill appearing. Well developed, well nourished. SKIN: No rashes or lesions. No Janeway lesions, Osler's nodes or splinter hemorrhages. HEENT: Normocephalic, atraumatic, conjunctivae noninjected, sclerae anicteric. Oropharynx without lesions or thrush. NECK: Supple. LYMPH NODES: No lymphadenopathy palpated. No cervical, supraclavicular or axillary lymph nodes. RESPIRATORY: Coarse breath sounds anteriorly and bilaterally, no wheezing, on mechanical ventilation. CARDIOVASCULAR: Tachycardic. No murmurs, gallops or rubs. No lower extremity edema. GI: Bowel sounds are hypoactive, soft. No guarding, distended. No hepatosplenomegaly. : There is a Gay catheter in place. External genitalia is normal, no genital yeast dermatitis. MUSCULOSKELETAL: No joint redness or swelling. NEURO: Unable to assess secondary to patient's sedation and mechanical ventilation. PSYCH: Unable to assess secondary to sedation on mechanical ventilation. EXTREMITIES: Lines in place without purulent discharge or surrounding erythema. They are clean dry and intact. She does have one in her left ankle and a central line in the right IJ. LABORATORY DATA: Chemistry profile showed sodium level 145, potassium 2.8, chloride 110, CO2 of 18, BUN 55, creatinine 5.5, glucose 124. Total bilirubin 0.9, alkaline phosphatase 271, AST 32, ALT 18. Ammonia 20. LDH 402. Lactic acid 0.8. CPK 25. ProBNP 44,000. Procalcitonin 25.7. Hematological study showed white blood cell count of 16,600 with 68% neutrophils segmented, 17% banded neutrophils, 10% lymphocytes, 5% monocytes. Hepatitis A IgM was negative. HIV screen was negative. Her urinalysis showed negative leukocyte esterase and negative nitrite. Her urine drug screen was positive for opiates. Urine culture on 03/29 was positive for 10,000 to 100,000 CFU per mL of Gram-negative cesar and a urine culture on 03/30 has no growth so far. CT scan of chest abdomen and pelvis showed moderate pleural effusions with bibasilar consolidation and patchy upper lobe airspace infiltrates, ventral hernia, and small to moderate amount of complex fluid in the pelvis. It is secondary to the infection versus hemorrhage. IMPRESSION: 1. Septic shock/severe sepsis present on admission with acute renal failure, acute respiratory failure, hypotension on pressor, elevated procalcitonin and elevated white blood cell count. 2. Bilateral pulmonary infiltrates with pleural effusions consistent with pneumonia. She also has elevated proBNP with possible volume overload versus congestive heart failure. 3. Pelvic fluid with questionable hemorrhagic versus cystic rupture. 4. Questionable urinary tract infection with pyelonephritis. Patient did complain of right flank pain; however the CT scan does not indicate any pyelonephritis at this time. 5. Acute hypoxemic respiratory failure on mechanical ventilation. 6. Acute renal failure, nonoliguric with a creatinine clearance 15.6 at this time. 7. Elevated procalcitonin. 8. Leukocytosis with bandemia secondary to above. 9. Severe anemia probably secondary to above and acute blood loss. 10. Elevated D-dimer with no evidence of a pulmonary embolus. 11. Elevated lactate dehydrogenase. 12. Elevated proBNP with questionable volume overload versus acute congestive heart failure. 13. Hypokalemia. 14. History of methicillin-resistant Staphylococcus aureus. 15. Intravenous drug use with opiates, last use three weeks ago on Suboxone. 16. Ongoing tobacco abuse. 17. AUGMENTIN allergy, but more likely intolerance with nausea and vomiting were suggested reaction per [facility]. RECOMMENDATIONS: 1. Monitor blood and urine cultures. We will check a sputum culture, respiratory panel PCR, Streptococcus pneumoniae urinary antigen and Legionella urinary antigen. 2. We will discontinue meropenem. 3. Start Zosyn 2.25 g IV q.8 h. for the pneumonia, possible intra-abdominal process, and severe sepsis. 4. Continue Zyvox 600 mg IV q.12 h. for empiric MRSA coverage especially with the pneumonia. 5. Continue doxycycline 100 mg IV q.12 h. for atypical coverage. 6. Consider pelvic ultrasound to evaluate pelvic fluid. 7. Continue O2 support. Thank you for the consultation. I will be happy to follow the patient with you. Dr. Finesse Gannon saw and examined the patient, verified the history and physical examination, read any radiographical studies, formulated differential diagnosis plan for treatment, and all medical decision making. Dictated By: BEVERLY Valdez For Hilaria Kaba M.D. Dict: 03/31/2018 09:34:32 Trans: 03/31/2018 11:44:54 CC1: Finesse Gannon M.D. documented in this encounter Plan of Treatment Not on file documented as of this encounter Visit Diagnoses Not on filedocumented in this encounter
--- OUTSIDE RECORDS SUMMARY | 2024-12-23 09:55 | XMS_ITS | Encounter Summary ---
Author Organization [employer] ([place], [place], [place], [place]) Address [address] [place] [address] Care Team Providers Care Acrobatic Rigger Name Role Phone Unavailable Primary Care Provider Unavailabl e Encounter Details Date Type Department Care Team (Late st Contact Info) Description 03/30/[address] [facility] [place] [facility] [place] [address] ProviderDiego MD [address] [place] [address] Social History Tobacco Use Types Packs/Day Years Used Date Smoking Tobacco: Never Assessed Comments Unknown Sex and Gender Information Value Date Recorded Sex Assigned at Not on file Legal Sex Female 6:24 PM CDT Gender Identity Not on file Sexual Orientation Not on file documented as of this encounter Miscellaneous Notes * Cerner Conversion Note - Historical ProviderMD - 03/30/2018 11:44 PM GAS FITTER Patient: TERRIE ANDERSEN Age: 32 years Sex: Female : 1985 Associated Diagnoses: None Author: Teddy Hoffman PA-C Procedure Endotracheal intubation procedure Date/ Time: 03/30/2018 23:44:00. Confirmed: patient, procedure, safety procedures followed. Performed by: Teddy Hoffman PA-C. Informed consent: signed by family. Indication: acute respiratory failure, airway protection, hypoxemia, respiratory distress. Medications given: as recorded on the MAR, Rapid Sequence ( Fentanyl/ etomidate/ Rocurronium ). Preparation: airway classification (Mallampati), oxygenated with 100% oxygen prior to intubation, position, monitoring during procedure (Blood pressure, O2 Sat, and Rhythem Monitoring). Technique: direct laryngoscopy performed, tube site oral, # 7.5 Niuean tube cuffed placed, taped at 24 cm at the lip. Confirmation of position: with auscultation of bilateral breath sounds, with capnometry, with chest x-ray above mike, Direct visulaization.. Findings: bilateral breath sounds on auscultation, cords visualized without difficulty, normal airway, View Grade: 1, and easy intubation. Procedure tolerated: well. Complications at the time of the procedure: None. Procedure performed: location: ICU. documented in this encounter Plan of Treatment Not on file documented as of this encounter Visit Diagnoses Not on filedocumented in this encounter
--- OUTSIDE RECORDS SUMMARY | 2024-12-23 09:55 | XMS_ITS | Encounter Summary ---
Author Organization [employer] ([place], [place], [place], [place]) Address [address] [place] [address] Care Team Providers Care Universal Grinder Operator Name Role Phone Unavailable Primary Care Provider Unavailabl e Encounter Details Date Type Department Care Team (Late st Contact Info) Description 04/03/2018 Transcribed Document [facility] [place] Family Medicine [facility] [place] [address] ProviderDiego MD [address] [place] [address] Social History Tobacco Use Types Packs/Day Years Used Date Smoking Tobacco: Never Assessed Comments Unknown Sex and Gender Information Value Date Recorded Sex Assigned at Not on file Legal Sex Female 6:24 PM CDT Gender Identity Not on file Sexual Orientation Not on file documented as of this encounter Miscellaneous Notes * Cerner Conversion Note - Historical ProviderMD - 04/03/2018 6:45 PM HOLLOW TILE PARTITION ERECTOR Patient: TERRIE ANDERSEN Age: 32 Years Sex: Female : 1985 Chief Complaint: Septic shock, PID, PNA Subjective Patient seen and examined this AM. Sitting up in a chair at bedside. No family in room. Patient reports she feels much better, although is sometimes confused and having some memory issues. Having some loose stool overnight. No fever or chills. No more abdominal discomfort. Patient additionally reports she has been told that her HR is very low at her baseline. ECG without any conduction disease. Stable for transfer to telemetry. Physical Exam (1, 6, 12) General: [Alert and oriented, well nourished, no [...] lesions]. Psychiatric: [Cooperative, appropriate mood and affect]. Vitals & Measurements T: 36.8 ??C HR: 46 (Monitored) RR: 22 BP: 147/69 MAP: 99 SpO2: 96% Blood Glucose Checks Glucose POC2: 113 mg/dL High (04/03/18 05:39:00 EST) Intake & Output Intake & Output Totals Last 24 Hours (7a-7a) Intake (37 Events) Continuous Infusions (252.06 mL) Medications (1033.04 mL) Oral Intake (120 mL) Output (2 Events) Gay Catheter (2450 mL) Input Total: 1405.1 mL Output Total: 2450 mL Balance: -1044.9 mL Assessment/Plan (1, 3 (EC+EU or N), 4(2 EU or EC +N or NW)) 1. Pelvic ascites R18.8 Unspecified kidney failure N19, Unspecified kidney failure N19 Orders: buprenorphine-naloxone, 2 Tab, SubLINgual, Tab, Daily, Routine, Start 04/03/18 9:29:00 EST Transfer (In-house) Assessment: Acute hypoxemic respiratory failure 2/2 bilateral pneumonia requiring mechanical ventilation - resolved - VQ scan low probability for PE - extubated 04/02/18 Septic shock, weaned off of pressors at this time, 2/2 pneumonia +/- PID - ID consulted and following, on linezolid, zosyn, doxycycline - PCT peak of 32, trending down Iron deficiency anemia, s/p 1u pRBC - Hgb 7.6 this AM - Platelets wnl Hyperchloremic hypernatremia, likely iatrogenic from IVF Hypokalemia, K 2.9 today Bradycardia, slow HR at baseline. No conduction disorder on ECG Acute renal failure, off bicarb gtt - improving - Good UOP, Cr 3.0, peak of 6.8 - nephro following Abdominal distension with moderate amount of free fluid in pelvis, likely PID - pain significantly improved this AM - no signs of SBO or perforation on CT - transvaginal ultrasound with moderate complex fluid in pelvis - pelvic exam done and cervical cultures sent - culdocentesis performed by CARDROOM SUPERVISOR, cytology and culture pending Valvular heart disease, mod pulmonic regurgitation Metabolic acidosis, 2/2 acute renal failure - resolved Hx of IVDA, weaned off of suboxone 5 days prior to admission to [facility] - Blood Cx neg Bradycardia overnight, resolved at this time Plan: Continue ICU management - possible extubation today Appreciate Dr Gonzales's evaluation, follow up cytology and culture results. Likely PID responding to treatment Performed pelvic exam, old blood in vaginal vault, no purulent discharge appreciated. Cultures and G&C collected - results pending Discussed with ID, appreciate input, continue zosyn, zyvox, doxy Appreciate nephrology recommendations Vent management per pulmonology DC heparin gtt with low probability VQ scan, hypoxia driven by severe PNA DC PPI IV DVT ppx: SCDs, heparin subq GI ppx: PPI Code: Full Diet: NPO. ST eval if extubated Time spent: 30 minutes Dispo: transfer to telemetry. Continue IV abx. Resume suboxone. Medications Inpatient Ativan, 0.5 mg, 0.25 mL, IV Push, Q4H, PRN bisacodyl, 5 mg, 1 Tab, Oral, BID, PRN bisacodyl, 10 mg, 1 Supp, Rectal, BID, PRN buprenorphine-naloxone 8 mg-2 mg sublingual tablet, 2 Tab, SubLINgual, Daily cloNIDine, 0.1 mg, 1 Tab, Oral, Q4H, PRN Diflucan, 200 mg, 2 Tab, Oral, Daily docusate sodium, 240 mg, 24 mL, Nasogastric Tube, Daily doxycycline, 100 mg, 1 Cap, Oral, BID DuoNeb 0.5 mg-2.5 mg/3 mL inhalation solution, 3 mL, Nebulized Inhalation , Q2H, PRN fludrocortisone, 0.1 mg, 1 Tab, Oral, Daily heparin, 5000 Units, 1 mL, SubCutaneous, Q8H hydrALAZINE, 10 mg, 0.5 mL, IV Push, Q6H, PRN hydrocortisone, 50 mg, 1 mL, IV Push, Q8H morphine, 2 mg, 1 mL, IV Push, Q2H, PRN oxyCODONE, 5 mg, 1 Tab, Oral, Q4H, PRN Phenergan, 6.25 mg, 0.25 mL, IntraVENous, Q6H, PRN potassium chloride 40 mEq + Dextrose 5% in Water intravenous solution 1,000 mL Tylenol, 650 mg, 2 Tab, Oral, Q4H, PRN Zofran, 4 mg, 2 mL, IV Push, Q4H, PRN Zosyn + Sodium Chloride 0.9% intravenous solution 50 mL Home buprenorphine-naloxone 8 mg-2 mg sublingual tablet, 2 Tab, SubLINgual, Daily Allergies Augmentin Routine Labs - Last 24 Hours APR 02 03:38 145 111 H 63 / 96 L 3.1 23 H 3.00 \ APR 01 03:42 \ L 7.3 / H 17.0 175 / L 21.6 \ Albumin Level: 1.7 Gram/dL Low Alk Phos: 150 Units/Liter High ALT: 34 Units/Liter Anion Gap: 12 AST: 58 Units/Liter High Bilirubin Total: 0.7 mg/dL Calcium Level: 7.4 mg/dL Low Magnesium Level: 1.3 mg/dL Low Protein Total: 4.7 Gram/dL Low Electronically signed by Tank Dalton Conversion Clinical Research Management Associate Cerner at 07/17/2022 7:09 PM CDT documented in this encounter Plan of Treatment Not on file documented as of this encounter Visit Diagnoses Not on filedocumented in this encounter
--- OUTSIDE RECORDS SUMMARY | 2024-12-23 09:55 | XMS_ITS | Encounter Summary ---
Author Organization [employer] ([place], [place], [place], [place]) Address [address] [place] [address] Care Team Providers Care Automotive Service Director Name Role Phone Unavailable Primary Care Provider Unavailabl e Encounter Details Date Type Department Care Team (Late st Contact Info) Description 04/06/[address] [facility] [place] Family Medicine [address] [place] [address] ProviderDiego MD [address] [place] [phone] Social History Tobacco Use Types Packs/Day Years Used Date Smoking Tobacco: Never Assessed Comments Unknown Sex and Gender Information Value Date Recorded Sex Assigned at Not on file Legal Sex Female 6:24 PM CDT Gender Identity Not on file Sexual Orientation Not on file documented as of this encounter Miscellaneous Notes * Cerner Conversion Note - Diego Mckeon MD - 04/06/2018 11:52 AM MOLD SANDER [address] [place] [address] Patient Copy Patient Information: Name: TERRIE ANDERSEN Current Date: 04/06/2018 11:52:27 : 1985 Patient Address: [address] [facility] [address] Patient Attending Physician: LORENZA FANG MD Primary Care Provider: YOAN, NOT LISTED Primary Care Provider Phone: Discharge Diagnosis: 1:Septic shock; 2:Acute pelvic inflammatory disease (PID); 3:History of PID; 4:Pelvic ascites; 5:PNA (pneumonia) Weight on Admission: 154 lb, 4 oz Weight at Discharge: 153 lb, 0 oz Comment: Follow-up Instructions: With: Address: When: [facility] [phone] 1:45 AM Comments: Appointment has been made [...] Follow these instructions at home: ??? Take lvuo-izt-xirjrmi and prescription medicines only as told by [...] and water are not available, use hand fractionating still operator. Contact a doctor if: ??? You have [...] 11/21/2014 Document Revised: 08/25/2016 Document Reviewed: 10/21/2014 [employer] Interactive Patient Education ? 2017 [employer] Pelvic Inflammatory Disease Introduction Pelvic inflammatory [...] Follow these instructions at home: ??? Take hven-wgl-sfjtfql and prescription medicines only as told by [...] or life-threatening conditions such as anthrax or [place] spotted fever. The benefit of treating a [...] may report side effects to FDA at 9-694-MRA-8845. What other drugs will affect doxycycline? Sometimes it is not safe to use certain medications at the same time. Some drugs can affect your blood levels of other drugs you take, which may increase side effects or make the medications less effective. Other drugs may affect doxycycline, including prescription and ovxo-jta-kfatgxe medicines, vitamins, and herbal products. Tell your [...] to ensure that the information provided by [employer]. ('[employer]') is accurate, up-to-date, and complete, but no guarantee is made to that effect. Drug information contained herein may be time sensitive. [employer] information has been compiled for use by healthcare practitioners and consumers in the [place] and therefore [employer] does not warrant that uses outside of the [place] are appropriate, unless specifically indicated otherwise. [employer] drug information does not endorse drugs, diagnose patients or recommend therapy. [employer] drug information is an informational resource designed [...] effective or appropriate for any given patient. [employer] does not assume any responsibility for any aspect of healthcare administered with the aid of information [employer] provides. The information contained herein is not intended to cover all possible uses, directions, precautions, warnings, drug interactions, allergic reactions, or adverse effects. If you have questions about the drugs you are taking, check with your doctor, nurse or pharmacist. Copyright 8952-0816 [employer]. Version: 20.02. Revision Date: 07/12/2017. metronidazole ( [...] (more likely to occur while taking metronidazole keno terminal operator): ? numbness, tingling, or burning pain in [...] may report side effects to FDA at 9-834-QGV-0043. What other drugs will affect metronidazole? Sometimes [...] drugs may affect metronidazole, including prescription and zlkc-kxx-dwcbzow medicines, vitamins, and herbal products. Not all [...] to ensure that the information provided by [employer] ('[employer]') is accurate, up-to-date, and complete, but no guarantee is made to that effect. Drug information contained herein may be time sensitive. [employer] information has been compiled for use by healthcare practitioners and consumers in the [place] and therefore [employer] does not warrant that uses outside of the [place] are appropriate, unless specifically indicated otherwise. [employer] drug information does not endorse drugs, diagnose patients or recommend therapy. [employer] drug information is an informational resource designed [...] effective or appropriate for any given patient. [facility] does not assume any responsibility for any aspect of healthcare administered with the aid of information [facility] provides. The information contained herein is not intended to cover all possible uses, directions, precautions, warnings, drug interactions, allergic reactions, or adverse effects. If you have questions about the drugs you are taking, check with your doctor, nurse or pharmacist. Copyright 6099-0753 [facility]. Version: 12.02. Revision Date: 01/22/2018. methylprednisolone (oral) [...] expected to produce life threatening symptoms. However, detention use of high steroid doses can lead [...] may report side effects to FDA at 7-509-JHJ-1840. What other drugs will affect methylprednisolone? Other drugs may interact with methylprednisolone, including prescription and dtye-jxs-vhibyzf medicines, vitamins, and herbal products. Tell each [...] to ensure that the information provided by [employer] ('[employer]') is accurate, up-to-date, and complete, but no guarantee is made to that effect. Drug information contained herein may be time sensitive. Firm58 information has been compiled for use by healthcare practitioners and consumers in the [place] and therefore Firm[employer] does not warrant that uses outside of the [place] are appropriate, unless specifically indicated otherwise. [employer] drug information does not endorse drugs, diagnose patients or recommend therapy. [employer] drug information is an informational resource designed [...] effective or appropriate for any given patient. [employer] does not assume any responsibility for any aspect of healthcare administered with the aid of information [employer] provides. The information contained herein is not intended to cover all possible uses, directions, precautions, warnings, drug interactions, allergic reactions, or adverse effects. If you have questions about the drugs you are taking, check with your doctor, nurse or pharmacist. Copyright 2153-2435 [employer]. Version: 9.01. Revision Date: 11/30/2016. CIGARETTE SMOKING: The facts are clear, cigarette smoking will shorten your life. Smoking can cause many illnesses along the way. As a healthcare provider, we recommend that you stop smoking. Assistance with quitting is available by contacting 0-135-JSMK-NOW. This is a free resource providing counseling, [...] Be sure to sign up for the [employer] patient portal, which gives you 24/ access to your medical information ??? including these discharge instructions ??? using your computer, smartphone, or tablet. Just go to [employer] to get started. Questions? Call . [facility] would like to thank you for allowing us to assist you with your healthcare needs. VEENA Marino KAYLA, (or printing supplies sales representative) have received the above patient education materials/instructions and have verbalized understanding: Patient Signature _ Date/Time Patient Gathering Machine Setter Signature (if needed) Date/Time Clinician/Hospital Gathering Machine Setter Signature (if needed) Date/Time Electronically signed by Krystle, [facility] Conversion Restaurant Shift Supervisor Cerner at 07/17/2022 7:10 PM CDT documented in this encounter Plan of Treatment Not on file documented as of this encounter Visit Diagnoses Not on filedocumented in this encounter
--- OUTSIDE RECORDS SUMMARY | 2024-12-23 09:56 | XMS_ITS | Clinical Summary ---
Author Organization [employer] ([place], [place], [place], [place]) Address [address] [place] [address] Care Team Providers Care Vocational Adviser Name Role Phone Unavailable Primary Care Provider [...] Date Chirag rded Speak language other than Setswana at home Not on file 11/01/2023 Want [...] 11/01/2023 9:59 PM EDT Plan of Treatment Health Maintenance Due Date Last Done Comments Depression Screening (12+) 1999 HIV Screening 09/19/2002 Hepatitis C Screening 09/19/2005 Lipid Panel 2007 Pap Smear 09/19/2008 Pneumococcal Vaccine: 0-49 Years (2 of 2 - PCV) 201904/05/2018 DTAP/TDAP/TD VACCINES (2 - Td or Tdap) 12/11/2023 Tobacco Cessation Counseling and Screening (12+) 10/3111/01/2023 COVID-19 VACCINE (1 - 2023- season) 2024 Influenza Vaccine (#1) [address] [place] [address] [place] [address]
--- OUTSIDE RECORDS SUMMARY | 2024-12-23 09:56 | XMS_ITS | Encounter Summary ---
Author Organization [employer] ([place], [place], [place], [place]) Address [address] [place] [address] Care Team Providers Care Wood Floor Refinisher Name Role Phone Unavailable Primary Care Provider Unavailabl e Encounter Details Date Type Department Care Team (Late st Contact Info) Description 04/05/2018 Transcribed Document [facility] [place] Family Medicine [facility] [place], [place] [address] ProviderDiego MD [address] [place] [address] Social History Tobacco Use Types Packs/Day Years Used Date Smoking Tobacco: Never Assessed Comments Unknown Sex and Gender Information Value Date Recorded Sex Assigned at Not on file Legal Sex Female 6:24 PM CDT Gender Identity Not on file Sexual Orientation Not on file documented as of this encounter Miscellaneous Notes * Cerner Conversion Note - Diego ProviderMD - 04/05/2018 8:58 AM ERP BUSINESS ANALYST Care Management Assessment/Plan Entered On: 04/05/2018 9:01 EST Performed On: 04/05/2018 8:58 EST by MICHAELA OAKES, RN Care Management Note Anticipated Discharge Date : 04/06/2018 15:00 EST Care Management Note : on transfer to floor. wbc 24. doxycycline/diflucan po. zosyn iv. hydrocortisone iv. clonidine iv x 1. zofran iv x 1. PT/OT consults. referral has been made to MD raymundo Gomez for primary care assignement. pt attends [facility] will need follow up appt at [facility]. home health vs not when ready for [facility]. spoke with zachary Sims RN. Care Management Note Report : MICHAELA OAKES RN - 04/02/18 10:31:16 readmit risk: moderate 45. transfer [facility]. resp failure. sepsis. renal failure. pelvic ascites: ? PID vs abscess. 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 doxycycline/zyvox/zosyn iv. hydrocortisone iv. awake, talking. spoke with Ms. Andersen & her parents. explained role of case management. pt resides in [facility] with parents. she is adl independent. no dme or home health. no previous rehab stays. current with suboxone clinic in [place], [facility], . reported to be clean for a year. she has no payroll assistant. Would like to see Dr Titus Giron in [place]. discussed dc planning based on progess. referral to MD Jason Finder, alerted to preference of Dr Titus Giron. schedule appt with [facility] when ready for dc. spoke with zachary Espinosa RN. re-evaluate in am to see if she will need PT consult. Documentation Status Complete : Yes MICHAELA OAKES RN - 04/05/2018 8:58 EST Electronically signed by Krystle [facility] Conversion Tester Vibrator Equipment Cerner at 07/17/2022 7:06 PM CDT documented in this encounter Plan of Treatment Not on file documented as of this encounter Visit Diagnoses Not on filedocumented in this encounter
--- OUTSIDE RECORDS SUMMARY | 2024-12-23 09:56 | XMS_ITS | Encounter Summary ---
Author Organization [employer] ([place], [place], [place], [place]) Address [address] [place] [address] Care Team Providers Care Tobacco Packer Name Role Phone Unavailable Primary Care Provider Unavailabl e Encounter Details Date Type Department Care Team (Late st Contact Info) Description 04/03/2018 Transcribed Document [facility] [place] [address] [place], [place] [id number] ProviderDiego MD [address] [place] [address] Social History Tobacco Use Types Packs/Day Years Used Date Smoking Tobacco: Never Assessed Comments Unknown Sex and Gender Information Value Date Recorded Sex Assigned at Not on file Legal Sex Female 6:24 PM CDT Gender Identity Not on file Sexual Orientation Not on file documented as of this encounter Miscellaneous Notes * Cerner Conversion Note - Historical ProviderMD - 04/03/2018 9:29 AM SHAREPOINT APPLICATION ARCHITECT Pain Assessment Entered On: 04/03/2018 12:47 EST Performed On: 04/03/2018 13:08 EST by MITCHELL KENNEDY RN Intervention Information: buprenorphine-naloxone Performed by MITCHELL KENNEDY RN on 04/03/2018 12:38:00 EST buprenorphine-naloxone,2Tab SubLINgual Pain Assessment Pain Assessment : Follow-up assessment Pain Scale Goal : 3 MITCHELL KENNEDY RN - 04/03/2018 12:47 EST documented in this encounter Plan of Treatment Not on file documented as of this encounter Visit Diagnoses Not on filedocumented in this encounter
--- OUTSIDE RECORDS SUMMARY | 2024-12-23 09:56 | XMS_ITS | Encounter Summary ---
Author Organization [employer] ([place], [place], [place], [place]) Address [address] [place] [address] Care Team Providers Care Ironer Or Presser Name Role Phone Unavailable Primary Care Provider Unavailabl e Encounter Details Date Type Department Care Team (Late st Contact Info) Description 04/04/2018 Transcribed Document [facility] [place] Family Medicine [facility] [place] [address] ProviderDiego MD [address] [place] [phone] Social History Tobacco Use Types Packs/Day Years Used Date Smoking Tobacco: Never Assessed Comments Unknown Sex and Gender Information Value Date Recorded Sex Assigned at Not on file Legal Sex Female 6:24 PM CDT Gender Identity Not on file Sexual Orientation Not on file documented as of this encounter Miscellaneous Notes * Cerner Conversion Note - Historical ProviderMD - 04/04/2018 2:00 AM CERTIFIED SURGICAL ASSISTANT Truck Manager Details Entered On: 04/04/2018 0:19 EST Performed On: 04/04/2018 2:00 EST by TRISTA WIGGINS RN Order Details Transport Mode Order Detail : Bed (including specialty) Isolation Precautions Order Detail : Contact precautions, Standard Precautions Order Detail : 1 IV Order Detail : 1 Oxygen Order Detail : 0 Nurse Collect Order Detail : 1 Lift/Transfer : Moderate assist Central Line Order Detail : Yes Room Service : Appropriate Arterial Line : No TRISTA WIGGINS RN - 04/04/2018 0:19 EST Electronically signed by Krystle [facility] Conversion Casting Tester Cerner at 07/17/2022 7:12 PM CDT documented in this encounter Plan of Treatment Not on file documented as of this encounter Visit Diagnoses Not on filedocumented in this encounter
--- OUTSIDE RECORDS SUMMARY | 2024-12-23 09:56 | XMS_ITS | Encounter Summary ---
Author Organization [employer] ([place], [place], [place], [place]) Address [address] [place] [address] Care Team Providers Care Director Of Blood Name Role Phone Unavailable Primary Care Provider Unavailabl e Encounter Details Date Type Department Care Team (Late st Contact Info) Description 04/04/2018 Transcribed Document [facility] [place] [address] [place], [place] [id number] ProviderDiego MD [address] [place] [address] Social History Tobacco Use Types Packs/Day Years Used Date Smoking Tobacco: Never Assessed Comments Unknown Sex and Gender Information Value Date Recorded Sex Assigned at Not on file Legal Sex Female 6:24 PM CDT Gender Identity Not on file Sexual Orientation Not on file documented as of this encounter Miscellaneous Notes * Cerner Conversion Note - Historical ProviderMD - 04/04/2018 5:00 PM DBA DEVELOPER Chart Check - Review Order Profile Entered On: 04/04/2018 19:44 EST Performed On: 04/04/2018 17:00 EST by Bethany Lake RN Chart [...]
--- OUTSIDE RECORDS SUMMARY | 2024-12-23 09:56 | XMS_ITS | Encounter Summary ---
Author Organization [employer] ([place], [place], [place], [place]) Address [address] [place] [address] Care Team Providers Care Sleeve Setter Safety Stitch Name Role Phone Unavailable Primary Care Provider Unavailabl e Encounter Details Date Type Department Care Team (Late st Contact Info) Description 04/04/2018 Transcribed Document [facility] [place] Family Medicine On [facility] of [facility] [place], [place] [id number] ProviderDiego MD [address] [place] [id number] Social History Tobacco Use Types Packs/Day Years Used Date Smoking Tobacco: Never Assessed Comments Unknown Sex and Gender Information Value Date Recorded Sex Assigned at Not on file Legal Sex Female 6:24 PM CDT Gender Identity Not on file Sexual Orientation Not on file documented as of this encounter Miscellaneous Notes * [employer]ner Conversion Note - Historical Provider, - 04/04/2018 8:12 AM QUANTITATIVE RESEARCH ANALYST Evaluation, Physical Therapy Entered On: 04/05/2018 12:38 EST Performed On: 04/05/2018 12:30 EST by SHORTY ANGUIANO PT General Information, PT Visit Type, PT : Initial evaluation Patient Orders : Order Date Order Ordering 04/04/2018 08:12 PT Evaluation and Treatment Ordered By: ARNOLD RANGEL DO Active Diagnoses : 04/04/2018 05:55 Unspecified kidney failure 04/04/2018 13:56 Acute parametritis and pelvic cellulitis 04/04/2018 13:56 Personal history of other diseases of the female genital tract 04/04/2018 13:56 Pneumonia, unspecified organism 04/04/2018 13:56 Severe sepsis with septic shock 04/04/2018 13:56 Other ascites Therapy Diagnosis, PT : Pt is at functional independence Onset of Problem, PT : 03/30/2018 EST Admission Date : 03/30/2018 19:55 Assisted by, PT : astro technician/aide Personal Devices : Personal Devices No Devices Recorded Assistive Devices : Assistive Devices No Devices Recorded General Information Comment, PT : Hx: SOA, septic shock, acute renal failkure, intubated on 03/31 and extubated 1 PMHx: IV drug abuse SHORTY ANGUIANO, PT - 04/05/2018 12:30 EST General Status Patient Received Status : Up in chair Treatment Start Time : 04/05/2018 9:41 EST Patient Left Status : Up in chair, Communication board completed, All needs met and within reach RN/PCT Informed Comment : RN MARY'd PTx Treatment End Time : 04/05/2018 9:57 EST Treatment Time : 16 Minute(s) SHORTY ANGUIANO, PT - 04/05/2018 12:30 EST History and Environment Living Situation, Therapy : Home Patient Lives With : Parent(s) Professional Skilled Services : None Persons Providing Information : Patient Home Equipment Therapy, PT : None Stairs : Yes Stair Location(s) : Inside Inside Stairs, Number of Steps : 12 SHORTY ANGUIANO, PT - 04/05/2018 12:30 EST Prior Level of Function PT GRID Prior LOF Ambulation, Household : Independent Prior LOF Ambulation, Community : Independent Prior LOF Bed Mobility : Independent Prior LOF Toileting : Independent Prior LOF Transfer : Independent SHORTY ANGUIANO PT - 04/05/2018 12:30 EST Upper Extremity Right UE Active ROM : WFL Left UE Active ROM : WFL SHORTY ANGUIANO PT - 04/05/2018 12:30 EST Lower Extremity RLE Active ROM : [facility] LLE Active ROM : [facility] SHORTY ANGUIANO, PT - 04/05/2018 12:30 EST Functional Mobility Mobility Grid Supine to Sit : Rehab Complete independence Sit to Stand : Rehab Complete independence Stand to Sit : Rehab Complete independence Sit to Supine : Rehab Complete independence SHORTY ANGUIANO, PT - 04/05/2018 12:30 EST Sit to Stand Device : Belt, gait, Other: IV pole SHORTY ANGUIANO, PT - 04/05/2018 12:30 EST AM PAC Basic Mobility Turning Over in Bed : None Sit Down On/Stand Up From Chair w/ Arms : None Move Back Lying to Sitting Side of Bed : None Moving To/From a Bed to Chair : None Need to Walk in Hospital Room : None Climbing 3-5 Steps with a Railing : None [facility] Basic Mobility Raw Score : 24 AM-[facility] Basic Mobility Standardized Score : 61.14 AM-[facility] Basic Mobility CMS 0-100% Score : 0.00 % SHORTY ANGUIANO, PT - 04/05/2018 12:30 EST Image 1 - Images currently included in the form version of this document have not been included in the text rendition version of the form. Functional Limitation Reporting, PT Functional Limitation Visit Type, PT : Initial evaluation Severity Determination Method, PT : Clinical Judgment, AM PAC Basic Mobility Mobility G8978 - Current Mod, PT : 0 percent impaired, limited or restricted (CH) Mobility G8979 - Proj Goal Mod, PT : 0 percent impaired, limited or restricted (CH) Mobility G8980 - Discharge Mod, PT : 0 percent impaired, limited or restricted (CH) SHORTY ANGUIANO, PT - 04/05/2018 12:30 EST Gait Training/Assessment, PT Gait Assistance Level : Independent, complete Walking Distance : 300' Ambulatory Devices : Other: IV pole Gait Deviations : No SHORTY ANGUIANO, PT - 04/05/2018 12:30 EST Cognition Assessment, PT Orientation : Oriented x 4 Attention Assessment : Present SHORTY ANGUIANO, PT - 04/05/2018 12:30 EST Edu Topics Physical Therapy Education Grid Gait Training : Verbalizes understanding Transfer Training : Verbalizes understanding Use of Assistive Device : Verbalizes understanding SHORTY ANGUIANO, PT - 04/05/2018 12:30 EST Indication Assesessment, PT Physical Therapy Indicated : No SHORTY ANGUIANO, PT - 04/05/2018 12:30 EST Plan of Care, PT PT Tx Plan/Goals Established w Patient : Yes SHORTY ANGUIANO PT - 04/05/2018 12:30 EST Treatment Note Subjective Comment : Pt agreed to PTx Patient's Response to Treatment : Pt tolerated tx well Assessment : Pt is at functional baseline and would not benefit from skilled PTx at this time. Plan for Treatment : Discharge Pt from PT services SHORTY ANGUIANO, PT - 04/05/2018 12:30 EST Pain Assessment Pain Improved by Intervention : No SHORTY ANGUIANO PT - 04/05/2018 12:30 EST Image 1 - Images currently included in the form version of this document have not been included in the text rendition version of the form. Anticipated Discharge Needs, OT/PT Anticipated Discharge to : Home, independently Recommend Continued Therapy at Discharge : No HSORTY ANGUIANO, PT - 04/05/2018 12:[address] [facility] PT Charges PT Eval Low Complexity : 1 SHORTY ANGUIANO PT - 04/05/2018 12:30 EST Electronically signed by Krystle [facility] Conversion E Commerce Marketing Analyst Cerner at 07/17/2022 7:17 PM CDT documented in this encounter Plan of Treatment Not on file documented as of this encounter Visit Diagnoses Not on filedocumented in this encounter
--- OUTSIDE RECORDS SUMMARY | 2024-12-23 09:56 | XMS_ITS | Encounter Summary ---
Author Organization [employer] ([place], [place], [place], [place]) Address [address] [place] [address] Care Team Providers Care Family Partner Name Role Phone Unavailable Primary Care Provider Unavailabl e Encounter Details Date Type Department Care Team (Late st Contact Info) Description 04/04/2018 Transcribed Document [facility] Family Medicine [place] [address] ProviderDiego MD [address] [place] [address] Social History Tobacco Use Types Packs/Day Years Used Date Smoking Tobacco: Never Assessed Comments Unknown Sex and Gender Information Value Date Recorded Sex Assigned at Not on file Legal Sex Female 6:24 PM CDT Gender Identity Not on file Sexual Orientation Not on file documented as of this encounter Miscellaneous Notes * Cerner Conversion Note - Diego ProviderMD - 04/04/2018 9:30 AM [employer] Interventions Entered On: 04/04/2018 9:31 EST Performed On: 04/04/2018 9:30 EST by Yuri Marino Pharmacist-Resident Clinical Interventions Chart Review : Yes Yuri Marino Pharmacist-Resident - 04/04/2018 9:30 EST Chart Review Chart Review, Order : Changed zosyn from 2.25gm IV q6 to 3.375gm Iv q6hr per dose optimization policy and Est. CrC ~56ml/min. Changed fludricortisone 0.1mg daily to 0.05mg daily and added 7 day duration. Added 7 day duration to hydrocortisone 50mg IV q6--> per pulmonary. WS Chart Review, Value : 0 Dollar Chart Review, Time : 20 Minute(s) Marino, Yuri, Pharmacist-Resident - 04/04/2018 9:30 EST Electronically signed by Krystle, [facility] Conversion Retail Department Reset Cerner at 07/17/2022 7:16 PM CDT documented in this encounter Plan of Treatment Not on file documented as of this encounter Visit Diagnoses Not on filedocumented in this encounter
--- OUTSIDE RECORDS SUMMARY | 2024-12-23 09:56 | XMS_ITS | Encounter Summary ---
Author Organization [employer] ([place], [place], [place], [place]) Address [address] [place] [address] Care Team Providers Care Oil Burner Journeyman Name Role Phone Unavailable Primary Care Provider Unavailabl e Encounter Details Date Type Department Care Team (Late st Contact Info) Description 04/04/2018 Transcribed Document [facility] [place] Family Medicine [facility] [place], [place] [id number] ProviderDiego MD [address] [place] [phone] Social History Tobacco Use Types Packs/Day Years Used Date Smoking Tobacco: Never Assessed Comments Unknown Sex and Gender Information Value Date Recorded Sex Assigned at Not on file Legal Sex Female 6:24 PM CDT Gender Identity Not on file Sexual Orientation Not on file documented as of this encounter Miscellaneous Notes * Cerner Conversion Note - Diego Mckeon MD - 04/04/2018 9:23 AM DISINTEGRATOR OPERATOR Patient: TERRIE ANDERSEN Age: 32 years Sex: Female : 1985 Associated Diagnoses: None Author: JYOTI WATSON MD-NEP Basic Information Admit information: Shortness of breath, anxiety, acute renal failure, hypotension, possible sepsis, and anemia. , Today's Information: Patient extubated, stable UOP improving, creatinine better, BP better . Review of Systems Respiratory: No shortness of breath, No cough. Cardiovascular: No palpitations. Gastrointestinal: No nausea, No vomiting, No diarrhea, No constipation. Genitourinary: Negative. Neurologic: Alert and oriented X4. All other systems are negative Health Status Allergies.Current medications: Medications by Classification Antimicrobials piperacillin-tazobactam + Sodium Chloride 0.9% intravenous s - 2.25 Gram, IV Piggyback, Q6HInt, infuse over 3 Hour(s), Routine doxycycline - 100 mg, Oral, Cap, BID, Routine fluconazole (Diflucan) - 200 mg, Oral, Tab, Daily, Routine Immunology hydrocortisone - 50 mg, IV [...] Inj, Q4H, PRN for Agitation, Routine Vitamins potassium chloride 40 mEq + Dextrose 5% in Water intravenous - 1,000 mL, Bag Volume (mL) = 1,000, Rate = 75 mL/Hr, IntraVENous Other nicotine (nicotine 21 mg/24 hr transdermal film, extended re - 1 Patch, TransDermal, Patch, Daily, Routine Undefined Medications hydrALAZINE - 10 mg, IV Push, Inj, Q6H, PRN for Hypertension, Routine Problem list: No qualifying data available Physical Examination Intake and Output Intake & Output Totals Last 24 Hours (7a-7a) Intake (56 Events) Continuous Infusions (1562.5 mL) Medications (537.52 mL) Oral Intake (480 mL) Output (5 Events) Urine Voided (Volume) (925 mL) Input Total: 2580.02 mL Output Total: 925 mL Balance: 1655.02 mL , Weight (Daily) 04/02/2018 06:06 Routine Weight, Kilograms: 74.1 VS/Measurements Vitals Signs (last 24 hrs) Last Charted Minimum Maximum Temp 98.3 (APR 04 08:30) 97.9 (APR 04 00:00) 98.2 (APR 03 12:00) Apical HR L 53 (APR 04:23) L 53 (APR 04:23) L 53 (APR 04:23) Mon HR 75 (APR 04 09:00) 40 (APR 04 01:00) 79 (APR 04 00:00) Resp Rate H 26 (APR 04 09:00) 19 (APR 03 23:00) H 31 (APR 04 00:00) SBP H 173 (APR 04 08:30) 137 (APR 03 20:00) H 173 (APR 04 08:30) DBP 83 (APR 04 08:30) 63 (APR 03 15:00) 83 (APR 04 08:30) MAP 113 (APR 04 08:30) 17 (APR 04 04:00) 119 (APR 04 08:30) SpO2 97 (APR 04 09:00) L 90 (APR 03 15:00) 100 (APR 03 13:00) General: No acute distress, sitting in chair. Eye: Extraocular movements are intact. Conjunctiva: Pale. HENT: Normocephalic, Oral mucosa is moist. Neck: Supple, No carotid bruit, No jugular venous distention. Respiratory: Symmetrical chest wall expansion. Breath sounds: Bilateral, Rhonchi present, Wheezes present. Cardiovascular: Normal rate, No murmur, No gallop. Edema: Lower extremity, 1+. Gastrointestinal: Soft, Non-tender, Non-distended. Genitourinary: No costovertebral angle tenderness. Lymphatics: No lymphadenopathy neck, axilla, groin. Musculoskeletal: Normal range of motion, No swelling, No deformity. Integumentary: Warm, Dry. Integumentary exam: Mottled. Neurologic: Alert, Oriented. Psychiatric: Cooperative, Appropriate mood & affect, Normal judgment. Review / Management Results review: Labs (Last four charted values) WBC H 18.1 (APR 04) H 15.8 (APR 03) H 13.6 (APR 02) H 17.0 (APR 01) HB L 7.9 (APR 04) L 7.3 (APR 03) L 7.6 (APR 02) L 7.3 (APR 01) HCT L 24.6 (APR 04) L 22.7 (APR 03) L 22.2 (APR 02) L 21.6 (APR 01) Plt 204 (APR 04) 182 (APR 03) 179 (APR 02) 175 (APR 01) Na 145 (APR 04) H 148 (APR 03) 145 (APR 02) 145 (APR 01) K 3.5 (APR 04) L 2.9 (APR 03) L 3.1 (APR 02) 3.7 (APR 01) Cl H 113 (APR 04) H 114 (APR 03) 111 (APR 02) 111 (APR 01) CO2 25 (APR 04) 25 (APR 03) 23 (APR 02) 23 (APR 01) BUN H 38 (APR 04) H 47 (APR 03) H 63 (APR 02) H 62 (APR 01) Cr H 1.60 (APR 04) H 2.10 (APR 03) H 3.00 (APR 02) H 3.70 (APR 01) Glu R H 121 (APR 04) H 111 (APR 03) 96 (APR 02) H 110 (APR 01) Ca L 8.1 (APR 04) L 7.4 (APR 03) L 7.4 (APR 02) L 7.3 (APR 01) Lactic 0.8 (MAR 31) 0.8 (MAR 30) PT H 13.4 (MAR 31) H 14.5 (MAR 30) INR H 1.2 (MAR 31) H 1.4 (MAR 30) PTT H 33.0 (MAR 31) H 32.9 (MAR 30) AST 29 (APR 04) H 58 (APR 03) H 81 (APR 01) H 46 (APR 01) ALT 30 (APR 04) 34 (APR 03) 28 (APR 01) 21 (APR 01) ALK P H 149 (APR 04) H 150 (APR 03) H 208 (APR 01) H 238 (APR 01) T Bili 0.5 (APR 04) 0.7 (APR 03) 0.3 (APR 01) 0.5 (APR 01) PTN L 5.6 (APR 04) L 4.7 (APR 03) L 4.8 (APR 01) L 4.7 (APR 01) ALB L 2.2 (APR 04) L 1.7 (APR 03) L 1.6 (APR 01) L 1.5 (APR 01) Lipase L 49 (MAR 30) Troponin 0.019 (MAR 30) . APR 04 03:03 145 H 113 H 38 / H 121 3.5 25 H 1.60 \ APR 04 03:03 \ L 7.9 / H 18.1 204 / L 24.6 \ Impression and Plan Dx and Plan 1. Acute kidney injury, nonoliguric. The patient is making urine at this time. Gay catheter is in place. Last creatinine 3.0. Patient is getting IV fluid. Blood pressure is somewhat better at this time. Blood smear neg for schistocytes, complement normal, Negatinve ZAHRA, CA-3, MPO, Anti GBM 2. Sepsis, under treatment. [...] she will need psych evaluation or detox program_ patient refused Edma: will d/c IVF Discussed with RN and Dr. Black Electronically signed by Krystle [facility] Conversion Supervisor Green End Department Cerner at 07/17/2022 7:19 PM CDT documented in this encounter Plan of Treatment Not on file documented as of this encounter Visit Diagnoses Not on filedocumented in this encounter
--- OUTSIDE RECORDS SUMMARY | 2024-12-23 09:56 | XMS_ITS | Encounter Summary ---
Author Organization [employer] ([place], [place], [place], [place]) Address [address] [place] [address] Care Team Providers Care Hospitality Director Name Role Phone Unavailable Primary Care Provider Unavailabl e Encounter Details Date Type Department Care Team (Late st Contact Info) Description 04/05/2018 Transcribed Document [facility] [place] Family Medicine [address] [place], [place] [id number] ProviderDiego MD [address] [place] [address] Social History Tobacco Use Types Packs/Day Years Used Date Smoking Tobacco: Never Assessed Comments Unknown Sex and Gender Information Value Date Recorded Sex Assigned at Not on file Legal Sex Female 6:24 PM CDT Gender Identity Not on file Sexual Orientation Not on file documented as of this encounter Miscellaneous Notes * [employer]ner Conversion Note - Historical ProviderMD - 04/05/2018 5:00 AM CANVAS GOODS MAKER Chart Check - Review Order Profile Entered On: 04/05/2018 4:10 EST Performed On: 04/05/2018 5:00 EST by Héctor Jiang RN Chart Check Chart Reviewed Date and Time : 04/05/2018 4:10 EST [employer] Initiated/Discontinued as Appropriate : Yes All Active Orders Reviewed : Yes Héctor Jiang RN - 04/05/2018 4:10 EST documented in this encounter Plan of Treatment Not on file documented as of this encounter Visit Diagnoses Not on filedocumented in this encounter
--- OUTSIDE RECORDS SUMMARY | 2024-12-23 09:56 | XMS_ITS | Encounter Summary ---
Author Organization [employer] ([place], [place], [place], [place]) Address [address] [place] [address] Care Team Providers Care Holiday Detector Operator Name Role Phone Unavailable Primary Care Provider Unavailabl e Encounter Details Date Type Department Care Team (Late st Contact Info) Description 04/03/2018 Transcribed Document [facility] [place] Family Medicine [facility] [place] [address] ProviderDiego MD [address] [place] [address] Social History Tobacco Use Types Packs/Day Years Used Date Smoking Tobacco: Never Assessed Comments Unknown Sex and Gender Information Value Date Recorded Sex Assigned at Not on file Legal Sex Female 6:24 PM CDT Gender Identity Not on file Sexual Orientation Not on file documented as of this encounter Miscellaneous Notes * Cerner Conversion Note - Historical ProviderMD - 04/03/2018 2:00 AM CONCRETE BUILDINGS ASSEMBLER Concrete Bucket Unloader Details Entered On: 04/03/2018 1:05 EST Performed On: 04/03/2018 2:00 EST by TRISTA WIGGINS RN Order Details Transport Mode Order Detail : Bed (including specialty) Isolation Precautions Order Detail : Contact precautions Order Detail : 1 IV Order Detail : 1 Oxygen Order Detail : 1 Nurse Collect Order Detail : 1 Lift/Transfer : Moderate assist Central Line Order Detail : Yes Room Service : Needs Assistance Arterial Line : No TRISTA WIGGINS RN - 04/03/2018 1:04 EST Electronically signed by Krystle [facility] Conversion Candy Spreader Helper Cerner at 07/17/2022 7:17 PM CDT documented in this encounter Plan of Treatment Not on file documented as of this encounter Visit Diagnoses Not on filedocumented in this encounter
--- OUTSIDE RECORDS SUMMARY | 2024-12-23 09:56 | XMS_ITS | Encounter Summary ---
Author Organization [employer] ([place], [place], [place], [place]) Address [address] [place] [address] Care Team Providers Care Classification Officer Name Role Phone Unavailable Primary Care Provider Unavailabl e Encounter Details Date Type Department Care Team (Late st Contact Info) Description 04/03/2018 Transcribed Document [facility] [place] [facility] [place] [address] ProviderDiego MD [address] [place] [address] Social History Tobacco Use Types Packs/Day Years Used Date Smoking Tobacco: Never Assessed Comments Unknown Sex and Gender Information Value Date Recorded Sex Assigned at Not on file Legal Sex Female 6:24 PM CDT Gender Identity Not on file Sexual Orientation Not on file documented as of this encounter Miscellaneous Notes * [employer]ner Conversion Note - Diego Mckeon MD - 04/03/2018 6:12 PM METALLURGICAL INSPECTOR DATE OF PROCEDURE:04/01/2018 INDICATIONS: Pelvic ascites of undetermined origin. Patient is septic and intubated in ICU. Transvaginal ultrasound ultrasound done at the bedside shows findings suspicious for pelvic inflammatory disease. PROCEDURE: Culdocentesis. SURGEON: Dawn Gonzales MD ESTIMATED BLOOD LOSS: Zero. ANALGESIA: Patient is intubated, on the ventilator and heavily sedated DESCRIPTION OF PROCEDURE: Patient was positioned in bed with assistance for a pelvic exam and a sterile speculum was placed. The cervix and the vaginal vault was cleansed with Betadine and then posterior lip of the cervix was grasped with tenaculum . A spinal needle was used to aspirate the fluid from the cul-de-sac by going through the posterior wall of the vagina just behind the cervix. About 1.5 mL of a cystic-type fluid was obtained with cloudy appearance, but no purulent appearance was seen and no blood. This was collected and submitted for cytology and for cultures. No bleeding was present when finished. The patient tolerated this very well. She was repositioned and results will be pending. Dawn Gonzales M.D. Dict: 04/03/2018 18:12:47 Trans: 04/03/2018 19:02:36 CC1: Dawn Gonzales M.D. documented in this encounter Plan of Treatment Not on file documented as of this encounter Visit Diagnoses Not on filedocumented in this encounter
--- OUTSIDE RECORDS SUMMARY | 2024-12-23 09:56 | XMS_ITS | Encounter Summary ---
Author Organization [employer] ([place], [place], [place], [place]) Address [address] [place] [address] Care Team Providers Care Gymnasium Teacher Name Role Phone Unavailable Primary Care Provider Unavailabl e Encounter Details Date Type Department Care Team (Late st Contact Info) Description 04/05/2018 Transcribed Document [facility] [place] [facility] [place], [place] [id number] ProviderDiego MD [address] [place] [id number] Social History Tobacco Use Types Packs/Day Years Used Date Smoking Tobacco: Never Assessed Comments Unknown Sex and Gender Information Value Date Recorded Sex Assigned at Not on file Legal Sex Female 6:24 PM CDT Gender Identity Not on file Sexual Orientation Not on file documented as of this encounter Miscellaneous Notes * Cerner Conversion Note - Diego Mckeon MD - 04/05/2018 9:25 AM NAVAL MARINE ENGINEER Patient: TERRIE ANDERSEN Age: 32 years Sex: Female : 1985 Associated Diagnoses: None Author: JYOTI WATSON MD-NEP Basic Information Admit information: Shortness of breath, anxiety, acute renal failure, hypotension, possible sepsis, and anemia. , Today's Information: NAD, stable UOP improving, creatinine better, BP better . Review of Systems Respiratory: No shortness of breath, No cough. Cardiovascular: No palpitations. Gastrointestinal: No nausea, No vomiting, No diarrhea, No constipation. Genitourinary: No dysuria, No hematuria. Neurologic: Alert and oriented X4. Health Status Allergies.Current medications: Medications by Classification Antimicrobials piperacillin-tazobactam + Sodium Chloride 0.9% intravenous s - 3.375 Gram, IV Piggyback, Q6HInt, infuse over 3 Hour(s) doxycycline - 100 mg, Oral, Cap, BID, [...] 240 mg, Nasogastric Tube, Liquid, Daily, Routine magnesium sulfate - 2 Gram 50 mL, IV Piggyback, Inj, Daily, Administer over 2 Hour(s), PRN for Other (See Comment), Routine magnesium sulfate - 2 Gram 50 mL, IV Piggyback, Inj, Q2H, Administer over 2 Hour(s), PRN for Other (See Comment), Routine sodium phosphate - 15 mMole 5 mL, IV Piggyback, Daily, Administer over 5 Hour(s), PRN for Other (See Comment), Routine sodium phosphate - 15 mMole 5 mL, IV Piggyback, Q6H, Administer over 5 Hour(s), PRN for Other (See Comment), Routine Neuro magnesium sulfate - 2 Gram 50 mL, IV Piggyback, Inj, Daily, Administer over 2 Hour(s), PRN for Other (See Comment), Routine *Duplicate* magnesium sulfate - 2 Gram 50 mL, IV Piggyback, Inj, Q2H, Administer over 2 Hour(s), PRN for Other (See Comment), Routine *Duplicate* Pain Meds morphine - 2 mg, IV Push, Inj, Q2H, PRN for Pain (Severe 7-10), Routine oxyCODONE - 5 mg, Oral, Tab, Q4H, PRN for Pain (Moderate 4-6), Routine buprenorphine-naloxone (buprenorphine-naloxone 8 mg-2 mg sub - 1.75 Tab, SubLINgual, Tab, Daily, Routine acetaminophen (Tylenol) - 650 mg, Oral, Tab, Q4H, PRN for Other (See Comment), Routine Sedatives LORazepam (Ativan) - 0.5 mg, IV Push, Inj, Q4H, PRN for Agitation, Routine Vitamins calcium gluconate - 1 Gram 10 mL, IV Piggyback, Daily, Administer over 60 Minute(s), PRN for Other (See Comment), Routine calcium gluconate - 2 Gram 20 mL, IV Piggyback, Daily, Administer over 60 Minute(s), PRN for Other (See Comment), Routine calcium gluconate - 2 Gram 20 mL, IV Piggyback, Q12H, Administer over 60 Minute(s), PRN for Other (See Comment), Routine magnesium sulfate - 2 Gram 50 mL, IV Piggyback, Inj, Daily, Administer over 2 Hour(s), PRN for Other (See Comment), Routine *Duplicate* magnesium sulfate - 2 Gram 50 mL, IV Piggyback, Inj, Q2H, Administer over 2 Hour(s), PRN for Other (See Comment), Routine *Duplicate* potassium chloride (potassium chloride 10 mEq/50 mL intraven - 10 mEq 50 mL, IV Piggyback, Inj, Q1H, Administer over 1 Hour(s), PRN for Other (See Comment), Routine potassium chloride (potassium chloride 20 mEq oral tablet, e - 20 mEq 1 Tab, Oral, CR Tab, Q2H, PRN for Other (See Comment), Routine potassium chloride (potassium chloride 20 mEq oral tablet, e - 60 mEq 3 Tab, Oral, CR Tab, Q2H, PRN for Other (See Comment), Routine potassium chloride (potassium chloride 20 mEq/15 mL oral liq - 20 mEq 15 mL, Feeding Tube, Liquid, Q2H, PRN for Other (See Comment), Routine potassium chloride (potassium chloride 20 mEq/15 mL oral liq - 60 mEq 45 mL, Feeding Tube, Liquid, Q2H, PRN for Other (See Comment), Routine Other nicotine (nicotine 21 mg/24 hr transdermal film, extended re - 1 Patch, TransDermal, Patch, Daily, Routine Undefined Medications fludrocortisone - 0.05 mg, Oral, Tab, Daily hydrALAZINE - 10 mg, IV Push, Inj, Q6H, PRN for Hypertension, Routine Problem list: No qualifying data available Physical Examination Intake and Output Intake & Output Totals Last 24 Hours (7a-7a) Intake (24 Events) Medications (360 mL) Output (2 Events) Urine Voided (Volume) (1700 mL) Input Total: 360 mL Output Total: 1700 mL Balance: -1340 mL , Weight (Daily) 04/05/2018 05:00 Routine Weight, Kilograms: 69.4 04/02/2018 06:06 Routine Weight, Kilograms: 74.1 VS/Measurements Vitals Signs (last 24 hrs) Last Charted Minimum Maximum Temp 98.6 (APR 05 04:00) 98.0 (APR 04 16:00) 98.6 (APR 04 12:00) Apical HR 81 (APR 05 09:16) 75 (APR 04 15:09) 89 (APR 04 09:35) Mon HR 77 (APR 05 07:49) 72 (APR 04 10:30) 101 (APR 04 16:00) Resp Rate 20 (APR 05 07:49) 20 (APR 04 10:45) H 33 (APR 04 21:00) SBP H 160 (APR 05 07:49) 138 (APR 04 17:10) H 181 (APR 04 09:41) DBP 85 (APR 05 07:49) 68 (APR 05 06:00) H 114 (APR 04 23:00) MAP 110 (APR 05 07:49) 92 (APR 05 06:00) 139 (APR 04 23:00) SpO2 98 (APR 05 08:11) L 58 (APR 04 20:26) 100 (APR 04 15:09) General: No acute distress, sitting in chair. Eye: Extraocular movements are intact. Conjunctiva: Pale. Neck: Supple, No carotid bruit, No jugular venous distention. Respiratory: Lungs are clear to auscultation, Symmetrical chest wall expansion. Cardiovascular: Normal rate, No murmur, No gallop. Edema: Lower extremity, Pitting. Gastrointestinal: Soft, Non-tender, Non-distended. Musculoskeletal: Normal range of motion, No swelling, No deformity. Integumentary: Warm, Dry. Neurologic: Alert, Oriented. Psychiatric: Cooperative, Appropriate mood & affect, Normal judgment. Review / Management Results review: Labs (Last four charted values) WBC H 24.0 (APR 05) H 18.1 (APR 04) H 15.8 (APR 03) H 13.6 (APR 02) HB L 9.2 (APR 05) L 7.9 (APR 04) L 7.3 (APR 03) L 7.6 (APR 02) HCT L 28.0 (APR 05) L 24.6 (APR 04) L 22.7 (APR 03) L 22.2 (APR 02) Plt 253 (APR 05) 204 (APR 04) 182 (APR 03) 179 (APR 02) Na 143 (APR 05) 145 (APR 04) H 148 (APR 03) 145 (APR 02) K L 3.1 (APR 05) 3.5 (APR 04) L 2.9 (APR 03) L 3.1 (APR 02) Cl 109 (APR 05) H 113 (APR 04) H 114 (APR 03) 111 (APR 02) CO2 27 (APR 05) 25 (APR 04) 25 (APR 03) 23 (APR 02) BUN H 26 (APR 05) H 38 (APR 04) H 47 (APR 03) H 63 (APR 02) Cr H 1.20 (APR 05) H 1.60 (APR 04) H 2.10 (APR 03) H 3.00 (APR 02) Glu R 86 (APR 05) H 121 (APR 04) H 111 (APR 03) 96 (APR 02) Ca L 8.2 (APR 05) L 8.1 (APR 04) L 7.4 (APR 03) L 7.4 (APR 02) Lactic 0.8 (MAR 31) 0.8 (MAR 30) [...] 30) Troponin 0.019 (MAR 30) . APR 05 04:05 143 109 H 26 / 86 L 3.1 27 H 1.20 \ APR 05 04:05 \ L 9.2 / H 24.0 253 / L 28.0 \ Impression and Plan Dx and Plan 1. Acute kidney injury, nonoliguric. better Blood smear neg for schistocytes, complement normal, Negatinve ZAHRA, AL-3, MPO, Anti GBM 2. Sepsis, under treatment. 3. Metabolic acidosis, resolved 4. Bilateral pneumonia. 5. Anemia. stable Her last platelets were 196 better 6. Iron deficiency.monitor no IV iron for now 7. Drug abuse with illicit drugs. 8. Echocardiogram showing mild regurgitation in mitral, tricuspid and pulmonic valves. PLAN: 1. Keep the systolic blood pressure greater than 100. Replace potasssium 2. Labs have been ordered. 3. Replace potassium 4. This is a critical patient with multiple medical problems. Discussed with RN and Dr. Black documented in this encounter Plan of Treatment Not on file documented as of this encounter Visit Diagnoses Not on filedocumented in this encounter
--- OUTSIDE RECORDS SUMMARY | 2024-12-23 09:56 | XMS_ITS | Encounter Summary ---
Author Organization [employer] ([place], [place], [place], [place]) Address [address] [place] [address] Care Team Providers Care Mixer Whipped Topping Name Role Phone Unavailable Primary Care Provider Unavailabl e Encounter Details Date Type Department Care Team (Late st Contact Info) Description 04/05/2018 Transcribed Document [facility] [place] [place] [address] ProviderDiego MD [address] [place] [id number] Social History Tobacco Use Types Packs/Day Years Used Date Smoking Tobacco: Never Assessed Comments Unknown Sex and Gender Information Value Date Recorded Sex Assigned at Not on file Legal Sex Female 6:24 PM CDT Gender Identity Not on file Sexual Orientation Not on file documented as of this encounter Miscellaneous Notes * Cerner Conversion Note - Historical ProviderMD - 04/05/2018 11:32 PM COOK CASHIER FOOD PREP Patient: TERRIE ANDERSEN Age: 32 Years Sex: Female : 1985 Chief Complaint: Septic shock, PID, PNA Subjective Patient s/e in the ICU this AM. Still awaiting bed on the floor. Patient continues to look better. To work with PT today. Discussed case with patient, including continued eleated inflammatory markers and improving renal function. Hopeful for DC in coming days with continued improvement. Review of Systems Denies fever,chills, no abdominal pain, no diarrhea. Physical Exam (1, 6, 12) General: [Alert [...] mood and affect]. Vitals & Measurements T: 36.7 ??C HR: 81 HR: 65 (Monitored) RR: 18 BP: 119/83 MAP: 111 SpO2: 98% WT: 69.4 kg Blood Glucose Checks No qualifying data available. Intake & Output Intake & Output Totals Last 24 Hours (7a-7a) Intake (24 Events) Medications (360 mL) Output (2 Events) Urine Voided (Volume) (1700 mL) Input Total: 360 mL Output Total: 1700 mL Balance: -1340 mL Assessment/Plan (1, 3 (EC+EU or N), 4(2 EU or EC +N or NW)) 1. Septic shock R65.21 2. Acute pelvic inflammatory disease (PID) N73.0 3. History of PID Z87.42 4. Pelvic ascites R18.8 5. PNA (pneumonia) J18.9 Unspecified kidney failure N19, Unspecified kidney failure N19 Orders: buprenorphine-naloxone, 1.75 Tab, SubLINgual, Tab, Daily, Routine, Start 04/05/18 16:00:00 EST potassium chloride 1,000 mL, 1,000 mL, Bag Volume (mL) = 1,000, Rate = 150 mL/Hr, IntraVENous, start date 04/05/18 23:22:00 EST, Routine Assessment: Septic shock, weaned off of pressors at this time, 2/2 pneumonia +/- PID - resolved - on zosyn IV and doxycycline - PCT peak of 32, trending down Iron deficiency anemia, s/p 1u pRBC - Hgb 9.4 today Hyperchloremic hypernatremia, likely iatrogenic from IVF - resolved Hypokalemia, 2.9 this AM - will replace Bradycardia, slow HR at baseline. No conduction [...] cervical cultures sent - culdocentesis performed by RESOURCE CENTER TEACHER Valvular heart disease, mod pulmonic regurgitation Metabolic acidosis, 2/2 acute renal failure - resolved Hx of IVDA, weaned off of suboxone 5 days prior to admission to [facility] - Blood Cx neg Bradycardia overnight, resolved at this time Plan: Transfer to floor Appreciate Dr Gonzales's evaluation, follow up cytology and culture results. Likely PID responding to treatment Performed pelvic exam, old blood in vaginal vault, no purulent discharge appreciated. Cultures and G&C collected - results pending Discussed with ID, appreciate input, remains on zosyn and PO doxy Appreciate nephrology recommendations DVT ppx: SCDs, heparin subq GI ppx: PPI Code: Full Diet: regular diet Time spent: 35 minutes Dispo: Transfer to [facility]. If PCT and leukocytosis improve, will transition to PO abx for 14 day course. Monitor renal function. replace electrolytes. Hopeful for DC in 24-48 hours. Medications Inpatient Ativan, 0.5 mg, 0.25 mL, IV Push, Q4H, PRN bisacodyl, 5 mg, 1 Tab, Oral, BID, PRN bisacodyl, 10 mg, 1 Supp, Rectal, BID, PRN buprenorphine-naloxone 8 mg-2 mg sublingual tablet, 1.75 Tab, SubLINgual, Daily calcium gluconate calcium gluconate calcium gluconate cloNIDine, 0.1 mg, 1 Tab, Oral, Q4H, PRN Dextrose 5% with 0.45% NaCl and KCl 40 mEq/L 1,000 mL, 1000 mL, IntraVENous Diflucan, 200 mg, 2 Tab, Oral, Daily docusate sodium, 240 mg, 24 mL, Nasogastric Tube, Daily doxycycline, 100 mg, 1 Cap, Oral, BID DuoNeb 0.5 mg-2.5 mg/3 mL inhalation solution, 3 mL, Nebulized Inhalation , Q2H, PRN fludrocortisone, 0.05 mg, 0.5 Tab, Oral, Daily heparin, 5000 Units, 1 mL, SubCutaneous, Q8H hydrALAZINE, 10 mg, 0.5 mL, IV Push, Q6H, PRN hydrocortisone, 50 mg, 1 mL, IV Push, Q8H magnesium sulfate, 2 Gram, 50 mL, IV Piggyback, Daily, PRN magnesium sulfate, 2 Gram, 50 mL, IV Piggyback, Q2H, PRN miconazole topical, 1 Application, Topical, TID morphine, 2 mg, 1 mL, IV Push, Q2H, PRN nicotine 21 mg/24 hr transdermal film, extended release, 1 Patch, TransDermal, Daily oxyCODONE, 5 mg, 1 Tab, Oral, Q4H, PRN Phenergan, 6.25 mg, 0.25 mL, IntraVENous, Q6H, PRN potassium chloride 10 mEq oral tablet, extended release, 20 mEq, 2 Tab, Oral, Q2H, PRN potassium chloride 10 mEq oral tablet, extended release, 60 mEq, 6 Tab, Oral, Q2H, PRN potassium chloride 10 mEq/50 mL intravenous solution, 10 mEq, 50 mL, IV Piggyback, Q1H, PRN potassium chloride 20 mEq/15 mL oral liquid, 60 mEq, 45 mL, Feeding Tube, Q2H, PRN potassium chloride 20 mEq/15 mL oral liquid, 20 mEq, 15 mL, Feeding Tube, Q2H, PRN sodium phosphate sodium phosphate Tylenol, 650 mg, 2 Tab, Oral, Q4H, PRN Zofran, 4 mg, 2 mL, IV Push, Q4H, PRN Zosyn + Sodium Chloride 0.9% intravenous solution 100 mL Home buprenorphine-naloxone 8 mg-2 mg sublingual tablet, 1.75 Tab, SubLINgual, Daily Allergies Augmentin Routine Labs - Last 24 Hours APR 05 09:30 142 109 H 24 / H 112 L 3.0 25 H 1.20 \ APR 05 09:30 \ L 9.4 / H 22.6 230 / L 28.3 \ Anion Gap: 11 Calcium Level: 7.9 mg/dL Low Magnesium Level: 1.2 mg/dL Low Electronically signed by Interface, [facility] Conversion Tobacco Grower Cerner at 07/17/2022 7:20 PM CDT documented in this encounter Plan of Treatment Not on file documented as of this encounter Visit Diagnoses Not on filedocumented in this encounter
--- OUTSIDE RECORDS SUMMARY | 2024-12-23 09:56 | XMS_ITS | Encounter Summary ---
Author Organization [employer] ([place], [place], [place], [place]) Address [address] [place] [address] Care Team Providers Care Blueprint Reproducer Name Role Phone Unavailable Primary Care Provider Unavailabl e Encounter Details Date Type Department Care Team (Late st Contact Info) Description 04/04/2018 Transcribed Document [facility] – [place] Family [place] [facility] [place], [place] [id number] ProviderDiego MD [address] [place] [id number] Social History Tobacco Use Types Packs/Day Years Used Date Smoking Tobacco: Never Assessed Comments Unknown Sex and Gender Information Value Date Recorded Sex Assigned at Not on file Legal Sex Female 6:24 PM CDT Gender Identity Not on file Sexual Orientation Not on file documented as of this encounter Miscellaneous Notes * Cerner Conversion Note - Historical ProviderMD - 04/04/2018 1:57 PM TOBACCO 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 Continues to look well. Sitting in her chair. Diarrhea slowed down overnight. No abdominal pain or distension. Continues to feel tired, but less confused today. Awaits bed on telemetry. Review of Systems No abdominal pain or distension, no fever or chills. Physical Exam (1, 6, 12) General: [Alert [...] mood and affect]. Vitals & Measurements T: 37 ??C HR: 89 HR: 79 (Monitored) RR: 21 BP: 149/76 MAP: 107 SpO2: 98% Blood Glucose Checks No qualifying data available. Intake & Output Intake & Output Totals Last 24 Hours (7a-7a) Intake (56 Events) Continuous Infusions (1562.5 mL) Medications (537.52 mL) Oral Intake (480 mL) Output (5 Events) Urine Voided (Volume) (925 mL) Input Total: 2580.02 mL Output Total: 925 mL Balance: 1655.02 mL Assessment/Plan (1, 3 (EC+EU or N), 4(2 EU or EC +N or NW)) 1. Septic shock R65.21 2. Acute pelvic inflammatory disease (PID) N73.0 3. History of PID Z87.42 4. Pelvic ascites R18.8 5. PNA (pneumonia) J18.9 Unspecified kidney failure N19, Unspecified kidney failure N19 Orders: BMP Basic Metabolic Panel CBC w/ Auto Diff OT Evaluation and Treatment PT Evaluation and Treatment Assessment: Septic shock, weaned off of pressors at this time, 2/2 pneumonia +/- PID - resolved - ID consulted and following, on linezolid, zosyn, doxycycline - PCT peak of 32, trending down Iron deficiency anemia, s/p 1u pRBC - Hgb 7.6 this AM - Platelets wnl Hyperchloremic hypernatremia, likely iatrogenic from IVF - resolved Hypokalemia, resolved Bradycardia, slow HR at baseline. No conduction disorder on ECG Acute renal failure, off bicarb gtt - improving - Good UOP, Cr 1.6, peak of 6.8 - nephro following Abdominal distension with moderate amount of free fluid in pelvis, likely PID - pain significantly improved - no signs of SBO or perforation on CT - transvaginal ultrasound with moderate complex fluid in pelvis - pelvic exam done and cervical cultures sent - culdocentesis performed by DECORATING EQUIPMENT SETTER, cytology and culture pending Valvular heart disease, mod pulmonic regurgitation Metabolic acidosis, 2/2 acute renal failure - resolved Hx of IVDA, weaned off of suboxone 5 days prior to admission to [facility]3] - Blood Cx neg Bradycardia overnight, resolved [...] Code: Full Diet: regular diet Time spent: 25 minutes Dispo: transfer to telemetry. Continue IV abx. Resume suboxone. Will ask PT to work with patient today. Hopeful for DC later this week if continues to improve. Medications Inpatient Ativan, 0.5 mg, 0.25 mL, IV Push, Q4H, PRN bisacodyl, 5 mg, 1 Tab, Oral, BID, PRN bisacodyl, 10 mg, 1 Supp, Rectal, BID, PRN buprenorphine-naloxone 8 mg-2 mg sublingual tablet, 2 Tab, SubLINgual, Daily calcium gluconate calcium gluconate [...] Gram, 50 mL, IV Piggyback, Q2H, PRN morphine, 2 mg, 1 mL, IV Push, Q2H, PRN nicotine 21 mg/24 hr transdermal film, extended release, 1 Patch, TransDermal, Daily oxyCODONE, 5 mg, 1 Tab, Oral, Q4H, PRN Phenergan, 6.25 mg, 0.25 mL, IntraVENous, Q6H, PRN potassium chloride 10 mEq/50 mL intravenous solution, 10 mEq, 50 mL, IV Piggyback, Q1H, PRN potassium chloride 20 mEq oral tablet, extended release, 20 mEq, 1 Tab, Oral, Q2H, PRN potassium chloride 20 mEq oral tablet, extended release, 60 mEq, 3 Tab, Oral, Q2H, PRN potassium chloride 20 mEq/15 mL [...] 175 / L 21.6 \ Albumin Level: 2.2 Gram/dL Low Alk Phos: 149 Units/Liter High ALT: 30 Units/Liter Anion Gap: 10 AST: 29 Units/Liter Bilirubin Total: 0.5 mg/dL Calcium Level: 8.1 mg/dL Low Protein Total: 5.6 Gram/dL Low Electronically signed by Krystle, [facility] Conversion Telehealth Nurse Educator Cerner at 07/17/2022 7:19 PM CDT documented in this encounter Plan of Treatment Not on file documented as of this encounter Visit Diagnoses Not on filedocumented in this encounter
--- OUTSIDE RECORDS SUMMARY | 2024-12-23 09:56 | XMS_ITS | Encounter Summary ---
Author Organization [employer] ([place], [place], [place], [place]) Address [address] [place] [address] Care Team Providers Care Strings Teacher Name Role Phone Unavailable Primary Care Provider Unavailabl e Encounter Details Date Type Department Care Team (Late st Contact Info) Description 04/04/2018 Transcribed Document [facility] [place] [address] [place], [place] [id number] ProviderDiego MD [address] [place] [id number] Social History Tobacco Use Types Packs/Day Years Used Date Smoking Tobacco: Never Assessed Comments Unknown Sex and Gender Information Value Date Recorded Sex Assigned at Not on file Legal Sex Female 6:24 PM CDT Gender Identity Not on file Sexual Orientation Not on file documented as of this encounter Miscellaneous Notes * [employer]ner Conversion Note - Historical ProviderMD - 04/04/2018 5:00 AM SKULL SPLITTER Chart Check - Review Order Profile Entered On: 04/04/2018 4:07 EST Performed On: 04/04/2018 5:00 EST by TRISTA WIGGINS, RN Chart Check All Active Orders Reviewed : Yes RTISTA WIGGINS RN - 04/04/2018 4:07 EST documented in this encounter Plan of Treatment Not on file documented as of this encounter Visit Diagnoses Not on filedocumented in this encounter
--- OUTSIDE RECORDS SUMMARY | 2024-12-23 09:56 | XMS_ITS | Encounter Summary ---
Author Organization [employer] ([place], [place], [place], [place]) Address [address] [place] [address] Care Team Providers Care Director Labor Standards Name Role Phone Unavailable Primary Care Provider Unavailabl e Encounter Details Date Type Department Care Team (Late st Contact Info) Description 04/06/2018 Transcribed Document [facility] [place] Family Medicine [address] [place] [address] ProviderDiego MD [address] [place] [address] [id number] Social History Tobacco Use Types Packs/Day Years Used Date Smoking Tobacco: Never Assessed Comments Unknown Sex and Gender Information Value Date Recorded Sex Assigned at Not on file Legal Sex Female 6:24 PM CDT Gender Identity Not on file Sexual Orientation Not on file documented as of this encounter Miscellaneous Notes * Cerner Conversion Note - Diego Mckeon MD - 04/06/2018 11:54 AM MATERIALS SCHEDULER [address] [place] [address] Patient Copy Patient Information: Name: TERRIE ANDERSEN Current Date: 04/06/2018 11:54:05 : 1985 Patient Address: [address] [facility] [id number] Patient Attending Physician: LORENZA FANG MD Primary Care Provider: YOAN, NOT LISTED Primary Care Provider Phone: Discharge Diagnosis: 1:Septic shock; 2:Acute pelvic inflammatory disease (PID); 3:History of PID; 4:Pelvic ascites; 5:PNA (pneumonia) Weight on Admission: 154 lb, 4 oz Weight at Discharge: 153 lb, 0 oz Comment: Follow-up Instructions: With: Address: When: Prescribers [facility] [phone] 1:45 AM Comments: Appointment has been made [...] Follow these instructions at home: ??? Take mggk-sjr-gucmynn and prescription medicines only as told by [...] and water are not available, use hand medical certification specialist. Contact a doctor if: ??? You have [...] 11/21/2014 Document Revised: 08/25/2016 Document Reviewed: 10/21/2014 [employer] Patient Education ? 2017 [employer] Pelvic Inflammatory Disease Introduction Pelvic inflammatory [...] Follow these instructions at home: ??? Take yyqp-uig-vflxrrh and prescription medicines only as told by [...] or life-threatening conditions such as anthrax or [place] spotted fever. The benefit of treating a [...] may report side effects to FDA at 7-365-KUV-1336. What other drugs will affect doxycycline? Sometimes it is not safe to use certain medications at the same time. Some drugs can affect your blood levels of other drugs you take, which may increase side effects or make the medications less effective. Other drugs may affect doxycycline, including prescription and hujf-odx-cntpkhd medicines, vitamins, and herbal products. Tell your [...] to ensure that the information provided by [employer]. ('[employer]') is accurate, up-to-date, and complete, but no guarantee is made to that effect. Drug information contained herein may be time sensitive. [employer] information has been compiled for use by healthcare practitioners and consumers in the [place] and therefore [employer] does not warrant that uses outside of the [place] are appropriate, unless specifically indicated otherwise. [employer] drug information does not endorse drugs, diagnose patients or recommend therapy. [employer] drug information is an informational resource designed [...] effective or appropriate for any given patient. [employer] does not assume any responsibility for any aspect of healthcare administered with the aid of information [employer] provides. The information contained herein is not intended to cover all possible uses, directions, precautions, warnings, drug interactions, allergic reactions, or adverse effects. If you have questions about the drugs you are taking, check with your doctor, nurse or pharmacist. Copyright 1320-8161 [employer]. Version: 20.02. Revision Date: 07/12/2017. metronidazole ( [...] (more likely to occur while taking metronidazole exterminator): ? numbness, tingling, or burning pain in [...] may report side effects to FDA at 5-688-CJG-2347. What other drugs will affect metronidazole? Sometimes [...] drugs may affect metronidazole, including prescription and zyzq-qwp-sbcwriy medicines, vitamins, and herbal products. Not all [...] to ensure that the information provided by [employer]. ('[employer]') is accurate, up-to-date, and complete, but no guarantee is made to that effect. Drug information contained herein may be time sensitive. [employer] information has been compiled for use by healthcare practitioners and consumers in the [place] and therefore [employer] does not warrant that uses outside of the [place] are appropriate, unless specifically indicated otherwise. [employer] drug information does not endorse drugs, diagnose patients or recommend therapy. [employer] drug information is an informational resource designed [...] effective or appropriate for any given patient. [facility] does not assume any responsibility for any aspect of healthcare administered with the aid of information [facility] provides. The information contained herein is not intended to cover all possible uses, directions, precautions, warnings, drug interactions, allergic reactions, or adverse effects. If you have questions about the drugs you are taking, check with your doctor, nurse or pharmacist. Copyright 4505-6581 [facility]. Version: 12.02. Revision Date: 01/22/2018. methylprednisolone (oral) [...] expected to produce life threatening symptoms. However, assisted use of high steroid doses can lead [...] may report side effects to FDA at 2-303-SYO-2263. What other drugs will affect methylprednisolone? Other drugs may interact with methylprednisolone, including prescription and yxnd-wgu-bdksysd medicines, vitamins, and herbal products. Tell each [...] to ensure that the information provided by [employer]. ('[employer]') is accurate, up-to-date, and complete, but no guarantee is made to that effect. Drug information contained herein may be time sensitive. [employer] information has been compiled for use by healthcare practitioners and consumers in the [place] and therefore [employer] does not warrant that uses outside of the [place] are appropriate, unless specifically indicated otherwise. [employer] drug information does not endorse drugs, diagnose patients or recommend therapy. [employer] drug information is an informational resource designed [...] effective or appropriate for any given patient. [employer] does not assume any responsibility for any aspect of healthcare administered with the aid of information [employer] provides. The information contained herein is not intended to cover all possible uses, directions, precautions, warnings, drug interactions, allergic reactions, or adverse effects. If you have questions about the drugs you are taking, check with your doctor, nurse or pharmacist. Copyright 5068-0553 [employer]. Version: 9.01. Revision Date: 11/30/2016. CIGARETTE SMOKING: The facts are clear, cigarette smoking will shorten your life. Smoking can cause many illnesses along the way. As a healthcare provider, we recommend that you stop smoking. Assistance with quitting is available by contacting 3-743-AVIW-NOW. This is a free resource providing counseling, [...] Be sure to sign up for the [employer] patient portal, which gives you 24/ access to your medical information ??? including these discharge instructions ??? using your computer, smartphone, or tablet. Just go to [employer] to get started. Questions? Call . [facility] would like to thank you for allowing us to assist you with your healthcare needs. VEENA Marino KAYLA, (or termite control service representative) have received the above patient education materials/instructions and have verbalized understanding: Patient Signature _ Date/Time Patient Waist Fitter Signature (if needed) Date/Time Clinician/Hospital Waist Fitter Signature (if needed) Date/Time Electronically signed by Krystle, [facility] Conversion Felting Machine Operator Helper Cerner at 07/17/2022 7:10 PM CDT documented in this encounter Plan of Treatment Not on file documented as of this encounter Visit Diagnoses Not on filedocumented in this encounter
--- OUTSIDE RECORDS SUMMARY | 2024-12-23 09:56 | XMS_ITS | Encounter Summary ---
Author Organization [employer] ([place], [place], [place], [place]) Address [address] [place] [address] Care Team Providers Care Wheel Cleaner Name Role Phone Unavailable Primary Care Provider Unavailabl e Encounter Details Date Type Department Care Team (Late st Contact Info) Description 04/03/2018 Transcribed Document [facility] [place] [facility] [place] [address] ProviderDiego MD [address] [place] [id number] Social History Tobacco Use Types Packs/Day Years Used Date Smoking Tobacco: Never Assessed Comments Unknown Sex and Gender Information Value Date Recorded Sex Assigned at Not on file Legal Sex Female 6:24 PM CDT Gender Identity Not on file Sexual Orientation Not on file documented as of this encounter Miscellaneous Notes * Cerner Conversion Note - Diego Mckeon MD - 04/03/2018 11:43 AM RAILROAD DINING CAR STEWARD/STEWARDESS Patient: TERRIE ANDERSEN Age: 32 years Sex: Female : 1985 Associated Diagnoses: None Author: ROWENA GREENFIELD MD Basic Information Patient has made great improvement She is talking and is alert and able to give more hystory about pelvic pain she has had last few weeks that she did not seek treatment for untill she got extremly ill She is taking po fluids and some solids now loose stools and urinary incontinence are her main complaints which may be attibutable to the antibiotics and fluids. No vaginalbleeding or dyscharge is present Health Status Current medications: (Selected) Inpatient Medications Ordered Ativan: [...] Hypertension hydrocortisone: 50 mg, IV Push, Q8H magnesium sulfate + Sodium Chloride 0.9% intravenous solution 100 mL: 3 Gram, 6 mL, 106 mL/Hr, IV Piggyback, 1-Time morphine: 2 mg, IV Push, Q2H, PRN: Pain (Severe 7-10) oxyCODONE: 5 mg, Oral, Q4H, PRN: Pain (Moderate 4-6) potassium chloride 40 mEq + Dextrose 5% in Water intravenous solution 1,000 mL: 75 mL/Hr, IntraVENous Pending Complete influenza virus vaccine, inactivated: 0.5 mL, IntraMuscular, [id number] pneumococcal 23-polyvalent vaccine: 0.5 mL, IntraMuscular, [id number] Documented Medications Documented buprenorphine-naloxone 8 mg-2 mg sublingual tablet: 2 Tab, SubLINgual, Daily, 0 Refill(s) Objective VS/Measurements Vitals Signs (last 24 hrs) Last Charted Minimum Maximum Temp 98 (APR 03 08:36) 97.9 (APR 03 04:00) 98.6 (APR 02 12:00) Mon HR 43 (APR 03 08:36) 41 (APR 03 02:00) 100 (APR 02 13:30) Resp Rate H 22 (APR 03 08:36) 18 (APR 02 16:30) H 30 (APR 02 21:00) SBP H 143 (APR 03 08:36) 97 (APR 02 15:30) H 146 (APR 03 02:00) DBP 67 (APR 03 08:36) L 49 (APR 02 15:30) H 107 (APR 02 16:00) MAP 92 (APR 03 08:36) 65 (APR 02 15:30) 118 (APR 02 16:00) SpO2 98 (APR 03 08:36) L 90 (APR 03:) 100 (APR 02 17:30) Review / Management Results review: Labs (Last [...] 0.019 (MAR 30) . Impression and Plan From the ultrasound and exam and clinical presentation I do think this patient has PID that is responding to the antibiotics. Even thought Chlamydia or GC testing may not be positive. I will see her while in hospital and follow up in my office after dyscharge Will take advice from ID consultants on the choice of po antibiotic to go home on Electronically signed by Everton Dalton Conversion [employer] Flatbed Truck Driver [employer]ner at 07/17/2022 7:10 PM CDT documented in this encounter Plan of Treatment Not on file documented as of this encounter Visit Diagnoses Not on filedocumented in this encounter
--- OUTSIDE RECORDS SUMMARY | 2024-12-23 09:56 | XMS_ITS | Encounter Summary ---
Author Organization [email or web address] ([place], [place], [place], [place]) Address [address] [place] [address] Care Team Providers Care Salon Customer Experience Specialist Name Role Phone Unavailable Primary Care Provider Unavailabl e Encounter Details Date Type Department Care Team (Late st Contact Info) Description 04/04/2018 Transcribed Document [facility] [place] Family Medicine [facility] [place] [address] ProviderDiego MD [address] [place] [id number] Social History Tobacco Use Types Packs/Day Years Used Date Smoking Tobacco: Never Assessed Comments Unknown Sex and Gender Information Value Date Recorded Sex Assigned at Not on file Legal Sex Female 6:24 PM CDT Gender Identity Not on file Sexual Orientation Not on file documented as of this encounter Miscellaneous Notes * Cerner Conversion Note - Diego Mckeon MD - 04/04/2018 9:52 AM E MARKETING SPECIALIST Patient: TERRIE ANDERSEN Age: 32 years Sex: Female : 1985 Associated Diagnoses: None Author: HIRA PUGH MD Basic Information History of present illness: History obtained from [facility] discharge summary. Patient 32-year-old female [...] a bicarbonate infusion. Portable chest radiograph at [place] report is extensive bilateral pneumonia greatest on the right with small effusions. In-house chest x-ray is pending. Patient was transferred to [facility] for further evaluation. Pulmonary/critical care was consulted [...] mild distention but no tenderness anymore. Apr 03: Patient awake and alert when I saw her, no new symptoms but she has been having diarrhea ; 3 over night and one this am. She has no appetite and her Na is increasing She has no fever. K and Mg are low and being replaced. Ricardo 2 awake and sitting in chair, no new issues overngiht awaiting transfer, reports diarrhea has improved however still no improvement in appetite. R IJ line from 29th ICU 6 Review of Systems Constitutional: No fever. Eye: Negative. Ear/Nose/Mouth/Throat: Negative. Respiratory: No shortness of breath. Cardiovascular: Negative. Gastrointestinal: less diarrhea. Genitourinary: Negative. Musculoskeletal: denies worsening pain. Integumentary: Negative. Neurologic: Alert and oriented X4. Psychiatric: Anxiety. Health Status Allergies: Allergic Reactions (Selected) Severity [...] Sodium Chloride 0.9% intravenous solution 100 mL: 3.375 Gram, 33.33 mL/Hr, IV Piggyback, Q6HInt bisacodyl: 10 mg, Rectal, BID, PRN: Constipation bisacodyl: 5 mg, Oral, BID, PRN: Constipation buprenorphine-naloxone 8 mg-2 mg sublingual tablet: 2 Tab, SubLINgual, Daily cloNIDine: 0.1 mg, Oral, Q4H, PRN: Hypertension docusate sodium: 240 mg, Nasogastric Tube, Daily doxycycline: 100 mg, Oral, BID fludrocortisone: 0.05 mg, Oral, Daily heparin: 5,000 Units, SubCutaneous, Q8H hydrALAZINE: 10 mg, IV Push, Q6H, PRN: Hypertension hydrocortisone: 50 mg, IV Push, Q8H morphine: 2 mg, IV Push, Q2H, PRN: Pain (Severe 7-10) nicotine 21 mg/24 hr transdermal film, extended release: 1 Patch, TransDermal, Daily oxyCODONE: 5 mg, Oral, Q4H, PRN: Pain (Moderate 4-6) Pending Complete influenza virus vaccine, inactivated: 0.5 mL, IntraMuscular, [id number] pneumococcal 23-polyvalent vaccine: 0.5 mL, IntraMuscular, [id number] Documented Medications Documented buprenorphine-naloxone 8 mg-2 mg sublingual tablet: 2 Tab, SubLINgual, Daily, 0 Refill(s), Medications (20) Active Scheduled: (9) buprenorphine-naloxone 8 mg-2 mg SL tab 2 Tab, SubLINgual, Daily docusate sod 100 mg/10 mL liq 240 mg 24 mL, Nasogastric Tube, Daily doxycycline hyclate 100 mg cap 100 mg 1 Cap, Oral, BID fluconazole 100 mg tab 200 mg 2 Tab, Oral, Daily fludrocortisone 0.1 mg tab 0.05 mg 0.5 Tab, Oral, Daily heparin 5,000 units/1 mL inj 5,000 Units 1 mL, SubCutaneous, Q8H hydrocortisone 100 mg/2 mL inj 50 mg 1 mL, IV Push, Q8H nicotine 21 mg/24 hr patch 1 Patch, TransDermal, Daily piperacillin-tazobactam + NaCl 0.9% 100 mL 3.375 Gram, IV Piggyback, Q6HInt Continuous: (0) PRN: (11) acetaminophen 325 mg tab 650 [...] 00:00) 98.2 (APR 03 12:00) Apical HR 89 (APR 04 09:35) L 53 (APR 04 04:23) 89 (APR 04 09:35) Mon HR 73 (APR 04 09:41) 40 (APR 04 01:00) 79 (APR 04 00:00) Resp Rate H 32 (APR 04 09:41) 19 (APR 03 23:00) H 32 (APR 04 09:41) SBP H 181 (APR 04 09:41) 137 (APR 03 20:00) H 181 (APR 04 09:41) DBP H 94 (APR 04 09:41) 63 (APR 03 15:00) H 94 (APR 04 09:41) MAP 131 (APR 04 09:41) 17 (APR 04 04:00) 131 (APR 04 09:41) SpO2 94 (APR 04 09:41) L 90 (APR 03 15:00) 100 (APR 03 13:00) , RA RA General: No acute distress. Eye: Pupils are equal, round and reactive to light, Normal conjunctiva. HENT: Normocephalic, Oral mucosa is moist. Neck: Supple, No lymphadenopathy. Respiratory: few course BS L posterior. Cardiovascular: Normal rate, Regular rhythm. Gastrointestinal: Soft, Non-tender, Non-distended, Normal bowel sounds. Integumentary: Warm, Dry, dusky coloration. Neurologic: Alert, Oriented, No focal deficits. Psychiatric: Cooperative, Appropriate mood & affect. Review / Management Results review: Labs (Last [...] (MAR 30) Troponin 0.019 (MAR 30) . cultures 04/01 genital Light Growth Freddie albicans Light Growth Yeast Light Growth Gram Negative Rods Normal vaginal rachel isolated No Neisseria gonorrhoeae isolated No Group B beta-hemolytic Streptococcus isolated Impression and Plan 1. Diarrhea, resolved 2. Acute respiratory distress syndrome 3. Severe sepsis; Improved 4. Septic shock; resolved. Lactic acidosis; 10 on addmision; resolved 5. Pelvic free fluid collection and bloody discharge; infection ?PID vs blood collection 6. Acute UTI; E. Coli in urine [...] opacification as well as patchy nodular infiltartes. Doing well, uptochair, but she still has vomiting.It could be related to zosyn diarrhea and vomiting . Chest X ray bilateral infiltartes have improved. Mild pbilateral pleural effusion, it should resolve on its own PLAN Encourage pulmonary toilet Tolerating oral feeding ID following Gynecology;04/01 aspirated 3-4 cc from the uterus- No gonorrhea noted, just freddie Follow up blood cx; neg so far IV zosyn, doxy per ID, Linezolid was DC Nephrology following Monitor kidney function and UOP; adequate D5W with K: DC today Will check Mg level Continue hydrocortisone and fludrocortisone for total 7 days Ambulate SC; ambulating DC heparin: Ambulating OK to transfer out of ICU. Electronically signed by Everton Dalton Conversion Electronics Hardware Design Engineer Cerner at 07/17/2022 7:20 PM CDT documented in this encounter Plan of Treatment Not on file documented as of this encounter Visit Diagnoses Not on filedocumented in this encounter
--- OUTSIDE RECORDS SUMMARY | 2024-12-23 09:56 | XMS_ITS | Encounter Summary ---
Author Organization [employer] ([place], [place], [place], [place]) Address [address] [place] [address] Care Team Providers Care Adult Live In Caregiver Name Role Phone Unavailable Primary Care Provider Unavailabl e Encounter Details Date Type Department Care Team (Late st Contact Info) Description 04/04/2018 Transcribed Document [facility] [place] [facility] [place] [address] ProviderDiego MD [address] [place] [id number] Social History Tobacco Use Types Packs/Day Years Used Date Smoking Tobacco: Never Assessed Comments Unknown Sex and Gender Information Value Date Recorded Sex Assigned at Not on file Legal Sex Female 6:24 PM CDT Gender Identity Not on file Sexual Orientation Not on file documented as of this encounter Miscellaneous Notes * [employer]ner Conversion Note - Diego ProviderMD - 04/04/2018 5:23 PM VIDEO GAME MAKER Patient: TERRIE NADERSEN Age: 32 years Sex: Female : 1985 Associated Diagnoses: None Author: ROWENA GREENFIELD MD Basic Information Patient has made a big turn around in her status I was able to have a conversation with her about the follow up in my office Health Status Current medications: (Selected) Inpatient Medications [...] Constipation buprenorphine-naloxone 8 mg-2 mg sublingual tablet: 1.75 Tab, SubLINgual, Daily calcium gluconate: 1 Gram, 10 mL, 60 mL/Hr, IV Piggyback, Daily, PRN: Other (See Comment) calcium gluconate: 2 Gram, 20 mL, 120 mL/Hr, IV Piggyback, Daily, PRN: Other (See Comment) calcium gluconate: 2 Gram, 20 mL, 120 mL/Hr, IV Piggyback, Q12H, PRN: Other (See Comment) cloNIDine: 0.1 mg, Oral, Q4H, PRN: Hypertension docusate sodium: 240 mg, Nasogastric Tube, Daily doxycycline: 100 mg, Oral, BID fludrocortisone: 0.05 mg, Oral, Daily heparin: 5,000 Units, SubCutaneous, Q8H hydrALAZINE: 10 mg, IV Push, Q6H, PRN: Hypertension hydrocortisone: 50 mg, IV Push, Q8H magnesium sulfate: 2 Gram, 50 mL, 25 mL/Hr, IV Piggyback, Daily, PRN: Other (See Comment) magnesium sulfate: 2 Gram, 50 mL, 25 mL/Hr, IV Piggyback, Q2H, PRN: Other (See Comment) morphine: 2 mg, IV Push, Q2H, PRN: Pain (Severe 7-10) nicotine 21 mg/24 hr transdermal film, extended release: 1 Patch, TransDermal, Daily oxyCODONE: 5 mg, Oral, Q4H, PRN: Pain (Moderate 4-6) potassium chloride 10 mEq/50 mL intravenous solution: 10 mEq, 50 mL, 50 mL/Hr, IV Piggyback, Q1H, PRN: Other (See Comment) potassium chloride 20 mEq oral tablet, extended release: 20 mEq, 1 Tab, Oral, Q2H, PRN: Other (See Comment) potassium chloride 20 mEq oral tablet, extended release: 60 mEq, 3 Tab, Oral, Q2H, PRN: Other (See Comment) potassium chloride 20 mEq/15 mL oral liquid: 20 mEq, 15 mL, Feeding Tube, Q2H, PRN: Other (See Comment) potassium chloride 20 mEq/15 mL oral liquid: 60 mEq, 45 mL, Feeding Tube, Q2H, PRN: Other (See Comment) sodium phosphate: 15 mMole, 5 mL, 50 mL/Hr, IV Piggyback, Daily, PRN: Other (See Comment) sodium phosphate: 15 mMole, 5 mL, 50 mL/Hr, IV Piggyback, Q6H, PRN: Other (See Comment) Pending Complete influenza virus vaccine, inactivated: 0.5 mL, IntraMuscular, [id number] pneumococcal 23-polyvalent vaccine: 0.5 mL, IntraMuscular, [id number] Documented Medications Documented buprenorphine-naloxone 8 mg-2 mg sublingual tablet: 1.75 Tab, SubLINgual, Daily, 0 Refill(s) Objective VS/Measurements Vitals Signs (last 24 hrs) Last Charted Minimum Maximum Temp 98.0 (APR 04 16:00) 97.9 (APR 04 00:00) 98.1 (APR 03 20:00) Apical HR 75 (APR 04 15:09) L 53 (APR 04 04:23) 89 (APR 04 09:35) Mon HR 84 (APR 04 17:10) 40 (APR 04 01:00) 101 (APR 04 16:00) Resp Rate H 24 (APR 04 17:10) 19 (APR 03 23:00) H 32 (APR 04 09:41) SBP 138 (APR 04 17:10) 137 (APR 03 20:00) H 181 (APR 04 09:41) DBP 74 (APR 04 17:10) 65 (APR 03 20:00) H 94 (APR 04 09:41) MAP 95 (APR 04 17:10) 17 (APR 04 04:00) 131 (APR 04 09:41) SpO2 97 (APR 04 17:10) L 75 (APR 04 16:00) 100 (APR 03 19:33) Review / Management Results review: Labs (Last [...] 0.019 (MAR 30) . Impression and Plan Respondiong to the antibiotics well as far as the PID is concerned. Will need oral antibiotic to go home on per ID The ultrasound changes will take at least a month to absorb and swelling to go down, so I will see her in 1 month for office visit She has had a tubal ligation so does not need other oral contraceptives but I told her to use condoms for STD protection. Thank you. If beds still not available she could be dyscharged home fro ICU? I gave her information on my office and contact to call documented in this encounter Plan of Treatment Not on file documented as of this encounter Visit Diagnoses Not on filedocumented in this encounter
--- OUTSIDE RECORDS SUMMARY | 2024-12-23 09:56 | XMS_ITS | Encounter Summary ---
Author Organization [employer] ([place], [place], [place], [place]) Address [address] [place] [address] Care Team Providers Care Radio Commentator Name Role Phone Unavailable Primary Care Provider Unavailabl e Encounter Details Date Type Department Care Team (Late st Contact Info) Description 04/04/2018 Transcribed Document [facility] [place] [facility] [place] [address] ProviderDiego MD [address] [place] [address] Social History Tobacco Use Types Packs/Day Years Used Date Smoking Tobacco: Never Assessed Comments Unknown Sex and Gender Information Value Date Recorded Sex Assigned at Not on file Legal Sex Female 6:24 PM CDT Gender Identity Not on file Sexual Orientation Not on file documented as of this encounter Miscellaneous Notes * Cerner Conversion Note - Historical ProviderMD - 04/04/2018 9:00 AM SURVEY MANAGER Pain Assessment Entered On: 04/04/2018 18:17 EST Performed On: 04/04/2018 9:59 EST by Bethany Lake RN Intervention Information: buprenorphine-naloxone Performed by Bethany Lake RN on 04/04/2018 09:29:00 EST buprenorphine-naloxone,1Tab SubLINgual(c) Pain Assessment Pain Assessment : Follow-up assessment Pain Scale Goal : 3 Pain Scale Used : 0-10 Scale Bethany Lake RN - 04/04/2018 18:11 EST Pain Scale Intensity : 0 Bethany Lake RN - 04/04/2018 18:11 EST Image 4 - Images currently included in the form version of this document have not been included in the text rendition version of the form. Electronically signed by Everton Dalton Conversion Community Service Officer Coordinator Cerner at 07/17/2022 7:22 PM CDT documented in this encounter Plan of Treatment Not on file documented as of this encounter Visit Diagnoses Not on filedocumented in this encounter
--- OUTSIDE RECORDS SUMMARY | 2024-12-23 09:56 | XMS_ITS | Encounter Summary ---
Author Organization [employer] ([place], [place], [place]) Address [address] [place] [address] Care Team Providers Care Electrician Refinery Name Role Phone Unavailable Primary Care Provider Unavailabl e Encounter Details Date Type Department Care Team (Late st Contact Info) Description 04/05/2018 Transcribed Document [facility] [place] [facility] [place] [address] [place], [place] [id number] ProviderDiego MD [address] [place] [address] Social History Tobacco Use Types Packs/Day Years Used Date Smoking Tobacco: Never Assessed Comments Unknown Sex and Gender Information Value Date Recorded Sex Assigned at Not on file Legal Sex Female 6:24 PM CDT Gender Identity Not on file Sexual Orientation Not on file documented as of this encounter Miscellaneous Notes * Cerner Conversion Note - Historical ProviderMD - 04/05/2018 2:17 PM SYSTEM ARCHIVE ANALYST Therapy Screen, OT Entered On: 04/05/2018 14:27 EST Performed On: 04/05/2018 14:17 EST by TRELL CRAWFORD OTR/Monster Therapy Screen, OT Medical Chart Reviewed : Yes Person Providing Information : Family, Patient Screen Completed : Yes Recommendations for Evaluation OT : Do not recommend Occupational Therapy evaluation Therapy Screen Findings, OT : Patient with recent functional decline Additional Therapy Screen Comment : Patient and family report that pt is I and does not need OTE. Should change occur OT will re-assess per MD orders. TRELL CRAWFORD OTR/L - 04/05/2018 14:17 EST documented in this encounter Plan of Treatment Not on file documented as of this encounter Visit Diagnoses Not on filedocumented in this encounter
--- OUTSIDE RECORDS SUMMARY | 2024-12-23 09:56 | XMS_ITS | Encounter Summary ---
Author Organization [employer] ([place], [place], [place], [place]) Address [address] [place] [address] Care Team Providers Care Parts Specialist Name Role Phone Unavailable Primary Care Provider Unavailabl e Encounter Details Date Type Department Care Team (Late st Contact Info) Description 04/04/[address] [facility] [place] Medicine [address] [place] [address] ProviderDiego MD [address] [place] [address] Social History Tobacco Use Types Packs/Day Years Used Date Smoking Tobacco: Never Assessed Comments Unknown Sex and Gender Information Value Date Recorded Sex Assigned at Not on file Legal Sex Female 6:24 PM CDT Gender Identity Not on file Sexual Orientation Not on file documented as of this encounter Miscellaneous Notes * Cerner Conversion Note - Historical ProviderMD - 04/04/2018 9:49 AM CLOTH TRIMMER HAND Clinical Dietitian Note Entered On: 04/04/2018 9:43 EST Performed On: 04/04/2018 9:49 [address], LD Clinical Dietitian Note Clinical Dietitian Note : 04/04: High f/u. Regular diet ordered. Per chart pt is eating 0% x 3 meals. Spoke with pt, reports poor appetite. States that Ensure Enlive is okay, but she only wants vanilla. Will place flavor preference in supplement order. Noted hyperphosphatemia. +BM 04/03. Labs: Cl 113, Glu 121, BUN 38, Cr 1.6, Alb 2.2, Alk Phos 149, FSBG 113/102/84; (04/03) Mg 1.3; (04/02) Phos 5, Ion Ca 1.08; (03/31) Bilirubin 0.7 Meds: Docusate, Abx, Fludrocortisone, Hydrocortisone, Zofran (PRN) 1. Continue current diet regimen as tolerated. Will continue Ensure Enlive with all meals. Goal: >50% intake 2. Obtain weight 1-2x/wk Goal: no unintentional changes High Risk MOE RICHARDS RD, LD - 04/04/2018 9:44 EST documented in this encounter Plan of Treatment Not on file documented as of this encounter Visit Diagnoses Not on filedocumented in this encounter
== END 2024-12-20 23:59 ==
LOC: LAB.DROPOF 12-23 09:41
PROVIDERS: PCP Family Medicine; Visit Provider Family Medicine
DX: J45.909 Unspecified asthma, uncomplicated (principal); F33.9 Major depressive disorder, recurrent, unspecified; R91.8 Other nonspecific abnormal finding of lung field; D64.9 Anemia, unspecified
CPT/HCPCS: 80053; 80061; 84443; 85025

== ENCOUNTER 2025-02-12 14:04 | Outpatient (CLI) | payer OTHER, SELFPAY ==
[2025-02-12 22:57] LABS: Hepatitis C Ab Qual. W/ RFX REACTIVE (Negative)
--- OUTSIDE RECORDS SUMMARY | 2025-02-13 10:53 | XMS_ITS | Encounter Summary ---
Author Organization [employer] ([place], [place], [place], [place], [place]) Address [address] [place] [address] Care Team Providers Care Returner Name Role Phone Unavailable Primary Care Provider Unavailabl e Encounter Details Date Type Department Care Team (Late st Contact Info) Description 03/30/2018 Transcribed Document [facility] [place] [facility] [place] [address] ProviderDiego MD [address] [place] [address] Social History Tobacco Use Types Packs/Day Years Used Date Smoking Tobacco: Never Assessed Comments Unknown Sex and Gender Information Value Date Recorded Sex Assigned at Not on file Legal Sex Female 6:24 PM CDT Gender Identity Not on file Sexual Orientation Not on file documented as of this encounter Miscellaneous Notes * Cerner Conversion Note - Diego Mckeon MD - 03/30/2018 11:42 PM CONFIGURATION ENGINEER Patient: TERRIE ANDERSEN Age: 32 years [...]
--- OUTSIDE RECORDS SUMMARY | 2025-02-13 10:53 | XMS_ITS | Encounter Summary ---
Author Organization [employer] ([place], [place], [place], [place], [place]) Address [address] [place] [address] Care Team Providers Care Arc Welder Apprentice Name Role Phone Unavailable Primary Care Provider Unavailabl e Encounter Details Date Type Department Care Team (Late st Contact Info) Description 04/03/2018 Transcribed Document [facility] [place] [facility] [place] [address] ProviderDiego MD [address] [place] [address] Social History Tobacco Use Types Packs/Day Years Used Date Smoking Tobacco: Never Assessed Comments Unknown Sex and Gender Information Value Date Recorded Sex Assigned at Not on file Legal Sex Female 6:24 PM CDT Gender Identity Not on file Sexual Orientation Not on file documented as of this encounter Miscellaneous Notes * Cerner Conversion Note - Diego Mckeon MD - 04/03/2018 11:00 AM SHAREPOINT DEVELOPER Patient: TERRIE ANDERSEN Age: 32 years Sex: [...] 118 (APR 02 16:00) SpO2 98 (APR 03:36) L 90 (APR 03:00) 100 (APR 02 [...] neg for schistocytes, complement normal, Negatinve ZAHRA, AZ-3, MPO, Anti GBM 2. Sepsis, under treatment. [...] and Dr. Black Electronically signed by Krystle [facility] Conversion Treating Plant Operator Cerner at 07/17/2022 7:07 PM CDT documented in this encounter Plan of Treatment Not on file documented as of this encounter Visit Diagnoses Not on filedocumented in this encounter
--- OUTSIDE RECORDS SUMMARY | 2025-02-13 10:53 | XMS_ITS | Encounter Summary ---
Author Organization [employer] ([place], [place], [place], [place], [place]) Address [address] [place] [address] Care Team Providers Care Transitions Manager Name Role Phone Unavailable Primary Care Provider Unavailabl e Encounter Details Date Type Department Care Team (Late st Contact Info) Description 04/03/2018 Transcribed Document [facility] [place] Medicine [address] [place] [address] ProviderDiego MD [address] [place] [address] Social History Tobacco Use Types Packs/Day Years Used Date Smoking Tobacco: Never Assessed Comments Unknown Sex and Gender Information Value Date Recorded Sex Assigned at Not on file Legal Sex Female 6:24 PM CDT Gender Identity Not on file Sexual Orientation Not on file documented as of this encounter Miscellaneous Notes * Cerner Conversion Note - Historical ProviderMD - 04/03/2018 5:00 PM PRINTED CIRCUIT BOARDS CONTACT PRINTER Chart Check - Review Order Profile Entered [...]
--- OUTSIDE RECORDS SUMMARY | 2025-02-13 10:53 | XMS_ITS | Encounter Summary ---
Author Organization [employer] ([place], [place], [place], [place], [place]) Address [address] [place] [address] Care Team Providers Care Topper Packer Name Role Phone Unavailable Primary Care Provider Unavailabl e Encounter Details Date Type Department Care Team (Late st Contact Info) Description 04/06/2018 Transcribed Document [facility] [place] [facility] [place] [address] ProviderDiego MD [address] [place] [address] Social History Tobacco Use Types Packs/Day Years Used Date Smoking Tobacco: Never Assessed Comments Unknown Sex and Gender Information Value Date Recorded Sex Assigned at Not on file Legal Sex Female 6:24 PM CDT Gender Identity Not on file Sexual Orientation Not on file documented as of this encounter Miscellaneous Notes * Cerner Conversion Note - Diego ProviderMD - 04/06/2018 9:08 AM REPAIRER HAIRSPRING Care Management Assessment/Plan Entered On: 04/06/2018 9:09 EST Performed On: 04/06/2018 9:08 EST by Blanca Crawford Rn-House MoverGear Nicker Note Anticipated Discharge Date : 04/06/2018 15:00 EST Blanca Crawford Rn-House Mover - 04/06/2018 9:08 EST Care Management Note : Patient with discharge orders. Appointment with [facility] made on 04/11/18 1:45; information in depart screen. LM with Jason PCP Finder requesting he contact the patient with appointment for Dr. Titus Giron when it has been scheduled. Blanca Crawford Rn-House Mover - 04/06/2018 9:15 EST Care Management Note Report : MICHAELA OAKES RN - 04/05/18 09:01:15 on transfer to floor. wbc 24. doxycycline/diflucan po. zosyn iv. hydrocortisone iv. clonidine iv x 1. zofran iv x 1. PT/OT consults. referral has been made to MD derick Gomez for primary care assignement. pt attends [facility] will need follow up appt at dc. home health vs not when ready for dc. spoke with zachary Sims RN. MICHAELA OAKES RN - 04/02/18 10:31:16 readmit risk: moderate 47. transfer [facility]. resp failure. sepsis. renal failure. pelvic ascites: ? PID vs abscess. 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 doxycycline/zyvox/zosyn iv. hydrocortisone iv. awake, talking. spoke with Ms. Andersen & her parents. explained role of case management. pt resides in [facility] [place] [facility] with parents. she is adl independent. no dme or home health. no previous rehab stays. current with suboxone clinic in [place], [facility], . reported to be clean for a year. she has no quill skinner. Would like to see Dr Titus Giron in [place]. discussed dc planning based on progess. referral to MD Derick Gomez, alerted to preference of Dr Titus Giron. schedule appt with [facility] when ready for dc. spoke with zachary Espinosa RN. re-evaluate in am to see if she will need PT consult. Documentation Status Complete : Yes Blanca Crawford Rn-House Mover - 04/06/2018 9:08 EST Final Discharge Disposition Note-CM Final Discharge Disposition Note-CM : Patient discharging home with family; appointment made at [facility] for 04/11/18 1:45. Discharge To Care Management : Home/Residential/[facility] or Self Care - Blanca Crawford Rn-House Mover - 04/06/2018 9:08 EST documented in this encounter Plan of Treatment Not on file documented as of this encounter Visit Diagnoses Not on filedocumented in this encounter
--- OUTSIDE RECORDS SUMMARY | 2025-02-13 10:53 | XMS_ITS | Encounter Summary ---
Author Organization [employer] ([place], [place], [place], [place], [place]) Address [address] [place] [address] Care Team Providers Care Punch Press Feeder Name Role Phone Unavailable Primary Care Provider Unavailabl e Encounter Details Date Type Department Care Team (Late st Contact Info) Description 04/06/2018 Transcribed Document [facility] [place] [address] [place] [address] ProviderDiego MD [address] [place] [phone] Social History Tobacco Use Types Packs/Day Years Used Date Smoking Tobacco: Never Assessed Comments Unknown Sex and Gender Information Value Date Recorded Sex Assigned at Not on file Legal Sex Female 6:24 PM CDT Gender Identity Not on file Sexual Orientation Not on file documented as of this encounter Miscellaneous Notes * Cerner Conversion Note - Diego Mckeon MD - 04/06/2018 12:16 PM POULTRY BUYER [address] [place] [address] Patient Copy Patient Information: Name: TERRIE ANDERSEN Current Date: 04/06/2018 12:16:37 : 1985 Patient Address: [address] [facility] [address] Patient Attending Physician: LORENZA FANG MD Primary Care Provider: YOAN, NOT LISTED Primary Care Provider Phone: Discharge Diagnosis: 1:Septic shock; 2:Acute pelvic inflammatory disease (PID); 3:History of PID; 4:Pelvic ascites; 5:PNA (pneumonia) Weight on Admission: 154 lb, 4 oz Weight at Discharge: 153 lb, 0 oz Comment: Follow-up Instructions: With: Address: When: [facility] [phone] 1:45 AM Comments: Appointment has been made [...] Follow these instructions at home: ??? Take qwfh-ivo-cshvvqt and prescription medicines only as told by [...] and water are not available, use hand pulp beater. Contact a doctor if: ??? You have [...] 11/21/2014 Document Revised: 08/25/2016 Document Reviewed: 10/21/2014 [employer] Interactive Patient Education ? 2016 [employer] Pelvic Inflammatory Disease Introduction Pelvic inflammatory [...] Follow these instructions at home: ??? Take skpe-mzj-mrwyytd and prescription medicines only as told by [...] or life-threatening conditions such as anthrax or [place] spotted fever. The benefit of treating a [...] may report side effects to FDA at 6-521-PFE-1771. What other drugs will affect doxycycline? Sometimes it is not safe to use certain medications at the same time. Some drugs can affect your blood levels of other drugs you take, which may increase side effects or make the medications less effective. Other drugs may affect doxycycline, including prescription and pvrw-cxt-huxuwxw medicines, vitamins, and herbal products. Tell your [...] to ensure that the information provided by [employer]') is accurate, up-to-date, and complete, but no guarantee is made to that effect. Drug information contained herein may be time sensitive. [employer] information has been compiled for use by healthcare practitioners and consumers in the [place] and therefore [employer] does not warrant that uses outside of the [place] are appropriate, unless specifically indicated otherwise. [employer] drug information does not endorse drugs, diagnose patients or recommend therapy. [employer] drug information is an informational resource [...] effective or appropriate for any given patient. [employer] does not assume any responsibility for any aspect of healthcare administered with the aid of information [employer] provides. The information contained herein is not intended to cover all possible uses, directions, precautions, warnings, drug interactions, allergic reactions, or adverse effects. If you have questions about the drugs you are taking, check with your doctor, nurse or pharmacist. Copyright 6519-2110 [employer]. Version: 20.02. Revision Date: 07/12/2017. metronidazole (me troe NI da zole) FIRST Metronidazole, Flagyl, Flagyl 375 What is [...] (more likely to occur while taking metronidazole chcf): ? numbness, tingling, or burning pain in [...] may report side effects to FDA at 8-520-EEV-0918. What other drugs will affect metronidazole? Sometimes [...] drugs may affect metronidazole, including prescription and bokr-fns-srjfdjp medicines, vitamins, and herbal products. Not all [...] to ensure that the information provided by [employer]') is accurate, up-to-date, and complete, but no guarantee is made to that effect. Drug information contained herein may be time sensitive. [employer] information has been compiled for use by healthcare practitioners and consumers in the [place] and therefore [employer] does not warrant that uses outside of the [place] are appropriate, unless specifically indicated otherwise. [employer] drug information does not endorse drugs, diagnose patients or recommend therapy. [employer] drug information is an informational resource [...] effective or appropriate for any given patient. [facility] does not assume any responsibility for any aspect of healthcare administered with the aid of information [facility] provides. The information contained herein is not intended to cover all possible uses, directions, precautions, warnings, drug interactions, allergic reactions, or adverse effects. If you have questions about the drugs you are taking, check with your doctor, nurse or pharmacist. Copyright 0225-4052 [facility] [employer]. Version: 12.. Revision Date: 01/22/2018. methylprednisolone (oral) (METH il [...] expected to produce life threatening symptoms. However, local intermodal truck driver use of high steroid doses can lead [...] may report side effects to FDA at 4-256-CQU-9628. What other drugs will affect methylprednisolone? Other drugs may interact with methylprednisolone, including prescription and ever-vaf-ddlbrwy medicines, vitamins, and herbal products. Tell each [...] to ensure that the information provided by [employer]') is accurate, up-to-date, and complete, but no guarantee is made to that effect. Drug information contained herein may be time sensitive. [employer] information has been compiled for use by healthcare practitioners and consumers in the [place] and therefore [employer] does not warrant that uses outside of the [place] are appropriate, unless specifically indicated otherwise. [employer] drug information does not endorse drugs, diagnose patients or recommend therapy. [employer] drug information is an informational resource designed [...] effective or appropriate for any given patient. [employer] does not assume any responsibility for any aspect of healthcare administered with the aid of information [employer] provides. The information contained herein is not intended to cover all possible uses, directions, precautions, warnings, drug interactions, allergic reactions, or adverse effects. If you have questions about the drugs you are taking, check with your doctor, nurse or pharmacist. Copyright 7120-1926 [employer]. Version: 9.01. Revision Date: 11/30/2016. CIGARETTE SMOKING: The facts are clear, cigarette smoking will shorten your life. Smoking can cause many illnesses along the way. As a healthcare provider, we recommend that you stop smoking. Assistance with quitting is available by contacting 5-802-IVJA-NOW. This is a free resource providing counseling, [...] Be sure to sign up for the [employer] patient portal, which gives you 24/ access to your medical information ??? including these discharge instructions ??? using your computer, smartphone, or tablet. Just go to [employer] to get started. Questions? Call . [facility] would like to thank you for allowing us to assist you with your healthcare needs. VEENA Marino KAYLA, (or graphic art sales representative) have received the above patient education materials/instructions and have verbalized understanding: Patient Signature _ Date/Time Patient Gun Stock Maker Signature (if needed) Date/Time Clinician/Hospital Gun Stock Maker Signature (if needed) Date/Time Electronically signed by Krystle, [facility] Conversion Benzene Washer Cerner at 07/17/2022 7:18 PM CDT documented in this encounter Plan of Treatment Not on file documented as of this encounter Visit Diagnoses Not on filedocumented in this encounter
--- OUTSIDE RECORDS SUMMARY | 2025-02-13 10:53 | XMS_ITS | Encounter Summary ---
Author Organization [employer] ([place], [place], [place], [place], [place]) Address [address] [place] [address] Care Team Providers Care Service Technician Copier Name Role Phone Unavailable Primary Care Provider Unavailabl e Encounter Details Date Type Department Care Team (Late st Contact Info) Description 04/06/2018 Transcribed Document [facility] [place] [facility] [place] [address] ProviderDiego MD [address] [place] [address] Social History Tobacco Use Types Packs/Day Years Used Date Smoking Tobacco: Never Assessed Comments Unknown Sex and Gender Information Value Date Recorded Sex Assigned at Not on file Legal Sex Female 6:24 PM CDT Gender Identity Not on file Sexual Orientation Not on file documented as of this encounter Miscellaneous Notes * Cerner Conversion Note - Diego ProviderMD - 04/06/2018 11:51 AM PROMOTIONAL MARKETING ANALYST Discharge Instructions Entered On: 04/06/2018 11:52 EST [...]
--- OUTSIDE RECORDS SUMMARY | 2025-02-13 10:53 | XMS_ITS | Encounter Summary ---
Author Organization [employer] ([place], [place], [place], [place], [place]) Address [address] [place] [address] Care Team Providers Care Assistant Floor Covering Printer Name Role Phone Unavailable Primary Care Provider Unavailabl e Encounter Details Date Type Department Care Team (Late st Contact Info) Description 03/31/2018 Transcribed Document [facility] [place] Family Medicine [address] [place] [phone] ProviderDiego MD [address] [place] [address] Social History Tobacco Use Types Packs/Day Years Used Date Smoking Tobacco: Never Assessed Comments Unknown Sex and Gender Information Value Date Recorded Sex Assigned at Not on file Legal Sex Female 6:24 PM CDT Gender Identity Not on file Sexual Orientation Not on file documented as of this encounter Miscellaneous Notes * Cerner Conversion Note - Diego Mckeon MD - 03/31/2018 9:34 AM IMAGING AIDE DATE OF CONSULTATION: 03/31/2018 INFECTIOUS DISEASE CONSULTATION/INITIAL HOSPITAL VISIT REFERRING PHYSICIAN: Dr. Juan J Ji. REASON FOR CONSULTATION: Sepsis. HISTORY OF PRESENT ILLNESS: This is an unfortunate 32-year-old white female with a history of IV drug use and opiate addiction along with tobacco abuse, who presented to [facility] Emergency Department with abdominal pain, vomiting, and weakness. The patient is currently intubated at [facility] and unable to obtain history, so all the history was obtained from either [facility] chart or [facility] chart. Apparently she has had no [...] tachycardic with hypertension. She was transferred to [facility] ICU for medical management. Her shortness [...] The patient is single and lives in [place], [place]. She does smoke and has had [...] nausea and vomiting were suggested reaction per [facility]. RECOMMENDATIONS: 1. Monitor blood and urine cultures. [...]
--- OUTSIDE RECORDS SUMMARY | 2025-02-13 10:53 | XMS_ITS | Encounter Summary ---
Author Organization [employer] ([place], [place], [place], [place], [place]) Address [address] [place] [address] Care Team Providers Care Side Boss Name Role Phone Unavailable Primary Care Provider Unavailabl e Encounter Details Date Type Department Care Team (Late st Contact Info) Description 04/03/2018 Transcribed Document [facility] [place] [facility] [place] [address] ProviderDiego MD [address] [place] [address] Social History Tobacco Use Types Packs/Day Years Used Date Smoking Tobacco: Never Assessed Comments Unknown Sex and Gender Information Value Date Recorded Sex Assigned at Not on file Legal Sex Female 6:24 PM CDT Gender Identity Not on file Sexual Orientation Not on file documented as of this encounter Miscellaneous Notes * Cerner Conversion Note - Diego Mckeon MD - 04/03/2018 6:45 PM REGIONAL MANAGER Patient: TERRIE ANDERSEN Age: 32 Years Sex: [...] cervical cultures sent - culdocentesis performed by HISTOLOGY TECH, cytology and culture pending Valvular heart disease, mod pulmonic regurgitation Metabolic acidosis, 2/2 acute renal failure - resolved Hx of IVDA, weaned off of suboxone 5 days prior to admission to [facility] - Blood Cx neg Bradycardia [...] mg/dL Low Protein Total: 4.7 Gram/dL Low documented in this encounter Plan of Treatment Not on file documented as of this encounter Visit Diagnoses Not on filedocumented in this encounter
--- OUTSIDE RECORDS SUMMARY | 2025-02-13 10:53 | XMS_ITS | Encounter Summary ---
Author Organization [employer] ([place], [place], [place], [place], [place]) Address [address] [place] [address] Care Team Providers Care Nut Process Helper Name Role Phone Unavailable Primary Care Provider Unavailabl e Encounter Details Date Type Department Care Team (Late st Contact Info) Description 04/06/2018 Transcribed Document [facility] [place] [address] [place] [address] ProviderDiego MD [address] [place] [address] [phone] Social History Tobacco Use Types Packs/Day Years Used Date Smoking Tobacco: Never Assessed Comments Unknown Sex and Gender Information Value Date Recorded Sex Assigned at Not on file Legal Sex Female 6:24 PM CDT Gender Identity Not on file Sexual Orientation Not on file documented as of this encounter Miscellaneous Notes * Cerner Conversion Note - Diego Mckeon MD - 04/06/2018 11:52 AM SECURITY ESCORT [address] [place] [address] Patient Copy Patient Information: Name: TERRIE ANDERSEN Current Date: 04/06/2018 11:52:27 : 1985 Patient Address: [address] [address] Patient Attending Physician: LORENZA FANG MD Primary Care Provider: YOAN, NOT LISTED Primary Care Provider Phone: Discharge Diagnosis: 1:Septic shock; 2:Acute pelvic inflammatory disease (PID); 3:History of PID; 4:Pelvic ascites; 5:PNA (pneumonia) Weight on Admission: 154 lb, 4 oz Weight at Discharge: 153 lb, 0 oz Comment: Follow-up Instructions: With: Address: When: Prescribers [facility] [phone] 1:45 AM Comments: Appointment has been made [...] Follow these instructions at home: ??? Take suve-tsq-qgbbazo and prescription medicines only as told by [...] and water are not available, use hand oceanographer assistant. Contact a doctor if: ??? You have [...] 11/21/2014 Document Revised: 08/25/2016 Document Reviewed: 10/21/2014 [employer] Patient Education ? 2016 [employer]. Pelvic Inflammatory Disease Introduction Pelvic inflammatory [...] Follow these instructions at home: ??? Take xavk-siz-lgcpoqu and prescription medicines only as told by [...] or life-threatening conditions such as anthrax or Smallwood spotted fever. The benefit of treating a [...] may report side effects to FDA at 1-234-ZSE-3096. What other drugs will affect doxycycline? Sometimes it is not safe to use certain medications at the same time. Some drugs can affect your blood levels of other drugs you take, which may increase side effects or make the medications less effective. Other drugs may affect doxycycline, including prescription and zqbw-ypg-znyyhol medicines, vitamins, and herbal products. Tell your [...] to ensure that the information provided by [employer]. ('Multum') is accurate, up-to-date, and complete, but no guarantee is made to that effect. Drug information contained herein may be time sensitive. [employer] information has been compiled for use by healthcare practitioners and consumers in the [place] and therefore [employer] does not warrant that uses outside of the [place] are appropriate, unless specifically indicated otherwise. [employer] drug information does not endorse drugs, diagnose patients or recommend therapy. [employer] drug information is an informational resource designed [...] effective or appropriate for any given patient. [employer] does not assume any responsibility for any aspect of healthcare administered with the aid of information [employer] provides. The information contained herein is not intended to cover all possible uses, directions, precautions, warnings, drug interactions, allergic reactions, or adverse effects. If you have questions about the drugs you are taking, check with your doctor, nurse or pharmacist. Copyright 7044-9752 [employer]. Version: 20.02. Revision Date: 07/12/2017. metronidazole (me [...] (more likely to occur while taking metronidazole assisted): ? numbness, tingling, or burning pain in [...] may report side effects to FDA at 1-029-QJM-2211. What other drugs will affect metronidazole? Sometimes [...] drugs may affect metronidazole, including prescription and hxfe-jly-lpneuyk medicines, vitamins, and herbal products. Not all [...] to ensure that the information provided by [employer]. ('Multum') is accurate, up-to-date, and complete, but no guarantee is made to that effect. Drug information contained herein may be time sensitive. [employer] information has been compiled for use by healthcare practitioners and consumers in the [place] and therefore [employer] does not warrant that uses outside of the [place] are appropriate, unless specifically indicated otherwise. [employer] drug information does not endorse drugs, diagnose patients or recommend therapy. [employer] drug information is an informational resource designed [...] effective or appropriate for any given patient. [facility] does not assume any responsibility for any aspect of healthcare administered with the aid of information [facility] provides. The information contained herein is not intended to cover all possible uses, directions, precautions, warnings, drug interactions, allergic reactions, or adverse effects. If you have questions about the drugs you are taking, check with your doctor, nurse or pharmacist. Copyright 3515-6792 [facility] XMS [employer]. Version: 12.. Revision Date: 01/22/2018. methylprednisolone (oral) [...] expected to produce life threatening symptoms. However, long wall shear operator use of high steroid doses can lead [...] may report side effects to FDA at 0-984-ZWT-7553. What other drugs will affect methylprednisolone? Other drugs may interact with methylprednisolone, including prescription and rmci-xdm-idnmosf medicines, vitamins, and herbal products. Tell each [...] to ensure that the information provided by [employer]. ('Multum') is accurate, up-to-date, and complete, but no guarantee is made to that effect. Drug information contained herein may be time sensitive. [employer] information has been compiled for use by healthcare practitioners and consumers in the [place] and therefore [employer] does not warrant that uses outside of the [place] are appropriate, unless specifically indicated otherwise. [employer] drug information does not endorse drugs, diagnose patients or recommend therapy. [employer] drug information is an informational resource designed [...] effective or appropriate for any given patient. [employer] does not assume any responsibility for any aspect of healthcare administered with the aid of information [employer] provides. The information contained herein is not intended to cover all possible uses, directions, precautions, warnings, drug interactions, allergic reactions, or adverse effects. If you have questions about the drugs you are taking, check with your doctor, nurse or pharmacist. Copyright 6939-5462 [employer]. Version: 9.01. Revision Date: 11/30/2016. CIGARETTE SMOKING: The facts are clear, cigarette smoking will shorten your life. Smoking can cause many illnesses along the way. As a healthcare provider, we recommend that you stop smoking. Assistance with quitting is available by contacting 0-643-ERIX-NOW. This is a free resource providing counseling, [...] Be sure to sign up for the [employer] patient portal, which gives you 24/ access to your medical information ??? including these discharge instructions ??? using your computer, smartphone, or tablet. Just go to [employer] to get started. Questions? Call . [facility] would like to thank you for allowing us to assist you with your healthcare needs. VEENA Marino KAYLA, (or packaging sales representative) have received the above patient education materials/instructions and have verbalized understanding: Patient Signature _ Date/Time Patient Psych Tech Signature (if needed) Date/Time Clinician/Hospital Psych Tech Signature (if needed) Date/Time Electronically signed by Krystle, [facility] Conversion Game Programer Cerner at 07/17/2022 7:10 PM CDT documented in this encounter Plan of Treatment Not on file documented as of this encounter Visit Diagnoses Not on filedocumented in this encounter
--- OUTSIDE RECORDS SUMMARY | 2025-02-13 10:53 | XMS_ITS | Referral Summary ---
Author Organization [employer] ([place], [place], [place], [place], [place]) Address [address] [place] [address] Care Team Providers Care Lay Midwife Name Role Phone Unavailable Primary Care Provider [...] Date Chirag rded Speak language other than Costa [place]ican at home Not on file 11/01/2023 Want [...] Plan of Treatment Not on file Insurance [facility]
--- OUTSIDE RECORDS SUMMARY | 2025-02-13 10:53 | XMS_ITS | Encounter Summary ---
Author Organization [employer] ([place], [place], [place], [place], [place]) Address [address] [place] [address] Care Team Providers Care Electrical Supervisor Name Role Phone Unavailable Primary Care Provider Unavailabl e Encounter Details Date Type Department Care Team (Late st Contact Info) Description 04/03/2018 Transcribed Document [facility] [place] [address] [place] [address] ProviderDiego MD [address] [place] [address] Social History Tobacco Use Types Packs/Day Years Used Date Smoking Tobacco: Never Assessed Comments Unknown Sex and Gender Information Value Date Recorded Sex Assigned at Not on file Legal Sex Female 6:24 PM CDT Gender Identity Not on file Sexual Orientation Not on file documented as of this encounter Miscellaneous Notes * Cerner Conversion Note - Historical ProviderMD - 04/03/2018 5:00 AM HAND WRAPPER OPERATOR Chart Check - Review Order Profile [...]
--- OUTSIDE RECORDS SUMMARY | 2025-02-13 10:53 | XMS_ITS | Encounter Summary ---
Author Organization [employer] ([place], [place], [place], [place], [place]) Address [address] [place] [address] Care Team Providers Care Car Body Inspector Name Role Phone Unavailable Primary Care Provider Unavailabl e Encounter Details Date Type Department Care Team (Late st Contact Info) Description 04/02/2018 Transcribed Document [facility] [place] [address] ProviderDiego MD [address] [place] [phone] Social History Tobacco Use Types Packs/Day Years Used Date Smoking Tobacco: Never Assessed Comments Unknown Sex and Gender Information Value Date Recorded Sex Assigned at Not on file Legal Sex Female 6:24 PM CDT Gender Identity Not on file Sexual Orientation Not on file documented as of this encounter Miscellaneous Notes * Cerner Conversion Note - Diego ProviderMD - 04/02/2018 9:00 AM INFANT ROOM TEACHER Consult Phone Call Documentation Entered On: 04/03/2018 8:49 EST Performed On: 04/02/2018 9:00 EST by Lucy Marcial Patient Retail Pharmacy Merchandiser Phone Call for Consults Consult Phone Call/Page Attempt : First call Consult Reason : [email or web address] Physician Requested for Consult : MAGGI MCCLELLAN MD-Lucy Szymanski Patient Retail Pharmacy Merchandiser - 04/03/2018 8:48 EST documented in this encounter Plan of Treatment Not on file documented as of this encounter Visit Diagnoses Not on filedocumented in this encounter
--- OUTSIDE RECORDS SUMMARY | 2025-02-13 10:53 | XMS_ITS | Encounter Summary ---
Author Organization [employer] ([place], [place], [place], [place], [place]) Address [address] [place] [address] Care Team Providers Care Recycling Coordinator Name Role Phone Unavailable Primary Care Provider Unavailabl e Encounter Details Date Type Department Care Team (Late st Contact Info) Description 04/01/2018 Transcribed Document [facility] [place] Family Medicine [facility] [place] [address] ProviderDiego MD [address] [place] [address] Social History Tobacco Use Types Packs/Day Years Used Date Smoking Tobacco: Never Assessed Comments Unknown Sex and Gender Information Value Date Recorded Sex Assigned at Not on file Legal Sex Female 6:24 PM CDT Gender Identity Not on file Sexual Orientation Not on file documented as of this encounter Miscellaneous Notes * Cerner Conversion Note - Diego Mckeon MD - 04/01/2018 6:11 AM GREENHOUSE TECHNICIAN Patient: TERRIE ANDERSEN Age: 32 years Sex: [...] a bicarbonate infusion. Portable chest radiograph at [place] report is extensive bilateral pneumonia greatest on the right with small effusions. In-house chest x-ray is pending. Patient was transferred to [facility] for further evaluation. Pulmonary/critical care was [...] IV drug use. She does smoke cigarettes. [facility] Patient intubated and mechanically ventilated, she is [...] mg, 300 mL, 300 mL/Hr, IV Piggyback, [id number] bisacodyl: 10 mg, Rectal, BID, PRN: Constipation bisacodyl: 5 mg, Oral, BID, PRN: Constipation calcium gluconate: 2 Gram, 20 mL, 120 mL/Hr, IV Piggyback, 1-Time cloNIDine: 0.1 mg, Oral, Q4H, PRN: Hypertension docusate sodium: 240 mg, Nasogastric Tube, Daily doxycycline + Sodium Chloride 0.9% intravenous solution 100 mL: 100 mg, 50 mL/Hr, IV Piggyback, [id number] fentaNYL injection 1,000 mcg + Premix Diluent NaCl 0.9% for Drip 100 mL: Titrate, IntraVENous fludrocortisone: 0.1 mg, Oral, Daily heparin: 5,000 Units, SubCutaneous, Q8H hydrALAZINE: 10 mg, IV Push, Q6H, PRN: Hypertension hydrocortisone: 50 mg, IV Push, Q8H influenza virus vaccine, inactivated: 0.5 mL, IntraMuscular, [id number] morphine: 2 mg, IV Push, Q2H, PRN: Pain (Severe 7-10) ocular lubricant ophthalmic ointment: 1 Application, Eyes Both, BID, PRN: Dry Eyes oxyCODONE: 5 mg, Oral, Q4H, PRN: Pain (Moderate 4-6) phenylephrine injection 80 mg + NaCl 0.9% for drip 250 mL: Titrate, IntraVENous pneumococcal 23-polyvalent vaccine: 0.5 mL, IntraMuscular, [id number] propofol injection 1,000 mg + Premix Diluent [...] 0.019 (MAR 30) . [facility] Att[facility] Note: I have personally evaluated the [...] Replace calcium Pt had VQ scan at [facility] on 03/30, low probability for PE PPI for GI prophylaxis SCD; acute anemia FULL CODE Prognosis: guarded Critical Care time excluding procedures 34 minutes documented in this encounter Plan of Treatment Not on file documented as of this encounter Visit Diagnoses Not on filedocumented in this encounter
--- OUTSIDE RECORDS SUMMARY | 2025-02-13 10:53 | XMS_ITS | Encounter Summary ---
Author Organization [employer] ([place], [place], [place], [place], [place]) Address [address] [place] [address] Care Team Providers Care Business Services Sales Agent Name Role Phone Unavailable Primary Care Provider Unavailabl e Encounter Details Date Type Department Care Team (Late st Contact Info) Description 04/05/2018 Transcribed Document [facility] [place] [facility] [place] [address] ProviderDiego MD [address] [place] [address] Social History Tobacco Use Types Packs/Day Years Used Date Smoking Tobacco: Never Assessed Comments Unknown Sex and Gender Information Value Date Recorded Sex Assigned at Not on file Legal Sex Female 6:24 PM CDT Gender Identity Not on file Sexual Orientation Not on file documented as of this encounter Miscellaneous Notes * Cerner Conversion Note - Diego ProviderMD - 04/05/2018 11:27 AM INDUCTION FURNACE OPERATOR Patient: TERRIE ANDERSEN Age: 32 years Sex: Female : 1985 Associated Diagnoses: None Author: JESSE PEREZ, [facility] PULM / CCM PROGRESS NOTE No change in pt from pulmonary standpoint at this time, no change in plan Pulmonary will sign off please call if questions/ needed thanks Electronically signed by Everton Dalton Conversion Manager Administrative Services Cerdoris at 07/17/2022 7:12 PM CDT documented in this encounter Plan of Treatment Not on file documented as of this encounter Visit Diagnoses Not on filedocumented in this encounter
--- OUTSIDE RECORDS SUMMARY | 2025-02-13 10:53 | XMS_ITS | Encounter Summary ---
Author Organization [employer] ([place], [place], [place], [place], [place]) Address [address] [place] [address] Care Team Providers Care Senior National Account Manager Name Role Phone Unavailable Primary Care Provider Unavailabl e Encounter Details Date Type Department Care Team (Late st Contact Info) Description 04/03/2018 Transcribed Document [facility] [place] [facility] [place], [place] [id number] ProviderDiego MD [address] [place] [address] Social History Tobacco Use Types Packs/Day Years Used Date Smoking Tobacco: Never Assessed Comments Unknown Sex and Gender Information Value Date Recorded Sex Assigned at Not on file Legal Sex Female 6:24 PM CDT Gender Identity Not on file Sexual Orientation Not on file documented as of this encounter Miscellaneous Notes * Cerner Conversion Note - Diego Mckeon MD - 04/03/2018 10:22 AM PELLET MILL OPERATOR Patient: TERRIE ANDERSEN Age: 32 years Sex: Female : 1985 Associated Diagnoses: None Author: HIRA PUGH MD Basic Information Pulmonary/Critical Care Consultation Date of consult: 03/30/18 Date of admission: 03/30/18 Requesting physician: Dr Ji Reason for consult: Critical care management Chief complaint: Shortness of breath, anxiety History of present illness: History obtained from [facility] discharge summary. Patient 32-year-old female with a [...] a bicarbonate infusion. Portable chest radiograph at [place] report is extensive bilateral pneumonia greatest on the right with small effusions. In-house chest x-ray is pending. Patient was transferred to [facility] for further evaluation. Pulmonary/critical care was [...] influenza virus vaccine, inactivated: 0.5 mL, IntraMuscular, [id number] pneumococcal 23-polyvalent vaccine: 0.5 mL, IntraMuscular, [id number] Documented Medications Documented buprenorphine-naloxone 8 mg-2 mg [...] H 146 (APR 03:) DBP 67 (APR 03:) L 49 (APR 02 15:30) H 107 (APR 02 16:00) MAP 92 (APR 03:36) 65 (APR 02 15:30) 118 (APR 02 16:00) SpO2 98 (APR 03:36) L 90 (APR 03:) 100 (APR 02 [...]
--- OUTSIDE RECORDS SUMMARY | 2025-02-13 10:53 | XMS_ITS | Encounter Summary ---
Author Organization [employer] ([place], [place], [place], [place], [place]) Address [address] [place] [address] Care Team Providers Care Bacteriology Professor Name Role Phone Unavailable Primary Care Provider Unavailabl e Encounter Details Date Type Department Care Team (Late st Contact Info) Description 04/06/2018 Transcribed Document [facility] [place] Family [place] [facility] [place] [address] ProviderDiego MD [address] [place] [address] Social History Tobacco Use Types Packs/Day Years Used Date Smoking Tobacco: Never Assessed Comments Unknown Sex and Gender Information Value Date Recorded Sex Assigned at Not on file Legal Sex Female 6:24 PM CDT Gender Identity Not on file Sexual Orientation Not on file documented as of this encounter Miscellaneous Notes * Cerner Conversion Note - Diego Mckeon MD - 04/06/2018 11:54 AM FIRST PRESS OPERATOR Patient Education Materials Follows:Disease Community-Acquired Pneumonia, Adult [...] Follow these instructions at home: ??? Take sgdb-fqw-soorhyc and prescription medicines only as told by [...] and water are not available, use hand sales and marketing agent. Contact a doctor if: ??? You have [...] 11/21/2014 Document Revised: 08/25/2016 Document Reviewed: 10/21/2014 [employer] Patient Education ? 2016 [employer]. Obstetrics and Gynecology Pelvic Inflammatory Disease Introduction [...] Follow these instructions at home: ??? Take yjih-koz-lqezeyh and prescription medicines only as told by [...]
--- OUTSIDE RECORDS SUMMARY | 2025-02-13 10:53 | XMS_ITS | Clinical Summary ---
Author Organization [facility] Address [address] [place] [address] Phone Care Team Providers Care Regional Engagement Consultant Name Role Phone Unavailable Unavailable Conditions or Problems No information available. Medications No information available. Medications Administered No information available. Allergies, Adverse Reactions, Alerts No information available. Results No information available. Plan of Care No information available. Procedures No information available. Vital Signs No information available. Immunizations No information available. Advance Directives No information available.
--- OUTSIDE RECORDS SUMMARY | 2025-02-13 10:53 | XMS_ITS | Encounter Summary ---
Author Organization [employer] ([place], [place], [place], [place], [place]) Address [address] [place] [address] Care Team Providers Care Raymond Mill Operator Name Role Phone Unavailable Primary Care Provider Unavailabl e Encounter Details Date Type Department Care Team (Late st Contact Info) Description 04/07/2018 Transcribed Document [facility] [place] [address] ProviderDiego MD [address] [place] [address] Social History Tobacco Use Types Packs/Day Years Used Date Smoking Tobacco: Never Assessed Comments Unknown Sex and Gender Information Value Date Recorded Sex Assigned at Not on file Legal Sex Female 6:24 PM CDT Gender Identity Not on file Sexual Orientation Not on file documented as of this encounter Miscellaneous Notes * Cerner Conversion Note - Diego ProviderMD - 04/07/2018 11:09 AM BULLDOGGER Post Visit Phone Call Entered On: 04/07/2018 11:11 EST Performed On: 04/07/2018 11:09 EST by TRINH JERRY RN Post Visit Phone Call Post Visit Phone Call History : First call Contact Relationship to Patient : Self Emergency Room Visit Since DC : No Discharge Instructions Understood : Yes Follow-Up Actions : None TRINH JERRY RN - 04/07/2018 11:09 EST Electronically signed by Krystle [facility] Conversion Vice President Planning Cerner at 07/17/2022 7:22 PM CDT documented in this encounter Plan of Treatment Not on file documented as of this encounter Visit Diagnoses Not on filedocumented in this encounter
--- OUTSIDE RECORDS SUMMARY | 2025-02-13 10:53 | XMS_ITS | Encounter Summary ---
Author Organization [employer] ([place], [place], [place], [place], [place]) Address [address] [place] [address] Care Team Providers Care Glass Fitter Name Role Phone Unavailable Primary Care Provider Unavailabl e Encounter Details Date Type Department Care Team (Late st Contact Info) Description 04/02/2018 Transcribed Document [facility] [place] [facility] [place] [address] ProviderDiego MD [address] [place] [address] Social History Tobacco Use Types Packs/Day Years Used Date Smoking Tobacco: Never Assessed Comments Unknown Sex and Gender Information Value Date Recorded Sex Assigned at Not on file Legal Sex Female 6:24 PM CDT Gender Identity Not on file Sexual Orientation Not on file documented as of this encounter Miscellaneous Notes * Cerner Conversion Note - Diego Mckeon MD - 04/02/2018 9:35 AM MEDICAL TRANSCRIPTIONIST Patient: TERRIE ANDERSEN Age: 32 years Sex: Female : 1985 Associated Diagnoses: None Author: HIRA PUGH MD Basic Information Pulmonary/Critical Care Consultation Date of consult: 03/30/18 Date of admission: 03/30/18 Requesting physician: Dr Ji Reason for consult: Critical care management Chief complaint: Shortness of breath, anxiety History of present illness: History obtained from [facility] discharge summary. Patient 32-year-old female with a [...] a bicarbonate infusion. Portable chest radiograph at [place] report is extensive bilateral pneumonia greatest on the right with small effusions. In-house chest x-ray is pending. Patient was transferred to [facility] for further evaluation. Pulmonary/critical care was [...] mg, 300 mL, 300 mL/Hr, IV Piggyback, [id number] bisacodyl: 10 mg, Rectal, BID, PRN: Constipation bisacodyl: 5 mg, Oral, BID, PRN: Constipation cloNIDine: 0.1 mg, Oral, Q4H, PRN: Hypertension docusate sodium: 240 mg, Nasogastric Tube, Daily doxycycline + Sodium Chloride 0.9% intravenous solution 100 mL: 100 mg, 50 mL/Hr, IV Piggyback, [id number] fludrocortisone: 0.1 mg, Oral, Daily heparin: 5,000 [...] influenza virus vaccine, inactivated: 0.5 mL, IntraMuscular, [id number] pneumococcal 23-polyvalent vaccine: 0.5 mL, IntraMuscular, [id number], Medications (20) Active Scheduled: (8) docusate sod 100 mg/10 mL liq 240 mg 24 mL, Nasogastric Tube, Daily doxycycline hyclate + NaCl 0.9% 100 mL 100 mg, IV Piggyback, [id number] fludrocortisone 0.1 mg tab 0.1 mg 1 Tab, Oral, Daily heparin 5,000 units/1 mL inj 5,000 Units 1 mL, SubCutaneous, Q8H hydrocortisone 100 mg/2 mL inj 50 mg 1 mL, IV Push, Q8H linezolid *PREMIX* 600 mg 300 mL, IV Piggyback, [id number] pantoprazole 40 mg inj 40 mg, IV [...] (APR 02 09:30) Resp Rate 20 (APR 02 09:30) L 12 (APR 02 08:30) H 26 [...] Critical Care time excluding procedures 31 minutes documented in this encounter Plan of Treatment Not on file documented as of this encounter Visit Diagnoses Not on filedocumented in this encounter
--- OUTSIDE RECORDS SUMMARY | 2025-02-13 10:53 | XMS_ITS | Encounter Summary ---
Author Organization [employer] ([place], [place], [place], [place], [place]) Address [address] [place] [address] Care Team Providers Care Pole Climber Name Role Phone Unavailable Primary Care Provider Unavailabl e Encounter Details Date Type Department Care Team (Late st Contact Info) Description 04/06/2018 Transcribed Document [facility] [place] [facility] [place] [address] ProviderDiego MD [address] [place] [address] Social History Tobacco Use Types Packs/Day Years Used Date Smoking Tobacco: Never Assessed Comments Unknown Sex and Gender Information Value Date Recorded Sex Assigned at Not on file Legal Sex Female 6:24 PM CDT Gender Identity Not on file Sexual Orientation Not on file documented as of this encounter Miscellaneous Notes * Cerner Conversion Note - Diego Mckeon MD - 04/06/2018 8:40 AM RANGELAND MANAGEMENT SPECIALIST Patient: TERRIE ANDERSEN Age: 32 Years Sex: [...] cervical cultures sent - culdocentesis performed by ROLLED MATERIALS WORKER Valvular heart disease, mod pulmonic regurgitation Metabolic acidosis, 2/2 acute renal failure - resolved Hx of IVDA, weaned off of suboxone 5 days prior to admission to [facility] - Blood Cx neg Hospital Course: HISTORY OF PRESENT ILLNESS: This is a 32-year-old female, was admitted to [facility] because of shortness of breath, acute renal failure. Patient with history of IV drug abuse, on Suboxone, has been having shortness of breath, tachycardia, hypotension. Patient was evaluated there and found with acute renal failure. Patient was started on vancomycin and Zosyn. She started requiring more oxygen and not doing well. Kidney function worsened. Patient was started on BiPAP and transferred to [facility]. Patient had been seen and evaluated and [...] was started on abx for presumed PID. Printed Circuit Boards Inspector was consulted, who agreed with treatment and [...]
--- OUTSIDE RECORDS SUMMARY | 2025-02-13 10:53 | XMS_ITS | Encounter Summary ---
Author Organization [employer] ([place], [place], [place], [place], [place]) Address [address] [place] [address] Care Team Providers Care Classroom Instructor Name Role Phone Unavailable Primary Care Provider Unavailabl e Encounter Details Date Type Department Care Team (Late st Contact Info) Description 03/30/2018 Transcribed Document [facility] [place] [facility] [address] ProviderDiego MD [address] [place] [address] Social History Tobacco Use Types Packs/Day Years Used Date Smoking Tobacco: Never Assessed Comments Unknown Sex and Gender Information Value Date Recorded Sex Assigned at Not on file Legal Sex Female 6:24 PM CDT Gender Identity Not on file Sexual Orientation Not on file documented as of this encounter Miscellaneous Notes * Cerner Conversion Note - Diego ProviderMD - 03/30/2018 8:40 PM PERIPATOLOGIST Pain Assessment Entered On: 04/04/2018 21:42 EST [...]
--- OUTSIDE RECORDS SUMMARY | 2025-02-13 10:53 | XMS_ITS | Encounter Summary ---
Author Organization [employer] ([place], [place], [place], [place], [place]) Address [address] [place] [address] Care Team Providers Care Nuclear Scientist Name Role Phone Unavailable Primary Care Provider Unavailabl e Encounter Details Date Type Department Care Team (Late st Contact Info) Description 03/31/2018 Transcribed Document [facility] [place] [facility] [place] [address] ProviderDiego MD [address] [place] [address] Social History Tobacco Use Types Packs/Day Years Used Date Smoking Tobacco: Never Assessed Comments Unknown Sex and Gender Information Value Date Recorded Sex Assigned at Not on file Legal Sex Female 6:24 PM CDT Gender Identity Not on file Sexual Orientation Not on file documented as of this encounter Miscellaneous Notes * Cerner Conversion Note - Diego Mckeon MD - 03/31/2018 12:16 AM CLINICAL PHARMACY COORDINATOR DATE OF ADMISSION: 03/30/2018 PRIMARY CARE PHYSICIAN: [...] was started on BiPAP and transferred to [facility]. Patient had been seen and evaluated and [...] acid 0.8, CK 25, troponin 0.019, BNP 78182. White blood cells 17.2, hemoglobin 6.8, hematocrit [...] 03/31/2018 02:53:05 CC1: Juan J Ji M.D. Electronically signed by Everton Dalton Conversion Business Office Representative Cerner at 07/17/2022 7:20 PM CDT documented in this encounter Plan of Treatment Not on file documented as of this encounter Visit Diagnoses Not on filedocumented in this encounter
--- OUTSIDE RECORDS SUMMARY | 2025-02-13 10:53 | XMS_ITS | Encounter Summary ---
Author Organization [employer] ([place], [place], [place], [place], [place]) Address [address] [place] [address] Care Team Providers Care Electronics Maintenance Technician Name Role Phone Unavailable Primary Care Provider Unavailabl e Encounter Details Date Type Department Care Team (Late st Contact Info) Description 04/06/2018 Transcribed Document [facility] [place] [facility] [place] [address] ProviderDiego MD [address] [place] [address] Social History Tobacco Use Types Packs/Day Years Used Date Smoking Tobacco: Never Assessed Comments Unknown Sex and Gender Information Value Date Recorded Sex Assigned at Not on file Legal Sex Female 6:24 PM CDT Gender Identity Not on file Sexual Orientation Not on file documented as of this encounter Miscellaneous Notes * Cerner Conversion Note - Historical ProviderMD - 04/06/2018 11:50 AM FIRST MATE Nursing Discharge Summary Entered On: 04/06/2018 11:51 [...] 04/06/2018 11:50 EST Electronically signed by Krystle, [facility] Conversion Adult Crossing Guard Cerner at 07/17/2022 7:16 PM CDT documented in this encounter Plan of Treatment Not on file documented as of this encounter Visit Diagnoses Not on filedocumented in this encounter
--- OUTSIDE RECORDS SUMMARY | 2025-02-13 10:53 | XMS_ITS | Encounter Summary ---
Author Organization [employer] ([place], [place], [place], [place], [place]) Address [address] [place] [address] Care Team Providers Care Painter Supervisor Name Role Phone Unavailable Primary Care Provider Unavailabl e Encounter Details Date Type Department Care Team (Late st Contact Info) Description 04/06/2018 Transcribed Document [facility] [place] [facility] [place] [address] ProviderDiego MD [address] [place] [address] Social History Tobacco Use Types Packs/Day Years Used Date Smoking Tobacco: Never Assessed Comments Unknown Sex and Gender Information Value Date Recorded Sex Assigned at Not on file Legal Sex Female 6:24 PM CDT Gender Identity Not on file Sexual Orientation Not on file documented as of this encounter Miscellaneous Notes * Cerner Conversion Note - Historical ProviderMD - 04/06/2018 7:55 AM INVESTMENT UNDERWRITER Event Note Entered On: 04/06/2018 7:55 EST Performed On: 04/06/2018 7:55 EST by Tonya Samson Rn-Resource Event Note Event Date/Time : 04/06/2018 7:55 EST Event Location : Assigned room Event Details : Other: orientee Description of Event : This nurse has reviewed assessment and charting of orientee and is in agreement. Tonya Samson Rn-Resource - 04/06/2018 7:55 EST documented in this encounter Plan of Treatment Not on file documented as of this encounter Visit Diagnoses Not on filedocumented in this encounter
--- OUTSIDE RECORDS SUMMARY | 2025-02-13 10:53 | XMS_ITS | Encounter Summary ---
Author Organization [employer] ([place], [place], [place], [place], [place]) Address [address] [place] [address] Care Team Providers Care Manager Engagement Name Role Phone Unavailable Primary Care Provider Unavailabl e Encounter Details Date Type Department Care Team (Late st Contact Info) Description 04/05/2018 Transcribed Document [facility] [place] [facility] [place] [address] ProviderDiego MD [address] [place] [address] Social History Tobacco Use Types Packs/Day Years Used Date Smoking Tobacco: Never Assessed Comments Unknown Sex and Gender Information Value Date Recorded Sex Assigned at Not on file Legal Sex Female 6:24 PM CDT Gender Identity Not on file Sexual Orientation Not on file documented as of this encounter Miscellaneous Notes * Cerner Conversion Note - Historical ProviderMD - 04/05/2018 2:00 AM FLIGHT MANAGER Aircraft Charter Dispatcher Details Entered On: 04/05/2018 1:59 EST Performed [...] 04/05/2018 1:59 EST Electronically signed by Krystle [facility] Conversion Market Risk Analyst Cerner at 07/17/2022 7:13 PM CDT documented in this encounter Plan of Treatment Not on file documented as of this encounter Visit Diagnoses Not on filedocumented in this encounter
--- OUTSIDE RECORDS SUMMARY | 2025-02-13 10:53 | XMS_ITS | Encounter Summary ---
Author Organization [employer] ([place], [place], [place], [place], [place]) Address [address] [place] [address] Care Team Providers Care Lan/Wan Engineer Name Role Phone Unavailable Primary Care Provider Unavailabl e Encounter Details Date Type Department Care Team (Late st Contact Info) Description 04/09/2018 Transcribed Document [facility] [place] [facility] [place], [place] [id number] ProviderDiego MD [address] [place] [address] Social History Tobacco Use Types Packs/Day Years Used Date Smoking Tobacco: Never Assessed Comments Unknown Sex and Gender Information Value Date Recorded Sex Assigned at Not on file Legal Sex Female 6:24 PM CDT Gender Identity Not on file Sexual Orientation Not on file documented as of this encounter Miscellaneous Notes * Cerner Conversion Note - Diego ProviderMD - 04/09/2018 10:50 AM CREDIT COLLECTIONS MANAGER Care Management Assessment/Plan Entered On: 04/09/2018 10:51 EST Performed On: 04/09/2018 10:50 EST by Jason Gonzalez, Solar Energy System Installer Helper Care Management Note Anticipated Discharge Date : 04/06/2018 15:00 EST Care Management Note Report : Blanca Crawford Rn-Supervisor Coffee - 04/06/18 09:09:55 Patient with discharge orders. Appointment with [facility] made on 04/11/18 1:45; information in depart screen. Blanca Crawford Rn-Supervisor Coffee - 04/06/18 09:16:24 Patient with discharge orders. [...] primary care assignement. pt attends [facility] [place] will need follow up appt at dc. home health vs not when ready for dc. spoke with zachary Sims RN. MICHAELA OAKES, ROXANA - 04/02/18 10:31:16 readmit risk: moderate 47. transfer [facility]. resp failure. sepsis. renal failure. pelvic ascites: ? PID vs abscess. 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 doxycycline/zyvox/zosyn iv. hydrocortisone iv. awake, talking. spoke with Ms. Andersen & her parents. explained role of case management. pt resides in [facility] with parents. she is adl independent. no dme or home health. no previous rehab stays. current with suboxone clinic in [place], [facility], . reported to be clean for a year. she has no warp preparer. Would like to see Dr Titus Giron in [place]. discussed dc planning based on progess. referral to MD Derick Gomez, alerted to preference of Dr Titus Giron. schedule appt with [facility] when ready for dc. spoke with zachary Espinosa RN. re-evaluate in am to see if she will need PT consult. Documentation Status Complete : Yes Jason Gonzalez, Solar Energy System Installer Helper - 04/09/2018 10:50 EST Discharge Planning Details Follow-up Appointments Made #1 : [address] Galarza Appointment is scheduled for: Terrie Andersen 05/02/2018 at 05:00:PM Follow-up Appointment Date #1 : 05/02/2018 17:00 EST Discharge Planning Details Note : [address] [place] [address] [address] Galarza Appointment is scheduled for: Terrie Andersen 05/02/2018 at 05:00:PM Called mother, scheduled appointment for patient. Jason Gonzalez, Solar Energy System Installer Helper - 04/09/2018 10:50 EST documented in this encounter Plan of Treatment Not on file documented as of this encounter Visit Diagnoses Not on filedocumented in this encounter
--- OUTSIDE RECORDS SUMMARY | 2025-02-13 10:54 | XMS_ITS | Encounter Summary ---
Author Organization [employer] ([place], [place], [place], [place], [place]) Address [address] [place] [address] Care Team Providers Care Dance Hall Host/Hostess Name Role Phone Unavailable Primary Care Provider Unavailabl e Encounter Details Date Type Department Care Team (Late st Contact Info) Description 04/05/2018 Transcribed Document [facility] [place] [facility] [place] [address] ProviderDiego MD [address] [place] [address] Social History Tobacco Use Types Packs/Day Years Used Date Smoking Tobacco: Never Assessed Comments Unknown Sex and Gender Information Value Date Recorded Sex Assigned at Not on file Legal Sex Female 6:24 PM CDT Gender Identity Not on file Sexual Orientation Not on file documented as of this encounter Miscellaneous Notes * Cerner Conversion Note - Historical ProviderMD - 04/05/2018 2:[address] OT Charges Entered On: 04/05/2018 14:27 EST Performed On: 04/05/2018 14:27 EST by TRELL CRAWFORD OTR/Monster Weller OT Charges Screen For Business Services Administrator : 1 TRELL CRAWFORD OTR/Monster - 04/05/2018 14:27 EST Electronically signed by Everton Dalton Conversion Fur Trimming Machine Operator Cerner at 07/17/2022 7:11 PM CDT documented in this encounter Plan of Treatment Not on file documented as of this encounter Visit Diagnoses Not on filedocumented in this encounter
--- OUTSIDE RECORDS SUMMARY | 2025-02-13 10:54 | XMS_ITS | Encounter Summary ---
Author Organization [employer] ([place], [place], [place], [place], [place]) Address [address] [place] [address] Care Team Providers Care Medical Doctor Nuclear Medicine Name Role Phone Unavailable Primary Care Provider Unavailabl e Encounter Details Date Type Department Care Team (Late st Contact Info) Description 04/05/2018 Transcribed Document [facility] [place] Family Medicine [address] [place] [address] ProviderDiego MD [address] [place] [address] Social History Tobacco Use Types Packs/Day Years Used Date Smoking Tobacco: Never Assessed Comments Unknown Sex and Gender Information Value Date Recorded Sex Assigned at Not on file Legal Sex Female 6:24 PM CDT Gender Identity Not on file Sexual Orientation Not on file documented as of this encounter Miscellaneous Notes * Cerner Conversion Note - Historical ProviderMD - 04/05/2018 2:17 PM YARN CLEANER Therapy Screen, OT Entered On: 04/05/2018 14:27 [...] TRELL CRAWFORD OTR/L - 04/05/2018 14:17 EST Electronically signed by Krystle [facility] Conversion Candle Molder Hand Cerner at 07/17/2022 7:14 PM CDT documented in this encounter Plan of Treatment Not on file documented as of this encounter Visit Diagnoses Not on filedocumented in this encounter
--- OUTSIDE RECORDS SUMMARY | 2025-02-13 10:54 | XMS_ITS | Encounter Summary ---
Author Organization [employer] ([place], [place], [place], [place], [place]) Address [address] [place] [address] Care Team Providers Care Underground Distribution Engineer Name Role Phone Unavailable Primary Care Provider Unavailabl e Encounter Details Date Type Department Care Team (Late st Contact Info) Description 04/04/2018 Transcribed Document [facility] [place] Medicine [address] [place] [address] ProviderDiego MD [address] [place] [address] Social History Tobacco Use Types Packs/Day Years Used Date Smoking Tobacco: Never Assessed Comments Unknown Sex and Gender Information Value Date Recorded Sex Assigned at Not on file Legal Sex Female 6:24 PM CDT Gender Identity Not on file Sexual Orientation Not on file documented as of this encounter Miscellaneous Notes * Cerner Conversion Note - Historical ProviderMD - 04/04/2018 5:00 PM DESKTOP SUPPORT CONSULTANT Chart Check - Review Order Profile Entered [...]
--- OUTSIDE RECORDS SUMMARY | 2025-02-13 10:54 | XMS_ITS | Encounter Summary ---
Author Organization [employer] ([place], [place], [place], [place], [place]) Address [address] [place] [address] Care Team Providers Care Care Nurse Rn Name Role Phone Unavailable Primary Care Provider Unavailabl e Encounter Details Date Type Department Care Team (Late st Contact Info) Description 04/04/2018 Transcribed Document [facility] [place] [facility] [place], [place] [id number] ProviderDiego MD [address] [place] [address] Social History Tobacco Use Types Packs/Day Years Used Date Smoking Tobacco: Never Assessed Comments Unknown Sex and Gender Information Value Date Recorded Sex Assigned at Not on file Legal Sex Female 6:24 PM CDT Gender Identity Not on file Sexual Orientation Not on file documented as of this encounter Miscellaneous Notes * Cerner Conversion Note - Diego Mckeon MD - 04/04/2018 9:52 AM CITY COLLECTOR Patient: TERRIE ANDERSEN Age: 32 years Sex: Female : 1985 Associated Diagnoses: None Author: HIRA PUGH MD Basic Information History of present illness: History obtained from [facility] discharge summary. Patient 32-year-old female with [...] a bicarbonate infusion. Portable chest radiograph at [place] report is extensive bilateral pneumonia greatest on the right with small effusions. In-house chest x-ray is pending. Patient was transferred to [facility] for further evaluation. Pulmonary/critical care was consulted [...] influenza virus vaccine, inactivated: 0.5 mL, IntraMuscular, [id number] pneumococcal 23-polyvalent vaccine: 0.5 mL, IntraMuscular, [id number] Documented Medications Documented buprenorphine-naloxone 8 mg-2 mg [...] Ambulating OK to transfer out of ICU. documented in this encounter Plan of Treatment Not on file documented as of this encounter Visit Diagnoses Not on filedocumented in this encounter
--- OUTSIDE RECORDS SUMMARY | 2025-02-13 10:54 | XMS_ITS | Encounter Summary ---
Author Organization [employer] ([place], [place], [place], [place], [place]) Address [address] [place] [address] Care Team Providers Care Home Assessment Nurse Name Role Phone Unavailable Primary Care Provider Unavailabl e Encounter Details Date Type Department Care Team (Late st Contact Info) Description 04/03/2018 Transcribed Document [facility] [place] [facility] [place] [address] ProviderDiego MD [address] [place] [address] Social History Tobacco Use Types Packs/Day Years Used Date Smoking Tobacco: Never Assessed Comments Unknown Sex and Gender Information Value Date Recorded Sex Assigned at Not on file Legal Sex Female 6:24 PM CDT Gender Identity Not on file Sexual Orientation Not on file documented as of this encounter Miscellaneous Notes * Cerner Conversion Note - Historical ProviderMD - 04/03/2018 2:00 AM BREAKFAST ATTENDANT Landscape Laborer Details Entered On: 04/03/2018 1:05 EST Performed [...] 04/03/2018 1:04 EST Electronically signed by Krystle [facility] Conversion Valve Lapper Cerner at 07/17/2022 7:17 PM CDT documented in this encounter Plan of Treatment Not on file documented as of this encounter Visit Diagnoses Not on filedocumented in this encounter
--- OUTSIDE RECORDS SUMMARY | 2025-02-13 10:54 | XMS_ITS | Encounter Summary ---
Author Organization [employer] ([place], [place], [place], [place], [place]) Address [address] [place] [address] Care Team Providers Care Litigation Attorney Name Role Phone Unavailable Primary Care Provider Unavailabl e Encounter Details Date Type Department Care Team (Late st Contact Info) Description 03/30/2018 Transcribed Document [facility] [place] [facility] [place] [address] ProviderDiego MD [address] [place] [address] Social History Tobacco Use Types Packs/Day Years Used Date Smoking Tobacco: Never Assessed Comments Unknown Sex and Gender Information Value Date Recorded Sex Assigned at Not on file Legal Sex Female 6:24 PM CDT Gender Identity Not on file Sexual Orientation Not on file documented as of this encounter Miscellaneous Notes * Cerner Conversion Note - Diego ProviderMD - 03/30/2018 11:44 PM FILM COLOR TESTER Patient: TERRIE ANDERSEN Age: 32 years Sex: [...] laryngoscopy performed, tube site oral, # 7.5 Irish tube cuffed placed, taped at 24 cm [...]
--- OUTSIDE RECORDS SUMMARY | 2025-02-13 10:54 | XMS_ITS | Encounter Summary ---
Author Organization [employer] ([place], [place], [place], [place], [place]) Address [address] [place] [address] Care Team Providers Care Nursery Helper Name Role Phone Unavailable Primary Care Provider Unavailabl e Encounter Details Date Type Department Care Team (Late st Contact Info) Description 04/03/2018 Transcribed Document [facility] [place] [facility] [place], [place] [id number] ProviderDiego MD [address] [place] [id number] Social History Tobacco Use Types Packs/Day Years Used Date Smoking Tobacco: Never Assessed Comments Unknown Sex and Gender Information Value Date Recorded Sex Assigned at Not on file Legal Sex Female 6:24 PM CDT Gender Identity Not on file Sexual Orientation Not on file documented as of this encounter Miscellaneous Notes * Cerner Conversion Note - Diego Mckeon MD - 04/03/2018 6:12 PM SALES CONSULTING DIRECTOR DATE OF PROCEDURE:04/01/2018 INDICATIONS: Pelvic ascites of [...]
--- OUTSIDE RECORDS SUMMARY | 2025-02-13 10:54 | XMS_ITS | Patient Health Record ---
Author Organization [facility] Address [address] [facility] [place] [address] Care Team Providers Care Delivery Aide Name Role Phone Harleen Rg Primary Care Provider [phone] Allergies Allergen (clinical drug ingredient) Drug/Non Drug Allergy documented on EMR Reaction Allergy Type Onset Date Status amoxicillin / clavulanate Augmentin rash Drug Allergy Active Reason For Referral No Information Medications Medication SIG (Take, Route, Fr equency, Duration) Notes Start Date End Date Status Trileptal Active Vistaril 25 MG 1 capsule Orally BID Active Paxil 10 MG 1 tablet in the morn ing Orally Once a day Active SEROquel 100 MG 1 tablet at bedtime Orally Once a day Active Cymbalta 30 MG 1 capsule Orally Once a day Active Vivitrol 380 MG 4 ml Intramuscular e very 4 weeks; Duration: 28 days 01/12/2022 Active Social History Tobacco Use: Social History Observation Description Date Details (start date - stop date) Current Smoker NA - NA Tobacco Use/Smoking Question Answer Notes Are you a current smoker How often do you smoke cigarettes? every day How many cigarettes a day do you smoke? 11-20 Section Notes: HS education HS education HS education HS education Problems Problem Type SNOMED Code ICD Code Onset Dates Problem Status W/U Status Risk Notes Problem Alcohol dependence (28576217) Uncomplicated alcohol dependence (F10.20) Active confirmed Problem Opioid dependence (72253171) Uncomplicated opioid dependence (F11.20) Active confirmed Plan Of Treatment No Information Insurance Providers Payer Name Payer Address Payer Phone Subscriber Number Group Number Insured Name Patient Relationship to Insured Coverage Start Date Coverage End Date [employer] [address] [place], [place] [id number] [phone] [id number] Terrie Andersen Self - patient is the insured 2 Medical (General) History Medical History History ICD Code substance abuse PTSD Acute kidney injury Bipolar disorder Surgical History Surgery Date(Month/Year) cyst removal from left breast 2007 tubal ligation 2015 Ear tubes 1999 Hospitalization History Reason Date(Month/Year) childbirth x2
--- OUTSIDE RECORDS SUMMARY | 2025-02-13 10:54 | XMS_ITS | Encounter Summary ---
Author Organization [employer] ([place], [place], [place], [place], [place]) Address [address] [place] [address] Care Team Providers Care Language Teacher Name Role Phone Unavailable Primary Care Provider Unavailabl e Encounter Details Date Type Department Care Team (Late st Contact Info) Description 04/04/2018 Transcribed Document [facility] [place] [address] [place] [address] ProviderDiego MD [address] [place] [address] Social History Tobacco Use Types Packs/Day Years Used Date Smoking Tobacco: Never Assessed Comments Unknown Sex and Gender Information Value Date Recorded Sex Assigned at Not on file Legal Sex Female 6:24 PM CDT Gender Identity Not on file Sexual Orientation Not on file documented as of this encounter Miscellaneous Notes * Cerner Conversion Note - Historical ProviderMD - 04/04/2018 9:49 AM DEPARTMENT CLINICIAN Clinical Dietitian Note Entered On: 04/04/2018 9:43 [...] RICHARDS RD, LD - 04/04/2018 9:44 EST Electronically signed by Everton Dalton Conversion Delinquent Tax Collector Assistant Cerner at 07/17/2022 7:12 PM CDT documented in this encounter Plan of Treatment Not on file documented as of this encounter Visit Diagnoses Not on filedocumented in this encounter
--- OUTSIDE RECORDS SUMMARY | 2025-02-13 10:54 | XMS_ITS | Clinical Summary ---
Author Organization [employer] ([place], [place], [place], [place], [place]) Address [address] [place] [address] Care Team Providers Care Behavior Support Specialist Name Role Phone Unavailable Primary Care [...] Date Chirag rded Speak language other than Panamanian at home Not on file 11/01/2023 Want [...] Counseling and Screening (12+) 10/3111/01/2023 COVID-19 VACCINE ( - 2023- season) 2024 Influenza Vaccine (#1) [address] [place] [address]
--- OUTSIDE RECORDS SUMMARY | 2025-02-13 10:54 | XMS_ITS | Encounter Summary ---
Author Organization [employer] ([place], [place], [place], [place], [place]) Address [address] [place] [address] Care Team Providers Care Logistics Program Manager Name Role Phone Unavailable Primary Care Provider Unavailabl e Encounter Details Date Type Department Care Team (Late st Contact Info) Description 04/04/2018 Transcribed Document [facility] [place] [address] ProviderDiego MD [address] [place] [address] Social History Tobacco Use Types Packs/Day Years Used Date Smoking Tobacco: Never Assessed Comments Unknown Sex and Gender Information Value Date Recorded Sex Assigned at Not on file Legal Sex Female 6:24 PM CDT Gender Identity Not on file Sexual Orientation Not on file documented as of this encounter Miscellaneous Notes * Cerner Conversion Note - Historical ProviderMD - 04/04/2018 8:12 AM LICENSED INSURANCE AGENT Evaluation, Physical Therapy Entered On: 04/05/2018 12:38 [...] : 03/30/2018 19:55 Assisted by, PT : prepress technician/aide Personal Devices : Personal Devices No Devices Recorded Assistive Devices : Assistive Devices No Devices Recorded General Information Comment, PT : Hx: SOA, septic shock, acute renal failkure, intubated on 03/31 and extubated 04/04 PMHx: IV drug abuse SHORTY ANGUIANO, PT - 04/05/2018 12:30 EST General Status Patient Received Status : Up in chair Treatment Start Time : 04/05/2018 9:41 EST Patient Left Status : Up in chair, Communication board completed, All needs met and within reach RN/PCT Informed Comment : RN OK'd PTx Treatment End Time : 04/05/2018 9:57 [...] Independent Prior LOF Transfer : Independent SHORTY ANGUIANO, PT - 04/05/2018 12:30 EST Upper Extremity Right UE Active ROM : WFL Left UE Active ROM : WFL SHORTY ANGUIANO, PT - 04/05/2018 12:30 EST Lower Extremity RLE Active ROM : [facility] LLE Active ROM : [facility] SHORTY ANGUIANO PT - 04/05/2018 12:30 EST Functional Mobility [...] 3-5 Steps with a Railing : None [facility] Basic Mobility Raw Score : 24 [facility] Basic Mobility Standardized Score : 61.14 [facility] Basic Mobility CMS 0-100% Score : 0.00 [...] x 4 Attention Assessment : Present SHORTY ANGUIANO PT - 04/05/2018 12:30 EST Edu Topics [...] Pain Improved by Intervention : No SHORTY ANGUIANO, PT - 04/05/2018 12:30 EST Image 1 - Images currently included in the form version of this document have not been included in the text rendition version of the form. Anticipated Discharge Needs, OT/PT Anticipated Discharge to : Home, independently Recommend Continued Therapy at Discharge : No SHORTY ANGUIANO, PT - 04/05/2018 12:[address] [facility] PT Eval Low Complexity : 1 SHORTY ANGUIANO PT - 04/05/2018 12:30 EST documented in this encounter Plan of Treatment Not on file documented as of this encounter Visit Diagnoses Not on filedocumented in this encounter
--- OUTSIDE RECORDS SUMMARY | 2025-02-13 10:54 | XMS_ITS | Encounter Summary ---
Author Organization [employer] ([place], [place], [place], [place], [place]) Address [address] [place] [address] Care Team Providers Care Rehabilitation Assistant Name Role Phone Unavailable Primary Care Provider Unavailabl e Encounter Details Date Type Department Care Team (Late st Contact Info) Description 04/05/2018 Transcribed Document [facility] [place] Medicine Formerly [place] [address] ProviderDiego MD [address] [place] [phone] Social History Tobacco Use Types Packs/Day Years Used Date Smoking Tobacco: Never Assessed Comments Unknown Sex and Gender Information Value Date Recorded Sex Assigned at Not on file Legal Sex Female 6:24 PM CDT Gender Identity Not on file Sexual Orientation Not on file documented as of this encounter Miscellaneous Notes * Cerner Conversion Note - Diego ProviderMD - 04/05/2018 4:00 PM MONORAIL HOOKER Pain Assessment Entered On: 04/05/2018 17:17 EST [...]
--- OUTSIDE RECORDS SUMMARY | 2025-02-13 10:54 | XMS_ITS | Encounter Summary ---
Author Organization [employer] ([place], [place], [place], [place], [place]) Address [address] [place] [address] Care Team Providers Care Jacquard Fixer Name Role Phone Unavailable Primary Care Provider Unavailabl e Encounter Details Date Type Department Care Team (Late st Contact Info) Description 04/06/2018 Transcribed Document [facility] [place] [address] [place] [address] ProviderDiego MD [address] [place] [phone] Social History Tobacco Use Types Packs/Day Years Used Date Smoking Tobacco: Never Assessed Comments Unknown Sex and Gender Information Value Date Recorded Sex Assigned at Not on file Legal Sex Female 6:24 PM CDT Gender Identity Not on file Sexual Orientation Not on file documented as of this encounter Miscellaneous Notes * Cerner Conversion Note - Diego Mckeon MD - 04/06/2018 11:54 AM MIXER HELPER [address] [place] [address] Patient Copy Patient Information: Name: TERRIE ANDERSEN Current Date: 04/06/2018 11:54:05 : 1985 Patient Address: [address] [facility] [address] Patient Attending Physician: LORENZA FANG MD Primary Care Provider: YOAN, NOT LISTED Primary Care Provider Phone: Discharge Diagnosis: 1:Septic shock; 2:Acute pelvic inflammatory disease (PID); 3:History of PID; 4:Pelvic ascites; 5:PNA (pneumonia) Weight on Admission: 154 lb, 4 oz Weight at Discharge: 153 lb, 0 oz Comment: Follow-up Instructions: With: Address: When: Prescribers [facility] [phone] 1:45 AM Comments: Appointment has been made [...] Follow these instructions at home: ??? Take fnpr-dem-propnis and prescription medicines only as told by [...] and water are not available, use hand brake assembler. Contact a doctor if: ??? You have [...] 11/21/2014 Document Revised: 08/25/2016 Document Reviewed: 10/21/2014 [employer] Patient Education ? 2016 [employer] Pelvic Inflammatory Disease Introduction Pelvic inflammatory [...] Follow these instructions at home: ??? Take rqnm-qro-wzbjxrd and prescription medicines only as told by [...] or life-threatening conditions such as anthrax or [place] spotted fever. The benefit of treating a [...] may report side effects to FDA at 9-954-DMN-4449. What other drugs will affect doxycycline? Sometimes it is not safe to use certain medications at the same time. Some drugs can affect your blood levels of other drugs you take, which may increase side effects or make the medications less effective. Other drugs may affect doxycycline, including prescription and mkoa-xmd-goearmz medicines, vitamins, and herbal products. Tell your [...] to ensure that the information provided by [employer]. ('[employer]') is accurate, up-to-date, and complete, but no guarantee is made to that effect. Drug information contained herein may be time sensitive. [employer] information has been compiled for use by healthcare practitioners and consumers in the [place] and therefore [employer] does not warrant that uses outside of the [place] are appropriate, unless specifically indicated otherwise. [employer] drug information does not endorse drugs, diagnose patients or recommend therapy. [employer] drug information is an informational resource designed [...] effective or appropriate for any given patient. [employer] does not assume any responsibility for any aspect of healthcare administered with the aid of information [employer] provides. The information contained herein is not intended to cover all possible uses, directions, precautions, warnings, drug interactions, allergic reactions, or adverse effects. If you have questions about the drugs you are taking, check with your doctor, nurse or pharmacist. Copyright 5119-5646 [employer]. Version: 20.02. Revision Date: 07/12/2017. metronidazole (me [...] (more likely to occur while taking metronidazole fdc): ? numbness, tingling, or burning pain in [...] may report side effects to FDA at 7-521-QEA-3249. What other drugs will affect metronidazole? Sometimes [...] drugs may affect metronidazole, including prescription and ybgi-zey-jxvsyon medicines, vitamins, and herbal products. Not all [...] to ensure that the information provided by [employer]. [employer]') is accurate, up-to-date, and complete, but no guarantee is made to that effect. Drug information contained herein may be time sensitive. [employer] information has been compiled for use by healthcare practitioners and consumers in the [place] and therefore [employer] does not warrant that uses outside of the [place] are appropriate, unless specifically indicated otherwise. [employer] drug information does not endorse drugs, diagnose patients or recommend therapy. [employer] drug information is an informational resource designed [...] or appropriate for any given patient. [facility] does not assume any responsibility for any aspect of healthcare administered with the aid of information [facility] provides. The information contained herein is not intended to cover all possible uses, directions, precautions, warnings, drug interactions, allergic reactions, or adverse effects. If you have questions about the drugs you are taking, check with your doctor, nurse or pharmacist. Copyright 4742-2347 [facility] [employer]. Version: 12.. Revision Date: 01/22/2018. methylprednisolone (oral) [...] expected to produce life threatening symptoms. However, computer terminal operator use of high steroid doses can [...] may report side effects to FDA at 8-245-EPX-6735. What other drugs will affect methylprednisolone? Other drugs may interact with methylprednisolone, including prescription and bkab-fhw-jcijoub medicines, vitamins, and herbal products. Tell each [...] to ensure that the information provided by [employer]. ('[employer]') is accurate, up-to-date, and complete, but no guarantee is made to that effect. Drug information contained herein may be time sensitive. [employer] information has been compiled for use by healthcare practitioners and consumers in the [place] and therefore [employer] does not warrant that uses outside of the [place] are appropriate, unless specifically indicated otherwise. [employer] drug information does not endorse drugs, diagnose patients or recommend therapy. [employer] drug information is an informational resource designed [...] effective or appropriate for any given patient. [employer] does not assume any responsibility for any aspect of healthcare administered with the aid of information [employer] provides. The information contained herein is not intended to cover all possible uses, directions, precautions, warnings, drug interactions, allergic reactions, or adverse effects. If you have questions about the drugs you are taking, check with your doctor, nurse or pharmacist. Copyright 7167-5288 [employer]. Version: 9.01. Revision Date: 11/30/2016. CIGARETTE SMOKING: The facts are clear, cigarette smoking will shorten your life. Smoking can cause many illnesses along the way. As a healthcare provider, we recommend that you stop smoking. Assistance with quitting is available by contacting 6-970-CZMN-NOW. This is a free resource providing counseling, [...] Be sure to sign up for the [employer] patient portal, which gives you 24/ access to your medical information ??? including these discharge instructions ??? using your computer, smartphone, or tablet. Just go to [employer] to get started. Questions? Call . [facility] would like to thank you for allowing us to assist you with your healthcare needs. VEENA Marino KAYLA, (or sales representative metals) have received the above patient education materials/instructions and have verbalized understanding: Patient Signature _ Date/Time Patient Director Alumni Relations Signature (if needed) Date/Time Clinician/Hospital Director Alumni Relations Signature (if needed) Date/Time Electronically signed by Krystle, [facility] Conversion [employer] Winder Cerner at 07/17/2022 7:10 PM CDT documented in this encounter Plan of Treatment Not on file documented as of this encounter Visit Diagnoses Not on filedocumented in this encounter
--- OUTSIDE RECORDS SUMMARY | 2025-02-13 10:54 | XMS_ITS | Encounter Summary ---
Author Organization [employer] ([place], [place], [place], [place], [place]) Address [address] [place] [address] Care Team Providers Care Steamtable Worker Name Role Phone Unavailable Primary Care Provider Unavailabl e Encounter Details Date Type Department Care Team (Late st Contact Info) Description 04/03/2018 Transcribed Document [facility] [place] [facility] [place] [address] ProviderDiego MD [address] [place] [address] Social History Tobacco Use Types Packs/Day Years Used Date Smoking Tobacco: Never Assessed Comments Unknown Sex and Gender Information Value Date Recorded Sex Assigned at Not on file Legal Sex Female 6:24 PM CDT Gender Identity Not on file Sexual Orientation Not on file documented as of this encounter Miscellaneous Notes * Cerner Conversion Note - Diego Mckeon MD - 04/03/2018 11:43 AM COUNTER TACKER Patient: TERRIE ANDERSEN Age: 32 years Sex: [...] influenza virus vaccine, inactivated: 0.5 mL, IntraMuscular, [id number] pneumococcal 23-polyvalent vaccine: 0.5 mL, IntraMuscular, [id number] Documented Medications Documented buprenorphine-naloxone 8 mg-2 mg [...] of po antibiotic to go home on documented in this encounter Plan of Treatment Not on file documented as of this encounter Visit Diagnoses Not on filedocumented in this encounter
--- OUTSIDE RECORDS SUMMARY | 2025-02-13 10:54 | XMS_ITS | Encounter Summary ---
Author Organization [employer] ([place], [place], [place], [place], [place]) Address [address] [place] [address] Care Team Providers Care Physician Relations Representative Name Role Phone Unavailable Primary Care Provider Unavailabl e Encounter Details Date Type Department Care Team (Late st Contact Info) Description 04/04/2018 Transcribed Document [facility] [place] [address] ProviderDiego MD [address] [place] [address] Social History Tobacco Use Types Packs/Day Years Used Date Smoking Tobacco: Never Assessed Comments Unknown Sex and Gender Information Value Date Recorded Sex Assigned at Not on file Legal Sex Female 6:24 PM CDT Gender Identity Not on file Sexual Orientation Not on file documented as of this encounter Miscellaneous Notes * Cerner Conversion Note - Diego Mckeon MD - 04/04/2018 5:23 PM TELLERS SUPERVISOR Patient: TERRIE ANEDRSEN Age: 32 years Sex: Female : 1985 [...] influenza virus vaccine, inactivated: 0.5 mL, IntraMuscular, [id number] pneumococcal 23-polyvalent vaccine: 0.5 mL, IntraMuscular, [id number] Documented Medications Documented buprenorphine-naloxone 8 mg-2 mg [...]
--- OUTSIDE RECORDS SUMMARY | 2025-02-13 10:54 | XMS_ITS | Encounter Summary ---
Author Organization [employer] ([place], [place], [place], [place], [place]) Address [address] [place] [address] Care Team Providers Care Operations Leader Name Role Phone Unavailable Primary Care Provider Unavailabl e Encounter Details Date Type Department Care Team (Late st Contact Info) Description 04/04/2018 Transcribed Document [facility] [place] [address] ProviderDiego MD [address] [place] [phone] Social History Tobacco Use Types Packs/Day Years Used Date Smoking Tobacco: Never Assessed Comments Unknown Sex and Gender Information Value Date Recorded Sex Assigned at Not on file Legal Sex Female 6:24 PM CDT Gender Identity Not on file Sexual Orientation Not on file documented as of this encounter Miscellaneous Notes * Cerner Conversion Note - Historical ProviderMD - 04/04/2018 1:57 PM INVESTIGATIONS CHIEF Patient: TERRIE ANDERSEN Age: 32 Years Sex: [...] cervical cultures sent - culdocentesis performed by FINISHED CIGAR MAKER, cytology and culture pending Valvular heart disease, mod pulmonic regurgitation Metabolic acidosis, 2/2 acute renal failure - resolved Hx of IVDA, weaned off of suboxone 5 days prior to admission to [facility] - Blood Cx neg Bradycardia overnight, [...] Total: 5.6 Gram/dL Low Electronically signed by [facility], [facility] Conversion Health Communications Specialist Cerner at 07/17/2022 7:19 PM CDT documented in this encounter Plan of Treatment Not on file documented as of this encounter Visit Diagnoses Not on filedocumented in this encounter
--- OUTSIDE RECORDS SUMMARY | 2025-02-13 10:54 | XMS_ITS | Encounter Summary ---
Author Organization [employer] ([place], [place], [place], [place], [place]) Address [address] [place] [address] Care Team Providers Care Supervisor Graphite Name Role Phone Unavailable Primary Care Provider Unavailabl e Encounter Details Date Type Department Care Team (Late st Contact Info) Description 04/04/2018 Transcribed Document [facility] [place] [facility] [place] [address] ProviderDiego MD [address] [place] [address] Social History Tobacco Use Types Packs/Day Years Used Date Smoking Tobacco: Never Assessed Comments Unknown Sex and Gender Information Value Date Recorded Sex Assigned at Not on file Legal Sex Female 6:24 PM CDT Gender Identity Not on file Sexual Orientation Not on file documented as of this encounter Miscellaneous Notes * Cerner Conversion Note - Diego Mckeon MD - 04/04/2018 9:23 AM OBSTETRICAL ANESTHESIOLOGIST Patient: TERRIE ANDERSEN Age: 32 years Sex: [...] 03 12:00) Apical HR L 53 (APR 04 04:23) L 53 (APR 04 04:23) L 53 (APR 04 04:23) Mon HR 75 (APR 04 09:00) [...] neg for schistocytes, complement normal, Negatinve ZAHRA, RI-3, MPO, Anti GBM 2. Sepsis, under treatment. [...] IVF Discussed with RN and Dr. Black documented in this encounter Plan of Treatment Not on file documented as of this encounter Visit Diagnoses Not on filedocumented in this encounter
--- OUTSIDE RECORDS SUMMARY | 2025-02-13 10:54 | XMS_ITS | Encounter Summary ---
Author Organization [employer] ([place], [place], [place], [place], [place]) Address [address] [place] [address] Care Team Providers Care Logistics/Shipper Name Role Phone Unavailable Primary Care Provider Unavailabl e Encounter Details Date Type Department Care Team (Late st Contact Info) Description 04/05/2018 Transcribed Document [facility] [place] Family [place] [facility] [place] [address] ProviderDiego MD [address] [place] [id number] Social History Tobacco Use Types Packs/Day Years Used Date Smoking Tobacco: Never Assessed Comments Unknown Sex and Gender Information Value Date Recorded Sex Assigned at Not on file Legal Sex Female 6:24 PM CDT Gender Identity Not on file Sexual Orientation Not on file documented as of this encounter Miscellaneous Notes * Cerner Conversion Note - Diego Mckeon MD - 04/05/2018 8:58 AM HOME TEACHING GRADES 9 THRU 12 TEACHER Care Management Assessment/Plan Entered On: 04/05/2018 9:01 [...] clinic will need [facility] appt [facility] home health vs not when ready for dc. spoke with zachary Sims RN. Care Management Note Report : MICHAELA OAKES, RN - 04/02/18 10:31:16 readmit risk: moderate 47. transfer [facility]. resp failure. sepsis. renal failure. pelvic ascites: ? PID vs abscess. 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 doxycycline/zyvox/zosyn iv. hydrocortisone iv. awake, talking. spoke with Ms. Andersen & her parents. explained role of case management. pt resides in [facility] with parents. she is adl independent. no dme or home health. no previous rehab stays. current with suboxone clinic in [place], [facility], . reported to be clean for a year. she has no biscuitware brusher. Would like to see Dr Titus Giron in [place]. discussed dc planning based on progess. referral to MD Jason Finder, alerted to preference of Dr Titus Giron. schedule appt with [facility] when ready for dc. spoke with zachary Espinosa RN. re-evaluate in am to see if she will need PT consult. Documentation Status Complete : Yes MICHAELA OAKES, RN - 04/05/2018 8:58 EST Electronically signed by Krystle [facility] Conversion Patternmaker Bench Cerner at 07/17/2022 7:06 PM CDT documented in this encounter Plan of Treatment Not on file documented as of this encounter Visit Diagnoses Not on filedocumented in this encounter
--- OUTSIDE RECORDS SUMMARY | 2025-02-13 10:54 | XMS_ITS | Encounter Summary ---
Author Organization [employer] ([place], [place], [place], [place], [place]) Address [address] [place] [address] Care Team Providers Care Java Designer Name Role Phone Unavailable Primary Care Provider Unavailabl e Encounter Details Date Type Department Care Team (Late st Contact Info) Description 04/04/2018 Transcribed Document [facility] [place] Family Medicine [address] [place] [address] ProviderDiego MD [address] [place] [address] Social History Tobacco Use Types Packs/Day Years Used Date Smoking Tobacco: Never Assessed Comments Unknown Sex and Gender Information Value Date Recorded Sex Assigned at Not on file Legal Sex Female 6:24 PM CDT Gender Identity Not on file Sexual Orientation Not on file documented as of this encounter Miscellaneous Notes * Cerner Conversion Note - Historical ProviderMD - 04/04/2018 5:00 AM FLOAT REMOVER Chart Check - Review Order Profile Entered On: 04/04/2018 4:07 EST Performed On: 04/04/2018 5:00 EST by TRISTA WIGGINS, RN Chart Check All Active Orders Reviewed : Yes TRISTA WIGGINS RN - 04/04/2018 4:07 EST Electronically signed by Everton Dalton Conversion Theater Set Production Designer Fady at 07/17/2022 7:02 PM CDT documented in this encounter Plan of Treatment Not on file documented as of this encounter Visit Diagnoses Not on filedocumented in this encounter
--- OUTSIDE RECORDS SUMMARY | 2025-02-13 10:54 | XMS_ITS | Encounter Summary ---
Author Organization [employer] ([place], [place], [place], [place], [place]) Address [address] [place] [address] Care Team Providers Care Farm Management Professor Name Role Phone Unavailable Primary Care Provider Unavailabl e Encounter Details Date Type Department Care Team (Late st Contact Info) Description 04/04/2018 Transcribed Document [facility] Family Medicine [facility] [address] ProviderDiego MD [address] [place] [address] Social History Tobacco Use Types Packs/Day Years Used Date Smoking Tobacco: Never Assessed Comments Unknown Sex and Gender Information Value Date Recorded Sex Assigned at Not on file Legal Sex Female 6:24 PM CDT Gender Identity Not on file Sexual Orientation Not on file documented as of this encounter Miscellaneous Notes * Cerner Conversion Note - Diego ProviderMD - 04/04/2018 9:30 AM ADDING MACHINE SERVICER RX Interventions Entered On: 04/04/2018 9:31 EST [...] Dollar Chart Review, Time : 20 Minute(s) Yuri Marino Pharmacist-Resident - 04/04/2018 9:30 EST Electronically signed by Krystle, [facility] Conversion Pump Tender Cerner at 07/17/2022 7:16 PM CDT documented in this encounter Plan of Treatment Not on file documented as of this encounter Visit Diagnoses Not on filedocumented in this encounter
--- OUTSIDE RECORDS SUMMARY | 2025-02-13 10:54 | XMS_ITS | Encounter Summary ---
Author Organization [employer] ([place], [place], [place], [place], [place]) Address [address] [place] [address] Care Team Providers Care Punchboard Assembler Name Role Phone Unavailable Primary Care Provider Unavailabl e Encounter Details Date Type Department Care Team (Late st Contact Info) Description 04/05/2018 Transcribed Document [facility] [place] [address] ProviderDiego MD [address] [place] [phone] Social History Tobacco Use Types Packs/Day Years Used Date Smoking Tobacco: Never Assessed Comments Unknown Sex and Gender Information Value Date Recorded Sex Assigned at Not on file Legal Sex Female 6:24 PM CDT Gender Identity Not on file Sexual Orientation Not on file documented as of this encounter Miscellaneous Notes * Cerner Conversion Note - Historical ProviderMD - 04/05/2018 11:32 PM DRY LUMBER GRADER Patient: TERRIE ANDERSEN Age: 32 Years Sex: [...] cervical cultures sent - culdocentesis performed by DIE CASTING MACHINE SETTER Valvular heart disease, mod pulmonic regurgitation Metabolic acidosis, 2/2 acute renal failure - resolved Hx of IVDA, weaned off of suboxone 5 days prior to admission to [facility] - Blood Cx neg Bradycardia overnight, [...] Time spent: 35 minutes Dispo: Transfer to [facility]. If PCT and leukocytosis improve, will transition [...] Level: 1.2 mg/dL Low Electronically signed by Krystle, [facility] Conversion Neurology Technologist Cerner at 07/17/2022 7:20 PM CDT documented in this encounter Plan of Treatment Not on file documented as of this encounter Visit Diagnoses Not on filedocumented in this encounter
--- OUTSIDE RECORDS SUMMARY | 2025-02-13 10:54 | XMS_ITS | Encounter Summary ---
Author Organization [employer] ([place], [place], [place], [place], [place]) Address [address] [place] [address] Care Team Providers Care Ec Teacher Name Role Phone Unavailable Primary Care Provider Unavailabl e Encounter Details Date Type Department Care Team (Late st Contact Info) Description 04/04/2018 Transcribed Document [facility] [place] Family Medicine [facility] [place] [address] ProviderDiego MD [address] [place] [phone] Social History Tobacco Use Types Packs/Day Years Used Date Smoking Tobacco: Never Assessed Comments Unknown Sex and Gender Information Value Date Recorded Sex Assigned at Not on file Legal Sex Female 6:24 PM CDT Gender Identity Not on file Sexual Orientation Not on file documented as of this encounter Miscellaneous Notes * Cerner Conversion Note - Diego ProviderMD - 04/04/2018 9:00 AM SPAR MACHINE OPERATOR Pain Assessment Entered On: 04/04/2018 18:17 EST [...]
--- OUTSIDE RECORDS SUMMARY | 2025-02-13 10:54 | XMS_ITS | Encounter Summary ---
Author Organization [employer] ([place], [place], [place], [place], [place]) Address [address] [place] [address] Care Team Providers Care Television Schedule Coordinator Name Role Phone Unavailable Primary Care Provider Unavailabl e Encounter Details Date Type Department Care Team (Late st Contact Info) Description 04/05/2018 Transcribed Document [facility] [place] [facility] [place] [address] ProviderDiego MD [address] [place] [address] Social History Tobacco Use Types Packs/Day Years Used Date Smoking Tobacco: Never Assessed Comments Unknown Sex and Gender Information Value Date Recorded Sex Assigned at Not on file Legal Sex Female 6:24 PM CDT Gender Identity Not on file Sexual Orientation Not on file documented as of this encounter Miscellaneous Notes * Cerner Conversion Note - Historical ProviderMD - 04/05/2018 5:00 AM DEVELOPMENT PROFESSIONAL Chart Check - Review Order Profile Entered [...]
--- OUTSIDE RECORDS SUMMARY | 2025-02-13 10:54 | XMS_ITS | Encounter Summary ---
Author Organization [employer] ([place], [place], [place], [place], [place]) Address [address] [place] [address] Care Team Providers Care Eyeglass Assembler Name Role Phone Unavailable Primary Care Provider Unavailabl e Encounter Details Date Type Department Care Team (Late st Contact Info) Description 04/04/2018 Transcribed Document [facility] [place] [facility] [place] [address] ProviderDiego MD [address] [place] [address] Social History Tobacco Use Types Packs/Day Years Used Date Smoking Tobacco: Never Assessed Comments Unknown Sex and Gender Information Value Date Recorded Sex Assigned at Not on file Legal Sex Female 6:24 PM CDT Gender Identity Not on file Sexual Orientation Not on file documented as of this encounter Miscellaneous Notes * Cerner Conversion Note - Historical ProviderMD - 04/04/2018 2:00 AM AUTOMOTIVE ELECTRICAL HELPER Client Solutions Director Details Entered On: 04/04/2018 0:19 EST Performed On: 04/04/2018 2:00 EST by TRISTA WIGGINS, RN Order Details Transport Mode Order Detail : Bed (including specialty) Isolation Precautions Order Detail : Contact precautions, Standard Precautions Order Detail : 1 IV Order Detail : 1 Oxygen Order Detail : 0 Nurse Collect Order Detail : 1 Lift/Transfer : Moderate assist Central Line Order Detail : Yes Room Service : Appropriate Arterial Line : No TRISTA WIGGINS, ROXANA - 04/04/2018 0:19 EST documented in this encounter Plan of Treatment Not on file documented as of this encounter Visit Diagnoses Not on filedocumented in this encounter
--- OUTSIDE RECORDS SUMMARY | 2025-02-13 10:54 | XMS_ITS | Encounter Summary ---
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 Name Role Phone Unavailable Primary Care Provider Unavailabl e Encounter Details Date Type Department Care Team (Late st Contact Info) Description 04/03/2018 Transcribed Document [facility] [place] [address] ProviderDiego MD [address] [place] [address] Social History Tobacco Use Types Packs/Day Years Used Date Smoking Tobacco: Never Assessed Comments Unknown Sex and Gender Information Value Date Recorded Sex Assigned at Not on file Legal Sex Female 6:24 PM CDT Gender Identity Not on file Sexual Orientation Not on file documented as of this encounter Miscellaneous Notes * Cerner Conversion Note - Diego ProviderMD - 04/03/2018 9:29 AM CHIEF WARDEN Pain Assessment Entered On: 04/03/2018 12:47 EST [...]
--- OUTSIDE RECORDS SUMMARY | 2025-02-13 10:54 | XMS_ITS | Encounter Summary ---
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 Name Role Phone Unavailable Primary Care Provider Unavailabl e Encounter Details Date Type Department Care Team (Late st Contact Info) Description 04/05/2018 Transcribed Document [facility] [place] Family [place] [address] ProviderDiego MD [address] [place] [address] Social History Tobacco Use Types Packs/Day Years Used Date Smoking Tobacco: Never Assessed Comments Unknown Sex and Gender Information Value Date Recorded Sex Assigned at Not on file Legal Sex Female 6:24 PM CDT Gender Identity Not on file Sexual Orientation Not on file documented as of this encounter Miscellaneous Notes * Cerner Conversion Note - Diego Mckeon MD - 04/05/2018 9:25 AM 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 Sepsis, under treatment. [...]
[2025-02-14 07:14] LABS: Hepatitis B Surface Antigen Negative (Negative)
== END 2025-02-12 23:59 | disposition home or self-care (01) ==
LOC: LAB.DROPOF 02-13 10:28
PROVIDERS: PCP Family Medicine; Visit Provider Family Medicine
DX: Z11.59 Encounter for screening for other viral diseases (principal)
CPT/HCPCS: 86803; 87340; 87389; 87522